=== PATIENT | female | born 1980 | race African-American/Black ===

== ENCOUNTER 2017-09-02 08:48 | Day surgery (SDC) | payer MEDICARE, MEDICAID ==
[2017-09-01 14:05] VITALS: BMI 22.6
[~2017-09-02 08:48] MED LIST: FLU VACC QS2017-18 36 mo. & older 0.5 ML SYRINGE IM ONE
--- OUTSIDE RECORDS SUMMARY | 2017-09-02 08:51 | XMS | Clinical Summary ---
:1980 Author Organization [facility] Address [address] [place] [phone] Phone Care Team Providers Name Role Phone , Primary Care Provider Unavailable Allergies No Known Allergies Current Medications Prescription Sig. Disp. Refills Start Date End Date Status ergocalciferol (VITAMIN Take 50,000 Units Active D2) 50,000 unit capsule by mouth once a week. cinacalcet (SENSIPAR) 30 Take 30 mg by Active MG tablet mouth daily. metoprolol (LOPRESSOR) 50 Take 50 mg by Active MG tablet mouth 3 (three) times daily. minoxidil (LONITEN) 10 MG Take 10 mg by Active tablet mouth daily. cloNIDine HCl (CATAPRES) Take 0.3 mg by Active 0.3 MG tablet mouth 3 (three) times daily. losartan (COZAAR) 100 MG Take 100 mg by Active tablet mouth 3 (three) times daily. hydrALAZINE (APRESOLINE) Take 100 mg by Active 100 MG tablet mouth 3 (three) times daily. sevelamer (RENVELA) 800 mg Take 800 mg by Active tablet mouth 3 (three) times daily with meals 5 tablets with meals . folic acid-multivitamins Take 1 tablet by Active (B COMPLEX-VITAMIN C-FOLIC mouth daily. ACID) 0.8 mg Tab tablet Active Problems Problem Noted Date Lupus (systemic lupus erythematosus) (HCC) 04/27/2013 HTN (hypertension) 04/27/2013 Pre-transplant evaluation for ESRD (end stage renal disease) 04/27/2013 Social History Tobacco Use Types Packs/Day Years Used Date Never Smoker Alcohol Use Drinks/Week oz/Week Comments No Sex Assigned at Date Recorded Not on file Last Filed Vital Signs Vital Sign Reading Time Taken Blood Pressure 128/75 08/29/2016 1:41 PM CDT Pulse 72 08/29/2016 1:41 PM CDT Temperature 36.6 C (97.8 F) 08/29/2016 11:51 AM CDT Respiratory Rate 18 08/29/2016 1:41 PM CDT Oxygen Saturation 96% 08/29/2016 11:51 AM CDT Inhaled Oxygen Concentration - - Weight 56.7 kg (125 lb) 08/29/2016 11:51 AM CDT Height 154.9 cm (5' 1") 08/29/2016 11:51 AM CDT Body Mass Index 23.62 08/29/2016 11:51 AM CDT Plan of Treatment Health Maintenance Due Date Last Done Comments INFLUENZA VACCINE 08/31/2017 Results Not on filefrom Last 3 Months
--- OUTSIDE RECORDS SUMMARY | 2017-09-02 08:51 | XMS | Clinical Summary ---
:1980 Author Organization [facility] Address [address] [place] [address] Phone Care Team Providers Name Role Phone , Primary Care Provider Unavailable Allergies Not on File Current Medications Not on file Active Problems Not on file Social History Tobacco Use Types Packs/Day Years Used Date Never Assessed Sex Assigned at Date Recorded Not on file Last Filed Vital Signs Not on file Plan of Treatment Not on file Results Not on filefrom Last 3 Months
[2017-09-02 08:59] LABS: #Eosinphils 0.1 thou/uL (0.0-0.7); #Lymphocytes 0.9 thou/uL (1.20-3.40); #Monocytes 0.3 thou/uL (0.11-0.59); #Neutrophils 2.6 thou/uL (1.40-6.50); %Basophils 0.5 % (0.0-1.0); %Eosinophils 2.3 % (0.0-10.0); %Lymphocytes 21.9 % (21.0-51.0); %Monocytes 8.7 % (0.0-10.0); Hematocrit 29.1 % (36.0-47.0); Mean Platelet Volume 8.1 fL (7.4-10.4); Red Blood Cell (RBC) Count 2.93 mill/uL (4.20-5.40); White Blood Cell (WBC) Count 3.9 thou/uL (4.8-10.8)
[2017-09-02 09:03] LABS: PTT 37.3 SEC (22.9-36.1); Prothrombin Time 14.4 SEC (12.0-14.7)
[2017-09-02 13:06] VITALS: BP 125/80; TEMP 97.5
--- NOTE | 2017-09-02 14:09 | ULT ---
ULTRASOUND GUIDED PARACENTESIS: Date: 09-02-17 History: Ascites, lupus, endstage renal disease. Technique: Consent was obtained. Patient was placed in the angiography table in the supine position. Limited sonographic evaluation of the abdomen was performed. The largest area of fluid is seen with in the midline lower pelvic infraumbilical location. This area was marked and then prepped and drape d in the usual sterile fashion. Skin subcutaneous tissues were infiltrated with buffered 1% Lidocain e for local anesthesia. Small skin incision was made. Utilizing concurrent real-time ultrasound guid ance, a 19 gauge Seculerteh needle with 5 Danish sheath was advanced into the abdomen. After the return of fluid, the sheath was advanced and needle was removed. Approximately 2 L of clear sally fluid was a spirated. The sheath was removed and hemostatis was achieved with direct pressure. Post paracentesi s sonographic images demonstrate decrease in free fluid with only very tiny amount of free intraperi toneal fluid remaining. Dry sterile dressing was placed at catheter entry site. Patient tolerated the procedure well without immediate complication. IMPRESSION: Technically successful ultrasound guided paracentesis with aspiration of two liters of sally colored fluid. POS: [facility]
== END 2017-09-02 10:30 | disposition home or self-care (01) ==
LOC: ULT 08:48
PROVIDERS: ATTEND Internal Medicine
DX: R18.8 Other ascites (principal); M32.9 Systemic lupus erythematosus, unspecified; I13.2 Hypertensive heart and chronic kidney disease with heart failure and with stage 5 chronic kidney disease, or end stage renal disease; N18.6 End stage renal disease; I50.9 Heart failure, unspecified; Z79.899 Other long term (current) drug therapy; Z99.2 Dependence on renal dialysis; Z98.51 Tubal ligation status
CPT/HCPCS: 36415; 49083; 85025; 85610; 85730

== ENCOUNTER 2017-09-30 08:55 | Day surgery (SDC) | payer MEDICARE, MEDICAID ==
[2017-09-29 08:55] VITALS: BMI 23.6
--- OUTSIDE RECORDS SUMMARY | 2017-09-30 09:05 | XMS | Clinical Summary ---
:1980 Author Organization [facility] Address [address] [place] [phone] Phone Care Team Providers Name Role Phone [...]
--- OUTSIDE RECORDS SUMMARY | 2017-09-30 09:05 | XMS | Clinical Summary ---
:1980 Author Organization [facility] Address [address] [place] [address] Phone Care Team Providers Name Role Phone [...]
[2017-09-30 11:16] VITALS: BP 104/58; TEMP 97.9
--- NOTE | 2017-09-30 15:35 | ULT ---
ULTRASOUND GUIDED PARACENTESIS: Date: 09-30-17 History: Recurrent ascites. Technique: After informed consent was obtained, the patient was placed on the sonography table in th e supine position. Limited sonographic evaluation of the abdomen was performed. An area in the mid a xillary line right upper quadrant was marked and meticulously prepped and draped in the usual steril e fashion. Skin and subcutaneous tissues were infiltrated with buffered 1% Lidocaine for local anesthesia. Smal l skin incision was made. Utilizing concurrent real-time ultrasound guidance a 19 gauge Nanoleafeh needle with 5 Macedonian sheath was advanced into the abdomen. After return of fluid, the sheath was advanced a nd needle was removed. Approximately 2700 ml of clear sally fluid was aspirated. After sheath was re moved hemostatis was achieved with direct pressure. Follow up imaging after paracentesis demonstrate s a small amount of intraperitoneal free fluid in the right upper quadrant adjacent to the liver. Patient tolerated the procedure well and without immediate complication. Dry sterile dressing was pl aced at the catheter entry site. IMPRESSION: Technically successful ultrasound guided paracentesis. POS: [facility]
== END 2017-09-30 10:20 | disposition home or self-care (01) ==
LOC: ULT 08:55
PROVIDERS: ATTEND Internal Medicine
PROC: 0W9G3ZX Drainage of Peritoneal Cavity, Percutaneous Approach, Diagnostic (ICD-10-PCS; principal; 2017-09-30)
DX: R18.8 Other ascites (principal); M32.9 Systemic lupus erythematosus, unspecified; I12.0 Hypertensive chronic kidney disease with stage 5 chronic kidney disease or end stage renal disease; N18.6 End stage renal disease; Z79.899 Other long term (current) drug therapy; Z99.2 Dependence on renal dialysis
CPT/HCPCS: 49083

== ENCOUNTER 2017-10-18 17:51 | Emergency (ER) | payer MEDICARE, MEDICAID ==
[2017-10-18 18:22] LABS: #Eosinphils 0.3 thou/uL (0.0-0.7); #Lymphocytes 0.9 thou/uL (1.20-3.40); #Monocytes 0.4 thou/uL (0.11-0.59); #Neutrophils 5.7 thou/uL (1.40-6.50); %Basophils 0.2 % (0.0-1.0); %Eosinophils 4.6 % (0.0-10.0); %Lymphocytes 12.7 % (21.0-51.0); %Monocytes 5.4 % (0.0-10.0); Hematocrit 34.8 % (36.0-47.0); Mean Platelet Volume 8.9 fL (7.4-10.4); Red Blood Cell (RBC) Count 3.38 mill/uL (4.20-5.40); White Blood Cell (WBC) Count 7.4 thou/uL (4.8-10.8)
--- NOTE | 2017-10-18 18:37 | RAD ---
CHEST ONE VIEW 10/18/17 HISTORY: Dyspnea. COMPARISON: Chest one view 07/25/17. FINDINGS: Heart size is enlarged. Mild pulmonary edema. Patchy air space opacity right lower lobe. No pneumothorax. IMPRESSION: Cardiomegaly with edema and patchy air space opacity right lower lobe also likely edematous. Followup after treatment recommended to exclude pneumonia. POS: [facility]
[2017-10-18 18:42] LABS: ALT (SGPT) 8 U/L (8-55); AST (SGOT) 14 U/L (5-34); Alkaline Phosphatase 73 U/L (40-150); Anion Gap 16 mmol/L (10-20); BUN (Urea Nitrogen) 19 mg/dL (7.0-18.7); Bilirubin, Total 0.8 mg/dL (0.2-1.2); Calc. Creatinine Clearance 0 mL/min (70-130); Calcium 10.3 mg/dL (7.8-10.44); Carbon Dioxide 33 mmol/L (22-29); Chloride 92 mmol/L (98-107); Estimated GFR-MDRD 7; Globulin 4.5 g/dL (2.4-3.5); Protein, Total 8.4 g/dL (6.0-8.3)
== END 2017-10-18 19:57 | disposition home or self-care (01) ==
LOC: ERS 17:51
DX: J98.01 Acute bronchospasm (principal); K42.9 Umbilical hernia without obstruction or gangrene; G43.909 Migraine, unspecified, not intractable, without status migrainosus; I10 Essential (primary) hypertension; M32.9 Systemic lupus erythematosus, unspecified; Z99.2 Dependence on renal dialysis
CPT/HCPCS: 36415; 71010; 80053; 85025; 93005; 94760

== ENCOUNTER 2017-11-10 16:16 | Emergency (ER) | payer MEDICARE, MEDICAID ==
[2017-11-10 16:57] LABS: #Eosinphils 0.2 thou/uL (0.0-0.7); #Lymphocytes 0.8 thou/uL (1.20-3.40); #Monocytes 0.4 thou/uL (0.11-0.59); #Neutrophils 4.1 thou/uL (1.40-6.50); %Basophils 0.7 % (0.0-1.0); %Eosinophils 3.1 % (0.0-10.0); %Lymphocytes 14.8 % (21.0-51.0); Mean Platelet Volume 8.7 fL (7.4-10.4); Red Blood Cell (RBC) Count 2.85 mill/uL (4.20-5.40); White Blood Cell (WBC) Count 5.4 thou/uL (4.8-10.8)
[2017-11-10 17:25] LABS: ALT (SGPT) 7 U/L (8-55); AST (SGOT) 14 U/L (5-34); Alkaline Phosphatase 63 U/L (40-150); Anion Gap 21 mmol/L (10-20); BUN (Urea Nitrogen) 35 mg/dL (7.0-18.7); Bilirubin, Total 0.7 mg/dL (0.2-1.2); Calc. Creatinine Clearance 0 mL/min (70-130); Calcium 9.6 mg/dL (7.8-10.44); Carbon Dioxide 26 mmol/L (22-29); Chloride 96 mmol/L (98-107); Estimated GFR-MDRD 4; Globulin 4.5 g/dL (2.4-3.5); Protein, Total 8.3 g/dL (6.0-8.3)
--- NOTE | 2017-11-10 18:47 | RAD ---
THREE VIEWS LEFT SHOULDER: History: Left shoulder pain for two days. FINDINGS: AP internally and externally and scapular Y views obtained. Subtle distal left clavicular erosive changes seen. These are chronic and unchanged since the previou s comparison chest radiograph from 07-25-17. Right subclavian endovascular stent in place. No evidence of acute fractures, subluxations, or bony lesions seen. IMPRESSION: No acute evidence of left shoulder pathology seen. POS: [facility]
[2017-11-10] MEDS ORDERED: HYDROcodone/Acetaminophen 10/325 mg Tablet ONE (20:15)
[2017-11-10] MEDS ORDERED: Ketorolac Tromethamine 30 MG/ML VIAL ONE (20:15)
== END 2017-11-10 20:30 | disposition home or self-care (01) ==
LOC: ERS 16:16
DX: M25.512 Pain in left shoulder (principal); G43.909 Migraine, unspecified, not intractable, without status migrainosus; I10 Essential (primary) hypertension
CPT/HCPCS: 36415; 80053; 85025; 85652; 93005; 96372; J1885

== ENCOUNTER 2017-11-25 20:32 | Observation (INO) | payer MEDICARE, MEDICAID ==
--- NOTE | 2017-11-25 21:42 | RAD ---
CHEST ONE VIEW 11/25/17 HISTORY: Shortness of breath. COMPARISON: 10/18/17 study. Heart size is markedly enlarged. Right brachiocephalic stent is in place. The lungs are clear of infi ltrates. There is no signs of failure. IMPRESSION: Marked cardiomegaly. POS: [facility]
[2017-11-25 21:56] LABS: #Eosinphils 0.1 thou/uL (0.0-0.7); #Lymphocytes 0.8 thou/uL (1.20-3.40); #Monocytes 0.4 thou/uL (0.11-0.59); %Basophils 0.3 % (0.0-1.0); %Eosinophils 1.5 % (0.0-10.0); %Lymphocytes 19.2 % (21.0-51.0); %Monocytes 10.3 % (0.0-10.0); %Neutrophils 68.7 % (42.0-75.0); Hemoglobin 8.9 g/dL (12.0-16.0); Mean Corpuscular HGB CONC 31.6 g/dL (32.0-36.0); Mean Corpuscular Hemoglobin 31.4 pg (27.0-31.0); Mean Corpuscular Volume 99.3 fl (81.0-99.0); Mean Platelet Volume 8.9 fL (7.4-10.4); Platelet Count 153 thou/uL (130-400); RBC Distribution Width 15.2 % (11.5-14.5); Red Blood Cell (RBC) Count 2.83 mill/uL (4.20-5.40); White Blood Cell (WBC) Count 4.3 thou/uL (4.8-10.8)
[2017-11-25 22:18] LABS: ALT (SGPT) Less than 7 U/L (8-55); AST (SGOT) 11 U/L (5-34); Albumin 3.7 g/dL (3.5-5.0); Alkaline Phosphatase 59 U/L (40-150); Anion Gap 23 mmol/L (10-20); BUN (Urea Nitrogen) 57 mg/dL (7.0-18.7); Bilirubin, Total 0.8 mg/dL (0.2-1.2); Calc. Creatinine Clearance 0 mL/min (70-130); Calcium 9.4 mg/dL (7.8-10.44); Carbon Dioxide 25 mmol/L (22-29); Chloride 91 mmol/L (98-107); Estimated GFR-MDRD 2; Globulin 4.1 g/dL (2.4-3.5); Glucose 93 mg/dL (70-105); Potassium 5.4 mmol/L (3.5-5.1); Protein, Total 7.8 g/dL (6.0-8.3); Sodium 134 mmol/L (136-145)
[2017-11-26] MEDS ORDERED: PROVENTIL INHALER 6.7 G (200 INHALATIONS) INH PRN (01:33)
[2017-11-26 05:15] VITALS: BMI 28.0
--- NOTE | 2017-11-26 05:31 | HP-2 ---
CODE STATUS: FULL. PRIMARY CARE PHYSICIAN: [facility]. ATTENDING PHYSICIAN: Dr. Josemanuel Lawton RESIDENT: Dr. Maria Dolores Hillman CHIEF COMPLAINT: Shortness of breath. HISTORY OF PRESENT ILLNESS: This is a 37-year-old female with past medical history of hypertension, lupus and end-stage renal disease on dialysis that presents with a 1 week history of shortness of sanju ath that has progressed over the past day. The patient normally goes to dialysis Friday, Friday, and Friday. However, she has not been since last Friday due to trouble with transportation. The patient endorses orthopnea and paroxysmal nocturnal dyspnea. She also has abdominal distention and l ack of urination secondary to end-stage renal disease. The patient generally gets a paracentesis per formed q.4-6 weeks, but the last time she had it done was 2 months ago. The patient sees Dr. Church as an outpatient. The patient has had her liver evaluated in the past. There have been no abnormal li alo findings previously. PAST MEDICAL HISTORY: 1. Hypertension. 2. Lupus. 3. End-stage renal disease, on hemodialysis Friday, Friday, and Fridays. 4. Migraine headaches. PAST SURGICAL HISTORY: 1. Kidney biopsy. 2. Bilateral tubal ligation. 3. Dialysis fistula in the right arm. ALLERGIES: No known drug allergies. MEDICATIONS: 1. Metoprolol tartrate 50 mg b.i.d. 2. Losartan 100 mg daily. 3. Hydralazine 100 mg t.i.d. 4. Clonidine 0.3 mg t.i.d. 5. Minoxidil 10 mg daily. FAMILY HISTORY: Noncontributory. SOCIAL HISTORY: The patient denies tobacco, alcohol, or drug use. REVIEW OF SYSTEMS: A 12 point review of systems was performed and all were negative except as listed in HPI. PHYSICAL EXAMINATION: VITAL SIGNS: Blood pressure 123/69, pulse 77, respiratory rate 16, T-max 97, pulse oximetry 99% on r oom air, current weight 65 kilograms. GENERAL: The patient is alert and oriented x3, no acute distress. Well-developed, well-nourished, a ppropriately interactive. EYES: Pupils equally round, reactive to light and accommodation. Extraocular muscles intact. The p atient does have significant periorbital edema. ENT: Nasal mucosa within normal limits. NECK: Supple, without lymphadenopathy. CARDIOVASCULAR: Regular rate and rhythm. There is a 3/6 systolic murmur. Radial and pedal pulses 2 +. RESPIRATORY: Normal respiratory effort, no retractions. Lungs are clear to auscultation bilaterally . SKIN: Warm and dry without cyanosis or lesions. ABDOMEN: Soft, nontender to palpation. She does have a notable fluid wave on abdominal exam. Her a bdomen does appear to be enlarged secondary to increased volume. EXTREMITIES: No clubbing or cyanosis. There is trace edema bilaterally of lower extremities. MUSCULOSKELETAL: Structure within normal limits. Tone within normal limits. NEUROLOGIC: No focal deficits. GCS 15. PSYCHIATRIC: Appropriate. LABORATORY DATA: WBC 4.3, hemoglobin 8.9, hematocrit 28.1, platelets 153. Sodium 134, potassium 5.4, chloride 91, bicarbonate 25, BUN 57, creatinine 20.4, glucose 93, calcium 9.4, total protein 7.8, albumin 3.7, total bilirubin 0.8, AST 11, ALT less than 7, alkaline phosphata se 59. BNP 3116. EKG shows left ventricular hypertrophy. No T-wave abnormalities. There is QT prolongation on EKG. ASSESSMENT AND PLAN: This is a 37-year-old female with end-stage renal disease, on hemodialysis , Friday, Friday, lupus and hypertension that presents with shortness of breath. 1. Fluid overload secondary to end-stage renal disease. The patient was admitted to telemetry for o bservation. Dr. Flores was consulted in the emergency department. He will be initiating dialysis t omorrow morning. The patient's potassium was 5.4. Patient is asymptomatic. There are no notable EK G abnormalities. Phosphorus is pending for the a.m. EKG did show some left ventricular hypertrophy without that T-wave changes. We will discuss possibly doing a paracentesis tomorrow depending on the schedule with dialysis. 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 Please see plan as above. 3. Hypertension. Continue home medications. 4. Ascites, unknown cause. The patient does undergo paracentesis pretty frequently. She normally g oes q.4-6 weeks; however, she has not been in 2 months. The patient may benefit from a paracentesis at this time for therapeutic purposes. The patient sees Dr. Varner as an outpatient; however, [facility] has been the ones to perform the paracentesis in the past. It is uncertain of wheth er or not there is a specific reason as to why [facility] is performing these taps. 5. Deep venous thrombosis prophylaxis, SCDs. DISPOSITION/LENGTH OF HOSPITAL STAY: One day. Symptomatic medication will be provided. History of physical exam as well as management discussed with Dr. Josemanuel Lawton.
[2017-11-26 06:11] LABS: Anion Gap 22 mmol/L (10-20); BUN (Urea Nitrogen) 60 mg/dL (7.0-18.7); Calc. Creatinine Clearance 4 mL/min (70-130); Calcium 9.5 mg/dL (7.8-10.44); Carbon Dioxide 25 mmol/L (22-29); Chloride 92 mmol/L (98-107); Estimated GFR-MDRD 2; Glucose 127 mg/dL (70-105); Potassium 5.4 mmol/L (3.5-5.1); Sodium 134 mmol/L (136-145)
[2017-11-26 06:14] LABS: Phosphorus 11.3 mg/dL (2.3-4.7)
[2017-11-26] MEDS: cloNIDine 0.3 MG TAB PO SCH ×3 (08:26→20:46)
[2017-11-26] MEDS: hydrALAZINE 25 MG TAB PO SCH ×3 (08:26→20:46)
[2017-11-26] MEDS: Metoprolol Tartrate 50 MG TAB PO SCH ×3 (08:26→20:49)
[2017-11-26 08:59] LABS: Hep B Surf Ag Non-Reactive S/CO (NonReactive)
[2017-11-26 09:27] LABS: INR-International Normal Ratio 1.2; PTT 39.4 SEC (22.9-36.1); Prothrombin Time 14.9 SEC (12.0-14.7)
--- NOTE | 2017-11-26 10:21 | PDOC.EVN ---
Attending Addendum - Attending Addendum I personally evaluated the patient and discussed the management with Dr. Hillman. I agree with the History, Examination, Assessment and Plan documented in her H& P with any addition or exceptions noted below. Patient with history of lupus resulting in ESRD on HD presents with shortness of breath. She reports that she has missed HD over the last week due to transportation issues. She has no evidence of acute coronary syndrome or ischemia as cause of her symptoms. She has been admitted for HD today. Will follow with Renal to ensure if she needs multiple days of HD to catch up with her degree of volume overload. Her vitals are currently stable. She also has history of ascites that is typically drained by IR monthly. She endorses worsening abdominal distention that is likely related to her noncompliance with HD and fluid accumulation. She should follow up with GI outpatient to arrange for further paracentesis as it is not currently causing any respiratory compromise.
[2017-11-26] MEDS: Acetaminophen 325 MG TAB PO PRN ×2 (13:34→20:49)
[2017-11-26] MEDS ORDERED: HYDROcodone/Acetaminophen 5/325 mg Tablet PO SCH (15:30)
[2017-11-26] MEDS ORDERED: Losartan Potassium 25 MG TAB PO SCH (21:00)
[2017-11-26] MEDS ORDERED: Minoxidil 10 MG TAB PO SCH (21:00)
--- NOTE | 2017-11-27 06:01 | PDOC.FM ---
- Subjective Subjective: Patient doing well this morning. Breathing better. Does report abdominal discomfort, but scheduled for paracentesis today. No other complaints and no overnight events. - Objective MAR Reviewed: Yes Vital Signs & Weight: Vital Signs (12 hours) Temp Pulse Resp BP Pulse Ox 11/27/17 03:35 98.6 F 87 16 131/71 95 11/26/17 22:58 98.3 F 91 16 114/59 L 98 11/26/17 20:00 97.7 F 89 18 11/26/17 19:03 97.7 F 89 18 121/69 97 Weight Weight 63.276 kg I&O: 11/25/17 11/26/17 11/27/17 06:59 06:59 06:59 Intake Total 925 Output Total 4500 Balance -3575 Result Diagrams: 11/25/17 21:30 11/27/17 06:42 Phys Exam - Physical Examination Constitutional: NAD HEENT: sclera anicteric Respiratory: no wheezing, no rales, no rhonchi Cardiovascular: RRR systolic murmur taut, distended, + fluid wave, small 1cm umbilical hernia (reducible) Musculoskeletal: no edema Neurological: moves all 4 limbs Psychiatric: normal affect, A&O x 3 Skin: cap refill <2 seconds Dx/Plan (1) Pulmonary HTN Code(s): I27.2 - OTHER SECONDARY PULMONARY HYPERTENSION * DO NOT USE * Status : Acute (2) Ascites Code(s): R18.8 - OTHER ASCITES Status: Chronic Qualifiers: (3) ESRD (end stage renal disease) on dialysis Code(s): N18.6 - END STAGE RENAL DISEASE; Z99.2 - DEPENDENCE ON RENAL DIALYSIS Status: Chronic (4) Hypertension Code(s): I10 - ESSENTIAL (PRIMARY) HYPERTENSION Status: Chronic (5) Lupus Code(s): M32.9 - SYSTEMIC LUPUS ERYTHEMATOSUS, UNSPECIFIED Status: Chronic (6) Hyperkalemia Code(s): E87.5 - HYPERKALEMIA Status: Acute (7) Hyperphosphatemia Code(s): E83.39 - OTHER DISORDERS OF PHOSPHORUS METABOLISM Status: Acute - Plan Plan: Volume Overload 2/2 ESRD on HD - patient missed HD last week - HD on 11/26, symptomatically improved, Cr at baseline - electrolytes improved - continue regular HD schedule - Dr. Flores following, appreciate recs Hyperkalemia - resolved with dialysis Hyperphosphatemia - improved with dialysis, repeat outpatient Ascites - chronic, patient gets symptomatic paracentesis q4-6weeks by IR - scheduled paracentesis today - unknown cause but is being followed by Dr. Varner outpatient, evaluation of liver done - FHx of ascites with mom, considering Lupus as potential cause. - HepB Ag negative - HepC Ag pending Lupus - symptomatic treatment - not on any home meds, not symptomatic at this time HTN - hypotensive after HD, so meds held, will monitor BP and slowly restart meds - likely DC today.
--- NOTE | 2017-11-27 06:11 | CON ---
DATE OF CONSULTATION: 11/26/2017 CONSULTING PHYSICIAN: Dr. Josemanuel Lawton REASON FOR CONSULTATION: End-stage renal disease evaluation. REASON FOR ADMISSION: Shortness of breath. HISTORY OF PRESENT ILLNESS: A 37-year-old female with history of hypertension, lupus, end-stage max l disease who came to the hospital with shortness of breath. She missed dialysis for a week. No fev er or chills. No nausea, vomiting. She complains of abdominal distention. PAST MEDICAL HISTORY: Positive for hypertension, lupus, end-stage renal disease, migraine headaches. PAST SURGICAL HISTORY: Kidney biopsy, bilateral tubal ligation, dialysis fistula placement. HOME MEDICATIONS: Metoprolol, losartan, hydralazine, clonidine, minoxidil. ALLERGIES: No known drug allergies. SOCIAL HISTORY: No smoking, alcohol, or illicit drug abuse. FAMILY HISTORY: No history of kidney disease. REVIEW OF SYSTEMS: The following complete review of systems was negative, unless otherwise mentioned in the HPI or below: Constitutional: Weight loss or gain, ability to conduct usual activities. Skin: Rash, itching. Eyes: Double vision, pain. ENT/Mouth: Nose bleeding, neck stiffness, pain, tenderness. Cardiovascular: Palpitations, dyspnea on exertion, orthopnea. Respiratory: Shortness of breath, wheezing, cough, hemoptysis, fever or night sweats. Gastrointestinal: Poor appetite, abdominal pain, heartburn, nausea, vomiting, constipation, or diarr hea. Genitourinary: Urgency, frequency, dysuria, nocturia. Musculoskeletal: Pain, swelling. Neurologic/Psychiatric: Anxiety, depression. Allergy/Immunologic: Skin rash, bleeding tendency. PHYSICAL EXAMINATION: GENERAL: This is a thin-built female in no apparent distress. VITAL SIGNS: Temperature 97.7, pulse 89, respiratory rate 18, blood pressure 121/69. HEENT: Atraumatic, normocephalic. Oral mucosa is moist. NECK: Supple. CARDIOVASCULAR: S1, S2 heard. Rate and rhythm regular. RESPIRATORY: Clear. ABDOMEN: Soft. MUSCULOSKELETAL: 1+ edema. DERMATOLOGIC: No skin rash. NEUROLOGIC: Alert, awake. PSYCHIATRIC: Normal mood and affect. LABORATORY DATA: Potassium is 5.4, BUN is 60, creatinine is 2.8. ASSESSMENT AND PLAN: 1. End-stage renal disease. Continue hemodialysis, tolerated. 2. Edema, remove fluid. 3. Fluid overload. 4. Ascites. Recommend with ascitic tap as needed. 5. Anemia 6. Noncompliance, counseled. Overall, poor prognosis. Continue on hemodialysis as tolerated.
[2017-11-27 07:10] LABS: Anion Gap 18 mmol/L (10-20); BUN (Urea Nitrogen) 27 mg/dL (7.0-18.7); Calc. Creatinine Clearance 6 mL/min (70-130); Carbon Dioxide 27 mmol/L (22-29); Chloride 97 mmol/L (98-107); Estimated GFR-MDRD 4; Glucose 108 mg/dL (70-105); Phosphorus 7.9 mg/dL (2.3-4.7); Potassium 4.3 mmol/L (3.5-5.1); Sodium 138 mmol/L (136-145)
[2017-11-27] MEDS ORDERED: Sodium Bicarbonate 2.4 MEQ/5 ML ONE (07:20)
--- NOTE | 2017-11-27 09:11 | ULT ---
PARACENTESIS WITH IMAGING: HISTORY: Ascites. COMPARISON: Paracentesis from 09/30/2017. FINDINGS: The patient was brought to the ultrasound suite. All questions were answered. The patient's right lower quadrant was prepped and draped in the normal sterile fashion. A time out was performed. Informed consent was already obtained. Buffered lidocaine, 3 mL, was instilled into the superficial and deep soft tissues for local anesthes ia. After adequate anesthesia was obtained, a small dermatotomy was made. Using a 5 [place] [employer] nee dle, the peritoneal space was accessed, and 3600 mL of straw-colored ascites was aspirated. The kimberly ent tolerated the procedure well. IMPRESSION: Technically successful ultrasound-guided paracentesis. POS: [facility]
[2017-11-27] MEDS: Metoprolol Tartrate 50 MG TAB PO SCH (10:45)
[2017-11-27] MEDS ORDERED: HYDROcodone/Acetaminophen 7.5/325 mg Tablet PO SCH (10:45)
[2017-11-27] MEDS: cloNIDine 0.3 MG TAB PO SCH (10:48)
[2017-11-27] MEDS: hydrALAZINE 25 MG TAB PO SCH (12:02)
[2017-11-27 12:03] VITALS: BP 129/76; TEMP 98.3
[2017-11-27 13:20] LABS: Hep C IgG Ab Non-Reactive (NonReactive)
--- NOTE | 2017-11-27 14:38 | ADD-PRG ---
DATE OF SERVICE: 11/27/2017 ADDENDUM This is an addendum to the note of Dr. Toshia Vasquez. Ms. Vogt is a pleasant 37-year-old black female with end-stage renal disease on hemodialysis , Friday, and Friday. She missed her last two dialysis sessions because of transportation issues . She presented fluid overloaded and short of breath and was taken to dialysis where she has not gre atly improved. She is breathing much easier and is becoming more euvolemic. She has a history of un explained ascites that has been worked up extensively by the GI Service. In the event, clinically sh e has improved and will likely be discharged later today or tomorrow. I have suggested checking for hepatitis C as the patient has tattoos and has been on dialysis in the past.
--- NOTE | 2017-11-27 23:06 | PRG ---
DATE OF SERVICE: 11/27/2017 SUBJECTIVE: The patient as seen and examined at the bedside and overnight events noted. The patient denies any shortness of breath or chest pain or palpitation. No history of nausea or vomiting or di arrhea or fever or chills or cramps. OBJECTIVE: GENERAL: This is a well-built female in no acute distress. VITAL SIGNS: Temperature 98.3, pulse 91, respiratory rate 16, blood pressure 129/76. HEENT: Atraumatic, normocephalic. Oral mucosa is moist. NECK: Supple. CARDIOVASCULAR: S1, S2 heard, rate and rhythm regular. RESPIRATORY: Clear to auscultation. GASTROINTESTINAL: Abdomen is soft. MUSCULOSKELETAL: No tenderness, No edema. DERMATOLOGIC: No skin rash. NEUROLOGIC: Alert, awake, and oriented X3, no focal neurologic deficits, moving all the extremities. PSYCHIATRIC: Mood and affect normal LABORATORY DATA: Potassium is 4.3, BUN is 27, creatinine is 7.2. ASSESSMENT AND PLAN: 1. End-stage renal disease currently on hemodialysis, ____. 2. Ascites, status post paracentesis. 3. Anemia. 4. Noncompliance. The patient was advised to have dialysis today, but the patient refused and will continue on dialysis as tolerated. Status post paracentesis, feeling better. The patient was advised to have regular se ssion of dialysis.
--- NOTE | 2017-11-30 19:44 | DIS-2 ---
DATE OF ADMISSION: 11/25/2017 DATE OF DISCHARGE: 11/27/2017 ADMITTING RESIDENT: Toshia Vasquez DO ADMITTING ATTENDING: Josemanuel Lawton MD DISCHARGE ATTENDING: Bryan Schultz MD CONSULTATION: Leila Flores MD, Nephrology. PROCEDURE/IMAGIN. Chest x-ray with marked cardiomegaly. 2. Paracentesis with 3600 mL of ascites fluid aspirated. PRIMARY DIAGNOSES: 1. Fluid overload secondary to end-stage renal disease. 2. Ascites, unknown etiology. SECONDARY DIAGNOSES: 1. Lupus nephritis. 2. Hypertension. 3. Migraine headaches. DISCHARGE MEDICATIONS: 1. Clonidine 0.3 mg p.o. t.i.d. 2. Hydralazine HCL 100 mg p.o. t.i.d. 3. Losartan 100 mg p.o. at bedtime. 4. Metoprolol tartrate 50 mg p.o. t.i.d. 5. Minoxidil 10 mg p.o. at bedtime. 6. Ventolin HFA inhaler, 2 puffs inhaled q.6 hours p.r.n. DISCONTINUED MEDICATIONS: None. HISTORY OF PRESENT ILLNESS/HOSPITAL COURSE: The patient is a 37-year-old -Thai female wit h past medical history of hypertension, lupus, and end-stage renal disease on dialysis who presented with a 1-week history of shortness of breath that progressed over the past day. The patient normally has dialysis on Friday, Friday, Friday; however, last week she did miss her Friday and Friday dialysis due to transportation issues. The patient also has chronic recurring ascites and has seen Dr. Telly Ayala, for a workup. At this time, etiology is unknown, but the patient does receive therapeut ic paracentesis once a month. Dr. Flores, Nephrology, was consulted and the patient was taken for a hemodialysis. Initial lab work had hyperkalemia and hyperphosphatemia, as well as a mild hyponatrem ia. These numbers were corrected with dialysis. The patient reports much improved shortness of matty th after dialysis. Since it had been greater than 1 month since her last paracentesis and the patien t had severely distended abdomen, the patient was taken back to IR for ultrasound-guided paracentesis during her stay, which also provided great relief for the patient. The patient's vital signs remain ed stable throughout her stay and the patient was discharged home in stable condition. DISCHARGE INSTRUCTIONS: 1. Location: Home. 2. Diet: Renal diet, heart healthy diet. ACTIVITY: As tolerated. FOLLOWUP: Continue with hemodialysis on Friday, Friday, and Friday; and follow up with Dr. Telly pereira s well as refinery operator vapor recovery unit for scheduled appointment.
== END 2017-11-27 15:21 | disposition home or self-care (01) ==
LOC: ERS 20:32 → 2SW 23:55
PROVIDERS: ADMIT Family Medicine; ATTEND Family Medicine
DX: I12.0 Hypertensive chronic kidney disease with stage 5 chronic kidney disease or end stage renal disease (principal); N18.6 End stage renal disease; E87.70 Fluid overload, unspecified; R18.8 Other ascites; M32.14 Glomerular disease in systemic lupus erythematosus; G43.909 Migraine, unspecified, not intractable, without status migrainosus; D63.1 Anemia in chronic kidney disease; Z99.2 Dependence on renal dialysis; Z79.899 Other long term (current) drug therapy; Z98.51 Tubal ligation status; Z98.890 Other specified postprocedural states
CPT/HCPCS: 49083; 71010; 80048 ×2; 80053; 83880; 84100 ×2; 85025; 85610; 85730; 86803; 87340; 93005; 99285; G0378; 36415; 90935; G0257

== ENCOUNTER 2018-01-06 08:23 | Day surgery (SDC) | payer MEDICARE, MEDICAID ==
[2018-01-06 08:43] LABS: INR-International Normal Ratio 1.1; PTT 38.8 SEC (22.9-36.1); Prothrombin Time 13.9 SEC (12.0-14.7)
[2018-01-06 09:08] LABS: #Eosinphils 0.1 thou/uL (0.0-0.7); #Lymphocytes 0.7 thou/uL (1.20-3.40); #Monocytes 0.2 thou/uL (0.11-0.59); %Basophils 0.1 % (0.0-1.0); %Eosinophils 3.9 % (0.0-10.0); %Lymphocytes 23.8 % (21.0-51.0); %Monocytes 6.2 % (0.0-10.0); Hemoglobin 8.9 g/dL (12.0-16.0); Mean Corpuscular HGB CONC 31.4 g/dL (32.0-36.0); Mean Corpuscular Hemoglobin 31.7 pg (27.0-31.0); Mean Platelet Volume 9.2 fL (7.4-10.4); PLT Morphology Comment PLT SLIGHTLY DECREASED; Platelet Count 112 thou/uL (130-400); RBC Distribution Width 14.9 % (11.5-14.5); Red Blood Cell (RBC) Count 2.81 mill/uL (4.20-5.40)
[2018-01-06 10:16] VITALS: BMI 24.5
[2018-01-06 10:17] VITALS: BP 173/97; TEMP 98
--- NOTE | 2018-01-06 12:29 | ULT ---
SONOGRAPHIC GUIDED PARACENTESIS: HISTORY: Recurrent ascites. FINDINGS: After explaining the procedure and answering all questions, a sonographic survey of the abdomen shows a large amount of free fluid. Sterile technique, buffered local anesthesia, sonographic guidance, a nd a right anterolateral approach were used to carefully advance a 19 gauge Yueh needle and catheter into the free fluid. The catheter was left to drain a total volume of 3.5 L of dark yellow liquid. The catheter was removed. Minimal fluid remains. The patient tolerated the procedure well and was d ismissed in good condition. IMPRESSION: Technically successful sonographic guided paracentesis. POS: [facility]
[2018-01-06] MEDS ORDERED: FLU VACC QS2017-18 36 mo. & older 0.5 ML SYRINGE IM ONE (21:00)
== END 2018-01-06 10:05 | disposition home or self-care (01) ==
LOC: ULT 08:23
PROVIDERS: ATTEND Internal Medicine
PROC: 0W9G3ZX Drainage of Peritoneal Cavity, Percutaneous Approach, Diagnostic (ICD-10-PCS; principal; 2018-01-06)
DX: R18.8 Other ascites (principal); I12.0 Hypertensive chronic kidney disease with stage 5 chronic kidney disease or end stage renal disease; N18.6 End stage renal disease; M32.9 Systemic lupus erythematosus, unspecified; Z99.2 Dependence on renal dialysis
CPT/HCPCS: 36415; 49083; 85025; 85610; 85730

== ENCOUNTER 2018-02-03 09:09 | Day surgery (SDC) | payer MEDICARE, MEDICAID ==
[2018-02-03 09:30] LABS: #Eosinphils 0.1 thou/uL (0.0-0.7); #Monocytes 0.3 thou/uL (0.11-0.59); %Basophils 0.4 % (0.0-1.0); %Eosinophils 2.3 % (0.0-10.0); %Lymphocytes 22.8 % (21.0-51.0); %Monocytes 5.7 % (0.0-10.0); %Neutrophils 68.8 % (42.0-75.0); Hemoglobin 8.7 g/dL (12.0-16.0); Mean Corpuscular HGB CONC 32.1 g/dL (32.0-36.0); Mean Corpuscular Hemoglobin 31.3 pg (27.0-31.0); Mean Corpuscular Volume 97.4 fl (81.0-99.0); Mean Platelet Volume 7.7 fL (7.4-10.4); Platelet Count 192 thou/uL (130-400); RBC Distribution Width 16.1 % (11.5-14.5); Red Blood Cell (RBC) Count 2.77 mill/uL (4.20-5.40); White Blood Cell (WBC) Count 4.3 thou/uL (4.8-10.8)
[2018-02-03 09:32] LABS: INR-International Normal Ratio 1.1; PTT 37.3 SEC (22.9-36.1); Prothrombin Time 14.2 SEC (12.0-14.7)
[2018-02-03 11:08] VITALS: BP 151/98; TEMP 98.7
--- NOTE | 2018-02-03 11:55 | ULT ---
ULTRASOUND GUIDED PARACENTESIS: Date: 02/03/18 COMPARISON: 11/27/17. HISTORY: Ascites. FINDINGS: Technically successful ultrasound guided paracentesis. A total of 4 liters of yellow-colored ascites was aspirated. The patient tolerated the procedure well. No immediate or postprocedure complications. TECHNIQUE: Consent obtained to perform an ultrasound guided paracentesis. Right lower quadrant was deemed approp riate. Skin was prepped and draped in the sterile fashion. 1% lidocaine, buffered with sodium bicarbo gregg, was used for local anesthesia. Under ultrasound guidance, a 5 Swazi 7.0 cm [employer] catheter was a dvanced into the peritoneal space. Via vacuum bottles, a total of 4 liters of yellow-colored ascites was aspirated. The patient tolerated the procedure well. No immediate or postprocedure complications. IMPRESSION: Technically successful ultrasound guided paracentesis. POS: [facility]
== END 2018-02-03 10:50 | disposition home or self-care (01) ==
LOC: ULT 09:09
PROVIDERS: ATTEND Internal Medicine
PROC: 0W9G3ZX Drainage of Peritoneal Cavity, Percutaneous Approach, Diagnostic (ICD-10-PCS; principal; 2018-02-03)
PROC: BW40ZZZ Ultrasonography of Abdomen (ICD-10-PCS; 2018-02-03)
DX: R18.8 Other ascites (principal); I12.0 Hypertensive chronic kidney disease with stage 5 chronic kidney disease or end stage renal disease; N18.6 End stage renal disease; M32.9 Systemic lupus erythematosus, unspecified; Z99.2 Dependence on renal dialysis
CPT/HCPCS: 36415; 49083; 85025; 85610; 85730

== ENCOUNTER 2018-02-18 10:48 | Day surgery (SDC) | payer MEDICARE, MEDICAID ==
[2018-02-17 14:22] VITALS: BMI 23.6
[~2018-02-18 10:48] MED LIST changes: +Prevnar 13-Val Conj/PF 0.5 ML SYRINGE IM ONE
[2018-02-18 11:33] VITALS: BP 112/74; TEMP 97.5
--- NOTE | 2018-02-18 15:03 | ULT ---
ULTRASOUND GUIDED PARACENTESIS: Date: 02/18/18 COMPARISON: 02/03/18. HISTORY: Ascites. FINDINGS: Technically successful ultrasound guided paracentesis. A total of 5,200 mL of yellow-colored ascites was removed. A small amount of postprocedure fluid is present in the peritoneal space. TECHNIQUE: Consent obtained to perform an ultrasound guided paracentesis. The patient's abdomen was evaluated. R ight lower quadrant was deemed appropriate. Skin was prepped and draped in the sterile fashion. 1% li docaine, buffered with sodium bicarbonate, was used for local anesthesia. Under ultrasound guidance, a 5 Lithuanian 7.0 cm catheter was advanced into the peritoneal space. Via vacuum bottles, a total of 5,2 00 mL of yellow-colored ascites was aspirated. The patient tolerated the procedure well. No immediate or postprocedure complications. IMPRESSION: Successful ultrasound guided paracentesis. POS: [facility]
== END 2018-02-18 14:30 | disposition home or self-care (01) ==
LOC: ULT 10:48
PROVIDERS: ATTEND Internal Medicine
PROC: 0W9G3ZZ Drainage of Peritoneal Cavity, Percutaneous Approach (ICD-10-PCS; principal; 2018-02-18)
DX: R18.8 Other ascites (principal); I12.0 Hypertensive chronic kidney disease with stage 5 chronic kidney disease or end stage renal disease; N18.6 End stage renal disease; M32.9 Systemic lupus erythematosus, unspecified; Z99.2 Dependence on renal dialysis; Z79.899 Other long term (current) drug therapy
CPT/HCPCS: 49083

== ENCOUNTER 2018-02-23 09:21 | Emergency (ER) | payer MEDICARE, MEDICAID ==
[2018-02-23] MEDS ORDERED: Aspirin 325 MG TAB ONE (09:37)
[2018-02-23 10:01] LABS: #Basophils 0.1 thou/uL (0.0-0.2); #Eosinphils 0.2 thou/uL (0.0-0.7); #Lymphocytes 0.3 thou/uL (1.20-3.40); #Monocytes 0.3 thou/uL (0.11-0.59); #Neutrophils 10.6 thou/uL (1.40-6.50); %Basophils 1.1 % (0.0-1.0); %Lymphocytes 2.4 % (21.0-51.0); %Monocytes 2.6 % (0.0-10.0); %Neutrophils 91.9 % (42.0-75.0); Hemoglobin 8.8 g/dL (12.0-16.0); Mean Corpuscular HGB CONC 31.2 g/dL (32.0-36.0); Mean Corpuscular Hemoglobin 30.9 pg (27.0-31.0); Mean Corpuscular Volume 99.1 fl (81.0-99.0); Mean Platelet Volume 8.5 fL (7.4-10.4); Platelet Count 226 thou/uL (130-400); RBC Distribution Width 15.4 % (11.5-14.5); Red Blood Cell (RBC) Count 2.84 mill/uL (4.20-5.40); White Blood Cell (WBC) Count 11.6 thou/uL (4.8-10.8)
[2018-02-23] MEDS ORDERED: Morphine 4 MG/ML VIAL ONE ×2 (10:14→11:47)
--- NOTE | 2018-02-23 10:15 | RAD ---
CHEST TWO VIEWS: HISTORY: Chest pain. COMPARISON: 12/06/2016 and 11/25/2017 FINDINGS: The cardiac silhouette is enlarged. The pulmonary vasculature is at the upper limits of normal. The mediastinum is midline. There is no confluent air space consolidation, pneumothorax, or pleural flu id apparent. A metallic stent is in the right brachiocephalic vessels. Metallic clips are in the ri ght axilla and right arm. IMPRESSION: Cardiomegaly. No evidence of pulmonary vascular congestion. POS: [facility]
[2018-02-23 10:19] LABS: ALT (SGPT) 10 U/L (8-55); AST (SGOT) 23 U/L (5-34); Albumin 3.8 g/dL (3.5-5.0); Alkaline Phosphatase 123 U/L (40-150); Anion Gap 21 mmol/L (10-20); BUN (Urea Nitrogen) 47 mg/dL (7.0-18.7); Bilirubin, Total 0.7 mg/dL (0.2-1.2); CK (CPK) 519 U/L (29-168); Calc. Creatinine Clearance 0 mL/min (70-130); Calcium 10.2 mg/dL (7.8-10.44); Carbon Dioxide 25 mmol/L (22-29); Chloride 90 mmol/L (98-107); Estimated GFR-MDRD 4; Glucose 73 mg/dL (70-105); Potassium 6.2 mmol/L (3.5-5.1); Protein, Total 7.8 g/dL (6.0-8.3); Sodium 130 mmol/L (136-145)
[2018-02-23 10:27] LABS: CKMB 7.4 ng/mL (0-6.6); Troponin I 2.696 ng/mL (< 0.028)
[2018-02-23] MEDS ORDERED: Metoprolol Tartrate 5 MG/5 ML VIAL ONE (12:21)
[2018-02-23] MEDS ORDERED: HYDROmorphone 0.5 MG/0.5 ML SYRINGE SLOW IVP SCH (14:00)
== END 2018-02-23 15:56 | disposition short-term general hospital (02) ==
LOC: ERS 09:21
DX: T82.847A Pain due to cardiac prosthetic devices, implants and grafts, initial encounter (principal); R07.9 Chest pain, unspecified; I25.2 Old myocardial infarction; G43.909 Migraine, unspecified, not intractable, without status migrainosus; I10 Essential (primary) hypertension; M32.9 Systemic lupus erythematosus, unspecified; Z79.899 Other long term (current) drug therapy; Z99.2 Dependence on renal dialysis
CPT/HCPCS: 71046; 80053; 82553; 83880; 84484; 85025; 93005; 96374; 96375; 96376; J1170; J2270

== ENCOUNTER 2018-03-09 02:34 | Inpatient (IN) | payer MEDICARE, MEDICAID ==
[2018-03-09 03:19] LABS: #Lymphocytes 1.8 thou/uL (1.20-3.40); #Monocytes 0.7 thou/uL (0.11-0.59); #Neutrophils 8.8 thou/uL (1.40-6.50); %Eosinophils 0.2 % (0.0-10.0); %Lymphocytes 16.1 % (21.0-51.0); %Neutrophils 77.6 % (42.0-75.0); Hemoglobin 8.9 g/dL (12.0-16.0); Mean Corpuscular HGB CONC 32.2 g/dL (32.0-36.0); Mean Corpuscular Hemoglobin 30.8 pg (27.0-31.0); Mean Corpuscular Volume 95.9 fl (81.0-99.0); Platelet Count 311 thou/uL (130-400); RBC Distribution Width 18.2 % (11.5-14.5); Red Blood Cell (RBC) Count 2.88 mill/uL (4.20-5.40); White Blood Cell (WBC) Count 11.3 thou/uL (4.8-10.8)
[2018-03-09 03:26] LABS: INR-International Normal Ratio 1.6; PTT 29.7 SEC (22.9-36.1); Prothrombin Time 19.8 SEC (12.0-14.7)
[2018-03-09] MEDS ORDERED: Ondansetron HCl/PF 4 MG/2 ML Vial ONE (03:27)
[2018-03-09] MEDS ORDERED: Metoprolol Tartrate 5 MG/5 ML VIAL ONE ×2 (03:27→16:23)
[2018-03-09 03:41] LABS: ALT (SGPT) 609 U/L (8-55); AST (SGOT) 2094 U/L (5-34); Albumin 3.5 g/dL (3.5-5.0); Alkaline Phosphatase 583 U/L (40-150); Anion Gap 32 mmol/L (10-20); BUN (Urea Nitrogen) 33 mg/dL (7.0-18.7); Bilirubin, Total 1.8 mg/dL (0.2-1.2); Calc. Creatinine Clearance 0 mL/min (70-130); Calcium 10.2 mg/dL (7.8-10.44); Carbon Dioxide 16 mmol/L (22-29); Chloride 89 mmol/L (98-107); Estimated GFR-MDRD 7; Globulin 4.7 g/dL (2.4-3.5); Lipase 41 U/L (8-78); Magnesium 2.3 mg/dL (1.6-2.6); Potassium 5.4 mmol/L (3.5-5.1); Protein, Total 8.2 g/dL (6.0-8.3); Sodium 132 mmol/L (136-145)
[2018-03-09 03:46] LABS: Critical Call Chem Troponin I RESULT DECREASING; Glucose 41 mg/dL (70-105); Troponin I 1.772 ng/mL (< 0.028)
[2018-03-09] MEDS ORDERED: Dextrose 50% Abboject 50 ML SYRINGE ONE ×2 (03:46→14:34)
[2018-03-09] MEDS ORDERED: Acetaminophen 325 MG TAB PO PRN (05:54)
[2018-03-09] MEDS ORDERED: Ondansetron ODT 4 MG TAB SL PRN (05:54)
[2018-03-09] MEDS ORDERED: Ondansetron HCl/PF 4 MG/2 ML Vial IVP PRN (05:54)
[2018-03-09 06:44] LABS: Troponin I 1.547 ng/mL (< 0.028)
--- NOTE | 2018-03-09 08:03 | RAD ---
SINGLE VIEW CHEST: Date: 03/09/18 COMPARISON: 11/25/17. HISTORY: Shortness of breath with nausea and vomiting. FINDINGS: Single view of the chest shows an enlarged cardiomediastinal silhouette. This has enlarged and is gre ater than on the prior examination. There is no evidence of consolidation, mass, or pleural effusion. A stent is seen in the right subclavian region. IMPRESSION: Cardiomegaly. POS: [facility]
--- NOTE | 2018-03-09 08:25 | CT ---
PRELIMINARY REPORT/[facility]/EMERGENTY AFTER-HOURS PROCEDURE CT Abdomen and Pelvis With Intravenous Contrast CLINICAL HISTORY: 38 years old, female; Signs and symptoms; Nausea and vomiting; Prior surgery; Surgery type: Kidney bi opsy, surgical history of tubal ligation; Patient HX: Er 12; HX of ascites; Elevated lfts; 38 yo f pr esents to ed C/O generalized weakness that started last night at 22: 00. Reports n/v since last night . Denies abdominal pain. Also reports SOB. Pt is a dialysis pt. Pt states that she is scheduled to [facility] abdominal centesis on friday TECHNIQUE: Axial computed tomography images of the abdomen and pelvis with intravenous contrast. COMPARISON: No relevant prior studies available. FINDINGS: Lung bases: Microatelectasis and air trapping in the lung bases. Heart: Massive pericardial effusion. ABDOMEN: Liver: The liver demonstrates diffuse heterogeneous enhancement without clear cirrhotic change withou t discrete mass. No narrowing of the hepatic veins or intrahepatic IVC. Portal vein is patent. There is periportal edema including pericholecystic fluid. Gallbladder and bile ducts: Gallbladder lumen is compressed with possible gallbladder wall edema. No cholelithiasis. No biliary ductal dilatation. Pancreas: Unremarkable. No mass. No ductal dilation. Spleen: Unremarkable. No splenomegaly. Adrenals: Unremarkable. No mass. Kidneys and ureters: Incidental small bilateral renal cysts. Advanced chronic medical renal disease. No hydronephrosis. Stomach and bowel: No bowel wall thickening or intestinal obstruction. Appendix: Normal appendix. PELVIS: Bladder: Unremarkable. No mass. Reproductive: Unremarkable as visualized. ABDOMEN and PELVIS: Intraperitoneal space: Massive amount of ascites. No free air. Bones/joints: No acute fracture. No dislocation. Soft tissues: Small umbilical hernia containing fat only. Vasculature: Unremarkable. No abdominal aortic aneurysm. Lymph nodes: Unremarkable. No enlarged lymph nodes. IMPRESSION: 1. Massive pericardial effusion. 2. Massive amount of ascites. 3. Nonspecific abnormal diffuse heterogeneous enhancement of the liver may signify acute hepatitis. 4. There is periportal edema, including pericholecystic fluid, and possible gallbladder wall edema, a ttributable to patient's fluid status, hepatic dysfunction, or both. Findings discussed with CECILIA CASTELAN MD at time of interpretation. Thank you for allowing us to participate in the care of your patient. Dictated and Authenticated by: Albert García MD 03/09/2018 4:53 AM Central Time ([place] & [place]) FINAL REPORT EMERGENCY AFTER HOURS CT ABDOMEN AND PELVIS WITH CONTRAST: Date: 03/09/18 FINDINGS/IMPRESSION: I agree with the findings and impression given in the preliminary report per [facility] physician. 1. There is a large amount of ascites. 2. There is a large pericardial effusion. 3. Heterogeneous enhancement of the liver, which is nonspecific. POS: [facility]
[2018-03-09] MEDS ORDERED: Prevnar 13-Val Conj/PF 0.5 ML SYRINGE IM ONE (09:00)
[2018-03-09 09:28] LABS: Troponin I 1.719 ng/mL (< 0.028)
--- NOTE | 2018-03-09 10:36 | PDOC.EVN ---
Event Note - Event Note Event Note: [id number] h&P dictated 1.ESRD 2. HTN 3. Pericardial effusion + Abnormal cardiac enzymes 4. Ascites plan: see orders
[2018-03-09] MEDS ORDERED: Ketamine 50 MG/ML VIAL ONE (12:38)
[2018-03-09] MEDS ORDERED: Midazolam HCl 2 mg/2 ml Vial ONE (12:38)
[2018-03-09] MEDS ORDERED: Fentanyl 100 MCG/2 ML VIAL ONE (12:38)
--- NOTE | 2018-03-09 12:41 | PDOC.PN ---
- Subjective Encounter Start Date: 03/09/18 Encounter Start Time: 12:30 CC: Code blue Sub: Code blue was called while pt on dialysis. Pt had CPR, epinephrine and paricardiocentesis done during code blue. Currently has pulse - Objective Vital Signs & Weight: Vital Signs (12 hours) Temp Pulse Resp BP Pulse Ox 03/09/18 08:00 96.9 F L 88 16 100 03/09/18 07:13 96.9 F L 88 16 130/100 H 100 03/09/18 05:55 97.4 F L 92 16 161/124 H 100 Weight Weight 125 lb Result Diagrams: 03/09/18 14:33 03/09/18 14:33 Dx/Plan - Plan Physical exam: General: Unresponsive HEENT: ant nares patent cvs: s1s2 tachy RS: Positive ET tube, currently being bagged IT SUPPORT SPECIALIST: unresponsive and not following commands Labs: Reviewed A/P: Ms Vogt is 38 yrs odl female 1. Cardiac arrest: S/P cardiac arrest continue vasopressors Bp stable at present 2. Acute respiratory failure: Continue respiratory support Reviewed ABG & CXR Continue sodium bicarbonate Anesthesia on board 3. Acute anemia over anemia of chronic disease: Will give two units of PRBC Monitor hgb closely 4. Pericardial effusion: S/P Pericardiocentes CT surgery on board Pericardial window now 5. ESRD: Had HD for 50 minutes per RN Nephrology on board Management per Dr Church 6. Ascites: hold paracentesis for now Monitor for now D/W Dr Irving, Code team Update pt grand mother and pt aunt at bed side in detail about pt critical condition and prognosis. Time spent 45 minutes approximately.
[2018-03-09] MEDS ORDERED: Sodium Bicarb 50 MEQ/50 ML Abboject 8.4% SYRINGE ONE ×2 (12:56→16:32)
[2018-03-09 13:14] LABS: #Lymphocytes 1.7 thou/uL (1.20-3.40); #Monocytes 0.7 thou/uL (0.11-0.59); #Neutrophils 9.2 thou/uL (1.40-6.50); %Basophils 0.1 % (0.0-1.0); %Lymphocytes 14.9 % (21.0-51.0); %Monocytes 5.9 % (0.0-10.0); Hemoglobin 6.7 g/dL (12.0-16.0); Mean Corpuscular Volume 99.9 fl (81.0-99.0); Mean Platelet Volume 9.3 fL (7.4-10.4); Platelet Count 300 thou/uL (130-400); RBC Distribution Width 18.2 % (11.5-14.5); Red Blood Cell (RBC) Count 2.22 mill/uL (4.20-5.40); White Blood Cell (WBC) Count 11.6 thou/uL (4.8-10.8)
[2018-03-09 13:35] LABS: Protein, Total 5.9 g/dL (6.0-8.3)
--- NOTE | 2018-03-09 13:49 | PDOC.EVN ---
Event Note - Event Note Event Note: Called to a code blue in dialysis for this patient, not under our care in the hospital admitted for abd pain, ESRD and pericardial effusion. [facility] team presented to code with attending Dr. Rocha. Pt was found to be pulseless and CPR started prior to our arrival. The code was started at 1155 and ended at 1236. ROSC was achieved 3x with loss of pulse twice during code. 1 mg epi given 3x and ultimately epi drip was started. Pt also administered 2 amps of bicarb and calcium chloride. Pt was intubated by ED staff with need for RSI (etomidate and daily used), NG placed. Informed during code pt had Hg of 4.8 and ordered [address] Irving performed pericardiocentesis in code after stat echo showed large pericardial effusion. After final ROSC, pt to go to OR with Dr. Ham for pericardial window procedure. Please review code record for further details about code participants, detailed time and admin of medications and staffing. <Elise Scott - Last Filed: 03/09/18 13:19> Attending Addendum - Attending Addendum Date/Time: 03/13/18 [id number] I personally evaluated the patient and participated in the Code Response with Patrick Salgado, and Rafy. I agree with the description of resuscitation as documented above. <Zhao Rocha - Last Filed: 03/13/18 14:58>
--- NOTE | 2018-03-09 14:13 | CON ---
DATE OF CONSULTATION: 03/09/2018 REASON FOR CONSULTATION: Hyperkalemia. HISTORY OF PRESENT ILLNESS: A 38-year-old female being seen for end-stage renal disease, who present ed to the hospital with sudden onset of shortness of breath, was noted to have elevated troponin, per icardial effusion, and hyperkalemia. The patient can give no further history. PAST MEDICAL HISTORY: Significant for hypertension, anemia, lupus nephritis, history of congestive h eart failure, history of anemia, history of migraine headaches, history of kidney biopsy, history of tubal ligation, history of AV fistula, history of tunneled dialysis catheter, and history of sepsis. HOME MEDICATIONS: List reviewed. HOSPITAL MEDICATIONS: Reviewed. ALLERGIES: Reviewed. REVIEW OF SYSTEMS: Unobtainable, the patient is very short of breath. PHYSICAL EXAMINATION: GENERAL: Patient is in mild to moderate distress. VITAL SIGNS: Afebrile, pulse 75, breathing 16, and blood pressure is 131/100. GENERAL APPEARANCE AND MENTAL STATUS: Fair. HEAD/NECK: Normocephalic. Atraumatic. EYES: EOMI. No deformity. EARS: Clear. No ulcers. NOSE: Intact. No lesions. MOUTH: Clear. No discharge. THROAT: Clear. No exudate. LUNGS: Clear. No crackles. CARDIAC: S1, S2. No rub. ABDOMEN: Ascites. GENITALIA/RECTUM: Sadler absent. BACK/EXTREMITIES: Edema 0+ Ulcer- NEUROLOGICAL: Alert and motor intact. SKIN: Rash- Bruise- LYMPHATICS: Edema- Ulcer- LABORATORY DATA: Hemoglobin 8.9, potassium 5.4. ASSESSMENT AND RECOMMENDATIONS: 1. Stage 6 chronic disease. We will plan dialysis. 2. Hypertension, stable. 3. Anemia, stable. 4. Pericardial effusion. I will order a stat echo and consult Cardiology. 5. Elevated troponin, per Cardiology. 6. Congestive heart failure. Plan ultrafiltration. 7. Ascites. 8. Overall, prognosis is extremely poor. I have discussed the above findings with the primary team.
--- NOTE | 2018-03-09 14:27 | RAD ---
RADIOGRAPH CHEST 1 VIEW: Date: 03-09-18 Time: 1:58 p.m. HISTORY: 38-year-old female status post acute total atelectasis of left lung. COMPARISON: 03-09-18 at 12:24 p.m. FINDINGS: The endotracheal tube has been retracted a distance of greater than 6 cm, with distal tip now at the mid thoracic trachea. There has been re-expansion of the left lung, with interval resolution of the p reviously demonstrated total opacification of the left hemithorax. There are small areas of residual airspace density, probably representing atelectasis, in the central left upper lobe and medial left l ower lobe. There is interval worsening of increasing density in the right lower lung zone. Overall mi ld right interstitial edema appears slightly improved. Again noted is the cardiomegaly, but this has apparently improved compared to 03-09-18 at 12:00 a.m. The nasogastric tube has been retracted such renetta t the side port is at the level of the distal esophagus, slightly superior to the EG junction; and wi th the distal tip in the proximal stomach. IMPRESSION: 1. Retraction of the endotracheal tube back to the appropriate position in the mid thoracic trachea. 2. Interval resolution of the previously demonstrated total atelectasis of the left lung. 3. Small areas of airspace densities bilaterally. 4. Interval improvement in the previously very severe enlargement of the cardiac shadow, presumably d ue to drainage of the pericardial effusion by pericardial window procedure. TERI POS: [facility]
--- NOTE | 2018-03-09 14:42 | RAD ---
RADIOGRAPH CHEST 1 VIEW: Date: 03/09/18. Time: 12:24 p.m. HISTORY: A 38-year-old female with pericardial effusion. Dr. Obrien notified the patient's nurse, Ryanne, of the findings at 12:42 p.m. on 03/09/18, then spoke t o OR credit coordinator, Екатерина Arriaga, at 12:45 p.m. on 03/09/18. She stated that the physicians in the OR are aware of the collapsed left lung. COMPARISON: 03/09/18, 3:12 a.m. FINDINGS: An endotracheal tube has now been placed deep into the right mainstem bronchus, and is actually at th e origin of the right lower lobe bronchus. There is a new finding of total opacification of the left hemithorax, representing total collapse of the left lung. Again noted is the severely enlarged card iac shadow, due to a combination of large pericardial effusion and true cardiomegaly. There is anoth er new finding of diffusely mild interstitial densities throughout the right lung, consistent with un ilateral right pulmonary interstitial edema. Again noted is the right subclavian and right brachioce phalic vascular stent. No pneumothorax. NG tube has been placed, with side port and inferior tip in ferior to the diaphragm, outside of the field of view. IMPRESSION: 1. Total atelectasis of the left lung, due to intubation into the right mainstem bronchus and right lower lobe bronchus. 2. Interval development of interstitial edema throughout the right lung. 3. Large pericardial effusion and cardiomegaly. 4. Nasogastric tube placement. CODE CR JN [] POS: [facility]
[2018-03-09] MEDS ORDERED: ISOVUE-370 76%-LOCM 1 ML ONE (14:44)
[2018-03-09 14:51] LABS: Actual Bicarbonate (HCO3a) 15.4 mEq/L (22-26); Base Excess (BEa) -8.7 mEq/L (0 (+/-) 2.5); CO2 Tension 25.5 mmHg (35.0-45.0); Hematocrit-ABG 21.7 % (36.0-47.0); Hemoglobin (Hb) 5.4 g/dL (12.0-16.0)
[2018-03-09 14:52] LABS: ALV-art Gradient 261.725 (0-20); Calcium, Ionized 1.1 mmol/L (1.12-1.30); Puncture Site LR
[2018-03-09] MEDS ORDERED: hydrALAZINE 25 MG TAB PO SCH (15:00)
[2018-03-09 15:03] LABS: Anion Gap 34 mmol/L (10-20); BUN (Urea Nitrogen) 32 mg/dL (7.0-18.7); Calc. Creatinine Clearance 10 mL/min (70-130); Calcium 10.5 mg/dL (7.8-10.44); Carbon Dioxide 17 mmol/L (22-29); Chloride 92 mmol/L (98-107); Estimated GFR-MDRD 8; Potassium 4.3 mmol/L (3.5-5.1); Sodium 139 mmol/L (136-145)
[2018-03-09 15:10] LABS: Glucose 9 mg/dL (70-105)
--- NOTE | 2018-03-09 15:10 | HP ---
DATE OF ADMISSION: 03/09/2018 CHIEF COMPLAINT: Dyspnea, fatigue, chest heaviness. HISTORY OF PRESENT ILLNESS: The patient is a 38-year-old female with past medical history of ESRD, hypertension, lupus, migraine, now came to the ER complaining of chest pain, dyspnea and fatigue. The patient said she started with symptoms a few days back, since then she is having fatigue, complains of dyspnea also dyspnea occurs even on resting and lying flat. The patient complains of abdominal ascites for which she was supposed to have paracentesis done tomorrow. Complains of chest pain. Chest pain is right-sided, heaviness kind of pain, mild intensity. Denies any radiation. No bruits, swelling factors, intermittent. Denies any nausea, denies any vomiting, denies any diarrhea. Complains some PND also from the diffuse ascites, denies any fever, denies any chills, denies cough, denies sputum production. PAST MEDICAL HISTORY: As per HPI. PAST SURGICAL HISTORY: Kidney biopsy, bilateral tubal ligation, AV fistula. ALLERGIES: No known drug allergies. MEDICATIONS: Reviewed. FAMILY HISTORY: Denies heart problems. REVIEW OF SYSTEMS: CONSTITUTIONAL: Denies any fever, denies any chills. EYES: Denies any vision problems. ENT: Negative. NECK: Denies neck pain. CARDIOVASCULAR: Positive for chest pain. RESPIRATORY: Positive for dyspnea. GASTROINTESTINAL: Positive for ascites. MUSCULOSKELETAL: Positive for bilateral swelling. INTEGUMENTARY: Denies any rash. CRANIAL NERVE SYSTEM: Denies syncope, dizziness. PSYCHIATRIC: No anxiety. All other review of systems are reviewed and are negative. PHYSICAL EXAMINATION: VITAL SIGNS: At admission performed temperature 96.9, heart rate 88, respiration 16, blood pressure is 130/100 to 161/124. GENERAL: The patient appears comfortable. HEENT: Pupils equal, round, and reactive. ENT patent. Nose normal. Tongue appears moist. NECK: Supple, no JVD. CARDIOVASCULAR: S1, S2 present. Regular rate and rhythm. Muffled heart sounds. No rubs, no murmurs, no rubs, no gallops. RESPIRATORY: Diminished breath sounds bilaterally, no wheezing, no rhonchi. ABDOMEN: Soft, nontender, no guarding, no organomegaly, n positive ascites, positive fluid thrill PSYCH: Mood appears calm. INTEGUMENT: Denies rash. GENITOURINARY: No suprapubic tenderness. MUSCULOSKELETAL: Positive for edema. NEUROLOGIC: Awake, follows commands. Strength intact, sensory intact. Psych: Mood calm LABORATORY DATA: At the time of H&P performed with white count of 11.3, hemoglobin 8.9, platelet count is 311. PT 19.8, INR 1.6. BMP showed sodium 132 , potassium 5.4, chloride is 89, CO2 16, BUN 33, creatinine 8.08, troponin is 1.719. Initial troponin at the time admission is 1.772., prevois troponin 2.69 on 02/23/18 ASSESSMENT AND PLAN: The patient is 38-year-old female. 1. Pericardial effusion plus abnormal cardiac enzymes. The elevated troponin might be demand ischemia, but with the patient now pericardial effusion, we will go ahead and consult Cardiology to see the patient. The patient is on minoxidil as an outpatient. We will go ahead and hold minoxidil for now due to pericardial effusion. We will keep patient n.p.o. Will wait for cardio input regarding CT surgery. 2. Ascites. Plan to consult IR for paracentesis and we will monitor the patient. 3. End-stage renal disease plus hyperkalemia plus metabolic acidosis. Plan to consult Nephrology for hemodialysis. Hold losartan at this time. 4. Pain, p.r.n. pain. 5. History of lupus. Continue home medications. The case was discussed in detail with the patient. [facility]
[2018-03-09 15:11] LABS: Glucose Accucheck Confirmation 9 mg/dl (70-105)
[2018-03-09] MEDS ORDERED: Vancomycin HCl 1 GM in Sodium Chloride 0.9% 250 ML 250 ML IVPB ONE (15:13)
[2018-03-09] MEDS ORDERED: DEXTROSE 70% IV SCH ×2 (15:15→15:45)
[2018-03-09] MEDS ORDERED: WATER IV SCH ×2 (15:15→15:45)
[2018-03-09] MEDS ORDERED: STERILE WATER IV SCH ×2 (15:15→15:45)
[2018-03-09 15:16] LABS: Anisocytosis MODERATE=16-30 cells (100X) (0-5/hpf); Band 14 % (5-11); Burr Cells SLIGHT = 2-5 cells (100X) (0-1/hpf); Elliptocytes SLIGHT = 2-5 cells (100X) (0-1/hpf); Hemoglobin 6.6 g/dL (12.0-16.0); Lymphocytes 6 % (21-51); MDiff Complete? YES; Mean Corpuscular HGB CONC 30.2 g/dL (32.0-36.0); Mean Corpuscular Hemoglobin 30.4 pg (27.0-31.0); Mean Platelet Volume 9.2 fL (7.4-10.4); Monocytes 2 % (0-10); Neutrophil 77 % (42-75); Ovalocytes SLIGHT = 2-5 cells (100X) (0-1/hpf); PLT Morphology Comment Appears Adequate; Platelet Count 243 thou/uL (130-400); Poikilocytosis SLIGHT = 6-15 cells (100X) (0-5/hpf); Polychromasia MODERATE = 3-4 cells (100X) (0-2/hpf); RBC Distribution Width 17.9 % (11.5-14.5); Reactive Lymphocytes 1 % (0-10); Red Blood Cell (RBC) Count 2.17 mill/uL (4.20-5.40); Schistocytes SLIGHT = 2-5 cells (100X) (0-1/hpf); Vacuoles SLIGHT; White Blood Cell (WBC) Count 17.4 thou/uL (4.8-10.8)
[2018-03-09] MEDS ORDERED: Cefepime 1 GM, Admixture Fee 1 EACH in Sodium Chloride 0.9% 10 ML SLOW IVP SCH (15:30)
[2018-03-09 15:39] LABS: Potassium 4.3 mmol/L (3.5-5.1)
--- NOTE | 2018-03-09 16:05 | OP ---
PREOPERATIVE DIAGNOSIS: Cardiopulmonary arrest with pericardial effusion and ascites with chronic ki dney disease. PROCEDURE: Emergency pericardial window. SURGEON: Damion Ham M.D. ANESTHESIA: General. ESTIMATED BLOOD LOSS: Minimal. FINDINGS: The patient had 150 mL of dark bloody fluid in the pericardial space with stranding presen t suggesting a subacute process. PROCEDURE IN DETAIL: After prepping and draping, incision was made at the xiphoid and carried along the left side of the xiphoid. Fascia was incised and blunt dissection was carried up to the pericard ium, which was incised and the fluid removed. A 19 drain was then placed through a separate stab inc ision, following which the fascia was closed with interrupted [id number] Vicryl sutures and the subcutaneous tissue and skin reapproximated. The patient tolerated the procedure well.
[2018-03-09] MEDS ORDERED: Propofol 1,000 MG/100 ML VIAL IV ONE (16:22)
[2018-03-09] MEDS: Vancomycin HCl 1 GM in Premix Bag 1 BAG IVPB SCH (16:28)
[2018-03-09] MEDS ORDERED: Metoprolol Tartrate 5 MG/5 ML VIAL IVP SCH ×2 (16:29→17:30)
[2018-03-09] MEDS ORDERED: niCARdipine 40MG In NaCl 40 MG/200 ML BAG IVPB SCH (16:30)
--- NOTE | 2018-03-09 16:31 | PDOC.EVN ---
Event Note - Event Note Event Note: Pt is s/p pericardial window. Currently not on vasopressors and on vent support. D/W pt brother, aunts, nieces, grand mother, daughter. Explained to all of them about pt critical condition and prognosis and answered to their satisfactory.
[2018-03-09] MEDS ORDERED: EPINEPHrine 1 MG/10 ML Abboject SYRINGE ONE (16:32)
[2018-03-09] MEDS ORDERED: EPINEPHrine 1 mg/ml MDV (1ml Charge) ONE (16:32)
[2018-03-09] MEDS ORDERED: Calcium Chloride 1 GM/10 ML Abboject SYRINGE ONE (16:32)
[2018-03-09] MEDS ORDERED: Hydrocortisone Sod Succ/PF 100 mg/2 ml Vial ONE (16:33)
[2018-03-09] MEDS ORDERED: Lorazepam 2 MG/ML VIAL SLOW IVP PRN (17:18)
[2018-03-09] MEDS ORDERED: fentaNYL Citrate/PF 2,000 MCG in Sodium Chloride 0.9% 60 ML IV SCH (17:18)
[2018-03-09] MEDS ORDERED: Morphine 2 MG/ML SYRINGE SLOW IVP PRN (17:18)
[2018-03-09] MEDS ORDERED: DISCONTINUE PREVIOUS NARCOTIC PAIN MEDICATIONS AND BENZODIAZEPINES FS SCH ×2 (17:18)
[2018-03-09] MEDS ORDERED: Fentanyl BOLUS 250 ML IVPB PRN ×2 (17:18)
--- NOTE | 2018-03-09 17:28 | PRG ---
DATE OF SERVICE: 03/09/2018 Accu-Cheks will be done every hour. Blood glucoses have been greater than 70 so far and another one is being done now, thus she became tachycardic just to make sure that this is hypoglycemia inducing o r tachycardia.
[2018-03-09 19:00] LABS: #Lymphocytes 0.9 thou/uL (1.20-3.40); #Monocytes 0.5 thou/uL (0.11-0.59); #Neutrophils 16.2 thou/uL (1.40-6.50); %Basophils 0.1 % (0.0-1.0); %Eosinophils 0.1 % (0.0-10.0); %Lymphocytes 5.2 % (21.0-51.0); %Monocytes 3.1 % (0.0-10.0); %Neutrophils 91.5 % (42.0-75.0); Hemoglobin 8.9 g/dL (12.0-16.0); Mean Corpuscular HGB CONC 33.2 g/dL (32.0-36.0); Mean Corpuscular Volume 90.4 fl (81.0-99.0); Mean Platelet Volume 8.8 fL (7.4-10.4); Platelet Count 176 thou/uL (130-400); RBC Distribution Width 15.7 % (11.5-14.5); Red Blood Cell (RBC) Count 2.98 mill/uL (4.20-5.40); White Blood Cell (WBC) Count 17.7 thou/uL (4.8-10.8)
[2018-03-09 19:07] LABS: INR-International Normal Ratio 2.2; PTT 43.3 SEC (22.9-36.1); Prothrombin Time 24.8 SEC (12.0-14.7)
--- NOTE | 2018-03-09 19:22 | PRG ---
DATE OF SERVICE: 03/09/2018 SUBJECTIVE: Ms. Vogt is noted become hypertensive and tachycardic. The heart rate was 148. I co uld not tell if this was atrial flutter or not. Her diastolics over 140, so we gave 5 of Lopressor, which showed that this was sinus tachycardia is down to a heart rate of 120 now. Blood pressure is 1 90/143. Dialysis is starting now. Plan to start her on a Cardene drip until she gets dialyzed for a while. She remains critically ill. The hospitalist and the automotive customer experience advisor met with family, multiple family me mbers are here.
[2018-03-09] MEDS ORDERED: Cefepime 0.5 GM, Admixture Fee 1 EACH in Sterile Water 5 ML SLOW IVP SCH (21:00)
[2018-03-09] MEDS ORDERED: Losartan 25 MG TAB PO SCH ×2 (21:00)
[2018-03-09] MEDS ORDERED: Metoprolol Tartrate 50 MG TAB PO SCH (21:00)
--- NOTE | 2018-03-09 21:22 | CON ---
DATE OF CONSULTATION: 03/09/2018 REASON FOR CONSULTATION: Nausea and vomiting. HISTORY OF PRESENT ILLNESS: Ms. Madison Vogt is a very unfortunate 38-year- old woman with end-stage renal disease on hemodialysis with history of poor compliance with dialysis over the past year. One of the manifestations of her fluid overload has been chronic ascites and for the past several months, she has been having monthly therapeutic paracentesis through Interventional Radiology. We performed some hepatic workup on her, which was fairly extensive last year and really found no evidence of significant primary liver disease. Her renal failure secondary to untreated lupus nephritis. The patient is not compliant with fluid or sodium restriction and frequently has missed dialysis. She presented to the emergency room today with progressive shortness of breath. She was evidently hospitalized at the [facility] recently and was found to have a small pericardial effusion. Now on presentation, her pericardial effusion was much bigger. She was admitted and over the lunch hour at dialysis, she went into asystole. She was coded for over 30 minutes. She had to have rapid emergent pericardiocentesis and then was taken by Dr. Ham for pericardial window. She is now in the Intensive Care Unit. She is receiving ventilatory support, though no vasopressors at this time. Labs are notable for significantly elevated troponins as well as LFTs. Part of her admission complaint was nausea and vomiting. Consultation was placed prior to her code. I am unable to obtain any history from the patient as she is intubated and sedated. She currently has a nasogastric tube in place on low intermittent suction, suctioning out some brownish fluid. REVIEW OF SYSTEMS: Unobtainable due to the patient's mental status. PAST MEDICAL HISTORY: 1. End-stage renal disease secondary to lupus nephritis, on hemodialysis. 2. Hypertension. 3. Migraine headaches. 4. Chronic ascites. 5. AV fistula placement. 6. Bilateral tubal ligation. ALLERGIES: No known drug allergies. OUTPATIENT MEDICATIONS: Clonidine, minoxidil, metoprolol, losartan, and hydralazine. INPATIENT MEDICATIONS: Cefepime, IV fentanyl, propofol, nicardipine, vancomycin. SOCIAL HISTORY: Nonsmoker. FAMILY HISTORY: Unable to obtain from the patient. PHYSICAL EXAMINATION: VITAL SIGNS: Temperature is 93.2, blood pressure 128/96, pulse 107, and 71% oxygen saturation on ventilator. GENERAL: Critically ill 38-year-old -[place] woman lying in bed, sedated and intubated. MENTAL: Sedated and intubated. SKIN: No jaundice, no rash is visible or palpable. EYES: No scleral icterus. ENT: She is endotracheally intubated. Nasogastric tube in place with brownish gastric contents being suctioned. LYMPH: No submandibular, supraclavicular lymphadenopathy. HEART: Regular tachycardia. LUNGS: Bibasilar crackles. She is on the ventilator, bilateral vent sounds. ABDOMEN: Distended with ascites. Bowel sounds present. EXTREMITIES: Bilateral lower extremity edema. VESSELS: Radial pulses 2+ bilaterally. NEUROLOGICAL: She is sedated, does not follow commands. LABORATORY STUDIES: WBC 17.4, hemoglobin 6.6, platelets 243. INR 1.6, glucose 105, potassium 4.3, sodium 139, BUN 32, creatinine 7.10, calcium 10.5. Lactate dehydrogenase 3801. Lipase 39. Troponin 1.71. BNP is 1737. LFTs elevated with total bilirubin 1.8, alkaline phosphatase 583, AST 2094, ALT 609, lipase normal at 41. IMAGING STUDIES: Chest x-ray showed total atelectasis of the left lung due to intubation of the right main stem bronchus and her to full development of interstitial edema of the right lung, large pericardial effusion and cardiomegaly. This was upon initial intubation earlier today. CT of the abdomen and pelvis from early this morning demonstrated no clear cirrhotic change of the liver, no discrete mass of the liver, patent portal vein, possible gallbladder wall edema with massive ascites and a massive pericardial effusion. ASSESSMENT AND PLAN: 1. Chronic ascites. This is more secondary to anuric renal failure, noncompliance with sodium and fluid restriction, and inability to remove fluid with dialysis. Liver workup performed last year really showed no significant evidence of severe liver disease. At some point, consider therapeutic paracentesis later this admission. This would be best performed by Interventional Radiology under ultrasound guidance. 2. Pericardial effusion. It appears this may have been causing tamponade physiology. She is now status post emergency pericardial window earlier today. 3. End-stage renal failure. Dr. Church is following. She is currently on continuous dialysis. 4. Elevated liver function tests. This is new this admission. It likely represents shock liver. Trend LFTs daily. The patient's prognosis is poor. Nothing further to be done from a GI perspective other than full supportive measures as you are already doing. Please call back anytime with questions or concerns. GARFIELD
[2018-03-09] MEDS: Propofol 1,000 MG/100 ML VIAL IV PRN (23:21)
[2018-03-10 04:36] LABS: Anion Gap 18 mmol/L (10-20); BUN (Urea Nitrogen) 27 mg/dL (7.0-18.7); Calc. Creatinine Clearance 12 mL/min (70-130); Calcium 10.4 mg/dL (7.8-10.44); Carbon Dioxide 27 mmol/L (22-29); Chloride 94 mmol/L (98-107); Estimated GFR-MDRD 10; Glucose 139 mg/dL (70-105); Sodium 135 mmol/L (136-145)
[2018-03-10 05:11] LABS: Band 4 % (5-11); Hemoglobin 7.6 g/dL (12.0-16.0); Lymphocytes 12 % (21-51); MDiff Complete? YES; Mean Corpuscular HGB CONC 30.9 g/dL (32.0-36.0); Mean Corpuscular Hemoglobin 27.8 pg (27.0-31.0); Mean Platelet Volume 9.2 fL (7.4-10.4); Monocytes 2 % (0-10); Neutrophil 82 % (42-75); PLT Morphology Comment Appears Adequate; Platelet Count 211 thou/uL (130-400); RBC Distribution Width 15.6 % (11.5-14.5); Red Blood Cell (RBC) Count 2.72 mill/uL (4.20-5.40); White Blood Cell (WBC) Count 17.4 thou/uL (4.8-10.8)
[2018-03-10] MEDS: Propofol 1,000 MG/100 ML VIAL IV PRN ×2 (06:26→14:49)
[2018-03-10 07:42] LABS: Actual Bicarbonate (HCO3a) 28.1 mEq/L (22-26); CO2 Tension 27.4 mmHg (35.0-45.0); Hematocrit-ABG 31.6 % (36.0-47.0); Hemoglobin (Hb) 9.2 g/dL (12.0-16.0); O2 Tension (PaO2) 57.1 mmHg (80.0-100.0); pH, Arterial 7.63 (7.35-7.45)
--- NOTE | 2018-03-10 07:42 | PRG ---
DATE OF SERVICE: 03/09/2018 I noticed an order was placed for a paracentesis. I have contacted Radiology. I do not think a larg e volume paracentesis should be done at this time. At the most, a diagnostic paracentesis with cultu res and cell count would be appropriate. Her empiric antimicrobial therapy should cover for pathogen s associated with spontaneous peritonitis.
[2018-03-10 07:43] LABS: Calcium, Ionized 1.2 mmol/L (1.12-1.30); Puncture Site LR
--- NOTE | 2018-03-10 08:18 | RAD ---
SINGLE VIEW OF THE CHEST: COMPARISON: 03/09/18. HISTORY: Ventilated patient with weakness and respiratory failure. FINDINGS: A single view of the chest shows an enlarged cardiomediastinal silhouette. The lines and tubes are u nchanged in position. Diffuse hazy opacities are seen in the lungs, unchanged. There is a stent in the right subclavian region. IMPRESSION: Stable exam. POS: SHAYY
--- NOTE | 2018-03-10 08:32 | CON ---
DATE OF CONSULTATION: 03/09/2018 The patient is a 38-year-old female. She was seen in the emergency room early this morning. Abdomen and pelvis CT was done showing cirrho sis findings of the liver. Massive ascites was seen. She subsequently was admitted according to the notes. She is on dialysis today, had about 600 mL of fluid removed when she fully arrested. She was resuscitated. An echocardiogram-guided emergency pericardiocentesis was done and she was breezy en to the OR for a window. She subsequently was transferred to the Critical Care Unit. PAST MEDICAL HISTORY: 1. Hypertension. 2. History of lupus. 3. History of cardiomyopathy. I found old echo showing an ejection fraction of 75% with some eviden ce of an outflow obstruction. 4. History of vascular headaches. 5. History of renal biopsy in the past. 6. History of tubal ligation. 7. History of vascular access procedures. 8. History of multiple paracentesis procedures done in the past as an outpatient. SOCIAL HISTORY: She is reportedly nonsmoker and nondrinker, does not use drugs. ALLERGIES: She has no drug allergies. FAMILY HISTORY: Negative for lung disease in early age. SOCIAL HISTORY: Not obtainable. REVIEW OF SYSTEMS: Not obtainable. She is intubated. Actually, her blood glucose was extremely low when she arrived in the ICU. She magallanes s been given D50. PHYSICAL EXAMINATION: VITAL SIGNS: She is afebrile. Her temperature is actually low. She has a warmer on. Heart rates i n the 90s, blood pressure 114/68. HEENT: Sclerae are anicteric. NECK: Supple. LUNGS: Clear anteriorly. HEART: Regular rhythm. S1 and S2 are normal. She has a pericardial drain in place with Magdaleno-Pra tt. ABDOMEN: Protuberant and distended. EXTREMITIES: Without asymmetry. LABORATORY DATA: White count was 11.6, hemoglobin 6.7, platelets 300,000. Blood gas 7.4, CO2 of 25, pO2 of 202. Hemoglobin on blood gas is 5.4. Transfusion has been ordered. Protime was slightly prolonged, INR 1.6. Plasma has been ordered. Sodium 139, potassium 4.3, chloride 92, bicarbonate 17, BUN 32, creatinine is 7.1. Chest radiograph of 11/15 shows a right mainstem intubation. Repeat chest radiograph shows the tube in proper position, gastric tube appears to be in the stomach, mild pulmonary edema. IMPRESSION: Status post arrest during dialysis of unclear reason. She was extremely hypertensive this morning with a diastolic of 124 at 05:55 this morning. I would not think she would be tamponading with this degree of hypertension. I do not think she woul d typically tamponade with only 600 mL volume removal as reported. She is significantly anemic. She is not externally bleeding anywhere so far. She will be transfused 3 units of packed cells and 2 units of plasma. She will continue to be mechanically ventilated. She will have D20 hung and her blood glucoses will be monitored every hour. Critical care time, 45 minutes. DATE OF CONSULTATION: 03/09/2018 ADDENDUM: Her blood will be cultured. Empiric antibiotics will be started given her hypoglycemia. We have to assume that she may be septic and that could have been the triggering factor for the arrest today. ADDENDUM: Lab was again reviewed. It appears that Ms. Vogt's blood glucose was 41 at 0308 this m orning. It was 9 on the Chem-7 that came back drawn at 1432. I would wonder if this was not the cau se of her arrest.
--- NOTE | 2018-03-10 08:36 | CON ---
DATE OF CONSULTATION: 03/09/2018 HISTORY OF PRESENT ILLNESS: Madison Vogt is a 38-year-old black female with end-stage renal disea se who presented to the emergency room complaining of sudden onset of shortness of breath and underwe nt emergent dialysis. She apparently developed ventricular fibrillation and was cardioverted from th is and had progressive hypotensive episodes. She would have a pulse and then become more hypotensive , requiring epinephrine drip to sustain her blood pressure. In the emergency room, she underwe nt abdominopelvic CT, which revealed a large amount of ascites, large pericardial effusion. She was to have undergone echocardiography; however, had the defibrillator arrest. PAST MEDICAL HISTORY: Remarkable for, she apparently has coronary artery disease with stent placemen t at [facility] in January. Hypertension, end-stage renal disease, lupus. OPERATIONS: Tubal ligation; dialysis fistula, right arm; and kidney biopsy. MEDICATIONS: Metoprolol 50 b.i.d., losartan 100 mg daily, clonidine patch 0.3 mcg every 24 hours, hy dralazine 100 mg t.i.d. I do not see aspirin or Plavix amongst her medications with questionable elysia nt placement 1 month ago. SOCIAL HISTORY: She does not smoke or drink. FAMILY HISTORY: Negative for coronary artery disease. REVIEW OF SYSTEMS: Unobtainable due to patient being intubated on the ventilator. PHYSICAL EXAMINATION: VITAL SIGNS: 114/68, pulse of 100, sinus rhythm on the monitor. HEENT: PERRL. NECK: Supple. CHEST: Reveals faint rhonchi. CARDIAC EXAMINATION: S1 and S2 normal, without any S3 or S4. There is 1/6 holosystolic murmur at th e apex. ABDOMEN: Normal bowel sounds, without any tenderness. There is ascites present. EXTREMITIES: Reveal 1+ pretibial edema. NEUROLOGIC EXAM: Unable to be obtained due to the patient's sedation. LABORATORY DATA: EKG revealed sinus tachycardia. Hemoglobin 8.9, falling to 6.7; hematocrit 27.7; w delilah count 11,300; platelets 311,000. INR 1.6. Blood gas postop revealed a pH 7.399, pCO2 of 25.5, pO2 of 202. Glucose was approximately 10 when she was checked postoperatively. Troponin I 2.696. B TAX STAFF ACCOUNTANT 1737.4. IMPRESSION: 1. Cardiac arrest with ventricular fibrillation. 2. Large pericardial effusion with a pericardial window placement with removal of 800 mL of bloody f luid. 3. End-stage renal disease. 4. Anemia. 5. History of stent placement at [facility] 1 month ago. PLAN: The patient will be monitored and be weaned from the ventilator and epinephrine as tolerated. Records will be obtained from [facility] regarding her previous catheterization and stent placement.
[2018-03-10] MEDS ORDERED: cloNIDine 0.3 MG TAB PO SCH ×2 (09:00)
[2018-03-10] MEDS: DEXTROSE IV SCH ×4 (09:00)
[2018-03-10] MEDS: WATER IV SCH ×4 (09:00)
[2018-03-10] MEDS: ADMIXTURE FEE IV SCH ×4 (09:00)
[2018-03-10] MEDS: [UNRECOGNIZED DRUG - OTHER] IV SCH ×4 (09:00)
--- NOTE | 2018-03-10 09:48 | PRG ---
DATE OF SERVICE: 03/10/2018 SUBJECTIVE: A 38-year-old female being seen for end-stage renal disease. The patient remains intubated, tolerated second round of dialysis without any issue. PHYSICAL EXAMINATION: VITAL SIGNS: Afebrile, pulse 92, breathing 16, blood pressure 133/100. GENERAL APPEARANCE: The patient is resting. HEAD/NECK: Normocephalic. Atraumatic. EYES: EOMI. No deformity. EARS: Clear. No ulcers. NOSE: Intact. No lesions. MOUTH: Clear. No discharge. THROAT: Clear. No exudate. LUNGS: Clear. No crackles. CARDIAC: S1, S2. No rub. ABDOMEN: Benign. BS+. GENITALIA/RECTUM: Sadler absent. BACK/EXTREMITIES: Edema 0+ Ulcer- SKIN: Rash- Bruise- LYMPHATICS: Edema- Ulcer- LABORATORY DATA: Show potassium is 4.0. ASSESSMENT AND RECOMMENDATIONS: 1. Stage 6 chronic kidney disease, plan dialysis tomorrow. 2. Hypertension, stable. 3. Anemia, status post transfusion, stable. 4. Medications based on glomerular filtration rate are appropriate. MTDD
[2018-03-10] MEDS: Morphine 4 MG/ML VIAL SLOW IVP PRN (14:24)
--- NOTE | 2018-03-10 14:41 | PQF ---
DATE: 03-10-18 ATTN: DR. BOGDAN EPPS Please exercise your independent, professional judgment in responding to the clarification form. Clinical indicators are provided on the bottom of this form for your review Please check appropriate box(es): [ ] Sepsis [ ] Severe sepsis with acute organ dysfunction of: (Examples: respiratory failure, acute kidney failure, other) [ ] Other diagnosis [ x] Unable to determine In addition, please specify: Present on Admission (POA): [ ] Yes [ ] No [ ] Unable to determine For continuity of documentation, please document condition throughout progress notes and discharge summary. Thank You. CLINICAL INDICATORS - SIGNS / SYMPTOMS / LABS TEMP: 03-09-18: 96.9, 92.6, 62.6, 92.7, 93.2 HR: 03-09-18: 100, 102, 102, 95, 99 RR: 03-09-18: 26, 27, 25, 40, 21, 29 SBP: (ER) 179/133, 183/128, 155/104, 147/106 WBC: 03-09-18: 11.3, 11.6, 17.4, 17.7 03-10-17: 17.4 BANDS: 03-09-18: [address] MAURER 03-09-18: EMPIRIC ANTIBIOTICS WILL BE STARTED GIVEN HER HYPOGLYCEMIA. WE HAVE TO ASSUME THAT SHE MAY BE SEPTIC AND THAT COULD HAVE BEEN THE TRIGGERING FACTOR FOR THE ARREST TODAY. RISK FACTORS: CONSULT NOTE DR. PHELPS 03-09-18: HX OF SEPSIS ER: HX OF WI, STENT PLACEMENT, HTN, LUPUS, RENAL DISEASE, DIALYSIS FISTULA R ARM, HEART CATH TREATMENTS: (MAR) VANCOMYCIN, MAXIPIME DAILY LABS (This form is maintained as a part of the permanent medical record) 2014 [employer]. All Rights Reserved [email or web address] Office: [phone] GARFIELD
[2018-03-10] MEDS: Vancomycin HCl 1 GM in Premix Bag 1 BAG IVPB SCH (14:51)
--- NOTE | 2018-03-10 15:00 | PQF ---
DATE: 03-10-18 ATTN: DR. BOGDAN EPPS Please exercise your independent, professional judgment in responding to the clarification form. Clinical indicators are provided on the bottom of this form for your review Please check appropriate box(s): [ x ] Demand Ischemia [ ] NSTEMI [ ] AMI Type II [ ] Other diagnosis [ ] Unable to determine In addition, please specify: Present on Admission (POA): [ ] Yes [ ] No [ ] Unable to determine CLINICAL INDICATORS - SIGNS / SYMPTOMS / LABS ER DOCUMENTATION: PATIENT WAS ADMITTED TO THE [facility] MID JANUARY AND TOLD SHE HAD A HEART ATTACK AND HAD A STENT PLACED THEN. SHE WAS D/C AND A FEW DAYS LATER PRESENTED HERE ON 02-23, HAD CONTINUED ELEVATED TROPONIN LEVELS AND ADMITTED BACK TO THE [facility]. HX OF [place], STENT PLACEMENT, HTN, LUPUS, RENAL DISEASE, INSUFF, DIALYSIS FISTULA R ARM, HEART CATH CONSULT NOTE DR. LEVI 03-09-18: SHE APPARENTLY HAS CAD WITH STENT PLACEMENT AT THE [facility], HTN, ESRD, LUPUS TROPONIN: 03-09-18: 1.772 1.547 1.719 ER: NAUSEA AND VOMITING, WEAKNESS, SOB RISKS: ER DOCUMENTATION: PATIENT WAS ADMITTED TO THE [facility] MID JANUARY AND TOLD SHE HAD A HEART ATTACK AND HAD A STENT PLACED THEN. SHE WAS D/C AND A FEW DAYS LATER PRESENTED HERE ON 02-23, HAD CONTINUED ELEVATED TROPONIN LEVELS AND ADMITTED BACK TO THE [facility]. HX OF [place], STENT PLACEMENT, HTN, LUPUS, RENAL DISEASE, INSUFF, DIALYSIS FISTULA R ARM, HEART CATH TREATMENTS: CARDIO CONSULT CONTINUOUS MONITORING VENTILATOR/INTUBATED (This form is maintained as a part of the permanent medical record) 2014 [employer]. All Rights Reserved [email or web address] Office: [phone] [email or web address]
[2018-03-10] MEDS ORDERED: Cefepime 0.5 GM, Admixture Fee 1 EACH in Sodium Chloride 0.9% 100 ML IVPB SCH (16:00)
--- NOTE | 2018-03-10 16:26 | PRG ---
DATE OF SERVICE: 03/10/2018 SUBJECTIVE: Madison Vogt was sedated this morning. Her sedation was held this afternoon. She st arted waking up and intermittently following commands. She became agitated, so we have reintroduced propofol. OBJECTIVE: VITAL SIGNS: Blood pressure is 132/97, heart rate is 90, and respiratory rate is in the teens. LUNGS: Remarkable for coarse equal breath sounds. HEART: Regular rhythm. S1 and S2 are normal. ABDOMEN: Soft. EXTREMITIES: Without asymmetry. LABORATORY DATA: White count 17.4, hemoglobin 7.6, platelets 211. Blood sugars have been in the 140 to 150 range, she is still on D20. Sodium 135, potassium 4, chloride 94, bicarbonate 27, BUN 27, creatinine 5.6. IMAGING: Chest radiograph shows subclavian stent, lung crane are mildly hazy bilaterally, probably secondary to pulmonary edema. Echocardiogram report from today was yesterday's echo showing a large pericardial effusion. IMPRESSION AND PLAN: Status post cardiorespiratory arrest. I suspect this is a combination of massi ve pericardial effusion and hypoglycemia, although the etiology is not entirely clear. I am happy th at she is awakening. I have met with family and answered all their questions. They very quickly inf ormed me that she is noncompliant with dialysis. As I have explained to them, it is imperative that she does her part if she wants to get down the road. I have explained to her that the complication r ight for dialysis patients is extremely high when they are noncompliant and their lifespan is extreme ly limited when they are noncompliant. They appear to have an understanding of this. Critical care time 35 minutes.
--- NOTE | 2018-03-10 17:03 | PDOC.PN ---
- Subjective Encounter Start Date: 03/10/18 Encounter Start Time: 12:15 Subjective: pt intubated, opens eyes on command but sluggish - Objective Vital Signs & Weight: Vital Signs (12 hours) Temp Pulse Resp BP Pulse Ox 03/10/18 16:00 98.0 F 30 H 03/10/18 15:16 90 132/97 H 03/10/18 13:54 28 H 03/10/18 11:55 98.3 F 30 H 03/10/18 11:06 93 138/102 H 03/10/18 11:00 98.3 F 03/10/18 10:00 23 H 03/10/18 09:02 92 133/100 H 03/10/18 08:00 29 H 03/10/18 07:37 98.1 F 90 25 H 98 03/10/18 07:30 88 121/94 H 03/10/18 07:00 98.1 F 03/10/18 06:00 27 H Weight Admit Weight 125 lb Weight 125 lb Most Recent Monitor Data Heart Rate from ECG 94 NIBP 129/96 NIBP BP-Mean 112 Respiration from ECG 31 SpO2 100 I&O: 03/09/18 03/10/18 03/11/18 06:59 06:59 06:59 Intake Total 2200 Output Total 575 285 Balance 1625 -285 Result Diagrams: 03/10/18 04:04 03/10/18 04:04 Additional Labs: Accuchecks 03/10/18 03/10/18 03/10/18 15:02 12:03 11:04 POC Glucose 146 H 131 H 142 H 03/10/18 03/10/18 03/10/18 09:58 09:03 08:09 POC Glucose 142 H 147 H 143 H 03/10/18 03/10/18 03/10/18 07:23 06:10 05:14 POC Glucose 146 H 154 H 144 H 03/10/18 03/10/18 03/10/18 04:06 03:17 02:01 POC Glucose 149 H 163 H 159 H 03/10/18 03/10/18 03/09/18 01:05 00:27 23:21 POC Glucose 167 H 155 H 161 H 03/09/18 03/09/18 03/09/18 21:11 20:05 19:00 POC Glucose 133 H 126 H 125 H 03/09/18 03/09/18 18:00 17:01 POC Glucose 116 H 105 Phys Exam - Physical Examination HEENT: PERRLA Neck: no nodes mild rhonchi Cardiovascular: RRR, no significant murmur mild distention able to move right upper and lower ext, pt is still sluggish Dx/Plan - Plan * . A/P: Ms Vogt is 38 yrs odl female who presented with sob and arrested yesterday 1. Cardiac arrest: S/P cardiac arrest 03/09 pt is intubated, monitor electrolytes Bp stable at present 2. Acute respiratory failure: Continue respiratory support per pulmonary 3. Acute anemia over anemia of chronic disease: s/p two units of PRBC Monitor hgb closely 4. Pericardial effusion: S/P Pericardiocentes 03/[address] surgery on board s/p Pericardial window culture indicated gram positive cocci in pericardial fluid. she is on vanco, 5. ESRD: on dialysis, nephrology on board 6. Ascites: hold paracentesis for now Monitor for now Review of Systems - Review of Systems Other: unable to preform - Medications/Allergies Allergies/Adverse Reactions: Allergies Allergy/AdvReac Type Severity Reaction Status Date / Time No Known Drug Allergies Allergy Verified 02/17/18 12:13 Medications: Current Medications Cefepime HCl 0.5 gm/Miscellaneous Medication 1 each/ Sterile Water 5 mls @ 60 mls/hr SLOW IVP 1600 MITCHELL Vancomycin HCl 1 gm/ Device 200 mls @ 200 mls/hr IVPB NOW MITCHELL Stop: 03/10/18 17:30 Last Admin: 03/10/18 14:51 Dose: 200 mls Fentanyl Citrate 2,000 mcg/ (Sodium Chloride) 100 mls @ 0 mls/hr IV INF MITCHELL; Per Protocol PRN Reason: Protocol Stop: 04/08/18 17:18 Fentanyl Citrate (Fentanyl Bolus) 250 mls @ 0 mls/hr IVPB PRN PRN; As Directed PRN Reason: Breakthrough pain Stop: 04/08/18 17:18 Miscellaneous Medication 1 each/ Dextrose/Water/ Sterile Water 1,000 mls @ 50 mls/hr IV .Q20H MITCHELL Last Admin: 03/10/18 09:00 Dose: 1,000 mls Nicardipine HCl 50 mg/ Sodium (Chloride) 250 mls @ 0 mls/hr IVPB INF MITCHELL; Titrate PRN Reason: Protocol Lorazepam (Ativan) 2 mg SLOW IVP Q2H PRN PRN Reason: Anxiety to achieve Ramos 2-3 Stop: 04/08/18 17:18 Morphine Sulfate (Morphine) 2 mg SLOW IVP Q2H PRN PRN Reason: BREAKTHRU PAIN Stop: 04/08/18 17:21 Last Admin: 03/10/18 14:24 Dose: 2 mg Propofol (Diprivan) 1,000 mg IV INF PRN; Protocol PRN Reason: TO ACHIEVE RAMOS SCORE 2-3 Stop: 04/08/18 17:18 Last Admin: 03/10/18 14:49 Dose: 1,000 mg
[2018-03-10] MEDS: Cefepime 0.5 GM, Admixture Fee 1 EACH in Sterile Water 5 ML SLOW IVP SCH (17:04)
--- NOTE | 2018-03-10 17:49 | PRG ---
DATE OF SERVICE: 03/10/2018 GI INPATIENT DAILY PROGRESS NOTE SUBJECTIVE: I saw and examined Ms. Vogt early this morning. She remains intubated and sedated, hemodynamically stable. No evidence of overt bleeding. Blood cultures are growing out gram positive cocci. She remains on broad spectrum antibiotics. OBJECTIVE: VITAL SIGNS: Blood pressure 132/97, pulse 90, 100% oxygen saturation on ventilator, respirations 28 per minute, and temperature 98.3. GENERAL: Critically ill, sedated and intubated. HEART: Regular rate and rhythm. LUNGS: Bibasilar crackles with bilateral vent sounds. ABDOMEN: Mild to moderate distention with ascites. This is not tense. EXTREMITIES: 1+ bilateral lower extremity edema. LABORATORY DATA: Sodium was 135, potassium 4.0, BUN 27, creatinine 5.68, calcium 10.4 and ammonia 62. INR 2.2. WBC 17.4, hemoglobin 7.6, and platelets 211. Pericardial fluid one out of two cultures growing gram positive cocci. Blood cultures show no growth to date. IMAGING STUDIES: Chest x-ray shows persistent cardiomegaly and bilateral hazy opacities which are diffuse in the lungs. Echocardiogram demonstrated ejection fraction 55%-60%, severe concentric left ventricular hypertrophy and small pericardial effusion. ASSESSMENT AND PLAN: 1. Chronic ascites secondary to her anuric renal failure. Agree with Dr. Nazario that therapeutic paracentesis is not really needed at this time. Empiric antibiotics should be covering for SBP. 2. Cardiopulmonary arrest yesterday, unclear etiology. 3. Large pericardial effusion status post pericardial window performed yesterday. 4. Elevated liver function tests, likely secondary to shock liver. Continue with supportive measures and empiric antibiotics. We will order LFTs to be repeated tomorrow as well as INR. Expect we will see these trend down rapidly as LFT elevation is likely secondary to shock liver. Overall, prognosis remains very poor. Please call back anytime with questions or concerns. GARFIELD
--- NOTE | 2018-03-11 00:03 | OP ---
PROCEDURE: Pericardiocentesis. INDICATION: Cardiac arrest with large pericardial effusion on emergent echo. The patient had coded and CPR was intermittently being performed with boluses of epinephrine. Echo s ubcostal revealed a 3-4 cm pericardial effusion. Pericardiocentesis needle was then inserted initial ly with withdrawal of yellow serosanguineous fluid. This seemed to stop draining and the needle was advanced somewhat further with return of very bloody fluid. 10 mL of this was removed and is not vianney ar if this was truly pericardial although with such a large effusion, I doubt that any cardiac struc tures were hit. At that time, Dr. Ham then presented and was felt that her best long-term option w ould be a pericardial window and she was taken for that.
[2018-03-11] MEDS: Propofol 1,000 MG/100 ML VIAL IV PRN (01:56)
[2018-03-11] MEDS: hydrALAZINE 20 MG/ML VIAL SLOW IVP PRN ×3 (03:37→18:43)
[2018-03-11] MEDS: WATER IV SCH ×4 (04:48)
[2018-03-11] MEDS: ADMIXTURE FEE IV SCH ×4 (04:48)
[2018-03-11] MEDS: [UNRECOGNIZED DRUG - OTHER] IV SCH ×4 (04:48)
[2018-03-11] MEDS: DEXTROSE IV SCH ×4 (04:48)
[2018-03-11 06:27] LABS: ALT (SGPT) 885 U/L (8-55); AST (SGOT) 1689 U/L (5-34); Albumin 2.4 g/dL (3.5-5.0); Alkaline Phosphatase 386 U/L (40-150); Bilirubin, Direct 1.4 mg/dL (0.1-0.3); Bilirubin, Total 2.8 mg/dL (0.2-1.2); Protein, Total 6.3 g/dL (6.0-8.3)
[2018-03-11 06:31] LABS: Band 4 % (5-11); Hemoglobin 10.3 g/dL (12.0-16.0); Lymphocytes 9 % (21-51); MDiff Complete? YES; Mean Corpuscular HGB CONC 32.6 g/dL (32.0-36.0); Mean Corpuscular Hemoglobin 30.2 pg (27.0-31.0); Mean Corpuscular Volume 92.6 fl (81.0-99.0); Mean Platelet Volume 9.3 fL (7.4-10.4); Monocytes 1 % (0-10); Neutrophil 86 % (42-75); Nucleated RBC 4 % (0); PLT Morphology Comment Appears Adequate; Platelet Count 173 thou/uL (130-400); RBC Distribution Width 16.3 % (11.5-14.5); Red Blood Cell (RBC) Count 3.41 mill/uL (4.20-5.40); White Blood Cell (WBC) Count 14.9 thou/uL (4.8-10.8)
[2018-03-11 07:39] LABS: Actual Bicarbonate (HCO3a) 31.6 mEq/L (22-26); Base Excess (BEa) 8.4 mEq/L (0 (+/-) 2.5); Hematocrit-ABG 27.7 % (36.0-47.0); O2 Tension (PaO2) 89.9 mmHg (80.0-100.0); Puncture Site LRA; pH, Arterial 7.53 (7.35-7.45)
--- NOTE | 2018-03-11 07:44 | RAD ---
SINGLE VIEW CHEST: Date: 03/11/18 COMPARISON: 03/10/18. HISTORY: Ventilated patient with respiratory failure. FINDINGS: Single view of the chest shows an enlarged but stable cardiomediastinal silhouette. Lines and tubes a re unchanged in position. Opacities are seen in both lung bases, which may represent atelectasis or i nfiltrates. IMPRESSION: 1. Bibasilar atelectasis versus infiltrates. 2. Cardiomegaly. POS: ROGELIO
[2018-03-11] MEDS: cloNIDine 0.2mg/24 Hour PATCH TD SCH ×2 (09:47)
--- NOTE | 2018-03-11 12:27 | PRG ---
DATE OF SERVICE: 03/11/2018 SUBJECTIVE: This is a 38-year-old female being seen for end-stage renal disease. PHYSICAL EXAMINATION: GENERAL: Patient is resting. VITAL SIGNS: Afebrile, pulse 105, breathing 16, blood pressure 130/94. OBJECTIVE: See above. Awake, alert, in no acute distress. GENERAL APPEARANCE AND MENTAL STATUS: Fair. HEAD/NECK: Normocephalic. Atraumatic. EYES: EOMI. No deformity. EARS: Clear. No ulcers. NOSE: Intact. No lesions. MOUTH: Clear. No discharge. THROAT: Clear. No exudate. LUNGS: Clear. No crackles. CARDIAC: S1, S2. No rub. ABDOMEN: Benign. BS+. GENITALIA/RECTUM: Sadler absent. BACK/EXTREMITIES: Edema 0+ Ulcer- NEUROLOGICAL: The patient is resting. SKIN: Rash- Bruise- LYMPHATICS: Edema- Ulcer- LABORATORY: Hemoglobin 10.3, potassium is 4.5. ASSESSMENT AND RECOMMENDATIONS: 1. Stage 6 chronic kidney disease, plan dialysis today. 2. Volume overload, plan dialysis. 3. Anemia, stable. 4. Medications based on glomerular filtration rate are appropriate.
[2018-03-11] MEDS ORDERED: Vancomycin HCl 1 GM in Premix Bag 1 BAG IVPB SCH ×2 (13:00→16:45)
[2018-03-11 16:09] LABS: Vancomycin, Random 14.3 ug/mL (See Comment)
[2018-03-11] MEDS ORDERED: HOLD VANCOMYCIN FOR LEVEL >20 FS SCH (16:45)
[2018-03-11] MEDS ORDERED: Vancomycin HCl 750 MG in Sodium Chloride 0.9% 250 ML 250 ML IVPB SCH (16:45)
[2018-03-11] MEDS ORDERED: Vancomycin HCl 500 MG in Sodium Chloride 0.9% 100 ML IVPB SCH ×4 (16:45→17:00)
[2018-03-11] MEDS ORDERED: Vancomycin HCl 250 MG in Sodium Chloride 0.9% 100 ML IVPB SCH (16:45)
--- NOTE | 2018-03-11 18:10 | PRG ---
DATE OF SERVICE: 03/11/2018 SUBJECTIVE: Ms. Vogt actually followed commands quickly today. She still has mild resting tachyc ardia. She is currently being dialyzed. OBJECTIVE: VTAL SIGNS: Her blood pressure is 130/98 and oximetry is 98. LUNGS: Clear anteriorly. HEART: Regular rhythm. Abdomen: Soft. LABORATORY DATA: White count 14.9, hemoglobin 10.3, and platelets 173. There are no electrolytes do ne today. She is still on glucose infusion with glucose of 130-140s, probably need to change the glu cose infusion. PH today 7.53, CO2 of 39, pO2 of 89. IMPRESSION AND PLAN: I suspect we can wean from mechanical ventilation. She will be kept on Precede x overnight and hopefully extubate early in the morning. Critical care time was 30 minutes.
[2018-03-11] MEDS: Cefepime 0.5 GM, Admixture Fee 1 EACH in Sterile Water 5 ML SLOW IVP SCH (18:42)
[2018-03-11] MEDS: Pantoprazole 40 MG VIAL IVP SCH ×2 (21:37)
--- NOTE | 2018-03-11 22:04 | PDOC.PN ---
- Subjective Encounter Start Date: 03/11/18 Encounter Start Time: 10:30 Subjective: pt intubated minimal response on stimulation - Objective Vital Signs & Weight: Vital Signs (12 hours) Temp Pulse Resp BP Pulse Ox 03/11/18 20:00 100.0 F H 121 H 26 H 96 03/11/18 18:31 125 H 143/109 H 03/11/18 18:00 25 H 03/11/18 16:00 98.3 F 23 H 03/11/18 14:53 122 H 154/111 H 03/11/18 14:00 21 H 03/11/18 12:00 98.4 F 25 H 03/11/18 10:11 92 150/107 H Weight Admit Weight 125 lb Weight 125 lb Most Recent Monitor Data Heart Rate from ECG 115 NIBP 120/86 NIBP BP-Mean 97 Respiration from ECG 33 SpO2 93 I&O: 03/10/18 03/11/18 03/12/18 06:59 06:59 06:59 Intake Total 2200 1675 644.5 Output Total 575 915 200 Balance 1625 760 444.5 Result Diagrams: 03/11/18 05:10 03/10/18 04:04 Additional Labs: Accuchecks 03/11/18 03/11/18 03/11/18 18:48 15:25 12:27 POC Glucose 87 99 101 03/11/18 03/11/18 03/11/18 09:08 05:41 03:06 POC Glucose 95 125 H 127 H 03/11/18 03/10/18 03/10/18 00:43 14:03 12:57 POC Glucose 121 H 135 H 135 H Phys Exam - Physical Examination Respiratory: no wheezing, no rales Cardiovascular: RRR, no significant murmur soft, mild obse, bsx2, no grimace on palpaiton Musculoskeletal: pulses present, edema present Dx/Plan - Plan * . A/P: Ms Vogt is 38 yrs odl female who presented with sob and arrested yesterday 1. Cardiac arrest: S/P cardiac arrest 03/09 pt is intubated, monitor electrolytes Bp stable at present 2. Acute respiratory failure: Continue respiratory support per pulmonary 3. Acute anemia over anemia of chronic disease: s/p two units of PRBC Monitor hgb closely 4. Pericardial effusion: S/P Pericardiocentes 03/[address] surgery on board s/p Pericardial window culture indicated gram positive cocci in pericardial fluid. staph epidermis, most likely a contaminant. will stop vanco and put pt on ceftriaxone and flagyl since there were concerns for possible peritonitis? 5. ESRD: on dialysis, nephrology on board 6. Ascites: hold paracentesis for now Monitor for now Review of Systems - Review of Systems Other: unable to preform - Medications/Allergies Allergies/Adverse Reactions: Allergies Allergy/AdvReac Type Severity Reaction Status Date / Time No Known Drug Allergies Allergy Verified 02/17/18 12:13 Medications: Current Medications Clonidine (Yduyucsn-Dmw-1) 0.2 mg TD Q7DAYS [facility] Last Admin: 03/11/18 09:47 Dose: 0.2 mg Hydralazine HCl (Apresoline) 10 mg SLOW IVP Q6H PRN PRN Reason: SBP GREATER THAN 150 Last Admin: 03/11/18 18:43 Dose: 10 mg Cefepime HCl 0.5 gm/Miscellaneous Medication 1 each/ Sterile Water 5 mls @ 60 mls/hr SLOW IVP 1600 [facility] Last Admin: 03/11/18 18:42 Dose: 5 mls Miscellaneous Medication 1 each/ Dextrose/Water/ Sterile Water 1,000 mls @ 50 mls/hr IV .Q20H [facility] Last Admin: 03/12/18 01:30 Dose: 1,000 mls Nicardipine HCl 50 mg/ Sodium (Chloride) 250 mls @ 0 mls/hr IVPB INF [facility]; Titrate PRN Reason: Protocol Dexmedetomidine HCl 200 mcg/ (Sodium Chloride) 50 mls @ 0 mls/hr IVPB INF [facility]; Per Protocol PRN Reason: Protocol Last Admin: 03/11/18 21:45 Dose: 50 mls Vancomycin HCl 1 gm/ Device 200 mls @ 200 mls/hr IVPB WILLCALL [facility] Vancomycin HCl 750 mg/ Sodium (Chloride) 250 mls @ 250 mls/hr IVPB WILLCALL [facility] Vancomycin HCl 500 mg/ Sodium (Chloride) 100 mls @ 100 mls/hr IVPB WILLCALL [facility] Vancomycin HCl 250 mg/ Sodium (Chloride) 100 mls @ 100 mls/hr IVPB WILLCALL [facility] Lorazepam (Ativan) 2 mg SLOW IVP Q2H PRN PRN Reason: Anxiety to achieve Marin 2-3 Stop: 04/08/18 17:18 Last Admin: 03/11/18 08:10 Dose: 2 mg Miscellaneous Medication (Pharmacy To Dose) 0 each IVPB PRN PRN PRN Reason: VANC Morphine Sulfate (Morphine) 2 mg SLOW IVP Q2H PRN PRN Reason: BREAKTHRU PAIN Stop: 04/08/18 17:21 Last Admin: 03/10/18 14:24 Dose: 2 mg Hold Vancomycin For (Level >20) 0 each FS .AT DIALYSIS [facility] Pantoprazole Sodium (Protonix) 40 mg IVP 2100 [facility] Last Admin: 03/11/18 21:37 Dose: 40 mg Sodium Chloride (Flush - Normal Saline) 10 ml IV 2100 [facility] Last Admin: 03/11/18 21:37 Dose: 10 ml
[2018-03-12] MEDS: WATER IV SCH ×8 (01:30→21:50)
[2018-03-12] MEDS: [UNRECOGNIZED DRUG - OTHER] IV SCH ×8 (01:30→21:50)
[2018-03-12] MEDS: ADMIXTURE FEE IV SCH ×8 (01:30→21:50)
[2018-03-12] MEDS: DEXTROSE IV SCH ×8 (01:30→21:50)
[2018-03-12] MEDS ORDERED: cefTRIAXone Sodium 1 MG in Syringe 0 ML IVPB SCH ×3 (05:30)
[2018-03-12 07:10] LABS: Actual Bicarbonate (HCO3a) 31.5 mEq/L (22-26); CO2 Tension 39.4 mmHg (35.0-45.0); Hematocrit-ABG 34.4 % (36.0-47.0); Hemoglobin (Hb) 9.8 g/dL (12.0-16.0); O2 Tension (PaO2) 102.7 mmHg (80.0-100.0); pH, Arterial 7.52 (7.35-7.45)
[2018-03-12 07:11] LABS: Calcium, Ionized 1.2 mmol/L (1.12-1.30); Puncture Site RRA
--- NOTE | 2018-03-12 07:43 | RAD ---
AP VIEW CHEST: HISTORY: Ventilator-dependent patient. FINDINGS: AP view chest is obtained on 03/12/18. Comparison is made to previous exam from 03/11/18. AP view chest demonstrates nasogastric and endotracheal tubes again to be in place. Multiple right s ubclavian endovascular catheter is seen. Surgical clips seen in the right upper extremity compatible with right upper extremity dialysis fistula. Cardiomegaly is seen. Pulmonary vascular congestion is seen. There are areas of patchy airspace opacity seen in the left mid lung compatible with areas of pneumon ia not present on the previous comparison exam from 1 day earlier. IMPRESSION: 1. Cardiomegaly. 2. Interval development of areas of airspace opacity in the left mid lung possibly representing area s of pneumonia. POS: SHAYY
[2018-03-12 07:53] LABS: Anion Gap 14 mmol/L (10-20); BUN (Urea Nitrogen) 28 mg/dL (7.0-18.7); Calc. Creatinine Clearance 12 mL/min (70-130); Calcium 9.3 mg/dL (7.8-10.44); Carbon Dioxide 28 mmol/L (22-29); Chloride 94 mmol/L (98-107); Estimated GFR-MDRD 10; Glucose 106 mg/dL (70-105); Potassium 4.1 mmol/L (3.5-5.1); Sodium 132 mmol/L (136-145)
[2018-03-12 07:56] LABS: Hemoglobin 10.7 g/dL (12.0-16.0); Mean Corpuscular HGB CONC 32.5 g/dL (32.0-36.0); Mean Corpuscular Hemoglobin 30.4 pg (27.0-31.0); Mean Corpuscular Volume 93.4 fl (81.0-99.0); Platelet Count 158 thou/uL (130-400); RBC Distribution Width 16.3 % (11.5-14.5); Red Blood Cell (RBC) Count 3.51 mill/uL (4.20-5.40); White Blood Cell (WBC) Count 13.5 thou/uL (4.8-10.8)
[2018-03-12 08:09] LABS: Band 1 % (5-11); Eosinophils 1 % (0-10); Lymphocytes 10 % (21-51); MDiff Complete? YES; Monocytes 3 % (0-10); Neutrophil 85 % (42-75)
[2018-03-12] MEDS: metroNIDAZOLE 500 MG in Premix Bag 1 BAG IVPB SCH ×2 (08:28→16:19)
--- NOTE | 2018-03-12 11:23 | PRG ---
DATE OF SERVICE: 03/12/2018. SUBJECTIVE: This is a 38-year-old female being seen for end-stage renal disease. The patient denies any nausea, vomiting or chest pain. The patient is intubated and can respond to simple questions. PHYSICAL EXAMINATION: GENERAL: Patient is awake, alert. VITAL SIGNS: Afebrile, pulse 75, breathing 16, blood pressure 116/65. OBJECTIVE: See above. Awake, alert, in no acute distress. GENERAL APPEARANCE AND MENTAL STATUS: Fair. HEAD/NECK: Normocephalic. Atraumatic. EYES: EOMI. No deformity. EARS: Clear. No ulcers. NOSE: Intact. No lesions. MOUTH: Clear. No discharge. THROAT: Clear. No exudate. LUNGS: Clear. No crackles. CARDIAC: S1, S2. No rub. ABDOMEN: Benign. BS+. GENITALIA/RECTUM: Sadler absent. BACK/EXTREMITIES: Edema 0+ Ulcer- NEUROLOGICAL: Alert and motor intact. SKIN: Rash- Bruise- LYMPHATICS: Edema- Ulcer- LABORATORY: Hemoglobin 10.7, potassium 4.1. ASSESSMENT AND RECOMMENDATIONS: 1. Stage 6 chronic kidney disease, on hemodialysis Friday, Friday, Friday 2. Hypertension, stable. 3. Anemia, stable. 4. Medication based on glomerular filtration rate are appropriate.
--- NOTE | 2018-03-12 12:54 | PRG ---
DATE OF SERVICE: 03/12/2018 SUBJECTIVE: Ms. Madison Vogt awakens quickly. Her Precedex was held this morning. We attempted a leak test done on her this morning. She had no air leak, so she has been started on IV steroids because of her code and the emergent need for a pericardiocentesis. I suspect her intubation was a little difficult. OBJECTIVE: LUNGS: Clear. HEART: Regular rhythm. ABDOMEN: Soft. There is hazy anterior and left mid lung field. I suspect this is an area of round atelectasis. LABORATORY DATA: White count 13.5, hemoglobin 10.7, platelets 158. Sodium 132 , creatinine 4.1, chloride 94, bicarbonate 20, BUN 20, and creatinine 5.86. IMPRESSION: 1. End-stage renal disease. 2. Lupus by history. 3. History of medical noncompliance. 4. Pericardial effusion status post emergent pericardial window. Cultures grew out Staphylococcus epidermidis. Since there is an emergent pericardiocentesis, it is unclear whether or not this is a skin contaminant or actually a pathogen. She is being treated. Blood cultures are negative. 5. History of hypertrophic cardiomyopathy on echocardiograms in the past. She has severe left ventricular hypertrophy on her echocardiogram this admission. 6. Status post cardiac arrest? hypoglycemia related versus tamponade, the argument against tamponade is she had an extremely high blood pressure that morning. 7. Underlying cirrhosis with requirement for frequent abdominal paracentesis, diagnostic paracentesis this admission with cultures are negative. PLAN: Continue critical care. We will do another leak test in the morning to see if it is safe to extubate her. We will give her hip her leak test that shows no leak tomorrow, we will go another 24 hours of steroids and then if she still does not have a leak, we will probably extubate her over bronchoscope. Critical care time 35 minutes. GARFIELD
--- NOTE | 2018-03-12 15:07 | PDOC.PN ---
- Subjective Encounter Start Date: 03/12/18 Encounter Start Time: 09:30 Subjective: pt intubated - Objective Vital Signs & Weight: Vital Signs (12 hours) Temp Pulse Resp BP Pulse Ox 03/12/18 14:22 110 H 117/95 H 03/12/18 14:00 36 H 03/12/18 12:00 100.0 F H 38 H 03/12/18 10:22 114 H 119/88 03/12/18 10:00 37 H 03/12/18 08:00 100.8 F H 40 H 03/12/18 07:46 100.8 F H 98 23 H 100 03/12/18 06:17 99 108/79 03/12/18 06:00 26 H 03/12/18 04:00 99.4 F 25 H Weight Admit Weight 125 lb Weight 125 lb Most Recent Monitor Data Heart Rate from ECG 110 NIBP 117/95 NIBP BP-Mean 102 Respiration from ECG 36 SpO2 99 I&O: 03/11/18 03/12/18 03/13/18 06:59 06:59 06:59 Intake Total 1675 1399.5 Output Total 915 490 0 Balance 760 909.5 0 Result Diagrams: 03/15/18 03:49 03/15/18 03:49 Additional Labs: Accuchecks 03/12/18 03/12/18 03/12/18 12:17 09:22 06:24 POC Glucose 108 100 109 03/12/18 03/12/18 03/11/18 04:56 00:17 21:37 POC Glucose 113 H 107 98 03/11/18 03/11/18 18:48 15:25 POC Glucose 87 99 Phys Exam - Physical Examination Neck: no nodes, no JVD, supple, full ROM Respiratory: no wheezing, no rales, no rhonchi, wheezing present, clear to auscultation bilateral Cardiovascular: RRR, no significant murmur, no rub, gallop, irregular Gastrointestinal: soft, non-tender, no distention, positive bowel sounds Dx/Plan - Plan * . A/P: Ms Vogt is 38 yrs odl female who presented with sob and arrested yesterday 1. Cardiac arrest: S/P cardiac arrest 03/09 pt is intubated, monitor electrolytes Bp stable at present 2. Acute respiratory failure: Continue respiratory support per pulmonary 3. Acute anemia over anemia of chronic disease: s/p two units of PRBC Monitor hgb closely 4. Pericardial effusion: S/P Pericardiocentes 03/[address] surgery on board s/p Pericardial window culture indicated gram positive cocci in pericardial fluid. staph epidermis, most likely a contaminant. will stop vanco and put pt on ceftriaxone and flagyl since there were concerns for possible peritonitis? 5. ESRD: on dialysis, nephrology on board 6. Ascites: hold paracentesis for now Monitor for now Review of Systems - Review of Systems Other: unable to participate - Medications/Allergies Allergies/Adverse Reactions: Allergies Allergy/AdvReac Type Severity Reaction Status Date / Time No Known Drug Allergies Allergy Verified 02/17/18 12:13 Medications: Current Medications Clonidine ([id number]-Zdy-6) 0.2 mg TD Q7DAYS [facility] Last Admin: 03/11/18 09:47 Dose: 0.2 mg Hydralazine HCl (Apresoline) 10 mg SLOW IVP Q6H PRN PRN Reason: SBP GREATER THAN 150 Last Admin: 03/15/18 03:29 Dose: 10 mg Hydralazine HCl (Apresoline) 50 mg PO TID [facility] Cefepime HCl 0.5 gm/Miscellaneous Medication 1 each/ Sterile Water 5 mls @ 60 mls/hr SLOW IVP 1600 [facility] Last Admin: 03/14/18 15:47 Dose: 5 mls Dextrose/Water (Dextrose 10% In Water) 1,000 mls @ 50 mls/hr IV .Q20H [facility] Last Admin: 03/15/18 09:02 Dose: 1,000 mls Ceftriaxone Sodium 2 gm/ (Sodium Chloride) 100 mls @ 200 mls/hr IVPB 1100 [facility] Last Admin: 03/15/18 11:12 Dose: 100 mls Vancomycin HCl 1 gm/ Device 200 mls @ 200 mls/hr IVPB WILLCALL [facility] Vancomycin HCl 750 mg/ Sodium (Chloride) 250 mls @ 250 mls/hr IVPB WILLCALL [facility] Vancomycin HCl 500 mg/ Sodium (Chloride) 100 mls @ 100 mls/hr IVPB WILLCALL [facility] Vancomycin HCl 250 mg/ Sodium (Chloride) 100 mls @ 100 mls/hr IVPB WILLCALL [facility] Nicardipine HCl 50 mg/ Sodium (Chloride) 250 mls @ 0 mls/hr IVPB INF [facility]; Titrate PRN Reason: Protocol Lorazepam (Ativan) 2 mg SLOW IVP Q2H PRN PRN Reason: Anxiety to achieve Marin 2-3 Stop: 04/08/18 17:18 Last Admin: 03/11/18 08:10 Dose: 2 mg Losartan Potassium (Cozaar) 50 mg PO DAILY [facility] Metoprolol Tartrate (Lopressor) 50 mg PO BID [facility] Miscellaneous Medication (Pharmacy To Dose) 1 each IVPB PRN PRN PRN Reason: Pharmacy to dose Hold Vancomycin For (Level >20) 0 each FS .AT DIALYSIS [facility] Ondansetron HCl (Zofran Odt) 4 mg PO Q4H PRN PRN Reason: Nausea/Vomiting Last Admin: 03/15/18 10:19 Dose: 4 mg Pantoprazole Sodium (Protonix) 40 mg IVP 2100 [facility] Last Admin: 03/14/18 20:53 Dose: 40 mg Sodium Chloride (Flush - Normal Saline) 10 ml IV 2100 [facility] Last Admin: 03/14/18 20:53 Dose: 10 ml
[2018-03-12] MEDS: Cefepime 0.5 GM, Admixture Fee 1 EACH in Sterile Water 5 ML SLOW IVP SCH (16:14)
[2018-03-12] MEDS: Pantoprazole 40 MG VIAL IVP SCH ×2 (22:31)
[2018-03-13] MEDS: metroNIDAZOLE 500 MG in Premix Bag 1 BAG IVPB SCH ×3 (00:08→15:44)
[2018-03-13 05:50] LABS: Anion Gap 18 mmol/L (10-20); BUN (Urea Nitrogen) 42 mg/dL (7.0-18.7); Calc. Creatinine Clearance 10 mL/min (70-130); Calcium 9.4 mg/dL (7.8-10.44); Carbon Dioxide 25 mmol/L (22-29); Chloride 90 mmol/L (98-107); Estimated GFR-MDRD 8; Glucose 252 mg/dL (70-105); Potassium 4.7 mmol/L (3.5-5.1); Sodium 128 mmol/L (136-145)
--- NOTE | 2018-03-13 08:46 | RAD ---
1 VIEW CHEST: Date: 03/13/18 COMPARISON: 03/12/18. HISTORY: Ventilated patient. Respiratory distress. FINDINGS: Redemonstration of an endotracheal tube, which appears with distal tip at level of donald. Nasogastri c tube extends beyond the diaphragm. Distal tip is not seen. There is cardiomegaly. There is persiste nt opacification in the left lung base. Stable opacification of left perihilar region. Increased opac ification right hemithorax when compared to the prior examination. Stable stent projecting over the r ight clavicle. IMPRESSION: Endotracheal tube with distal tip at level of donald. Repositioning is recommended. Results of study discussed with Caridad, the patient's nurse, on 03/13/18 at 0749 hours. CODE CR. POS: OFF
[2018-03-13] MEDS: hydrALAZINE 20 MG/ML VIAL SLOW IVP PRN (10:22)
--- NOTE | 2018-03-13 11:22 | PRG ---
DATE OF SERVICE: 03/13/2018 SUBJECTIVE: The patient is a 38-year-old female being seen for end-stage renal disease. Patient ope ns her eyes and obeys simple commands appropriately. PHYSICAL EXAMINATION: GENERAL: Patient is resting. VITAL SIGNS: Afebrile, pulse 70, breathing 16, blood pressure 174/113. OBJECTIVE: See above. Awake, alert, in no acute distress. GENERAL APPEARANCE AND MENTAL STATUS: Fair. HEAD/NECK: Normocephalic. Atraumatic. EYES: EOMI. No deformity. EARS: Clear. No ulcers. NOSE: Intact. No lesions. MOUTH: Clear. No discharge. THROAT: Clear. No exudate. LUNGS: Clear. No crackles. CARDIAC: S1, S2. No rub. ABDOMEN: Benign. BS+. GENITALIA/RECTUM: Sadler absent. BACK/EXTREMITIES: Edema 0+ Ulcer- NEUROLOGICAL: Alert and motor intact. SKIN: Rash- Bruise- LYMPHATICS: Edema- Ulcer- LABORATORY: Hemoglobin 10.7. ASSESSMENT AND RECOMMENDATIONS: 1. Stage 6 chronic kidney disease. We will plan hemodialysis. 2. Hypertension, stable. 3. Anemia, stable. 4. Medication based on glomerular filtration rate are appropriate.
[2018-03-13] MEDS: Morphine 4 MG/ML VIAL SLOW IVP PRN ×2 (12:00→22:22)
--- NOTE | 2018-03-13 13:42 | PDOC.PN ---
- Subjective Encounter Start Date: 03/13/18 Encounter Start Time: 10:30 Subjective: pt intubated, awake - Objective Vital Signs & Weight: Vital Signs (12 hours) Temp Pulse Resp BP Pulse Ox 03/13/18 12:00 98.1 F 18 03/13/18 10:22 91 174/113 H 03/13/18 10:00 24 H 03/13/18 09:51 91 109/77 03/13/18 08:00 97.8 F 93 21 H 100 03/13/18 07:00 97.8 F 03/13/18 05:54 22 H 03/13/18 04:51 97.8 F 03/13/18 04:00 27 H 03/13/18 02:53 100 03/13/18 02:00 27 H Weight Admit Weight 125 lb Weight 125 lb 10.616 oz Most Recent Monitor Data Heart Rate from ECG 97 NIBP 103/73 NIBP BP-Mean 92 Respiration from ECG 16 SpO2 97 I&O: 03/12/18 03/13/18 03/14/18 06:59 06:59 06:59 Intake Total 1399.5 1720 100 Output Total 490 200 0 Balance 909.5 1520 100 Result Diagrams: 03/12/18 03:30 03/13/18 05:10 Additional Labs: Accuchecks 03/13/18 03/13/18 03/13/18 12:36 08:40 06:00 POC Glucose 127 H 141 H 119 H 03/13/18 03/13/18 03/12/18 03:26 00:04 22:31 POC Glucose 146 H 150 H 132 H 03/12/18 17:57 POC Glucose 125 H Phys Exam - Physical Examination Neck: no nodes, no JVD, supple, full ROM Respiratory: wheezing present sinus tachy soft, mild obse, bsx2 Musculoskeletal: edema present Dx/Plan - Plan A/P: Ms Vogt is 38 yrs odl female who presented with sob and arrested yesterday 1. Cardiac arrest: S/P cardiac arrest 03/09 pt is intubated, monitor electrolytes Bp stable at present 2. Acute respiratory failure: Continue respiratory support per pulmonary. pt not ready for extubation. pt on steroids 3. Acute anemia over anemia of chronic disease: s/p two units of PRBC Monitor hgb closely 4. Pericardial effusion: S/P Pericardiocentes 03/[address] surgery on board s/p Pericardial window culture indicated gram positive cocci in pericardial fluid. staph epidermis, most likely a contaminant. will stop vanco and put pt on ceftriaxone and flagyl since there were concerns for possible peritonitis? 5. ESRD: on dialysis, nephrology on board 6. Ascites: hold paracentesis for now Monitor for now * . 7) hyponatremia: possible due to volume overload, will continue to monitor Review of Systems - Review of Systems Other: unable to participate - Medications/Allergies Allergies/Adverse Reactions: Allergies Allergy/AdvReac Type Severity Reaction Status Date / Time No Known Drug Allergies Allergy Verified 02/17/18 12:13 Medications: Current Medications Clonidine (Lmnfvplc-Tbb-3) 0.2 mg TD Q7DAYS [facility] Last Admin: 03/11/18 09:47 Dose: 0.2 mg Hydralazine HCl (Apresoline) 10 mg SLOW IVP Q6H PRN PRN Reason: SBP GREATER THAN 150 Last Admin: 03/13/18 10:22 Dose: 10 mg Cefepime HCl 0.5 gm/Miscellaneous Medication 1 each/ Sterile Water 5 mls @ 60 mls/hr SLOW IVP 1600 [facility] Last Admin: 03/12/18 16:14 Dose: 5 mls Miscellaneous Medication 1 each/ Dextrose/Water/ Sterile Water 1,000 mls @ 50 mls/hr IV .Q20H [facility] Last Admin: 03/12/18 21:50 Dose: 1,000 mls Nicardipine HCl 50 mg/ Sodium (Chloride) 250 mls @ 0 mls/hr IVPB INF [facility]; Titrate PRN Reason: Protocol Dexmedetomidine HCl 200 mcg/ (Sodium Chloride) 50 mls @ 0 mls/hr IVPB INF [facility]; Per Protocol PRN Reason: Protocol Last Admin: 03/13/18 08:27 Dose: 50 mls Metronidazole 500 mg/ Device 100 mls @ 100 mls/hr IVPB 0800,1600,2359 [facility] Last Admin: 03/13/18 08:25 Dose: 100 mls Lorazepam (Ativan) 2 mg SLOW IVP Q2H PRN PRN Reason: Anxiety to achieve Marin 2-3 Stop: 04/08/18 17:18 Last Admin: 03/11/18 08:10 Dose: 2 mg Methylprednisolone Sodium Succinate (Solu-Medrol) 40 mg IVP Q6HR [facility] Last Admin: 03/13/18 12:02 Dose: 40 mg Morphine Sulfate (Morphine) 2 mg SLOW IVP Q2H PRN PRN Reason: BREAKTHRU PAIN Stop: 04/08/18 17:21 Last Admin: 03/13/18 12:00 Dose: 2 mg Pantoprazole Sodium (Protonix) 40 mg IVP 2100 [facility] Last Admin: 03/12/18 22:31 Dose: 40 mg Sodium Chloride (Flush - Normal Saline) 10 ml IV 2100 [facility] Last Admin: 03/12/18 22:31 Dose: 10 ml
[2018-03-13 13:53] LABS: CO2 Tension 45.2 mmHg (35.0-45.0); O2 Tension (PaO2) 82.2 mmHg (80.0-100.0); pH, Arterial 7.44 (7.35-7.45)
[2018-03-13 13:54] LABS: Base Excess (BEa) 5.2 mEq/L (0 (+/-) 2.5); Hematocrit-ABG 37.1 % (36.0-47.0); Hemoglobin (Hb) 10.3 g/dL (12.0-16.0)
[2018-03-13 13:55] LABS: Calcium, Ionized 1.2 mmol/L (1.12-1.30); Puncture Site LBA
[2018-03-13 14:13] LABS: Anisocytosis SLIGHT = 6-15 cells (100X) (0-5/hpf); Band 4 % (5-11); Hemoglobin 9.7 g/dL (12.0-16.0); Lymphocytes 1 % (21-51); MDiff Complete? YES; Mean Corpuscular HGB CONC 32.2 g/dL (32.0-36.0); Mean Corpuscular Volume 93.3 fl (81.0-99.0); Mean Platelet Volume 8.5 fL (7.4-10.4); Monocytes 3 % (0-10); Neutrophil 92 % (42-75); Ovalocytes SLIGHT = 2-5 cells (100X) (0-1/hpf); PLT Morphology Comment Appears Adequate; Platelet Count 192 thou/uL (130-400); Polychromasia SLIGHT = 2-3 cells (100X) (0-2/hpf); RBC Distribution Width 16.5 % (11.5-14.5); Red Blood Cell (RBC) Count 3.24 mill/uL (4.20-5.40); White Blood Cell (WBC) Count 15.3 thou/uL (4.8-10.8)
[2018-03-13] MEDS: Cefepime 0.5 GM, Admixture Fee 1 EACH in Sterile Water 5 ML SLOW IVP SCH (15:44)
[2018-03-13] MEDS: WATER IV SCH ×4 (16:48)
[2018-03-13] MEDS: [UNRECOGNIZED DRUG - OTHER] IV SCH ×4 (16:48)
[2018-03-13] MEDS: ADMIXTURE FEE IV SCH ×4 (16:48)
[2018-03-13] MEDS: DEXTROSE IV SCH ×4 (16:48)
--- NOTE | 2018-03-13 21:59 | PRG ---
DATE OF SERVICE: 03/13/2018 Ms. Vogt's heart rate is in the 90s, blood pressure is 99/104 systolic this afternoon, respiratory rate is in the 20. She awakens quickly. Her lungs are clear. Heart, regular rhythm. Abdomen is s oft. Extremities, without asymmetry. Chest radiograph was reviewed. Endotracheal tube is still in the trachea, but it is getting close to the donald. She still does not leak when the leak test was done. Her minute volume is less than 10 liters a khoi te. White count was is 15.3, hemoglobin 9.7, platelets 192. Electrolytes were unremarkable for sodi um 128, potassium 4.7, chloride 90, bicarbonate 25, BUN 42, creatinine 7.04. IMPRESSION: 1. End-stage renal disease with history of noncompliance with dialysis. 2. Cirrhosis. 3. Hypoglycemia that became worse on admission. 4. Massive pericardial effusion with Staph isolated in her pericardial fluid, being managed by Nephr ology with vancomycin. Blood cultures are negative in the night. The 2 fluid specimens from the 9th labeled as pericardial fluid. One has Staph epi, one is not. I am not sure what to do with this. She was supposed to have a diagnostic paracentesis done the day after her pericardial window. I disc ussed this with the radiologist, but I do not find peritoneal fluid. PLAN: We will continue antimicrobial therapy. We will assess her again in the morning. If she stil l does not have a leak, we will extubate her over a bronchoscope. Critical care time, 30 minutes.
[2018-03-13] MEDS: Pantoprazole 40 MG VIAL IVP SCH ×2 (22:21)
[2018-03-14] MEDS: metroNIDAZOLE 500 MG in Premix Bag 1 BAG IVPB SCH ×3 (00:12→15:47)
--- NOTE | 2018-03-14 09:51 | PRG ---
DATE OF SERVICE: 03/14/2018 SUBJECTIVE: This is a 38-year-old female being seen for end-stage renal disease. The patient is sujatha ke, alert, and intubated. PHYSICAL EXAMINATION: GENERAL: Patient is resting. VITAL SIGNS: Afebrile, pulse 76, breathing at 16, blood pressure 143/101. GENERAL APPEARANCE AND MENTAL STATUS: Fair. HEAD/NECK: Normocephalic, atraumatic. EYES: EOMI. No deformity. EARS: Clear. No ulcers. NOSE: Intact. No lesions. MOUTH: Clear. No discharge. THROAT: Clear. No exudate. LUNGS: Clear. No crackles. CARDIAC: S1, S2. No rub. ABDOMEN: Benign. BS+. GENITALIA/RECTUM: Sadler absent. BACK/EXTREMITIES: Edema 0+ Ulcer-. NEUROLOGICAL: Alert and motor intact. SKIN: Rash- Bruise- LYMPHATICS: Edema- Ulcer-. LABORATORY DATA: Show hemoglobin of 9.7 yesterday. ASSESSMENT AND RECOMMENDATIONS: 1. Stage 6 chronic kidney disease. Continue hemodialysis Friday, Friday, Friday. 2. Hypertension, stable. 3. Anemia, stable. 4. Medications based on glomerular filtration rate are appropriate.
--- NOTE | 2018-03-14 10:05 | RAD ---
AP VIEW CHEST: HISTORY: Ventilator-dependent patient. FINDINGS: AP view chest is obtained on 03/14/18. Comparison is made to previous exam from 03/13/18. AP view chest demonstrates a nasogastric tube in place. Endotracheal tube is in place. The distal a spect is difficult to visualize due to patient position. However, after speaking with a nurse, it wa s noted that the endotracheal tube has been pulled back since the previous exam where it was found to be in the right main stem bronchus. Multiple right subclavian endovascular stents again seen. Cardiomegaly is seen. Areas of patchy airspace opacity are seen in both lung bases. Pulmonary vascular congestion is seen. IMPRESSION: Endotracheal tube has been pulled back. The exact position is difficult to determine due to patient' s neck position. Otherwise, chest radiograph is unchanged. POS: [facility]
--- NOTE | 2018-03-14 11:24 | PDOC.CTH ---
Cardiology Progress Note - Subjective She remains intubated but follow commands. - Objective Vital Signs Temp Pulse Resp BP Pulse Ox 03/14/18 10:35 99 03/14/18 06:55 104 H 178/112 H 03/14/18 06:00 19 03/14/18 03:48 21 H 03/14/18 03:45 97.8 F 03/14/18 02:11 92 03/14/18 02:00 20 03/14/18 00:00 98 F 20 03/13/18 23:36 92 Admit Weight 125 lb Weight 125 lb 10.616 oz 03/13/18 03/14/18 03/15/18 06:59 06:59 06:59 Intake Total 1720 969 Output Total 200 400 Balance 1520 569 - Physical Examination General/Neuro: other: (Intubated, following commands. ) Neck: no JVD present Lungs: unlabored respirations Heart: RRR Abdomen: NT/ND Extremities: + edema B (1+) - Telemetry Telemetry Rhythm: NSR - Labs Result Diagrams: 03/13/18 13:00 03/13/18 05:10 Troponin/CKMB CK-MB (CK-2) 6.0 ng/mL (0-6.6) 03/09/18 03:08 Troponin I 1.719 ng/mL (< 0.028) H* 03/09/18 08:57 - Assessment/Plan 1. S/P VFib arrest 2. Large pericardial effusion s/p pericardial window 3. ESRD 4. Anemia 5. CAD. 6. Staph isolated in her pericardial fluid. 7. Cirrhosis PLAN: - Continue supportive care. - Consider ID consult for staph in his fluid.
--- NOTE | 2018-03-14 11:50 | RAD ---
AP VIEW CHEST: HISTORY: Central line placement. FINDINGS: AP view chest was obtained on 03/14/18. Comparison is made to previous exam from earlier in the day o n 03/14/18. AP view chest demonstrates nasogastric and endotracheal tubes to be in place. Again, right subclavia n endovascular stent is seen. There has been placement of a left jugular central line, distal tip ov erlying the right atrium. Cardiomegaly is seen. Pulmonary vascular congestion is noted. Areas of patchy airspace opacity are seen in both lungs. IMPRESSION: Placement of a left-sided central endovascular line with no evidence of post procedure pneumothorax. No other significant interval change is seen. POS: [facility]
[2018-03-14] MEDS: cefTRIAXone\\ROCEPHIN 2 GM in Sodium Chloride 0.9% 100 ML IVPB SCH (12:23)
[2018-03-14] MEDS: Dextrose 10% in Water 1,000 ML IV SCH (12:24)
[2018-03-14] MEDS ORDERED: HOLD VANCOMYCIN FOR LEVEL >20 FS SCH (15:45)
[2018-03-14] MEDS ORDERED: Vancomycin HCl 500 MG in Sodium Chloride 0.9% 100 ML IVPB SCH ×3 (15:45)
[2018-03-14] MEDS ORDERED: Vancomycin HCl 250 MG in Sodium Chloride 0.9% 100 ML IVPB SCH (15:45)
[2018-03-14] MEDS ORDERED: Vancomycin HCl 1 GM in Premix Bag 1 BAG IVPB SCH ×2 (15:45→16:00)
[2018-03-14] MEDS ORDERED: Vancomycin HCl 750 MG in Sodium Chloride 0.9% 250 ML 250 ML IVPB SCH (15:45)
[2018-03-14] MEDS: Cefepime 0.5 GM, Admixture Fee 1 EACH in Sterile Water 5 ML SLOW IVP SCH (15:47)
[2018-03-14] MEDS: hydrALAZINE 20 MG/ML VIAL SLOW IVP PRN (19:12)
[2018-03-14] MEDS: Morphine 4 MG/ML VIAL SLOW IVP PRN (19:53)
[2018-03-14] MEDS: Pantoprazole 40 MG VIAL IVP SCH ×2 (20:53)
[2018-03-14] MEDS: Ondansetron ODT 4 MG TAB PO PRN (21:07)
--- NOTE | 2018-03-14 22:36 | PRG ---
DATE OF SERVICE: 03/14/2018 SUBJECTIVE: Ms. Vogt was evaluated. She quickly awaken today. OBJECTIVE: VITAL SIGNS: Heart rate is 115, blood pressure was elevated from diastolic standpoint. LUNGS: Tila r. HEART: Regular rhythm. ABDOMEN: Soft and nontender. EXTREMITIES: Without clubbing, cyanosis, or edema. LABORATORY DATA: Blood gas today was not done. There are no CBC or electrolytes today. IMPRESSION: 1. End-stage renal disease. 2. Status post arrest? secondary to hypoglycemia. 3. Cirrhosis now on D10, suspect she has no glycogen reserves. 4. Ascites secondary to cirrhosis. 5. Anemia of chronic disease. 6. Staphylococcus methicillin-sensitive isolated from pericardial fluid appears that her antibiotics for some reason had been discontinued, so I restarted Rocephin for this. She did not have a leak, but I recommended extubation over the bronchoscope today. There has been do ne successfully. Critical care time independent of procedures 30 minutes.
--- NOTE | 2018-03-14 22:38 | PDOC.PN ---
- Subjective Encounter Start Date: 03/14/18 Encounter Start Time: 09:55 Subjective: pt intubated but follows command - Objective Vital Signs & Weight: Vital Signs (12 hours) Temp Pulse BP Pulse Ox 03/14/18 20:00 98.2 F 03/14/18 19:12 115 H 160/116 H 03/14/18 17:00 98.5 F 03/14/18 13:00 98.4 F 03/14/18 12:00 100 Weight Admit Weight 125 lb Weight 131 lb 2.801 oz Most Recent Monitor Data Heart Rate from ECG 139 NIBP 122/84 NIBP BP-Mean 97 Respiration from ECG 30 SpO2 100 I&O: 03/13/18 03/14/18 03/15/18 06:59 06:59 06:59 Intake Total 3202 529 9001 Output Total 200 400 0 Balance 2681 924 1194 Result Diagrams: 03/15/18 03:49 03/15/18 03:49 Additional Labs: Accuchecks 03/14/18 03/14/18 03/14/18 19:13 15:57 13:06 POC Glucose 114 H 82 81 03/14/18 03/14/18 03/14/18 08:56 06:27 03:36 POC Glucose 91 104 145 H 03/14/18 03/13/18 00:01 22:40 POC Glucose 119 H 135 H Phys Exam - Physical Examination HEENT: PERRLA, moist MMs, sclera anicteric, TM's clear, oral pharynx no lesions , 2+ tonsils Neck: no nodes, no JVD, supple, full ROM Cardiovascular: RRR, no significant murmur, no rub, gallop, irregular Gastrointestinal: soft (mild distention) Musculoskeletal: no edema, pulses present, edema present Neurological: non-focal, normal sensation, moves all 4 limbs Dx/Plan - Plan A/P: Ms Vogt is 38 yrs odl female who presented with sob and arrested yesterday 1. Cardiac arrest: S/P cardiac arrest 03/09 pt is intubated, monitor electrolytes Bp stable at present 2. Acute respiratory failure: Continue respiratory support per pulmonary. pt not ready for extubation. pt on steroids 3. Acute anemia over anemia of chronic disease: s/p two units of PRBC Monitor hgb closely 4. Pericardial effusion: S/P Pericardiocentes 03/[address] surgery on board s/p Pericardial window culture indicated gram positive cocci in pericardial fluid. staph epidermis, most likely a contaminant. pt has been put back on vanco/cefepime. will get ID for some help. will discontinue flagyl for now. 5. ESRD: on dialysis, nephrology on board 6. Ascites: hold paracentesis for now Monitor for now * . 7) hyponatremia: possible due to volume overload, will continue to monitor * . Review of Systems - Review of Systems Other: pt is intubated - Medications/Allergies Allergies/Adverse Reactions: Allergies Allergy/AdvReac Type Severity Reaction Status Date / Time No Known Drug Allergies Allergy Verified 02/17/18 12:13 Medications: Current Medications Clonidine (Dzquewni-Pmp-6) 0.2 mg TD Q7DAYS [facility] Last Admin: 03/11/18 09:47 Dose: 0.2 mg Hydralazine HCl (Apresoline) 10 mg SLOW IVP Q6H PRN PRN Reason: SBP GREATER THAN 150 Last Admin: 03/15/18 03:29 Dose: 10 mg Cefepime HCl 0.5 gm/Miscellaneous Medication 1 each/ Sterile Water 5 mls @ 60 mls/hr SLOW IVP 1600 [facility] Last Admin: 03/14/18 15:47 Dose: 5 mls Nicardipine HCl 50 mg/ Sodium (Chloride) 250 mls @ 0 mls/hr IVPB INF [facility]; Titrate PRN Reason: Protocol Dextrose/Water (Dextrose 10% In Water) 1,000 mls @ 50 mls/hr IV .Q20H [facility] Last Admin: 03/15/18 09:02 Dose: 1,000 mls Ceftriaxone Sodium 2 gm/ (Sodium Chloride) 100 mls @ 200 mls/hr IVPB 1100 [facility] Last Admin: 03/14/18 12:23 Dose: 100 mls Vancomycin HCl 1 gm/ Device 200 mls @ 200 mls/hr IVPB [facility] Vancomycin HCl 750 mg/ Sodium (Chloride) 250 mls @ 250 mls/hr IVPB [facility] Vancomycin HCl 500 mg/ Sodium (Chloride) 100 mls @ 100 mls/hr IVPB [facility] Vancomycin HCl 250 mg/ Sodium (Chloride) 100 mls @ 100 mls/hr IVPB [facility] Lorazepam (Ativan) 2 mg SLOW IVP Q2H PRN PRN Reason: Anxiety to achieve Marin 2-3 Stop: 04/08/18 17:18 Last Admin: 03/11/18 08:10 Dose: 2 mg Metoprolol Tartrate (Lopressor) 50 mg PO BID [facility] Miscellaneous Medication (Pharmacy To Dose) 1 each IVPB PRN PRN PRN Reason: Pharmacy to dose Hold Vancomycin For (Level >20) 0 each FS .AT DIALYSIS [facility] Ondansetron HCl (Zofran Odt) 4 mg PO Q4H PRN PRN Reason: Nausea/Vomiting Last Admin: 03/14/18 21:07 Dose: 4 mg Pantoprazole Sodium (Protonix) 40 mg IVP 2100 [facility] Last Admin: 03/14/18 20:53 Dose: 40 mg Sodium Chloride (Flush - Normal Saline) 10 ml IV 2100 [facility] Last Admin: 03/14/18 20:53 Dose: 10 ml
--- NOTE | 2018-03-15 01:02 | OP ---
03/14/2018 PROCEDURE: Fiberoptic bronchoscopy with extubation over bronchoscope. Scope was introduced while she was awake. The scope was only pushed out through the end of the endotracheal tube. Maybe 1 cm, so I did not trigger a tremendous amount of coughing. Visualized tracheobronchial tree is free of foreign bodies or mucus plugs. Scope was gradually withdrawn with the endotracheal tube. When I was in the proximal trachea, the scope was advanced through the endotracheal tube. The endotracheal tube was withdrawn followed by the scope. Vocal cords were visualized and they were not edematous. The entire scope and endotracheal tube was then withdrawn from tracheobronchial tree. I asked her to say hello. She very quickly said hello without stridor or hoarseness. [facility]
[2018-03-15] MEDS: hydrALAZINE 20 MG/ML VIAL SLOW IVP PRN (03:29)
[2018-03-15 05:09] LABS: Hemoglobin 12.4 g/dL (12.0-16.0); Lymphocytes 5 % (21-51); MDiff Complete? YES; Mean Corpuscular Volume 93.7 fl (81.0-99.0); Mean Platelet Volume 8.6 fL (7.4-10.4); Monocytes 5 % (0-10); Neutrophil 90 % (42-75); Platelet Count 230 thou/uL (130-400); RBC Distribution Width 17.8 % (11.5-14.5); Red Blood Cell (RBC) Count 4.15 mill/uL (4.20-5.40); White Blood Cell (WBC) Count 18.8 thou/uL (4.8-10.8)
[2018-03-15 05:19] LABS: Anion Gap 16 mmol/L (10-20); BUN (Urea Nitrogen) 47 mg/dL (7.0-18.7); Calc. Creatinine Clearance 10 mL/min (70-130); Calcium 9.9 mg/dL (7.8-10.44); Carbon Dioxide 27 mmol/L (22-29); Chloride 92 mmol/L (98-107); Estimated GFR-MDRD 8; Glucose 86 mg/dL (70-105); Magnesium 1.9 mg/dL (1.6-2.6); Sodium 131 mmol/L (136-145)
[2018-03-15] MEDS ORDERED: cloNIDine 0.1 MG TAB PO SCH (05:45)
[2018-03-15] MEDS: metroNIDAZOLE 500 MG in Premix Bag 1 BAG IVPB SCH ×3 (08:05)
--- NOTE | 2018-03-15 08:13 | RAD ---
AP VIEW CHEST: HISTORY: Ventilator-dependent patient. FINDINGS: AP view chest is obtained on 03/15/18. Comparison is made to previous exam from 03/14/18. AP view chest demonstrates removal of the nasogastric and endotracheal tubes. Again, left jugular ce ntral line is seen. Right subclavian endovascular stent is in place. Cardiomegaly noted. Pulmonary vascular congestion is seen. There are some areas of patchy airspace opacity seen in both hilar regions. There is no evidence of blunting of the costophrenic angles. IMPRESSION: Interval extubation of the patient and removal of the nasogastric tube. POS: [facility]
[2018-03-15] MEDS ORDERED: niCARdipine 40MG In NaCl 40 MG/200 ML BAG IVPB SCH ×2 (08:45→10:00)
[2018-03-15] MEDS ORDERED: Metoprolol Tartrate 50 MG TAB PO SCH ×2 (09:00→21:00)
[2018-03-15] MEDS: Dextrose 10% in Water 1,000 ML IV SCH (09:02)
[2018-03-15] MEDS: niCARdipine HCl 50 MG in Sodium Chloride 0.9% 250 ML 230 ML IVPB SCH ×2 (09:09→10:14)
[2018-03-15] MEDS ORDERED: Diltiazem 125 MG in Sodium Chloride 0.9% 100 ML IVPB SCH (09:45)
--- NOTE | 2018-03-15 09:48 | PDOC.CTH ---
Cardiology Progress Note - Subjective She had an episode of chest pain yesterday none since receiving a dose of morphine last night. - Objective Vital Signs Temp Pulse Resp BP 03/15/18 08:00 98.3 F 143 H 19 03/15/18 05:42 170/110 H 03/15/18 04:00 97.6 F 03/15/18 03:29 118 H 161/112 H 03/15/18 00:00 98.0 F Admit Weight 125 lb Weight 129 lb 6.581 oz 03/14/18 03/15/18 03/16/18 06:59 06:59 06:59 Intake Total 969 2365 0 Output Total 400 0 Balance 569 2365 0 - Physical Examination General/Neuro: alert & oriented x3, NAD Neck: no JVD present Lungs: unlabored respirations, other: (coarse breath sounds. ) Heart: other: (Tachyc) Abdomen: NT/ND Extremities: + edema B (1+) - Telemetry Telemetry Rhythm: S Tach - Labs Result Diagrams: 03/15/18 03:49 03/15/18 03:49 Troponin/CKMB CK-MB (CK-2) 6.0 ng/mL (0-6.6) 03/09/18 03:08 Troponin I 1.719 ng/mL (< 0.028) H* 03/09/18 08:57 - Assessment/Plan 1. S/P VFib arrest 2. Large pericardial effusion s/p pericardial window 3. ESRD 4. Anemia 5. CAD. 6. Staph isolated in her pericardial fluid. 7. Cirrhosis 8. Tachycardia. ECG yesterday seems to be possibly 2-1 aflutter so a repeat ECG done this morning is clearly sinus tachycardia. 9. HTN PLAN: - Continue Nicardipine drip for HTN - Restart some of her home meds and will titrate down the nicardipine as we add PO meds.
[2018-03-15] MEDS ORDERED: Metoprolol Tartrate 5 MG/5 ML VIAL IVP SCH (10:00)
[2018-03-15] MEDS: Ondansetron ODT 4 MG TAB PO PRN (10:19)
[2018-03-15] MEDS ORDERED: niCARdipine HCl 50 MG in Sodium Chloride 0.9% 250 ML 230 ML IVPB SCH (10:30)
[2018-03-15] MEDS: cefTRIAXone\\ROCEPHIN 2 GM in Sodium Chloride 0.9% 100 ML IVPB SCH (11:12)
--- NOTE | 2018-03-15 11:33 | PRG ---
DATE OF SERVICE: 03/15/2018 SUBJECTIVE: This is a 38-year-old female being seen for end-stage renal disease. Patient denies any nausea, vomiting, or chest pain. PHYSICAL EXAMINATION: GENERAL: Patient is awake, alert. VITAL SIGNS: Afebrile, pulse 75, breathing at 16, blood pressure is 105/68. GENERAL APPEARANCE AND MENTAL STATUS: Fair. HEAD/NECK: Normocephalic, atraumatic. EYES: EOMI. No deformity. EARS: Clear. No ulcers. NOSE: Intact. No lesions. MOUTH: Clear. No discharge. THROAT: Clear. No exudate. LUNGS: Clear. No crackles. CARDIAC: S1, S2. No rub. ABDOMEN: Benign. BS+. GENITALIA/RECTUM: Sadler absent. BACK/EXTREMITIES: Edema 0+ Ulcer-. NEUROLOGICAL: Alert and motor intact. SKIN: Rash- Bruise- LYMPHATICS: Edema- Ulcer-. LABORATORY DATA: Show hemoglobin of 12.4. ASSESSMENT AND RECOMMENDATIONS: 1. Stage 6 chronic kidney disease. Continue hemodialysis Friday, Friday, Friday. 2. Hypertension, stable. 3. Anemia, stable. 4. Medication based on glomerular filtration rate are appropriate.
--- NOTE | 2018-03-15 13:09 | PDOC.PN ---
- Subjective Encounter Start Date: 03/15/18 Encounter Start Time: 11:30 Subjective: pt up in bed extubated, feels well - Objective Vital Signs & Weight: Vital Signs (12 hours) Temp Pulse Resp BP Pulse Ox 03/15/18 08:11 93 L 03/15/18 08:00 98.3 F 143 H 19 03/15/18 05:42 170/110 H 03/15/18 04:00 97.6 F 03/15/18 03:29 118 H 161/112 H Weight Admit Weight 125 lb Weight 129 lb 6.581 oz Most Recent Monitor Data Heart Rate from ECG 116 NIBP 105/68 NIBP BP-Mean 82 Respiration from ECG 19 SpO2 93 I&O: 03/14/18 03/15/18 03/16/18 06:59 06:59 06:59 Intake Total 969 2365 180 Output Total 400 0 0 Balance 569 2365 180 Result Diagrams: 03/15/18 03:49 03/15/18 03:49 Additional Labs: Accuchecks 03/15/18 03/15/18 03/15/18 12:01 08:41 05:52 POC Glucose 87 71 63 L 03/15/18 03/15/18 03/14/18 04:19 02:59 23:34 POC Glucose 98 78 96 03/14/18 03/14/18 03/14/18 21:24 19:13 15:57 POC Glucose 103 114 H 82 03/14/18 13:06 POC Glucose 81 Phys Exam - Physical Examination HEENT: PERRLA, moist MMs, sclera anicteric, TM's clear, oral pharynx no lesions , 2+ tonsils Neck: no nodes, no JVD, supple, full ROM Respiratory: no wheezing, no rales, no rhonchi, wheezing present, clear to auscultation bilateral Cardiovascular: RRR, no significant murmur, no rub, gallop, irregular mild distention, bsx2 Musculoskeletal: no edema Dx/Plan - Plan A/P: Ms Vogt is 38 yrs odl female who presented with sob and arrested yesterday 1. Cardiac arrest: S/P cardiac arrest 03/09 pt is intubated, monitor electrolytes Bp stable at present 2. Acute respiratory failure: Continue respiratory support per pulmonary. pt not ready for extubation. pt on steroids 3. Acute anemia over anemia of chronic disease: s/p two units of PRBC Monitor hgb closely 4. Pericardial effusion: S/P Pericardiocentes 03/[address] surgery on board s/p Pericardial window culture indicated gram positive cocci in pericardial fluid. staph epidermis, most likely a contaminant. pt has been put back on vanco/cefepime. will get ID for some help. will discontinue flagyl for now. 5. ESRD: on dialysis, nephrology on board 6. Ascites: pt will need paracentesis * . 7) hyponatremia: possible due to volume overload, will continue to monitor 8) HTN: pt on nicadipine drip * . Review of Systems - Review of Systems Eyes: negative: Pain, Vision Change, Conjunctivae Inflammation, Eyelid Inflammation, Redness, Other ENT: negative: Ear Pain, Ear Discharge, Nose Pain, Nose Discharge, Nose Congestion, Mouth Pain, Mouth Swelling, Throat Pain, Throat Swelling, Other Respiratory: negative: Cough, Dry, Shortness of Breath, Hemoptysis, SOB with Excertion, Pleuritic Pain, Sputum, Wheezing Gastrointestinal: Abdominal Pain Genitourinary: negative: Dysuria, Frequency, Incontinence, Hematuria, Retention , Other Musculoskeletal: negative: Neck Pain, Shoulder Pain, Arm Pain, Back Pain, Hand Pain, Leg Pain, Foot Pain, Other - Medications/Allergies Allergies/Adverse Reactions: Allergies Allergy/AdvReac Type Severity Reaction Status Date / Time No Known Drug Allergies Allergy Verified 02/17/18 12:13 Medications: Current Medications Clonidine ([id number]-Tjd-0) 0.2 mg TD Q7DAYS [facility] Last Admin: 03/11/18 09:47 Dose: 0.2 mg Hydralazine HCl (Apresoline) 10 mg SLOW IVP Q6H PRN PRN Reason: SBP GREATER THAN 150 Last Admin: 03/15/18 03:29 Dose: 10 mg Hydralazine HCl (Apresoline) 50 mg PO TID [facility] Cefepime HCl 0.5 gm/Miscellaneous Medication 1 each/ Sterile Water 5 mls @ 60 mls/hr SLOW IVP 1600 [facility] Last Admin: 03/14/18 15:47 Dose: 5 mls Dextrose/Water (Dextrose 10% In Water) 1,000 mls @ 50 mls/hr IV .Q20H [facility] Last Admin: 03/15/18 09:02 Dose: 1,000 mls Ceftriaxone Sodium 2 gm/ (Sodium Chloride) 100 mls @ 200 mls/hr IVPB 1100 [facility] Last Admin: 03/15/18 11:12 Dose: 100 mls Vancomycin HCl 1 gm/ Device 200 mls @ 200 mls/hr IVPB [facility] Vancomycin HCl 750 mg/ Sodium (Chloride) 250 mls @ 250 mls/hr IVPB [facility] Vancomycin HCl 500 mg/ Sodium (Chloride) 100 mls @ 100 mls/hr IVPB [facility] Vancomycin HCl 250 mg/ Sodium (Chloride) 100 mls @ 100 mls/hr IVPB [facility] Nicardipine HCl 50 mg/ Sodium (Chloride) 250 mls @ 0 mls/hr IVPB INF [facility]; Titrate PRN Reason: Protocol Lorazepam (Ativan) 2 mg SLOW IVP Q2H PRN PRN Reason: Anxiety to achieve Marin 2-3 Stop: 04/08/18 17:18 Last Admin: 03/11/18 08:10 Dose: 2 mg Losartan Potassium (Cozaar) 50 mg PO DAILY [facility] Metoprolol Tartrate (Lopressor) 50 mg PO BID [facility] Miscellaneous Medication (Pharmacy To Dose) 1 each IVPB PRN PRN PRN Reason: Pharmacy to dose Hold Vancomycin For (Level >20) 0 each FS .AT DIALYSIS [facility] Ondansetron HCl (Zofran Odt) 4 mg PO Q4H PRN PRN Reason: Nausea/Vomiting Last Admin: 03/15/18 10:19 Dose: 4 mg Pantoprazole Sodium (Protonix) 40 mg IVP 2100 [facility] Last Admin: 03/14/18 20:53 Dose: 40 mg Sodium Chloride (Flush - Normal Saline) 10 ml IV 2100 [facility] Last Admin: 03/14/18 20:53 Dose: 10 ml
[2018-03-15] MEDS: hydrALAZINE 25 MG TAB PO SCH ×2 (15:36→20:32)
[2018-03-15] MEDS: Cefepime 0.5 GM, Admixture Fee 1 EACH in Sterile Water 5 ML SLOW IVP SCH (15:37)
--- NOTE | 2018-03-15 16:04 | CON ---
DATE OF CONSULTATION: 03/15/2018 REASON FOR CONSULTATION: Positive cultures from pericardial fluid sample. HISTORY OF PRESENT ILLNESS: A 38-year-old has a history of systemic lupus erythematosus with end-stage renal disease on hemodialysis for an AV fistula who has developed worsening dyspnea and chest heaviness. She also has refractory ascites managed with mostly therapeutic paracentesis with a negative hepatic workup with no evidence of primary liver disease. At this time after developing worsening dyspnea, she presented with a much bigger pericardial effusion. Developed asystole, which required CPR and ACLS with emergent pericardiocentesis and pericardial window. The patient was admitted to the ICU and recently extubated. Now we have a positive pericardial fluid culture. Currently, she is sitting up at the bedside talking to the relatives through her cell phone. She denies any headaches, no visual symptoms. No sore throat, odynophagia, or dysphagia. Mild chest pain, no dyspnea, little bit of cough, no sputum production, no abdominal pain, no diarrhea. She does not have any urinary output. The chest tubes have been removed. PAST MEDICAL HISTORY: Systemic lupus erythematosus, end-stage renal disease, chronic ascites managed with therapeutic paracentesis, AV fistula placement, tubal ligation. ALLERGIES: None. MEDICINES: Minoxidil, clonidine, metoprolol, losartan, and hydralazine. CURRENT MEDICATIONS: Cefepime, ceftriaxone, clonidine, dextrose, hydralazine, lorazepam, losartan, metoprolol, nicardipine, vancomycin sliding scale. PHYSICAL EXAMINATION: VITAL SIGNS: T-max 101.9 on 03/12/2018. She is currently afebrile. BP 105/68 , pulse 98-143, respiratory rate 19. SKIN: There is a round shallow ulceration in the right gluteal region close to the presacral area. The patient has dilated veins from the AV fistula right upper extremity and does not have Sadler catheter. NG tube has been removed. HEENT: Ocular movements are conjugate. Periorbital edema noted. Pale conjunctivae. Oral cavity with still quite a few teeth remaining in place with some degree of gum disease. NECK: Supple. No jugular vein distention. LUNGS: With bibasilar inspiratory crackles. Symmetric air entry. HEART: S1 and S2 with soft aortic murmur and S4, regular rate. ABDOMEN: Distended with ascites, quite tense, but not tender. No bladder distention. EXTREMITIES: She is able to move extremities. No edema. Pulses 1+ in dorsalis pedis. Strength in upper and lower extremities is 5/5. NEUROLOGIC: She is awake, oriented, follows commands, good recollection. LABORATORY DATA AND IMAGING DATA: White cell count is 17, it is up to 18,000, hemoglobin 12, platelets 230 with 90% neutrophils. INR 2.2. Sodium 131, creatinine 6.83, AST 1689, ALT 885, alkaline phosphatase 386 and bilirubin 2.8. Hepatitis C was nonreactive in 2017. Cultures, we have Staph epidermides retrieved from one sample of pericardial fluid drainage. This was retrieved only from the bottle where the sample was inoculated. The plate did not retrieve Staph epidermides. The other sample was culture negative. Both samples had rare WBCs. The first one with many RBCs present. The acid-fast was negative. Two sets of venous blood cultures negative. Latest chest x-ray from today with cardiomegaly, pulmonary vascular congestion, areas of patchy airspace opacity and hilar regions. ASSESSMENT: 1. Systemic lupus erythematosus. 2. End-stage renal disease on hemodialysis with AV fistula. 3. Pericarditis likely from persistent lupus activity. 4. Positive cultures from one of the samples of pericardial fluid, most likely due to contamination of the sample rather than true infective pericarditis. 5. Refractory ascites. 6. Abnormal liver function tests. DISCUSSION: Patients with systemic lupus erythematosus who progress to end- stage renal disease, usually will frequently continue to have active autoimmune inflammatory process with persistence, sometimes exacerbation of extrarenal inflammatory activity. For example, with serositis including pericarditis and other manifestations. Since she is not receiving any immunosuppressive medication, it is conceivable that her pericarditis is related to the persistent lupus activity. The organism isolated from pericardial fluid is retrieved from only blood culture bottle inoculation sample and not from the plate inoculation from the same sample. The second sample did not retrieve the organism and also there is no evidence of neutrophils in either the first or second samples. So I believe that this organism is more likely to represent contamination of the sample rather than true pathogenic role and I would not recommend treating this finding. Check autoimmune panel in C3-C4 to gauge the activity of lupus. She may need immunosuppressive treatment for management of the SLE. [facility]
--- NOTE | 2018-03-15 17:24 | PRG ---
DATE OF SERVICE: 03/15/2018 SUBJECTIVE: Ms. Vogt has no complaints. She is not eating much. I have explained to her that she has to eat or she will be having more hyperglycemic issues. I do no t believe she has any glycogen stores. OBJECTIVE: VITAL SIGNS: Heart rates is 116, blood pressure 105/68. She was in the 140s earlier, but we restart ed her beta blockers and this has helped. LUNGS: Clear. HEART: Regular rhythm. ABDOMEN: Soft. EXTREMITIES: Without edema. NEUROLOGIC: Nonfocal. LABORATORY DATA: White count 18.5, hemoglobin 12.4, platelets 230. Sodium 131, potassium 4, chloride 92, bicarbonate 27, BUN 47, creatinine 6.83. IMPRESSION: 1. Status post cardiorespiratory arrest during dialysis. 2. Pericardial effusion, it is unclear whether or not she was tamponading and she was emergently tap ped during the code and then went for a window. 3. Severe hypoglycemia postoperatively with glucose of 9. There is no neurological sequela. 4. Underlying cirrhosis. 5. History of lupus. Her doctor that follows her cirrhosis should be consulted tomorrow in my opinion. She is medically stable. She is still on D10 requiring frequent blood glucose checks with glucoses i n the 60s-90s. In the morning, we should probably try switching her to D5W, continue to watch her in the Critical Care Unit.
[2018-03-15] MEDS: Pantoprazole 40 MG VIAL IVP SCH ×2 (20:32)
[2018-03-16 04:46] LABS: Anion Gap 15 mmol/L (10-20); BUN (Urea Nitrogen) 55 mg/dL (7.0-18.7); Calc. Creatinine Clearance 9 mL/min (70-130); Calcium 9.7 mg/dL (7.8-10.44); Carbon Dioxide 26 mmol/L (22-29); Chloride 91 mmol/L (98-107); Estimated GFR-MDRD 7; Glucose 91 mg/dL (70-105); Potassium 4.1 mmol/L (3.5-5.1); Sodium 128 mmol/L (136-145)
[2018-03-16 05:06] LABS: Band 6 % (5-11); Lymphocytes 6 % (21-51); MDiff Complete? YES; Mean Corpuscular HGB CONC 32.8 g/dL (32.0-36.0); Mean Corpuscular Hemoglobin 30.5 pg (27.0-31.0); Mean Corpuscular Volume 93.1 fl (81.0-99.0); Mean Platelet Volume 8.8 fL (7.4-10.4); Monocytes 7 % (0-10); Neutrophil 81 % (42-75); Platelet Count 177 thou/uL (130-400); RBC Distribution Width 17.5 % (11.5-14.5); Red Blood Cell (RBC) Count 3.29 mill/uL (4.20-5.40); White Blood Cell (WBC) Count 13.4 thou/uL (4.8-10.8)
[2018-03-16] MEDS: Dextrose 5% in Water 1,000 ML IV SCH (08:00)
--- NOTE | 2018-03-16 08:30 | RAD ---
PORTABLE CHEST: Date: 03/16/18 COMPARISON: Prior day's exam. HISTORY: Respiratory distress. FINDINGS: Heart size is enlarged. Pulmonary vessels are engorged. Increased parahilar lung markings are seen, a s well as right lower lobe lung markings. IMPRESSION: Cardiomegaly with changes that would suggest some element of edema, possibly with coexistent infiltra te as the changes asymmetrically involve the right base. Follow-up chest film suggested. POS: [facility]
[2018-03-16] MEDS: Metoprolol Tartrate 50 MG TAB PO SCH ×2 (08:53→20:30)
[2018-03-16] MEDS: hydrALAZINE 25 MG TAB PO SCH ×3 (09:00→22:02)
[2018-03-16] MEDS: Aspirin 81 mg Enteric Coated Tablet PO SCH (09:00)
[2018-03-16] MEDS: Losartan 25 MG TAB PO SCH ×2 (09:00)
--- NOTE | 2018-03-16 12:05 | PRG ---
DATE OF SERVICE: 03/16/2018 SUBJECTIVE: Patient was seen and examined at bedside and overnight events noted. Patient denies any shortness of breath or chest pain or palpitation. No history of nausea or vomitin g or diarrhea or fever or chills or cramps. OBJECTIVE: GENERAL: This is a well-built female, in no apparent distress, seen during dialysis. VITAL SIGNS: Temperature 97.8, pulse 99, respiratory rate 22, blood pressure 126/90. HEENT: Atraumatic, normocephalic. Oral mucosa is moist NECK: Supple. CARDIOVASCULAR: S1 and S2 heard. Rate and rhythm regular. RESPIRATORY: Clear to auscultation. GASTROINTESTINAL: Abdomen is soft. Ascites. MUSCULOSKELETAL: No tenderness. No edema. DERMATOLOGIC: No skin rash. NEUROLOGIC: Alert and awake and oriented x3. No focal neurologic deficits. Moving all the extremit ies. PSYCHIATRIC: Mood and affect normal. LABORATORY DATA: Potassium is 4.1, BUN 55, creatinine 7.6, hemoglobin 10.7. ASSESSMENT AND PLAN: 1. End-stage renal disease. Plan is to continue dialysis. Patient was seen during dialysis, tolera ting well. 2. Hypertension, stable. 3. Anemia. We will monitor and IDSA as tolerated. 4. Edema with anasarca. 5. Pericardial effusion. 6. Hyponatremia advised to limit fluid intake. 7. Long-term prognosis is guarded. Follow with all the consultants and will have dialysis as tolera lee. Consider paracentesis. We will follow.
--- NOTE | 2018-03-16 12:48 | PRG ---
DATE OF SERVICE: 03/16/2018 SUBJECTIVE: Ms. Vogt is sitting on the side of the bed, in no distress. She was smiling. She is oriented x3. OBJECTIVE: VITAL SIGNS: She is on 2-liter cannula, oximetry is 97%; blood pressure 126/90; heart rate 110. LUNGS: Remarkable for decreased breath sounds at her bases with fine crackles. HEART: Regular rhythm. ABDOMEN: Remarkable for an exam consistent with ascites. EXTREMITIES: Without asymmetry. NEUROLOGIC: Nonfocal. LABORATORY DATA: White count 13.4, hemoglobin 10, platelets 177. Sodium 128, potassium 4.1, chloride 91, bicarbonate 26, BUN 55, creatinine 7.63. Reviewed antibiotics today. It turns out she is on 3 antibiotics. So, I have simplified her antibio tics to 1. She had methicillin-sensitive Staph in her pericardial fluid, so will continue just with the Rocephin. IMPRESSION: 1. ?bacterial pericarditis versus a contaminant. We will have to treat her as though this is a path ogen. 2. Status post pericardial window. 3. Status post cardiorespiratory arrest, in my opinion more likely secondary to hypoglycemia than ta mponade given that she had a diastolic blood pressure of 120 the morning of her arrest. 4. Hypertension that is better controlled. 5. Tachycardia yesterday, felt to be secondary to beta riley withdrawal. 6. End-stage renal disease, on dialysis. 7. Residual mild pulmonary edema. 8. Cirrhosis of unclear etiology. She tells me that she did know she had liver disease, although tameka whitman has been seeing Dr. Varner. Gastroenterology has been consulted. 9. History of lupus. 10. Deconditioning. 11. History of medical noncompliance. PLAN: Continue current care. She probably is close to a point where she can move out of the ICU, but I would prefer her to have 24 -48 hours of documented reasonable glucoses. We have cut her from D10 to D5 today, and we will paulo nue to watch her closely. Blood glucoses have been in the 50-60 range, which may be fine. She may h ave a regulated insulin release with the sugar infusions. We have gone from D20 to D10 with more or less the same serum glucoses, so will go from D10 to D5 today. Critical care time was 30 minutes.
[2018-03-16] MEDS: cefTRIAXone\\ROCEPHIN 2 GM in Sodium Chloride 0.9% 100 ML IVPB SCH (14:03)
--- NOTE | 2018-03-16 14:57 | PRG ---
DATE OF SERVICE: 03/16/2018 GI INPATIENT DAILY PROGRESS NOTE SUBJECTIVE: I called back to see Ms. Vogt regarding her refractory ascites. She has done well ov er the past several days. She had improvement from respiratory standpoint, was able to be extubated. She is not currently having any dyspnea or significant cough. No chest pain. She continues on ant imicrobial therapy, though note from Dr. Goodson' opinion, the staff from the pericardial fluid was lik alina a contaminant. She has been hemodynamically stable and getting dialysis. She complains of persi stent abdominal distention. Appetite is not great, but she has been tolerating p.o. intake. PHYSICAL EXAMINATION: VITAL SIGNS: Pulse 113, blood pressure 143/93, 98% oxygen saturation on 2 liters nasal cannula and t emperature is 97.6. GENERAL: No acute distress, lying in bed comfortably. HEART: Regular tachycardia. LUNGS: Bibasilar crackles, no wheezing, no respiratory distress. ABDOMEN: Distended with ascites, nontender to palpation. EXTREMITIES: No peripheral edema. LABORATORY STUDIES: WBC 13.4, hemoglobin 10.0, platelets 177. Last INR check was a week ago, it was 2.2. Sodium 128, potassium 4.1, BUN 55, creatinine 7.63, glucose 57. C3 level 69 and C4 is 21.4. ASSESSMENT AND PLAN: 1. Refractory ascites, secondary to end-stage renal disease. 2. Pericardial effusion, now status post pericardial window. 3. End-stage renal failure with history of nonadherence to dialysis. 4. Elevated liver function tests on presentation. Clinically, Mrs. Vogt has significantly improv ed over the past few days. I reviewed with her again that from fairly extensive liver workup last ye venessa, there is actually no clear evidence of significant intrinsic liver disease. Her refractory ascit es rather seems to be secondary to her anuric renal failure and nonadherence to fluid restriction and frequent missed dialysis. I suppose it is also possible that the lupus may be playing a role. On a n outpatient basis, she has been having therapeutic paracentesis every 3 weeks, but we will likely ne ed to shorten that interval to every 2 weeks. I can continue to order this through our colleagues at [facility], but again there is really no other manifestation of chronic liver disease, and I am obviously unable to use diuretics secondary to her anuric renal failure. LFTs and INR were elevated on admission, but this is in the context of cardiorespiratory arrest and I feel likely represented shock liver. We will recheck LFTs and INR with tomorrow morning's labs. At this point, I think therapeutic paracentesis would be warranted, so I will order this as well.
--- NOTE | 2018-03-16 15:16 | PDOC.PN ---
- Subjective Encounter Start Date: 03/16/18 Encounter Start Time: 12:15 Subjective: pt up in chair feels she cannot take a deep breath - Objective Vital Signs & Weight: Vital Signs (12 hours) Temp Pulse Resp BP Pulse Ox 03/16/18 14:12 113 H 143/93 H 03/16/18 12:00 97.6 F 03/16/18 09:00 113 H 03/16/18 08:00 97.8 F 113 H 23 H 93 L 03/16/18 04:00 94 L Weight Admit Weight 125 lb Weight 129 lb 13.636 oz Most Recent Monitor Data Heart Rate from ECG 112 NIBP 143/93 NIBP BP-Mean 106 Respiration from ECG 28 SpO2 98 I&O: 03/15/18 03/16/18 03/17/18 06:59 06:59 06:59 Intake Total 2365 2116 232 Output Total 0 0 Balance 2365 2116 232 Result Diagrams: 03/16/18 04:18 03/16/18 04:18 Additional Labs: Accuchecks 03/16/18 03/16/18 03/16/18 12:59 08:17 05:38 POC Glucose 57 L* 71 62 L 03/16/18 03/16/18 03/15/18 03:11 00:00 22:03 POC Glucose 69 L 86 99 03/15/18 03/15/18 03/15/18 21:29 20:06 19:40 POC Glucose 56 L* 87 48 L* 03/15/18 03/15/18 18:55 15:17 POC Glucose 43 L* 83 Phys Exam - Physical Examination HEENT: PERRLA, moist MMs, sclera anicteric, TM's clear, oral pharynx no lesions , 2+ tonsils Neck: no nodes, no JVD, supple, full ROM decreased breath sound all over lungs Cardiovascular: RRR, no significant murmur, no rub, gallop, irregular mild abd distention Dx/Plan - Plan A/P: Ms Vogt is 38 yrs odl female who presented with sob and arrested yesterday 1. Cardiac arrest: S/P cardiac arrest 03/09 pt is intubated, monitor electrolytes Bp stable at present 2. Acute respiratory failure: extubated 03/14 3. Acute anemia over anemia of chronic disease: s/p two units of PRBC Monitor hgb closely 4. Pericardial effusion: S/P Pericardiocentes 03/[address] surgery on board s/p Pericardial window culture indicated gram positive cocci in pericardial fluid. staph epidermis, most likely a contaminant. Appreciate ID's input. 5. ESRD: on dialysis, nephrology on board 6. Ascites: pt to get paracentesis today * . 7) hyponatremia: possible due to volume overload, will continue to monitor 8) HTN: pt on nicadipine drip * . Review of Systems - Review of Systems Eyes: negative: Pain, Vision Change, Conjunctivae Inflammation, Eyelid Inflammation, Redness, Other ENT: negative: Ear Pain, Ear Discharge, Nose Pain, Nose Discharge, Nose Congestion, Mouth Pain, Mouth Swelling, Throat Pain, Throat Swelling, Other Respiratory: Shortness of Breath Cardiovascular: negative: chest pain, palpitations, orthopnea, paroxysmal nocturnal dyspnea, edema, light headedness, other Gastrointestinal: Abdominal Pain Musculoskeletal: negative: Neck Pain, Shoulder Pain, Arm Pain, Back Pain, Hand Pain, Leg Pain, Foot Pain, Other - Medications/Allergies Allergies/Adverse Reactions: Allergies Allergy/AdvReac Type Severity Reaction Status Date / Time No Known Drug Allergies Allergy Verified 02/17/18 12:13 Medications: Current Medications Aspirin (Ecotrin) 81 mg PO DAILY [facility] Last Admin: 03/16/18 09:00 Dose: 81 mg Clonidine (Oznkzdzd-Iax-8) 0.2 mg TD Q7DAYS [facility] Last Admin: 03/11/18 09:47 Dose: 0.2 mg Hydralazine HCl (Apresoline) 10 mg SLOW IVP Q6H PRN PRN Reason: SBP GREATER THAN 150 Last Admin: 03/15/18 03:29 Dose: 10 mg Hydralazine HCl (Apresoline) 50 mg PO TID [facility] Last Admin: 03/16/18 14:12 Dose: 50 mg Ceftriaxone Sodium 2 gm/ (Sodium Chloride) 100 mls @ 200 mls/hr IVPB 1100 [facility] Last Admin: 03/16/18 14:03 Dose: 100 mls Nicardipine HCl 50 mg/ Sodium (Chloride) 250 mls @ 0 mls/hr IVPB INF [facility]; Titrate PRN Reason: Protocol Last Admin: 03/15/18 21:23 Dose: 250 mls Dextrose/Water (D5w) 1,000 mls @ 50 mls/hr IV .Q20H [facility] Last Admin: 03/16/18 08:00 Dose: 1,000 mls Lorazepam (Ativan) 2 mg SLOW IVP Q2H PRN PRN Reason: Anxiety to achieve [place] 2-3 Stop: 04/08/18 17:18 Last Admin: 03/11/18 08:10 Dose: 2 mg Losartan Potassium (Cozaar) 50 mg PO DAILY [facility] Last Admin: 03/16/18 09:00 Dose: Not Given Metoprolol Tartrate (Lopressor) 100 mg PO BID [facility] Last Admin: 03/16/18 08:53 Dose: 100 mg Nifedipine (Procardia Xl) 60 mg PO 2100 [facility] Ondansetron HCl (Zofran Odt) 4 mg PO Q4H PRN PRN Reason: Nausea/Vomiting Last Admin: 03/15/18 10:19 Dose: 4 mg Pantoprazole Sodium (Protonix) 40 mg PO 2100 [facility]
--- NOTE | 2018-03-16 18:16 | PRG ---
DATE OF SERVICE: 03/16/2018 SUBJECTIVE: The patient denies any headaches. No respiratory symptoms, no abdominal pain, no diarrh ea, no dyspnea. OBJECTIVE: VITAL SIGNS: T-max 99.5, blood pressure 130/90 and pulse 113. HEENT: Periorbital edema. LUNGS: Bilateral inspiratory crackles at the lung bases. CARDIOVASCULAR: S1 and S2, without murmurs, regular rate. ABDOMEN: Soft, nondistended or tender. EXTREMITIES: Moves extremities equally. LABORATORY DATA: White cell count 13.4, hemoglobin 10 and platelets 177. Creatinine is 7.76, C3-69 and C4-21. ASSESSMENT AND DISCUSSION: Systemic lupus erythematosus, pericarditis, end-stage renal disease, michelle cardial fluid culture positivity likely contaminant of the sample. 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 In view of hypocomplementemia, the auto antibody titer should be high, waiting on the results. Probably, she will need immunosuppressive therapy to preven t recurrence and exacerbation of serositis.
--- NOTE | 2018-03-16 19:13 | EKG ---
Test Reason : Blood Pressure : / mmHG Vent. Rate : 131 BPM Atrial Rate : 131 BPM P-R Int : 132 ms QRS Dur : 082 ms QT Int : 310 ms P-R-T Axes : 019 113 -10 degrees QTc Int : 457 ms Sinus tachycardia Right axis deviation Nonspecific T wave abnormality Abnormal ECG When compared with ECG of 14-MAR-2018 19:56, (Unconfirmed) No significant change was found Confirmed by MATHEUS RIDDLE ([id number]) on 03/16/2018 7:12:50 PM Referred By: Confirmed By:MATHEUS RIDDLE
--- NOTE | 2018-03-16 19:16 | EKG ---
Test Reason : STAT CP Blood Pressure : / mmHG Vent. Rate : 137 BPM Atrial Rate : 137 BPM P-R Int : 126 ms QRS Dur : 078 ms QT Int : 300 ms P-R-T Axes : 055 105 027 degrees QTc Int : 453 ms Sinus tachycardia Rightward axis Nonspecific ST abnormality Abnormal ECG When compared with ECG of 09-MAR-2018 02:51, (Unconfirmed) No significant change was found Confirmed by MATHEUS RIDDLE ([id number]) on 03/16/2018 7:16:19 PM Referred By: Sunny CAMPO Confirmed By:MATHEUS RIDDLE
[2018-03-16] MEDS: ALPRAZolam 0.25 MG TAB PO PRN (20:30)
[2018-03-16] MEDS: Dextrose 10% in Water 1,000 ML IV SCH (20:35)
[2018-03-16] MEDS: NIFEdipine XL 60 MG TAB PO SCH (22:02)
[2018-03-17] MEDS: Dextrose 5% in Water 1,000 ML IV SCH (02:10)
[2018-03-17 06:01] LABS: INR-International Normal Ratio 1.4; Prothrombin Time 17.5 SEC (12.0-14.7)
[2018-03-17 06:08] LABS: Anion Gap 16 mmol/L (10-20); BUN (Urea Nitrogen) 32 mg/dL (7.0-18.7); Calc. Creatinine Clearance 12 mL/min (70-130); Calcium 10.1 mg/dL (7.8-10.44); Carbon Dioxide 27 mmol/L (22-29); Chloride 92 mmol/L (98-107); Estimated GFR-MDRD 10; Glucose 113 mg/dL (70-105); Potassium 3.9 mmol/L (3.5-5.1); Sodium 131 mmol/L (136-145)
[2018-03-17 06:10] LABS: ALT (SGPT) 196 U/L (8-55); AST (SGOT) 113 U/L (5-34); Albumin 2.8 g/dL (3.5-5.0); Alkaline Phosphatase 317 U/L (40-150); Bilirubin, Direct 0.9 mg/dL (0.1-0.3); Bilirubin, Total 1.1 mg/dL (0.2-1.2); Protein, Total 6.8 g/dL (6.0-8.3)
[2018-03-17 06:33] LABS: Band 3 % (5-11); Hemoglobin 8.9 g/dL (12.0-16.0); Lymphocytes 13 % (21-51); MDiff Complete? YES; Mean Corpuscular HGB CONC 30.6 g/dL (32.0-36.0); Mean Corpuscular Hemoglobin 28.5 pg (27.0-31.0); Mean Corpuscular Volume 93.2 fl (81.0-99.0); Mean Platelet Volume 9.3 fL (7.4-10.4); Monocytes 10 % (0-10); Neutrophil 74 % (42-75); Platelet Count 148 thou/uL (130-400); RBC Distribution Width 17.7 % (11.5-14.5); Red Blood Cell (RBC) Count 3.14 mill/uL (4.20-5.40); White Blood Cell (WBC) Count 9.4 thou/uL (4.8-10.8)
[2018-03-17] MEDS: Metoprolol Tartrate 50 MG TAB PO SCH ×3 (08:50→23:05)
[2018-03-17] MEDS: Losartan 25 MG TAB PO SCH ×2 (08:54)
[2018-03-17] MEDS ORDERED: Lidocaine 1% w/Epinephrine 1:200K 30 ML VIAL ONE (09:18)
[2018-03-17] MEDS ORDERED: Lidocaine 1% (PF) 30 ML VIAL ONE (09:19)
--- NOTE | 2018-03-17 11:08 | ULT ---
ULTRASOUND GUIDED PARACENTESIS: History: Recurrent ascites. FINDINGS: Real-time imaging of the abdomen shows a large amount of fluid, the largest pocket in the right lower quadrant. After informed consent was obtained, the patient was prepped and draped in a normal steril e fashion. Local anesthesia was obtained with 1% Xylocaine mixed with sodium bicarb. Small skin incis ion was made with a #11 scalpel blade and a 6 [place] Yueh catheter was introduced under ultrasound gu idance without difficulty. A total of 5.4 L of dark straw colored fluid was obtained. Patient tolerat ed the procedure. There were no immediate complications. IMPRESSION: Ultrasound directed paracentesis with 5.4 L of fluid. POS: [facility]
[2018-03-17] MEDS: cefTRIAXone\\ROCEPHIN 2 GM in Sodium Chloride 0.9% 100 ML IVPB SCH (11:47)
[2018-03-17] MEDS: Aspirin 81 mg Enteric Coated Tablet PO SCH (11:47)
--- NOTE | 2018-03-17 15:19 | PRG ---
DATE OF SERVICE: 03/17/2018 SUBJECTIVE: Ms. Vogt is doing okay. She continues to have a cough. No respiratory distress. Sh j carlos had paracentesis of 5.7 liters earlier today and is feeling less distended. OBJECTIVE: VITAL SIGNS: Blood pressure 111/78, heart rate 89, 94% oxygen saturation on 2 liters nasal cannula, temperature is 98.0. GENERAL: No acute distress. HEART: Regular rate and rhythm. LUNGS: Bibasilar crackles, no respiratory distress. ABDOMEN: Distended with ascites, soft, nontender. EXTREMITIES: No peripheral edema. LABORATORY STUDIES: WBC down to 9.4, hemoglobin 8.9, platelets 148. INR came down to 1.4. Sodium 1 31, potassium 3.9, BUN 32, creatinine 5.59. LFTs all declined as well. Total bilirubin now normaliz ed at 1.1, alkaline phosphatase down to 317, AST 113, ALT 196. ASSESSMENT AND PLAN: 1. Refractory ascites this is secondary primarily to her end-stage renal disease, nonadherence to fl uid restriction and dialysis. We will arrange for her to have outpatient therapeutic paracentesis [facility] at an every 2-week interval going forward. 2. Pericardial effusion, status post pericardial window. 3. End-stage renal failure. 4. Shock liver, resolving. LFTs have declined precipitously since admission, consistent with my imp ression of shock liver which is now resolving. Please feel free to call back anytime with questions or concerns.
--- NOTE | 2018-03-17 16:12 | PDOC.PN ---
- Subjective Encounter Start Date: 03/17/18 Encounter Start Time: 15:30 Patient is seen today, alert and oriented. Has paracentesis today of 5.4 liters , with No h/.o Liver cirrohiss, - Objective MAR Reviewed: Yes Vital Signs & Weight: Vital Signs (12 hours) Temp Pulse Resp Pulse Ox 03/17/18 16:00 97.9 F 03/17/18 12:00 98.0 F 03/17/18 08:00 98.3 F 102 H 20 93 L Weight Admit Weight 125 lb Weight 128 lb 8.472 oz Most Recent Monitor Data Heart Rate from ECG 97 NIBP 116/77 NIBP BP-Mean 87 Respiration from ECG 19 SpO2 93 I&O: 03/16/18 03/17/18 03/18/18 06:59 06:59 06:59 Intake Total 2115 1948 771 Output Total 0 Balance 2115 1948 771 Result Diagrams: 03/17/18 05:23 03/17/18 05:23 Additional Labs: Accuchecks 03/17/18 03/17/18 03/17/18 15:56 12:20 10:17 POC Glucose 80 96 67 L 03/17/18 03/17/18 03/16/18 03:11 00:04 21:25 POC Glucose 83 77 70 03/16/18 03/16/18 18:42 15:58 POC Glucose 92 92 Radiology Reviewed by me: Yes EKG Reviewed by me: Yes Phys Exam - Physical Examination HEENT: PERRLA, moist MMs Neck: no nodes, no JVD Respiratory: no wheezing, no rales Cardiovascular: RRR, no significant murmur Gastrointestinal: soft, non-tender Musculoskeletal: no edema, pulses present Neurological: non-focal, normal sensation Dx/Plan (1) Pericardial effusion Code(s): I31.3 - PERICARDIAL EFFUSION (NONINFLAMMATORY) Status: Acute Comment: Patient hads pericardial window, Will clsoley monitor. Follow cardiology recommedations, BP are stable now. (2) Hypoglycemia Code(s): E16.2 - HYPOGLYCEMIA, UNSPECIFIED Status: Acute Comment: Pt on d5 since yesterday, is stopped Now, no known reason for DM type2, Will check Cpeptide levls , and Insulin levels for endogenous hyperinsulinemia. (3) Abdominal pain Code(s): R10.9 - UNSPECIFIED ABDOMINAL PAIN Status: Acute Comment: resolved with partacentesis, Will send Ascitis fluid for culture. (4) Acute respiratory distress Code(s): R06.00 - DYSPNEA, UNSPECIFIED Status: Acute (5) Ascites Code(s): R18.8 - OTHER ASCITES Status: Chronic Qualifiers: Ascites type: other type Comment: Refractory Asceties, unknown reason. (6) ESRD (end stage renal disease) on dialysis Code(s): N18.6 - END STAGE RENAL DISEASE; Z99.2 - DEPENDENCE ON RENAL DIALYSIS Status: Chronic Comment: on HD with nephrology on board (7) Hypertension Code(s): I10 - ESSENTIAL (PRIMARY) HYPERTENSION Status: Chronic (8) Lupus Code(s): M32.9 - SYSTEMIC LUPUS ERYTHEMATOSUS, UNSPECIFIED Status: Chronic Comment: Patient Follows with a rhematology outpaitent. No exacerbation noted. - Plan cont current plan of care, plan discussed w/ family, PT/OT, health and social care teacher, respiratory therapy, incentive spirometry, DVT proph w/SCDs * . - Discharge Day Encounter end time: 16:00 Review of Systems - Review of Systems Constitutional: negative: fever, chills, sweats, weakness, malaise, other Eyes: negative: Pain, Vision Change, Conjunctivae Inflammation, Eyelid Inflammation, Redness, Other ENT: negative: Ear Pain, Ear Discharge, Nose Pain, Nose Discharge, Nose Congestion, Mouth Pain, Mouth Swelling, Throat Pain, Throat Swelling, Other Respiratory: negative: Cough, Dry, Shortness of Breath, Hemoptysis, SOB with Excertion, Pleuritic Pain, Sputum, Wheezing Cardiovascular: negative: chest pain, palpitations, orthopnea, paroxysmal nocturnal dyspnea, edema, light headedness, other Gastrointestinal: negative: Nausea, Vomiting, Abdominal Pain, Diarrhea, Constipation, Melena, Hematochezia, Other Musculoskeletal: negative: Neck Pain, Shoulder Pain, Arm Pain, Back Pain, Hand Pain, Leg Pain, Foot Pain, Other - Medications/Allergies Allergies/Adverse Reactions: Allergies Allergy/AdvReac Type Severity Reaction Status Date / Time No Known Drug Allergies Allergy Verified 02/17/18 12:13 Medications: Current Medications Alprazolam (Xanax) 0.25 mg PO BIDPRN PRN PRN Reason: Anxiety Last Admin: 03/16/18 20:30 Dose: 0.25 mg Aspirin (Ecotrin) 81 mg PO DAILY [facility] Last Admin: 03/17/18 11:47 Dose: 81 mg Clonidine (Lxosggga-Clq-9) 0.2 mg TD Q7DAYS [facility] Last Admin: 03/11/18 09:47 Dose: 0.2 mg Hydralazine HCl (Apresoline) 10 mg SLOW IVP Q6H PRN PRN Reason: SBP GREATER THAN 150 Last Admin: 03/15/18 03:29 Dose: 10 mg Ceftriaxone Sodium 2 gm/ (Sodium Chloride) 100 mls @ 200 mls/hr IVPB 1100 [facility] Last Admin: 03/17/18 11:47 Dose: 100 mls Nicardipine HCl 50 mg/ Sodium (Chloride) 250 mls @ 0 mls/hr IVPB INF [facility]; Titrate PRN Reason: Protocol Last Admin: 03/15/18 21:23 Dose: 250 mls Dextrose/Water (D5w) 1,000 mls @ 50 mls/hr IV .Q20H [facility] Last Admin: 03/17/18 02:10 Dose: 1,000 mls Lorazepam (Ativan) 2 mg SLOW IVP Q2H PRN PRN Reason: Anxiety to achieve [place] 2-3 Stop: 04/08/18 17:18 Last Admin: 03/11/18 08:10 Dose: 2 mg Losartan Potassium (Cozaar) 50 mg PO DAILY [facility] Last Admin: 03/17/18 08:54 Dose: Not Given Metoprolol Tartrate (Lopressor) 100 mg PO BID [facility] Last Admin: 03/17/18 08:50 Dose: 100 mg Nifedipine (Procardia Xl) 60 mg PO 2100 [facility] Last Admin: 03/16/18 22:02 Dose: 60 mg Ondansetron HCl (Zofran Odt) 4 mg PO Q4H PRN PRN Reason: Nausea/Vomiting Last Admin: 03/15/18 10:19 Dose: 4 mg Pantoprazole Sodium (Protonix) 40 mg PO 2100 [facility] Last Admin: 03/16/18 20:30 Dose: 40 mg
--- NOTE | 2018-03-17 18:34 | PRG ---
DATE OF SERVICE: 03/17/2018 SUBJECTIVE: Ms. Vogt did well overnight. She is sitting on the side of the bed. She said she wa nted to go for a walk. We had family take her to sit outside for about an hour today. She felt like new when she got back from sitting outside. OBJECTIVE: VITAL SIGNS: She is afebrile, heart rate is 97, respiratory rate is 18, blood pressure 116/77. LUNGS: She still has crackles at lung bases. HEART: Regular rhythm. ABDOMEN: Soft. LABORATORY DATA: White count 9.4, hemoglobin 8.9, platelets 148,000. Sodium 131, potassium 3.9, chl oride 92, bicarbonate 27, BUN 32, creatinine 5.59. IMPRESSION: 1. Status post pericardial window with Staph aureus isolated and pericardial fluid. 2. Status post hypoglycemia, ?secondary to sepsis. 3. ?liver dysfunction with ascites. I really cannot explain ascites based on renal failure alone in my opinion. I will repeat an echocar diogram to make sure she does not have pulmonary hypertension. I supposed with lupus she could have a collagen vascular-induced pulmonary hypertension, which would lead to hepatic congestion and perhap s ascites, but her synthetic function, looking back through coagulation reports, has been intact. I feel like we are missing something here, although it may simply be related to her end-stage renal dis ease. I would think adequate dialysis would eliminate ascites. She will remain in the ICU probably another day.
[2018-03-17] MEDS: ALPRAZolam 0.25 MG TAB PO PRN (22:32)
[2018-03-18] MEDS: NIFEdipine XL 60 MG TAB PO SCH (00:07)
[2018-03-18] MEDS: Dextrose 5% in Water 1,000 ML IV SCH (00:25)
[2018-03-18 06:38] LABS: Anion Gap 13 mmol/L (10-20); BUN (Urea Nitrogen) 44 mg/dL (7.0-18.7); Calc. Creatinine Clearance 9 mL/min (70-130); Calcium 9.8 mg/dL (7.8-10.44); Carbon Dioxide 28 mmol/L (22-29); Chloride 94 mmol/L (98-107); Estimated GFR-MDRD 8; Glucose 83 mg/dL (70-105); Potassium 3.9 mmol/L (3.5-5.1); Sodium 131 mmol/L (136-145)
[2018-03-18 06:55] LABS: Band 9 % (5-11); Eosinophils 1 % (0-10); Hemoglobin 9.1 g/dL (12.0-16.0); Lymphocytes 16 % (21-51); MDiff Complete? YES; Mean Corpuscular HGB CONC 31.7 g/dL (32.0-36.0); Mean Corpuscular Hemoglobin 29.6 pg (27.0-31.0); Mean Corpuscular Volume 93.4 fl (81.0-99.0); Mean Platelet Volume 9.4 fL (7.4-10.4); Monocytes 4 % (0-10); Neutrophil 70 % (42-75); Platelet Count 171 thou/uL (130-400); RBC Distribution Width 17.7 % (11.5-14.5); Red Blood Cell (RBC) Count 3.05 mill/uL (4.20-5.40); White Blood Cell (WBC) Count 11.7 thou/uL (4.8-10.8)
[2018-03-18] MEDS: Losartan 25 MG TAB PO SCH ×2 (08:31)
[2018-03-18] MEDS: Aspirin 81 mg Enteric Coated Tablet PO SCH (08:31)
[2018-03-18] MEDS: cloNIDine 0.2mg/24 Hour PATCH TD SCH ×2 (08:31)
[2018-03-18] MEDS: Metoprolol Tartrate 50 MG TAB PO SCH ×2 (08:33→20:39)
[2018-03-18 10:49] LABS: ANA Symphony (Qualitative) POSITIVE (Negative)
[2018-03-18 10:50] LABS: CENP IgG Antibody 0.6 EliAU/mL (<7 Negative); Jo-1 IgG Antibody 0.4 EliAU/mL (<7 Negative); RNP70 IgG Antibody 0.4 EliAU/mL (<7 Negative); SSA/Ro IgG Antibody Greater than 240.0 EliAU/mL (<7 Negative); SSB/La IgG Antibody 0.6 EliAU/mL (<7 Negative); Scleroderma-70 IgG Antibody 1.5 EliAU/mL (<7 Negative); Smith D IgG Antibody 2.2 EliAU/mL (<7 Negative); U1RNP IgG Antibody 1.7 EliAU/mL (<5 Negative)
[2018-03-18] MEDS: cefTRIAXone\\ROCEPHIN 2 GM in Sodium Chloride 0.9% 100 ML IVPB SCH (12:21)
[2018-03-18 13:26] VITALS: BMI 23.3
--- NOTE | 2018-03-18 15:41 | PDOC.PN ---
- Subjective Encounter Start Date: 03/18/18 Encounter Start Time: 12:00 patient is seen today, alert and oriented. No other concern noted. She is Talking on phone continuously, No SOB noted. - Objective MAR Reviewed: Yes Vital Signs & Weight: Vital Signs (12 hours) Temp Pulse Pulse Pulse Pulse Resp BP 03/18/18 15:33 03/18/18 12:00 98.3 F 03/18/18 09:29 94 96 93 104/68 03/18/18 08:00 97.9 F 92 14 BP BP BP Pulse Ox Pulse Ox Pulse Ox Pulse Ox 03/18/18 15:33 99 03/18/18 12:00 03/18/18 09:29 95/68 101/70 92/65 100 100 100 03/18/18 08:00 100 Weight Admit Weight 125 lb Weight 123 lb 7.342 oz Most Recent Monitor Data Heart Rate from ECG 90 NIBP 110/77 NIBP BP-Mean 88 Respiration from ECG 24 SpO2 100 I&O: 03/17/18 03/18/18 03/19/18 06:59 06:59 06:59 Intake Total 1949 1096 745 Output Total 0 Balance 1949 1096 745 Result Diagrams: 03/18/18 06:16 03/18/18 06:16 Additional Labs: Accuchecks 03/18/18 03/18/18 03/18/18 12:57 09:37 06:04 POC Glucose 91 118 H 85 03/18/18 03/17/18 03/17/18 02:53 23:34 21:09 POC Glucose 105 136 H 129 H 03/17/18 03/17/18 18:14 15:56 POC Glucose 73 80 Radiology Reviewed by me: Yes Phys Exam - Physical Examination HEENT: PERRLA, moist MMs Neck: no nodes, no JVD Respiratory: no wheezing, no rales Cardiovascular: RRR, no significant murmur Gastrointestinal: soft, non-tender Musculoskeletal: pulses present, edema present Neurological: non-focal, normal sensation Lymphatic: no nodes Psychiatric: normal affect, A&O x 3 Dx/Plan (1) Pericardial effusion Code(s): I31.3 - PERICARDIAL EFFUSION (NONINFLAMMATORY) Status: Acute Comment: Patient hads pericardial window, Will clsoley monitor. Follow cardiology recommedations, BP are stable now. (2) Hypoglycemia Code(s): E16.2 - HYPOGLYCEMIA, UNSPECIFIED Status: Acute Comment: Pt on d5 since yesterday, is stopped Now, no known reason for DM type2, elevated C peptide levsl, Normal or low Insulin, pt denies taking any oral hypoglycemics, [place] to order proInslin to r/o evidence of insulinoma? if repeat hypoglycemic episodes will need thorough Evalautions for insulinomas. (3) Abdominal pain Code(s): R10.9 - UNSPECIFIED ABDOMINAL PAIN Status: Acute Comment: resolved with partacentesis, Will send Ascitis fluid for culture. (4) Acute respiratory distress Code(s): R06.00 - DYSPNEA, UNSPECIFIED Status: Resolved (5) Ascites Code(s): R18.8 - OTHER ASCITES Status: Chronic Qualifiers: Ascites type: other type Comment: Refractory Asceties, unknown reason. (6) ESRD (end stage renal disease) on dialysis Code(s): N18.6 - END STAGE RENAL DISEASE; Z99.2 - DEPENDENCE ON RENAL DIALYSIS Status: Chronic Comment: on HD with nephrology on board (7) Hypertension Code(s): I10 - ESSENTIAL (PRIMARY) HYPERTENSION Status: Chronic Comment: well controlled, will continue to Monitor. (8) Lupus Code(s): M32.9 - SYSTEMIC LUPUS ERYTHEMATOSUS, UNSPECIFIED Status: Chronic Comment: Patient Follows with a rhematology outpaitent. No exacerbation noted. - Plan cont current plan of care, mattson catheter, continue antibiotics, speech therapy , respiratory therapy, incentive spirometry, DVT proph w/lovenox * . - Discharge Day Encounter end time: 12:35 Review of Systems - Review of Systems Eyes: negative: Pain, Vision Change, Conjunctivae Inflammation, Eyelid Inflammation, Redness, Other Respiratory: Shortness of Breath. negative: Cough, Dry, Hemoptysis, SOB with Excertion, Pleuritic Pain, Sputum, Wheezing Cardiovascular: negative: chest pain, palpitations, orthopnea, paroxysmal nocturnal dyspnea, edema, light headedness, other Gastrointestinal: negative: Nausea, Vomiting, Abdominal Pain, Diarrhea, Constipation, Melena, Hematochezia, Other Genitourinary: negative: Dysuria, Frequency, Incontinence, Hematuria, Retention , Other Musculoskeletal: negative: Neck Pain, Shoulder Pain, Arm Pain, Back Pain, Hand Pain, Leg Pain, Foot Pain, Other - Medications/Allergies Allergies/Adverse Reactions: Allergies Allergy/AdvReac Type Severity Reaction Status Date / Time No Known Drug Allergies Allergy Verified 02/17/18 12:13 Medications: Current Medications Alprazolam (Xanax) 0.25 mg PO BIDPRN PRN PRN Reason: Anxiety Last Admin: 03/17/18 22:32 Dose: 0.25 mg Aspirin (Ecotrin) 81 mg PO DAILY [facility] Last Admin: 03/18/18 08:31 Dose: 81 mg Hydralazine HCl (Apresoline) 10 mg SLOW IVP Q6H PRN PRN Reason: SBP GREATER THAN 150 Last Admin: 03/15/18 03:29 Dose: 10 mg Ceftriaxone Sodium 2 gm/ (Sodium Chloride) 100 mls @ 200 mls/hr IVPB 1100 [facility] Last Admin: 03/18/18 12:21 Dose: 100 mls Nicardipine HCl 50 mg/ Sodium (Chloride) 250 mls @ 0 mls/hr IVPB INF [facility]; Titrate PRN Reason: Protocol Last Admin: 03/15/18 21:23 Dose: 250 mls Dextrose/Water (D5w) 1,000 mls @ 50 mls/hr IV .Q20H [facility] Last Admin: 03/18/18 00:25 Dose: Not Given Lorazepam (Ativan) 2 mg SLOW IVP Q2H PRN PRN Reason: Anxiety to achieve [place] 2-3 Stop: 04/08/18 17:18 Last Admin: 03/11/18 08:10 Dose: 2 mg Metoprolol Tartrate (Lopressor) 100 mg PO BID [facility] Last Admin: 03/18/18 08:33 Dose: Not Given Nifedipine (Procardia Xl) 30 mg PO 2100 [facility] Ondansetron HCl (Zofran Odt) 4 mg PO Q4H PRN PRN Reason: Nausea/Vomiting Last Admin: 03/15/18 10:19 Dose: 4 mg Pantoprazole Sodium (Protonix) 40 mg PO 2100 [facility] Last Admin: 03/17/18 19:57 Dose: 40 mg
--- NOTE | 2018-03-18 16:56 | PRG ---
DATE OF SERVICE: 03/17/2018 SUBJECTIVE: Patient was seen and examined at bedside and overnight events noted. Patient denies any shortness of breath or chest pain or palpitation. No history of nausea or vomiting or diarrhea or f ever or chills or cramps. OBJECTIVE: GENERAL: This is a well-built female, in mild distress. VITAL SIGNS: Temperature 97.7, pulse 99, respiratory rate 20, blood pressure 118/75. HEENT: Atraumatic, normocephalic, oral mucosa is moist. NECK: Supple. CARDIOVASCULAR: S1, S2 heard, rate and rhythm regular. RESPIRATORY: Crackles present. GASTROINTESTINAL: Abdomen is soft. MUSCULOSKELETAL: 1+ edema. DERMATOLOGIC: No skin rash. NEUROLOGIC: Alert and awake and oriented x3. No focal neurologic deficits. Moving all the extremit ies. PSYCHIATRIC: Mood and affect normal. LABORATORY DATA: Potassium 3.9, BUN is 32, creatinine is 5.5. ASSESSMENT AND PLAN: 1. End-stage renal disease. The patient refused to have dialysis today. The patient is having para centesis. 2. Hypertension. 3. Anemia. 4. Edema with anasarca. 5. Pericardial effusion. 6. Ascites. We will evaluate. The patient was also seen after paracentesis and was feeling better. Plan is to h ave dialysis. Continue dialysis Friday, Friday, and Friday. The patient does not want to have di alysis with paracentesis. We will follow.
--- NOTE | 2018-03-18 17:32 | PRG ---
DATE OF SERVICE: 03/18/2018 SUBJECTIVE: Madison Vogt is doing well. She is tolerating, being switched off D5W. Presumably, she was hypoglycemic. She was septic. OBJECTIVE: VITAL SIGNS: Her hemodynamics have been stable. Oximetry is 99 on 2 liters, blood pressure 110/77, heart rate is 90. LUNGS: Clear. HEART: Regular rhythm. ABDOMEN: Soft. LABORATORY DATA: White count 11.7, hemoglobin 9.1, platelets 171. Electrolytes were unremarkable. IMPRESSION: 1. Status post pericardial window: 2. Status post hypoglycemia. 3. End-stage renal disease. 4. Lupus. 5. Ascites of unclear etiology. PLAN: Continue supportive care. She is stable to transfer out of the Critical Care Unit after dialy sis.
--- NOTE | 2018-03-18 18:59 | PRG ---
DATE OF SERVICE: 03/18/2018 SUBJECTIVE: Patient was seen and examined at bedside and overnight events noted. Patient denies any shortness of breath or chest pain or palpitation. No history of nausea or vomiting or diarrhea or f ever or chills or cramps. OBJECTIVE: GENERAL: This is a well-built female in no apparent distress. VITAL SIGNS: Temperature 98.3, pulse 99, respiratory rate 24, blood pressure 110/77. HEENT: Atraumatic, normocephalic. Oral mucosa is moist. NECK: Supple. CARDIOVASCULAR: S1, S2 heard. Rate and rhythm regular. RESPIRATORY: Clear to auscultation. GASTROINTESTINAL: Abdomen is soft. MUSCULOSKELETAL: No tenderness. No edema. DERMATOLOGIC: No skin rash. NEUROLOGIC: Alert and awake and oriented x3. No focal neurologic deficits. Moving all the extremiti es. PSYCHIATRIC: Mood and affect normal. LABORATORY DATA: Potassium is 3.9, BUN 44, creatinine 7.0. ASSESSMENT AND PLAN: 1. End-stage renal disease. Plan is to continue on dialysis Friday, Friday, and Friday. The pat ient will have dialysis today. 2. Hypertension. 3. Anemia. 4. Lupus. 5. Ascites status post paracentesis. 6. Limit fluid intake. Continue on dialysis as tolerated.
[2018-03-18] MEDS ORDERED: Atorvastatin Calcium 40 MG TAB PO SCH (21:00)
[2018-03-18] MEDS: ALPRAZolam 0.25 MG TAB PO PRN (22:40)
[2018-03-19] MEDS: NIFEdipine XL 30 MG TAB PO SCH ×2 (00:04→20:59)
[2018-03-19 05:17] LABS: Anion Gap 15 mmol/L (10-20); BUN (Urea Nitrogen) 19 mg/dL (7.0-18.7); Calc. Creatinine Clearance 15 mL/min (70-130); Calcium 8.9 mg/dL (7.8-10.44); Carbon Dioxide 25 mmol/L (22-29); Chloride 99 mmol/L (98-107); Estimated GFR-MDRD 14; Glucose 78 mg/dL (70-105); Potassium 3.6 mmol/L (3.5-5.1); Sodium 135 mmol/L (136-145)
[2018-03-19 05:25] LABS: Anisocytosis SLIGHT = 6-15 cells (100X) (0-5/hpf); Band 5 % (5-11); Bite Cells SLIGHT = 2-5 cells (100X) (0-1/hpf); Hemoglobin 9.1 g/dL (12.0-16.0); Lymphocytes 8 % (21-51); MDiff Complete? YES; Mean Corpuscular HGB CONC 32.2 g/dL (32.0-36.0); Mean Corpuscular Hemoglobin 30.5 pg (27.0-31.0); Mean Platelet Volume 9.3 fL (7.4-10.4); Monocytes 6 % (0-10); Neutrophil 77 % (42-75); PLT Morphology Comment Appears Adequate; Platelet Count 163 thou/uL (130-400); RBC Distribution Width 17.6 % (11.5-14.5); Reactive Lymphocytes 4 % (0-10); Red Blood Cell (RBC) Count 2.97 mill/uL (4.20-5.40); Schistocytes SLIGHT = 2-5 cells (100X) (0-1/hpf); White Blood Cell (WBC) Count 8.9 thou/uL (4.8-10.8)
[2018-03-19] MEDS: Dextrose 5% in Water 1,000 ML IV SCH ×2 (05:43)
[2018-03-19] MEDS: Metoprolol Tartrate 50 MG TAB PO SCH ×2 (09:18→20:59)
[2018-03-19] MEDS: Aspirin 81 mg Enteric Coated Tablet PO SCH (09:18)
[2018-03-19 09:31] LABS: ALT (SGPT) 124 U/L (8-55); AST (SGOT) 67 U/L (5-34)
[2018-03-19] MEDS: cefTRIAXone\\ROCEPHIN 2 GM in Sodium Chloride 0.9% 100 ML IVPB SCH (10:37)
--- NOTE | 2018-03-19 16:30 | PRG ---
DATE OF SERVICE: 03/19/2018 SUBJECTIVE: Madison Vogt is doing well. She wants to go to . OBJECTIVE: VITAL SIGNS: She is afebrile, heart rate is 100, respiratory rate is 16, oximetry is 92 on room air, blood pressure 131/82. LUNGS: Clear. HEART: Regular rhythm. S1 and S2 are unremarkable. ABDOMEN: Soft. EXTREMITIES: Without asymmetry. IMAGING: Echocardiogram shows a normal ejection fraction and severe LVH, biventricular systolic pres sure of 96. IMPRESSION: 1. Severe left ventricular hypertrophy/hypertrophic cardiomyopathy. 2. End-stage renal disease. 3. Status post pericardial window. 4. Status post hypoglycemic event of unclear etiology. 5. Staph aureus isolated from her pericardial fluid. 6. Ascites, likely secondary to pulmonary hypertension. 7. Pulmonary hypertension, likely secondary to uncontrolled systolic hypertension and severe left ve ntricular hypertrophy. PLAN: Thromboembolic disease needs to be ruled out with ventilation perfusion study. This would explain why she has ascites. I have explained to her that if she fluid restricts, keeps her blood pressure controlled and goes to dialysis, her life span may be much longer than it will be if she continues to live without a fluid r estriction, missing dialysis and not controlling her blood pressure. Her left ventricular hypertroph y is unlikely to be reversible. I will be happy to following the other physicians who caring for her .
--- NOTE | 2018-03-19 16:44 | NM ---
VENTILATION PERFUSION LUNG SCAN 03/19/18 HISTORY: 38-year-old female with history of pulmonary hypertension. COMPARISON: 12/06/16. VENTILATION STUDY: Patient inhaled 10.7 millicuries Xenon 133 gas. There is symmetric ventilation bilaterally. No evidence for significant trapping. PERFUSION LUNG SCAN: Patient was injected with 6.6 millicuries of technetium 99m MAA intravenously. No evidence of segment al or large areas of absolute perfusion defect. There is evidence for cardiomegaly. IMPRESSION: Findings consistent with a very low probability of acute PE. Evidence for cardiomegaly. Stable from [facility] nuclear medicine study, 12/06/16. POS: [facility]
--- NOTE | 2018-03-19 19:47 | PRG ---
DATE OF SERVICE: 03/19/2018 NEPHROLOGY PROGRESS NOTE SUBJECTIVE: Patient was seen and examined at bedside and overnight events noted. Patient denies any shortness of breath or chest pain or palpitation. No history of nausea or vomiting or diarrhea or f ever or chills or cramps. OBJECTIVE: GENERAL: This is a well-built female in no apparent distress. VITAL SIGNS: Temperature 98.2, pulse 90, respiratory rate 18, blood pressure 119/85. HEENT: Atraumatic, normocephalic. Oral mucosa is moist. NECK: Supple. CARDIOVASCULAR: S1, S2 heard. Rate and rhythm regular. RESPIRATORY: Clear to auscultation. GASTROINTESTINAL: Abdomen is soft. MUSCULOSKELETAL: No tenderness. No edema. DERMATOLOGIC: No skin rash. NEUROLOGIC: Alert and awake and oriented x3. No focal neurologic deficits. Moving all the extremiti es. PSYCHIATRIC: Mood and affect normal. LABORATORY DATA: Potassium is 3.6, BUN is 19, creatinine is 4.3. ASSESSMENT AND PLAN: 1. End-stage renal disease on hemodialysis. We will continue dialysis on Friday, Friday, and Fri day. Limit fluid intake. 2. Hypertension. 3. Anemia. 4. History of lupus. 5. Ascites. 6. Pericardial effusion. Plan is to continue on dialysis as tolerated Friday, Friday, and Friday as tolerated. Limit fluid intake.
--- NOTE | 2018-03-19 21:17 | ULT ---
DOPPLER VENOUS ULTRASOUND 03/19/18 INDICATION: Bilateral lower extremity pain and edema with history of CHF and lupus. TECHNIQUE: Bautista scale, color doppler and vascular duplex with spectral analysis was performed of the deep venous structures of both lower extremity. Common femoral vein, superficial femoral vein, popliteal vein, p osterior tibial vein, proximal greater saphenous and profunda veins were assessed. FINDINGS: Normal compression, flow, and augmentation seen within the deep venous structures of both lower extre mity. IMPRESSION: No evidence of DVT in both lower extremity. POS: [facility]
[2018-03-20] MEDS: ALPRAZolam 0.25 MG TAB PO PRN ×2 (00:47→22:55)
[2018-03-20 05:10] LABS: Anion Gap 15 mmol/L (10-20); BUN (Urea Nitrogen) 25 mg/dL (7.0-18.7); Calc. Creatinine Clearance 10 mL/min (70-130); Calcium 9.9 mg/dL (7.8-10.44); Carbon Dioxide 23 mmol/L (22-29); Chloride 98 mmol/L (98-107); Estimated GFR-MDRD 9; Glucose 84 mg/dL (70-105); Potassium 3.8 mmol/L (3.5-5.1); Sodium 132 mmol/L (136-145)
[2018-03-20 05:17] LABS: Hemoglobin 9.7 g/dL (12.0-16.0); Lymphocytes 10 % (21-51); MDiff Complete? YES; Mean Corpuscular HGB CONC 32.6 g/dL (32.0-36.0); Mean Corpuscular Hemoglobin 31.2 pg (27.0-31.0); Mean Corpuscular Volume 95.6 fl (81.0-99.0); Mean Platelet Volume 9.2 fL (7.4-10.4); Monocytes 5 % (0-10); Neutrophil 85 % (42-75); PLT Morphology Comment Appears Adequate; Platelet Count 200 thou/uL (130-400); RBC Distribution Width 17.7 % (11.5-14.5); Red Blood Cell (RBC) Count 3.12 mill/uL (4.20-5.40)
--- NOTE | 2018-03-20 07:52 | PDOC.OP ---
Operative Note - Operative Note Operative Note: PROCEDURE: Placement of leftt internal jugular central venous catheter with ultrasoundguidance. SURGEON: Pricilla Coello M.D. DATE OF PROCEDURE: PREOPERATIVE DIAGNOSIS: Need for IV access POSTOPERATIVE DIAGNOSIS: Need for IV access HISTORY: Patient with multiple failed attempts at IV access. She has a right AV fistula and multiple IV medications ordered. PROCEDURE: After informed consent was obtained the patient was placed in the supine position and the neck and chest were prepped and draped in a standard sterile fashion. The patient was placed in Trendelenburg position. A sterile ultrasound probe was used to identify the patent compressible left IJ vein which was accessed under direct ultrasound guidance. A wire was threaded through the needle and confirmed by ultrasound to be within the patent compressible vessel. The skin was incised and the left IJ was dilated over the wire following which a central venous catheter was placed over the wire and secured to the skin at 4 locations. Ports easily aspirated dark venous nonpulsatile blood and easily flushed without resistance. Biopatch and Tegaderm dressing was placed at the exit site. Estimated blood loss was minimal. There were no complications. There were no specimens.
[2018-03-20] MEDS ORDERED: predniSONE 20 MG TAB PO SCH (08:00)
--- NOTE | 2018-03-20 10:32 | PDOC.PN ---
- Subjective Encounter Start Date: 03/19/18 Encounter Start Time: 13:00 Patient is seen today, alert and oriented. She denies any chest pain or SOB, she is oon IV Dextrose. - Objective MAR Reviewed: Yes Vital Signs & Weight: Vital Signs (12 hours) Temp Pulse Resp BP BP Pulse Ox 03/20/18 08:00 99.4 F 108 H 16 145/96 H 94 L 03/20/18 04:50 98.3 F 102 H 20 154/96 H 99 Weight Admit Weight 125 lb Weight 122 lb Most Recent Monitor Data Heart Rate from ECG 101 NIBP 131/87 NIBP BP-Mean 117 Respiration from ECG 14 SpO2 100 I&O: 03/19/18 03/20/18 03/21/18 06:59 06:59 06:59 Intake Total 1850 240 Output Total 0 0 Balance 1850 240 Result Diagrams: 03/20/18 04:23 03/20/18 04:23 Additional Labs: Accuchecks 03/20/18 03/20/18 03/20/18 09:08 06:15 04:25 POC Glucose 66 L 69 L 87 03/20/18 03/19/18 03/19/18 00:56 21:30 18:40 POC Glucose 78 94 92 03/19/18 03/19/18 03/19/18 16:30 12:56 11:05 POC Glucose 82 92 89 Radiology Reviewed by me: Yes Phys Exam - Physical Examination HEENT: PERRLA, moist MMs Neck: no nodes, no JVD Respiratory: no wheezing, no rales Cardiovascular: RRR, no significant murmur Gastrointestinal: soft, non-tender Musculoskeletal: no edema, pulses present Neurological: non-focal, normal sensation Psychiatric: normal affect, A&O x 3 Skin: no rash, normal turgor Dx/Plan (1) Pericardial effusion Code(s): I31.3 - PERICARDIAL EFFUSION (NONINFLAMMATORY) Status: Acute Comment: Patient hads pericardial window, Will clsoley monitor. Follow cardiology recommedations, BP are stable now. (2) Hypoglycemia Code(s): E16.2 - HYPOGLYCEMIA, UNSPECIFIED Status: Acute Comment: Pt on d5 again, elevated C peptide levsl, Normal or low Insulin, [place] to r/o evidence of insulinoma? if repeat hypoglycemic episodes will need thorough Evalautions for insulinomas. Will d/c IV dextrose now. (3) Abdominal pain Code(s): R10.9 - UNSPECIFIED ABDOMINAL PAIN Status: Acute Comment: resolved with paracentesis, Will send Ascitis fluid for culture. (4) Acute respiratory distress Code(s): R06.00 - DYSPNEA, UNSPECIFIED Status: Resolved (5) Ascites Code(s): R18.8 - OTHER ASCITES Status: Chronic Qualifiers: Ascites type: other type Comment: Refractory Asceties, likely from Lupus causing serositis, will start patient on low dose oral prednisone 20mg PO daily (6) ESRD (end stage renal disease) on dialysis Code(s): N18.6 - END STAGE RENAL DISEASE; Z99.2 - DEPENDENCE ON RENAL DIALYSIS Status: Chronic Comment: on HD with nephrology on board (7) Hypertension Code(s): I10 - ESSENTIAL (PRIMARY) HYPERTENSION Status: Chronic Comment: well controlled, will continue to Monitor. (8) Lupus Code(s): M32.9 - SYSTEMIC LUPUS ERYTHEMATOSUS, UNSPECIFIED Status: Chronic Comment: Patient Follows with a rhematology outpaitent. No exacerbation noted. - Plan cont current plan of care, mattson catheter, respiratory therapy, incentive spirometry * . - Discharge Day Encounter end time: 13:35 Review of Systems - Review of Systems Constitutional: negative: fever, chills, sweats, weakness, malaise, other Eyes: negative: Pain, Vision Change, Conjunctivae Inflammation, Eyelid Inflammation, Redness, Other ENT: negative: Ear Pain, Ear Discharge, Nose Pain, Nose Discharge, Nose Congestion, Mouth Pain, Mouth Swelling, Throat Pain, Throat Swelling, Other Respiratory: negative: Cough, Dry, Shortness of Breath, Hemoptysis, SOB with Excertion, Pleuritic Pain, Sputum, Wheezing Cardiovascular: negative: chest pain, palpitations, orthopnea, paroxysmal nocturnal dyspnea, edema, light headedness, other Gastrointestinal: negative: Nausea, Vomiting, Abdominal Pain, Diarrhea, Constipation, Melena, Hematochezia, Other Musculoskeletal: negative: Neck Pain, Shoulder Pain, Arm Pain, Back Pain, Hand Pain, Leg Pain, Foot Pain, Other Skin: negative: Rash, Lesions, Sd, Bruising, Other - Medications/Allergies Allergies/Adverse Reactions: Allergies Allergy/AdvReac Type Severity Reaction Status Date / Time No Known Drug Allergies Allergy Verified 02/17/18 12:13 Medications: Current Medications Alprazolam (Xanax) 0.25 mg PO BIDPRN PRN PRN Reason: Anxiety Last Admin: 03/20/18 00:47 Dose: 0.25 mg Aspirin (Ecotrin) 81 mg PO DAILY [facility] Last Admin: 03/19/18 09:18 Dose: 81 mg Atorvastatin Calcium (Lipitor) 10 mg PO HS [facility] Clonidine (Catapres) 0.1 mg PO BID [facility] Clonidine (Catapres) 0.1 mg PO 1000 [facility] Stop: 03/20/18 12:00 Hydralazine HCl (Apresoline) 10 mg SLOW IVP Q6H PRN PRN Reason: SBP GREATER THAN 150 Last Admin: 03/15/18 03:29 Dose: 10 mg Ceftriaxone Sodium 2 gm/ (Sodium Chloride) 100 mls @ 200 mls/hr IVPB 1100 [facility] Last Admin: 03/19/18 10:37 Dose: 100 mls Nicardipine HCl 50 mg/ Sodium (Chloride) 250 mls @ 0 mls/hr IVPB INF [facility]; Titrate PRN Reason: Protocol Last Admin: 03/15/18 21:23 Dose: 250 mls Dextrose/Water (D5w) 1,000 mls @ 50 mls/hr IV .Q20H [facility] Last Admin: 03/19/18 05:43 Dose: 1,000 mls Metoprolol Tartrate (Lopressor) 100 mg PO BID [facility] Last Admin: 03/19/18 20:59 Dose: 100 mg Nifedipine (Procardia Xl) 30 mg PO 2100 [facility] Last Admin: 03/19/18 20:59 Dose: 30 mg Ondansetron HCl (Zofran Odt) 4 mg PO Q4H PRN PRN Reason: Nausea/Vomiting Last Admin: 03/15/18 10:19 Dose: 4 mg Pantoprazole Sodium (Protonix) 40 mg PO 2100 [facility] Last Admin: 03/19/18 20:59 Dose: 40 mg
[2018-03-20] MEDS: Aspirin 81 mg Enteric Coated Tablet PO SCH ×2 (13:02→14:23)
[2018-03-20] MEDS: Metoprolol Tartrate 50 MG TAB PO SCH ×2 (13:02→20:47)
[2018-03-20] MEDS: cefTRIAXone\\ROCEPHIN 2 GM in Sodium Chloride 0.9% 100 ML IVPB SCH ×2 (13:03→14:24)
[2018-03-20] MEDS: cloNIDine 0.1 MG TAB PO SCH ×3 (13:03→20:45)
[2018-03-20] MEDS: Dextrose 5% in Water 1,000 ML IV SCH ×2 (13:03→22:53)
[2018-03-20] MEDS: predniSONE 20 MG TAB PO SCH ×2 (13:04→14:21)
--- NOTE | 2018-03-20 13:53 | PRG ---
DATE OF SERVICE: 03/20/2018 NEPHROLOGY PROGRESS NOTE SUBJECTIVE: Patient was seen and examined at bedside and overnight events noted. Patient denies any shortness of breath or chest pain or palpitation. No history of nausea or vomiting or diarrhea or f ever or chills or cramps. OBJECTIVE: GENERAL: This is a well-built female in no apparent distress. VITAL SIGNS: Temperature 99.4, pulse 108, respirations 16, blood pressure 145/96. HEENT: Atraumatic, normocephalic. Oral mucosa is moist. NECK: Supple. CARDIOVASCULAR: S1, S2 heard. Rate and rhythm regular. RESPIRATORY: Clear to auscultation. GASTROINTESTINAL: Abdomen is soft. MUSCULOSKELETAL: No tenderness. No edema. DERMATOLOGIC: No skin rash. NEUROLOGIC: Alert and awake and oriented x3. No focal neurologic deficits. Moving all the extremiti es. PSYCHIATRIC: Mood and affect normal. LABORATORY DATA: Potassium 3.8, BUN 25, creatinine 6.09. ASSESSMENT AND PLAN: 1. End-stage renal disease. Continue on hemodialysis Friday, Friday, and Friday. 2. Hypertension, remove fluid. 3. Anemia. 4. Ascites. The patient was seemed to be dialysis and is tolerating well. Continue dialysis. Advised to limit f luid intake.
--- NOTE | 2018-03-20 14:14 | PRG ---
DATE OF SERVICE: 03/20/2018 OBJECTIVE: Vital signs remained stable. She is afebrile, heart rate is , respiration is 16, ox imetry is 94, blood pressure 145/96. Nuclear perfusion study showed no evidence of thromboembolic disease. In 12/17/2017, she had a similar study. We will continue with supportive care. PROBLEM LISTS: 1. Status post arrest with no neurological sequela. 2. Pulmonary hypertension? related to severe left ventricular hypertrophy. 3. Severe left ventricular hypertrophy/hypertrophic cardiomyopathy. 4. End-stage renal disease. 5. Lupus. 6. Pericardial window, this admission. 7. Hypoglycemia, this admission of unclear etiology. 8. Staph aureus isolated from pericardial effusion. ? contaminant. 9. Ascites secondary to pulmonary hypertension. 10. History of medical noncompliance with dialysis, hypertension medications and physician followups . Thromboembolic disease has been ruled out. Compliance with dialysis, blood pressure control may make a difference. At some point in time, she m ay benefit from a right heart catheterization.
[2018-03-20] MEDS: NIFEdipine XL 30 MG TAB PO SCH (20:46)
[2018-03-20] MEDS ORDERED: Atorvastatin Calcium 10 MG TAB PO SCH (21:00)
[2018-03-20] MEDS ORDERED: Acetaminophen 325 MG TAB PO SCH (22:00)
[2018-03-21 05:03] LABS: Anion Gap 14 mmol/L (10-20); BUN (Urea Nitrogen) 16 mg/dL (7.0-18.7); Calc. Creatinine Clearance 15 mL/min (70-130); Calcium 9.4 mg/dL (7.8-10.44); Carbon Dioxide 26 mmol/L (22-29); Chloride 96 mmol/L (98-107); Estimated GFR-MDRD 13; Glucose 108 mg/dL (70-105); Potassium 4.1 mmol/L (3.5-5.1); Sodium 132 mmol/L (136-145)
[2018-03-21 05:07] LABS: Band 8 % (5-11); Hypochromia SLIGHT = 6-15 cells (100X) (0-5/hpf); Lymphocytes 5 % (21-51); MDiff Complete? YES; Mean Corpuscular HGB CONC 31.5 g/dL (32.0-36.0); Mean Corpuscular Hemoglobin 29.9 pg (27.0-31.0); Mean Corpuscular Volume 94.8 fl (81.0-99.0); Mean Platelet Volume 8.8 fL (7.4-10.4); Metamyelocyte 2 % (0-0); Monocytes 4 % (0-10); Neutrophil 81 % (42-75); PLT Morphology Comment Appears Adequate; Platelet Count 211 thou/uL (130-400); RBC Distribution Width 17.7 % (11.5-14.5); Red Blood Cell (RBC) Count 3.34 mill/uL (4.20-5.40)
[2018-03-21] MEDS ORDERED: predniSONE 20 MG TAB PO SCH (08:00)
[2018-03-21] MEDS: cloNIDine 0.1 MG TAB PO SCH (08:04)
[2018-03-21] MEDS: Aspirin 81 mg Enteric Coated Tablet PO SCH (08:04)
[2018-03-21] MEDS: Metoprolol Tartrate 50 MG TAB PO SCH (08:05)
[2018-03-21] MEDS: cefTRIAXone\\ROCEPHIN 2 GM in Sodium Chloride 0.9% 100 ML IVPB SCH (11:30)
[2018-03-21] MEDS ORDERED: Nystatin 500,000 UNITS/5 ML UDCUP SSP PRN (13:23)
--- NOTE | 2018-03-21 15:10 | PRG ---
DATE OF SERVICE: 03/21/2018 SUBJECTIVE: The patient seems to be doing well. She is in good spirits. No complaints. OBJECTIVE: VITAL SIGNS: Temperature 98.1, pulse 92, respirations 14, O2 sat 97% on room air, blood pressure 137 /96. HEENT: Unremarkable. NECK: No JVD. CHEST: Clear without wheezing or rhonchi. CARDIAC: S1 and S2 regular. ABDOMEN: Soft. EXTREMITIES: No edema. LABORATORY DATA: White blood cell count 15, hematocrit 31.7, platelet count 211. Sodium 132, potass ium 4.1, chloride 96, CO2 26, BUN 16, creatinine 4.4, glucose 108. ASSESSMENT: 1. Status post evacuation of pericardial effusion. 2. Lupus. 3. Chronic renal failure. 4. Pulmonary hypertension. 5. Recurrent ascites. RECOMMENATIONS: She is scheduled to go over to rehabilitation. Her pulmonary hypertension will like ly need further workup in the future with a right-sided heart catheterization and perhaps even a pulm onary hypertension referral down to [place] and in the meantime, she is ready to go to rehabilitation , have no further recommendations.
--- NOTE | 2018-03-21 15:43 | PDOC.CTH ---
<Hanny Castañeda - Last Filed: 03/21/18 15:41> Cardiology Progress Note - Subjective Awake, sitting on side of bed, eating. Denies shortness of breath, chest pain. No acute complaints. No overnight events. Hoping to go to Rehab tomorrow. - Objective Vital Signs Temp Pulse Resp BP BP Pulse Ox 03/21/18 12:00 98.1 F 94 16 116/77 92 L 03/21/18 08:04 121/82 03/21/18 08:00 98.1 F 94 16 121/82 94 L Admit Weight 125 lb Weight 117 lb 11.2 oz 03/20/18 03/21/18 03/22/18 06:59 06:59 06:59 Intake Total 240 Output Total 0 Balance 240 - Physical Examination General/Neuro: alert & oriented x3, NAD Neck: no JVD present Lungs: CTA, unlabored respirations Heart: RRR Abdomen: NT/ND, soft - Telemetry Telemetry Rhythm: SR-ST 80s-100s - Labs Result Diagrams: 03/21/18 04:21 03/21/18 04:21 Troponin/CKMB CK-MB (CK-2) 6.0 ng/mL (0-6.6) 03/09/18 03:08 Troponin I 1.719 ng/mL (< 0.028) H* 03/09/18 08:57 - Assessment/Plan 1. S/P VFib arrest 2. Large pericardial effusion s/p pericardial window, BPs stable 3. ESRD-on hemodialysis, followed by 4. Anemia-stable 5. Pulmonary HTN 6. Cirrhosis Stable for transfer to rehab facility. <Mauro Watson - Last Filed: 03/21/18 16:26> Cardiology Progress Note - Objective Vital Signs Temp Pulse Resp BP BP Pulse Ox 03/21/18 12:00 98.1 F 94 16 116/77 92 L 03/21/18 08:04 121/82 03/21/18 08:00 98.1 F 94 16 121/82 94 L Admit Weight 125 lb Weight 117 lb 11.2 oz 03/20/18 03/21/18 03/22/18 06:59 06:59 06:59 Intake Total 240 Output Total 0 Balance 240 - Labs Result Diagrams: 03/21/18 04:21 03/21/18 04:21 Troponin/CKMB CK-MB (CK-2) 6.0 ng/mL (0-6.6) 03/09/18 03:08 Troponin I 1.719 ng/mL (< 0.028) H* 03/09/18 08:57 Attending Addendum - Attending Addendum Date/Time: 03/21/18 [id number] I personally evaluated the patient and discussed the management with Hanny Castañeda NP. I agree with the History, Examination, Assessment and Plan documented above with any addition or exceptions noted below.
--- NOTE | 2018-03-21 17:05 | DIS ---
DATE OF ADMISSION: 03/09/2018 DATE OF DISCHARGE: 03/21/2018 ADMITTING DIAGNOSIS: Acute chest pain. DISCHARGE DIAGNOSES: Acute chest pain secondary to pericardial effusion. SECONDARY DIAGNOSES: 1. Massive ascites. 2. End-stage renal disease. 3. Hyperkalemia. 4. Metabolic acidosis. 5. Acute cardiac arrest with ventricular fibrillation. 6. Acute hypoxic respiratory failure. 7. Infected body fluid culture growing coagulase-negative Staph aureus. 8. Elevated liver enzymes, likely from shock liver. 9. Unexplained hypoglycemia. 10. History of lupus. HISTORY OF PRESENT ILLNESS AND HOSPITAL COURSE: In brief, this is a 38-year-old fem te with a known history of systemic lupus erythematosus; end-stage renal disease, on hemodialysis fo r an AV fistula; has developed worsening dyspnea and chest heaviness. She also developed refractory ascites. She was found to have a severe pericardial effusion and she went into a cardiac arrest with a developing asystole, which was requiring CPR and ACLS with emergent with emergent pericardiocentes is and pericardial window. Since then, the patient has been admitted to the ICU and was closely daisy tored. The patient got 800 mL of pericardial fluid, which was sent for culture and which was growing coagulase-negative Staph aureus. The patient was started on Rocephin and vancomycin and Infectious Disease was consulted. The patient also had massive ascites, which was followed by paracentesis. The patient was closely monitored in the ICU and also multiple consultants were involved in the care starting with, 1. Cardiology for pericardiocentesis. 2. Infectious Disease, Dr. Goodson. 3. Dr. Church and Dr. Flores for end-stage renal disease. 4. Dr. Aravind Escobar for a critical care. 5. Dr. Keith Varner from Gastroenterology for elevated liver enzymes. The patient had a prolonged stay during this hospitalization for the following above reasons. The pa luca also having history of ascites could be contributing to serositis and causing severe ascitic fl uid, which the patient has been tapped with Interventional Radiology. During this hospitalization, t he patient also developed a complication for hypoglycemia, which she persistently dropped her blood s ugars, so she was constantly on D10 and sometimes with D5. C peptide levels were checked which were markedly elevated to 6 nanograms per deciliter, normal being less than 0.5. Insulin levels were also checked, which were low, so this was more of unexplained hypoglycemia and the patient denied taking any antidiabetic medications. So the patient was started on prednisolone 20 mg daily, which did help with her hypoglycemia and the patient's blood sugars were more stable. She has been getting constan t hemodialysis while she was in the hospital and with PT and OT suggesting inpatient rehabilitation. The patient was discharged to inpatient rehab on oral prednisolone. The patient was stable on the d ay of discharge. PHYSICAL EXAMINATION: On day of discharge, VITAL SIGNS: Blood pressures 116/77, heart rate is 94, respiratory rate 16, saturation 92%. GENERAL: The patient is moderately built and moderately nourished, does not appears to be in acute d istress. CARDIOVASCULAR: S1, S2 normal. No murmurs, rubs or gallops. LUNGS: Bilateral air entry was equal. No wheezing, no crackles. ABDOMEN: Soft, nontender, no guarding, no rebound tenderness. Bowel sounds normal. MUSCULOSKELETAL: No calf tenderness. No pedal edema. No joint tenderness. No joint swelling. DISCHARGE MEDICATIONS: Minoxidil 10 mg p.o. daily at bedtime, clonidine 0.3 mg daily, hydralazine 10 0 mg p.o. t.i.d., losartan 100 mg p.o. daily, metoprolol 50 mg p.o. b.i.d. New medication is prednisolone 20 mg p.o. daily. DISCHARGE INSTRUCTIONS: Continue activity as tolerated. Advised to follow up with the primary care physician in 1-2 weeks and advised to follow up with Rheumatology for her lupus in 1 week, also advis ed to follow up with Endocrinology for an unexplained hypoglycemia that the patient has been experien cing. The patient will also follow up with hemodialysis as per the schedule. Follow up with Cardiology in 2-3 weeks for pericardial effusion. Advised to continue on the renal diet and continue with PT and OT at the inpatient rehab. I spent 35 minutes of this patient on the day of discharge.
[2018-03-21 17:34] VITALS: BP 122/81; TEMP 97.5
--- NOTE | 2018-03-21 18:28 | PRG ---
DATE OF SERVICE: 03/21/2018 SUBJECTIVE: Patient was seen and examined at bedside and overnight events noted. Patient denies any shortness of breath or chest pain or palpitation. No history of nausea or vomiting or diarrhea or fever or chills or cramps. OBJECTIVE: GENERAL: This is well-built female in no apparent distress. VITAL SIGNS: Temperature 98.1, pulse 90, respiratory rate 18, blood pressure 131/82. HEENT: Atraumatic, normocephalic, Oral mucosa is moist Neck: Supple Cardiovascular: S1S2 heard, Rate and rhythm regular Respiratory: Clear to auscultation Gastrointestinal: Abdomen is soft Musculoskeletal : No tenderness, No edema Dermatologic : No skin rash Neurologic: Alert and awake and oriented X3, No focal neurologic deficits. Moving all the extremities . Psychiatric: Mood and affect normal LABORATORY DATA: Potassium is 4.1, BUN is 16, creatinine is 4.4. ASSESSMENT AND PLAN: 1. End-stage renal disease on hemodialysis. We will continue on dialysis as tolerated. 2. Edema, chronic hypertension. 3. Hyponatremia, limit fluid intake. 4. Anemia. 5. History of lupus. 6. Pericardial effusion with ascites. Advised to limit fluid intake. We will follow.
== END 2018-03-21 20:05 | disposition home or self-care (01) | DRG 270 ==
LOC: ERS 02:34 → IMCU/EMU 05:45 → CCU 12:59 → 2NO 03-18 19:51
PROVIDERS: ADMIT Internal Medicine; ATTEND Internal Medicine
PROC: 0W9D00Z Drainage of Pericardial Cavity with Drainage Device, Open Approach (ICD-10-PCS; principal; 2018-03-09)
PROC: 0W9D3ZZ Drainage of Pericardial Cavity, Percutaneous Approach (ICD-10-PCS; 2018-03-09)
PROC: 5A1955Z Respiratory Ventilation, Greater than 96 Consecutive Hours (ICD-10-PCS; 2018-03-09)
PROC: 5A12012 Performance of Cardiac Output, Single, Manual (ICD-10-PCS; 2018-03-09)
PROC: 30233N1 Transfusion of Nonautologous Red Blood Cells into Peripheral Vein, Percutaneous Approach (ICD-10-PCS; 2018-03-09)
PROC: 30233K1 Transfusion of Nonautologous Frozen Plasma into Peripheral Vein, Percutaneous Approach (ICD-10-PCS; 2018-03-09)
PROC: 0BH17EZ Insertion of Endotracheal Airway into Trachea, Via Natural or Artificial Opening (ICD-10-PCS; 2018-03-09)
PROC: 5A1D70Z Performance of Urinary Filtration, Intermittent, Less than 6 Hours Per Day (ICD-10-PCS; 2018-03-09)
PROC: 5A1D70Z Performance of Urinary Filtration, Intermittent, Less than 6 Hours Per Day (ICD-10-PCS; 2018-03-11)
PROC: 02H633Z Insertion of Infusion Device into Right Atrium, Percutaneous Approach (ICD-10-PCS; 2018-03-14)
PROC: 0W9G3ZZ Drainage of Peritoneal Cavity, Percutaneous Approach (ICD-10-PCS; 2018-03-17)
DX: I31.3 Pericardial effusion (noninflammatory) (principal); J96.01 Acute respiratory failure with hypoxia; K72.00 Acute and subacute hepatic failure without coma; I46.8 Cardiac arrest due to other underlying condition; N18.6 End stage renal disease; I49.01 Ventricular fibrillation; E87.2 Acidosis; I12.0 Hypertensive chronic kidney disease with stage 5 chronic kidney disease or end stage renal disease; E87.1 Hypo-osmolality and hyponatremia; I24.8 Other forms of acute ischemic heart disease; R18.8 Other ascites; I42.2 Other hypertrophic cardiomyopathy; M32.14 Glomerular disease in systemic lupus erythematosus; E87.5 Hyperkalemia; D64.9 Anemia, unspecified; Z99.2 Dependence on renal dialysis; E16.2 Hypoglycemia, unspecified; K74.60 Unspecified cirrhosis of liver; I51.7 Cardiomegaly; B95.61 Methicillin susceptible Staphylococcus aureus infection as the cause of diseases classified elsewhere; Z91.15 Patient's noncompliance with renal dialysis; Z91.14 Patient's other noncompliance with medication regimen; Z91.19 Patient's noncompliance with other medical treatment and regimen; Z79.899 Other long term (current) drug therapy
CPT/HCPCS: 32554; 36415; 36416; 36430; 49083; 71045; 74177; 78582; 80048; 80053; 80076; 80202; 82140; 82553; 82805; 83525; 83615; 83690; 83735; 83880; 84155; 84450; 84460; 84484; 84681; 85007; 85025; 85027; 85610; 85730; 86038; 86160; 86225; 86235; 86850; 86900; 86901; 87040; 87070; 87077; 87102; 87103; 87116; 87186; 87205; 87206; 87324; 87449; 90935; 93005; 93010; 93306; 93970; 94002; 94003; 94760; 96374; 96375; A4216; A4217; A9540; A9558; C9113; G0257; G8978-GP-CM; G8979-GP-CJ; G8987-GO-CK; G8988-GO-CI; J0171; J0360; J0692; J0696; J1720; J2001; J2060; J2250; J2270; J2405; J2704; J2920; J3010; J3370; J7050; J7506; P9016; P9059; Q0162

== ENCOUNTER 2018-03-31 09:10 | Day surgery (SDC) | payer MEDICARE, MEDICAID ==
--- NOTE | 2018-03-31 13:01 | ULT ---
ULTRASOUND GUIDED PARACENTESIS: Date: 03-31-18 History: Recurrent ascites. Technique: After informed consent was obtained, the patient was placed on the sonography table in sup ine position. Limited sonographic evaluation of the abdomen was performed. An area at the midaxillary line right upper quadrant was marked and then meticulously prepped and draped in usual sterile fashi on. Skin and subcutaneous tissues were infiltrated with buffered 1% Lidocaine for local anesthesia. S mall skin incision was made. Utilizing concurrent real-time ultrasound guidance, a 19 gauge [employer] need le with 5 Mohawk sheath was advanced into the abdomen. After return of fluid, the sheath was advanced and the needle was removed. Approximately 4 L of clear orange colored fluid was aspirated. Introduce r sheath was removed, and hemostasis was achieved with direct pressure. Dry sterile dressing was plac ed at puncture site. Patient was transported to the Radiology Nursing Holding area for further monito ring prior to discharge. Prior to the examination, the patient's heart rate and blood pressure were elevated. However, the pat ient did not take morning blood pressure medications. Patient was allowed to take usual morning blood pressure medications and heart rate as well as blood pressure diminished, but the blood pressure did remain elevated. Findings were discussed with patient's physician prior to the procedure, and it was decided that paracentesis would be performed. IMPRESSION: Technically successful ultrasound guided paracentesis. POS: [facility]
[2018-03-31 15:33] VITALS: BP 181/115; TEMP 97.7
== END 2018-03-31 11:45 | disposition home or self-care (01) ==
LOC: ULT 09:10
PROVIDERS: ATTEND Internal Medicine
PROC: 0W9G3ZZ Drainage of Peritoneal Cavity, Percutaneous Approach (ICD-10-PCS; principal; 2018-03-31)
DX: R18.8 Other ascites (principal); I12.0 Hypertensive chronic kidney disease with stage 5 chronic kidney disease or end stage renal disease; N18.6 End stage renal disease; M32.9 Systemic lupus erythematosus, unspecified; G43.909 Migraine, unspecified, not intractable, without status migrainosus; Z79.82 Long term (current) use of aspirin; Z79.52 Long term (current) use of systemic steroids; Z79.899 Other long term (current) drug therapy
CPT/HCPCS: 49083

== ENCOUNTER 2018-04-16 07:11 | Day surgery (SDC) | payer MEDICARE, MEDICAID ==
[2018-04-15 09:25] VITALS: BMI 22.6
[2018-04-16] MEDS ORDERED: Lidocaine 1% PF 5 ML VIAL ONE (07:46)
[2018-04-16] MEDS ORDERED: Sodium Bicarbonate 2.5 MEQ/5 ML VIAL ONE (07:46)
[2018-04-16 08:23] VITALS: BP 168/108; TEMP 97.5
--- NOTE | 2018-04-16 10:26 | ULT ---
ULTRASOUND GUIDED PARACENTESIS: HISTORY: Ascites. COMPARISON: 03/31/18. FINDINGS: Successful ultrasound-guided paracentesis. A total of 3700 mL of sally-colored fluid was removed. T here are no immediate or post procedure complications. TECHNIQUE: Consent was obtained for ultrasound-guided paracentesis. The patient's abdomen was evaluated. The r ight lower quadrant was deemed appropriate. The skin as prepped and draped in sterile fashion. 1% L idocaine, buffered with sodium bicarbonate, was used for local anesthesia. Under ultrasound guidance , a 5 Maori 7 cm [employer] catheter was advanced to the peritoneal space. Via vacuum bottles, a total of 3700 mL of sally-colored ascites was aspirated. The patient tolerated the procedure well. No immed iate or postprocedural complications. IMPRESSION: Successful ultrasound-guided paracentesis. POS: [facility]
== END 2018-04-16 08:35 | disposition home or self-care (01) ==
LOC: ULT 07:11
PROVIDERS: ATTEND Internal Medicine
PROC: 0W9G3ZZ Drainage of Peritoneal Cavity, Percutaneous Approach (ICD-10-PCS; principal; 2018-04-16)
DX: R18.8 Other ascites (principal); I31.3 Pericardial effusion (noninflammatory); I12.0 Hypertensive chronic kidney disease with stage 5 chronic kidney disease or end stage renal disease; N18.6 End stage renal disease; G43.909 Migraine, unspecified, not intractable, without status migrainosus
CPT/HCPCS: 49083; J2001

== ENCOUNTER 2018-04-30 08:26 | Day surgery (SDC) | payer MEDICARE, MEDICAID ==
[2018-04-30 09:17] LABS: #Eosinphils 0.2 thou/uL (0.0-0.7); #Lymphocytes 1.8 thou/uL (1.20-3.40); #Monocytes 0.5 thou/uL (0.11-0.59); #Neutrophils 2.9 thou/uL (1.40-6.50); %Basophils 0.4 % (0.0-1.0); %Lymphocytes 33.6 % (21.0-51.0); %Monocytes 8.6 % (0.0-10.0); %Neutrophils 53.4 % (42.0-75.0); Mean Corpuscular HGB CONC 31.3 g/dL (32.0-36.0); Mean Corpuscular Hemoglobin 31.1 pg (27.0-31.0); Mean Corpuscular Volume 99.6 fl (81.0-99.0); Mean Platelet Volume 8.5 fL (7.4-10.4); Platelet Count 207 thou/uL (130-400); RBC Distribution Width 16.4 % (11.5-14.5); Red Blood Cell (RBC) Count 2.88 mill/uL (4.20-5.40); White Blood Cell (WBC) Count 5.4 thou/uL (4.8-10.8)
[2018-04-30 09:22] LABS: INR-International Normal Ratio 1.2; Prothrombin Time 14.9 SEC (12.0-14.7)
[2018-04-30 09:23] LABS: PTT 38.2 SEC (22.9-36.1)
[2018-04-30] MEDS ORDERED: Lidocaine 1% PF 5 ML VIAL ONE (09:44)
[2018-04-30] MEDS ORDERED: Sodium Bicarbonate 2.5 MEQ/5 ML VIAL ONE (09:45)
[2018-04-30 11:31] VITALS: BP 162/110; TEMP 96.9
--- NOTE | 2018-04-30 14:09 | ULT ---
ULTRASOUND GUIDED PARACENTESIS: INDICATION: Ascites. COMPARISON: Prior exam dated 04/16/18. TECHNIQUE: Informed consent was obtained. The patient's abdomen was evaluated. The right lower quadrant was ma rked. The site was prepped and draped in the usual sterile fashion. Buffered 1% Lidocaine was admin istered into the overlying subcutaneous tissues. Under ultrasound guidance, a 5 Italian 7 cm Yueh cat heter was guided down into the peritoneal space. There was removal of a total of 3700 cc's of perito jacob fluid. The patient tolerated the procedure without difficulty. IMPRESSION: Successful ultrasound-guided paracentesis. POS: [facility]
== END 2018-04-30 10:45 | disposition home or self-care (01) ==
LOC: ULT 08:26
PROVIDERS: ATTEND Internal Medicine
PROC: 0W9G3ZZ Drainage of Peritoneal Cavity, Percutaneous Approach (ICD-10-PCS; principal; 2018-04-30)
DX: R18.8 Other ascites (principal); I12.0 Hypertensive chronic kidney disease with stage 5 chronic kidney disease or end stage renal disease; N18.6 End stage renal disease; Z99.2 Dependence on renal dialysis; Z79.899 Other long term (current) drug therapy
CPT/HCPCS: 36415; 49083; 85025; 85610; 85730; J2001

== ENCOUNTER → 2018-05-14 | Day surgery (SDC) | payer MEDICARE, MEDICAID ==
[2018-05-13 10:26] VITALS: BMI 22.6
[~2018-05-14] MED LIST changes: -FLU VACC QS2017-18 36 mo. & older 0.5 ML SYRINGE IM ONE; -Prevnar 13-Val Conj/PF 0.5 ML SYRINGE IM ONE; +Sodium Bicarbonate 2.5 MEQ/5 ML VIAL ONE
--- NOTE | 2018-05-14 09:38 | ULT ---
ULTRASOUND GUIDED PARACENTESIS: DATE: 05/14/18. HISTORY: End stage renal disease with refractory ascites. FINDINGS: Informed consent for ultrasound-guided paracentesis obtained prior to the procedure. Preprocedural imaging demonstrates free fluid throughout the abdomen/pelvis. Right lower quadrant/mid right abdomen was prepped and draped in normal sterile fashion and anestheti zed with 1% buffered Lidocaine. With direct sonographic guidance, a 5 [place] Citizen Yueh catheter is advanc ed into the ascites and removal of the stylette yields yellow fluid. Three liters were removed. The patient tolerated the procedure well. IMPRESSION: Successful ultrasound-guided paracentesis yielding 3 liters of yellow fluid. POS: [facility]
[2018-05-14 11:55] VITALS: TEMP 97.5
== END ==
LOC: ULT 08:10
PROVIDERS: ATTEND Internal Medicine
PROC: 0W9G3ZZ Drainage of Peritoneal Cavity, Percutaneous Approach (ICD-10-PCS; principal; 2018-05-14)
DX: R18.8 Other ascites (principal); I13.2 Hypertensive heart and chronic kidney disease with heart failure and with stage 5 chronic kidney disease, or end stage renal disease; I50.9 Heart failure, unspecified; N18.6 End stage renal disease; E78.5 Hyperlipidemia, unspecified; D64.9 Anemia, unspecified; Z79.899 Other long term (current) drug therapy
CPT/HCPCS: 49083

== ENCOUNTER 2018-05-28 08:08 | Day surgery (SDC) | payer MEDICARE, MEDICAID ==
[2018-05-27 13:15] VITALS: BMI 22.6
[2018-05-28] MEDS ORDERED: Sodium Bicarbonate 2.5 MEQ/5 ML VIAL ONE (08:15)
[2018-05-28] MEDS ORDERED: Lidocaine 1% PF 5 ML VIAL ONE (08:15)
[2018-05-28 09:18] VITALS: BP 205/119; TEMP 98.6
--- NOTE | 2018-05-28 10:52 | ULT ---
ULTRASOUND GUIDED PARACENTESIS: COMPARISON: 05/14/2018 HISTORY: Ascites. FINDINGS: The patient is sent for ultrasound guided paracentesis. A total of 2750 mL of yellow-colored ascites was aspirated. There were no immediate or post procedure complications. TECHNIQUE: Consent obtained for ultrasound guided paracentesis. The right lower quadrant was deemed appropriate. The skin was prepped and draped in a sterile fashio n. Lidocaine 1% buffered with sodium bicarbonate was used for local anesthesia. Under ultrasound gu idance, a 5 Hong Konger, 7 cm catheter was advanced into the peritoneal space. Via vacuum bottles, a tota l of 2750 mL of yellow-colored ascites as aspirated. The patient tolerated the procedure well. No i mmediate or post procedure complications. IMPRESSION: Successful ultrasound guided paracentesis. POS: [facility]
== END 2018-05-28 09:15 | disposition home or self-care (01) ==
LOC: ULT 08:08
PROVIDERS: ATTEND Internal Medicine
PROC: 0W9G3ZZ Drainage of Peritoneal Cavity, Percutaneous Approach (ICD-10-PCS; principal; 2018-05-28)
DX: R18.8 Other ascites (principal); D64.9 Anemia, unspecified; I11.0 Hypertensive heart disease with heart failure; I50.9 Heart failure, unspecified; G43.909 Migraine, unspecified, not intractable, without status migrainosus; E78.5 Hyperlipidemia, unspecified; Z79.899 Other long term (current) drug therapy
CPT/HCPCS: 49083; J2001

== ENCOUNTER 2018-06-11 08:24 | Day surgery (SDC) | payer MEDICARE ==
[2018-06-11 08:51] LABS: #Eosinphils 0.2 thou/uL (0.0-0.7); #Lymphocytes 1.6 thou/uL (1.20-3.40); #Monocytes 0.2 thou/uL (0.11-0.59); #Neutrophils 3.3 thou/uL (1.40-6.50); %Basophils 0.4 % (0.0-1.0); %Eosinophils 3.5 % (0.0-10.0); %Lymphocytes 30.4 % (21.0-51.0); %Monocytes 3.7 % (0.0-10.0); Hemoglobin 9.6 g/dL (12.0-16.0); Mean Corpuscular HGB CONC 32.3 g/dL (32.0-36.0); Mean Corpuscular Volume 95.9 fL (78.0-98.0); Mean Platelet Volume 7.6 fL (7.4-10.4); Platelet Count 194 thou/uL (130-400); RBC Distribution Width 15.3 % (11.5-14.5); White Blood Cell (WBC) Count 5.2 thou/uL (4.8-10.8)
[2018-06-11 09:05] LABS: INR-International Normal Ratio 1.1; PTT 33.9 SEC (22.9-36.1)
[2018-06-11 10:28] VITALS: BMI 22.6
[2018-06-11 10:30] VITALS: BP 183/124; TEMP 97
--- NOTE | 2018-06-11 13:56 | ULT ---
ULTRASOUND GUIDED PARACENTESIS: INDICATIONS: Ascites. TECHNIQUE: Informed consent was obtained. Pre-procedural ultrasound images were performed for guidance purposes . The site overlying the right lower quadrant was marked. The site was prepped and draped in the us ua sterile fashion. Buffered 1% Lidocaine was administered to the overlying subcutaneous tissues. Under ultrasound guidance, a 5 English Yueh catheter was guided down into the largest collection, in t he right lower quadrant, and 2900 mL of normal appearing peritoneal fluid was removed. The patient t olerated the procedure without difficulty. IMPRESSION: Successful ultrasound guided paracentesis. POS: [facility]
== END 2018-06-11 10:10 | disposition home or self-care (01) ==
LOC: ULT 08:24
PROVIDERS: ATTEND Internal Medicine
PROC: 0W9G3ZZ Drainage of Peritoneal Cavity, Percutaneous Approach (ICD-10-PCS; principal; 2018-06-11)
DX: R18.8 Other ascites (principal); E78.5 Hyperlipidemia, unspecified; D64.9 Anemia, unspecified; G43.909 Migraine, unspecified, not intractable, without status migrainosus; I13.2 Hypertensive heart and chronic kidney disease with heart failure and with stage 5 chronic kidney disease, or end stage renal disease; I50.9 Heart failure, unspecified; N18.6 End stage renal disease
CPT/HCPCS: 36415; 49083; 85025; 85610; 85730

== ENCOUNTER 2018-06-17 10:33 | Emergency (ER) | payer MEDICARE, MEDICAID ==
--- NOTE | 2018-06-17 11:47 | CT ---
CT OF THE BRAIN WITHOUT CONTRAST: Date: 06/17/18 COMPARISON: 06/04/16. HISTORY: Left arm pain. Fall with head injury. Patient sustained the injury last night. TECHNIQUE: Multiple contiguous axial images were obtained in a CT of the brain without contrast. FINDINGS: The brain is normal in morphology and attenuation without focal lesions or confluent areas of infarct ion. There is no evidence of hydrocephalus, intracranial hemorrhage, or extra-axial fluid collection. The calvarium and overlying soft tissues are unremarkable. The visualized paranasal sinuses and masto id air cells are well aerated. IMPRESSION: No evidence of acute intracranial abnormality. POS: [facility]
--- NOTE | 2018-06-17 11:51 | RAD ---
TWO VIEWS LEFT FOREARM: History: Fall, left forearm tenderness. FINDINGS: AP and lateral views obtained. Vascular calcifications seen. No evidence of acute fractures, subluxat ions, or bony lesions seen. IMPRESSION: Normal two views left forearm. POS: [facility]
[2018-06-17] MEDS ORDERED: Acetaminophen 325 MG TAB ONE (11:55)
--- NOTE | 2018-06-17 12:15 | RAD ---
2 VIEWS LEFT HUMERUS: Date: 06/17/18 COMPARISON: None. HISTORY: Left arm pain after fall last night. FINDINGS: Two views of the left humerus show no evidence of acute fracture or dislocation. No degenerative witt ges are seen. No soft tissue swelling is present. IMPRESSION: Unremarkable exam. POS: [facility]
--- NOTE | 2018-06-17 12:16 | RAD ---
3 VIEW LEFT WRIST: Date: 06/17/18 COMPARISON: None. HISTORY: Fall last night with left wrist pain. FINDINGS: Three views of the left wrist show no evidence of acute fracture or dislocation. No degenerative witt ges are seen. Vascular calcifications are present. IMPRESSION: No evidence of acute osseous abnormality. POS: [facility]
--- NOTE | 2018-06-17 12:17 | RAD ---
3 VIEWS LEFT HAND: Date: 06/17/18 COMPARISON: None. HISTORY: Fall last night with left hand pain. FINDINGS: Three views of the left hand show no evidence of acute fracture or dislocation. No degenerative rangel es are seen. No soft tissue swelling is present. Diabetic vascular calcifications are seen. IMPRESSION: No evidence of acute osseous abnormality. POS: [facility]
== END 2018-06-17 13:09 | disposition home or self-care (01) ==
LOC: ERS 10:33
DX: M79.602 Pain in left arm (principal); I25.2 Old myocardial infarction; G43.909 Migraine, unspecified, not intractable, without status migrainosus; Z99.2 Dependence on renal dialysis; I10 Essential (primary) hypertension; Z79.899 Other long term (current) drug therapy
CPT/HCPCS: 70450

== ENCOUNTER 2018-06-25 08:53 | Day surgery (SDC) | payer MEDICARE ==
[~2018-06-25 08:53] MED LIST changes: +Lidocaine 1% PF 5 ML VIAL ONE
[2018-06-25 10:17] VITALS: TEMP 97.4
[2018-06-25 10:18] VITALS: BMI 22.6
[2018-06-25 10:20] VITALS: BP 152/105
--- NOTE | 2018-06-25 15:48 | ULT ---
ULTRASOUND-GUIDED PARACENTESIS: CLINICAL INDICATION: Ascites. PROCEDURE: After informed consent had been obtained, the patient was escorted to the ultrasound suite and placed in a supine position. The abdomen was imaged which revealed adequate ascites for the procedure. Th e skin of the abdomen was then prepped and draped in the standard sterile fashion and the skin surfac e, subcutaneous tissues, and peritoneal lining of the abdomen were anesthetized with 1% Lidocaine buf fered with sodium bicarbonate. A right lower quadrant approach was selected. A small skin incision was made at the site of topical anesthesia. Subsequently, under real-time ultrasound guidance a [employer] catheter was advanced through the incision site into the peritoneal cavity. Ascites was present at the catheter hub. The catheter was then secured to vacuum sealed sterile containers, via sterile tub ing and subsequently 1.75 L of clear yellow ascites was drained from the patient. The patient was th en removed from the patient. The patient tolerated the procedure well without evidence of complicati on. Post procedure imaging revealed no complication and interval reduction in volume of ascites. Th e patient was monitored by a radiology nurse and was stable in condition. IMPRESSION: Technically successful ultrasound-guided paracentesis, as above. POS: [facility]
== END 2018-06-25 09:50 | disposition home or self-care (01) ==
LOC: ULT 08:53
PROVIDERS: ATTEND Internal Medicine
PROC: 0W9G3ZZ Drainage of Peritoneal Cavity, Percutaneous Approach (ICD-10-PCS; principal; 2018-06-25)
DX: R18.8 Other ascites (principal); I11.0 Hypertensive heart disease with heart failure; I50.9 Heart failure, unspecified; D64.9 Anemia, unspecified; E78.5 Hyperlipidemia, unspecified; Z79.899 Other long term (current) drug therapy
CPT/HCPCS: 49083; J2001

== ENCOUNTER → 2018-07-09 | Day surgery (SDC) | payer MEDICARE ==
[2018-07-08 13:49] VITALS: BMI 22.6
[~2018-07-09] MED LIST changes: +Prevnar 13-Val Conj/PF 0.5 ML SYRINGE IM ONE
[2018-07-09 09:33] VITALS: TEMP 97.9
--- NOTE | 2018-07-09 10:56 | ULT ---
SONOGRAPHIC GUIDED PARACENTESIS: HISTORY: Recurrent ascites. FINDINGS: After explaining the procedure and answering all questions, sonographic survey shows a moderate amoun t of free fluid. Sterile technique, buffered local anesthesia, sonographic guidance, and a right lat eral approach were used to carefully advance a 19 gauge Yueh needle and catheter into the free fluid. The catheter was left to drainage of a volume of 3 L of cloudy yellow liquid. The catheter was rem [place] with minimal fluid remaining. The patient tolerated the procedure well and was dismissed in goo d condition. IMPRESSION: Technically successful sonographic guided paracentesis. POS: [facility]
== END ==
LOC: ULT 08:36
PROVIDERS: ATTEND Radiology Diagnostic Radiology
PROC: 0W9G3ZZ Drainage of Peritoneal Cavity, Percutaneous Approach (ICD-10-PCS; principal; 2018-07-09)
DX: R18.8 Other ascites (principal)
CPT/HCPCS: 49083; J2001

== ENCOUNTER 2018-07-23 08:22 | Day surgery (SDC) | payer MEDICARE ==
[2018-07-22 12:29] VITALS: BMI 25.4
[~2018-07-23 08:22] MED LIST changes: -Lidocaine 1% PF 5 ML VIAL ONE; -Sodium Bicarbonate 2.5 MEQ/5 ML VIAL ONE
[2018-07-23 09:00] LABS: #Eosinphils 0.2 thou/uL (0.0-0.7); #Lymphocytes 1.1 thou/uL (1.20-3.40); #Monocytes 0.3 thou/uL (0.11-0.59); #Neutrophils 3.9 thou/uL (1.40-6.50); %Basophils 0.3 % (0.0-1.0); %Lymphocytes 19.4 % (21.0-51.0); %Monocytes 4.6 % (0.0-10.0); %Neutrophils 71.7 % (42.0-75.0); Hemoglobin 8.5 g/dL (12.0-16.0); Mean Corpuscular HGB CONC 32.1 g/dL (32.0-36.0); Mean Corpuscular Hemoglobin 31.4 pg (27.0-31.0); Mean Platelet Volume 8.6 fL (7.4-10.4); Platelet Count 132 thou/uL (130-400); RBC Distribution Width 16.8 % (11.5-14.5); Red Blood Cell (RBC) Count 2.71 mill/uL (4.20-5.40); White Blood Cell (WBC) Count 5.5 thou/uL (4.8-10.8)
[2018-07-23] MEDS ORDERED: Lidocaine 1% PF 5 ML VIAL ONE (09:04)
[2018-07-23 09:06] LABS: INR-International Normal Ratio 1.1; PTT 34.8 SEC (22.9-36.1); Prothrombin Time 14.3 SEC (12.0-14.7)
[2018-07-23 10:09] VITALS: BP 146/97; TEMP 97.6
--- NOTE | 2018-07-23 10:51 | ULT ---
ULTRASOUND GUIDED PARACENTESIS: Date: 07/23/18 HISTORY: Ascites. COMPARISON: 07/09/18. FINDINGS: Technically successful ultrasound guided paracentesis. A total of 3,400 mL of sally-colored ascites r emoved. The patient tolerated the procedure well. No immediate or postprocedure complications. TECHNIQUE: Consent obtained to perform an ultrasound guided paracentesis. Patient's abdomen was evaluated. Right upper quadrant was deemed appropriate. Skin prepped and draped in the sterile fashion. 1% lidocaine, buffered with sodium bicarbonate, was used for local anesthesia. Under ultrasound guidance, a 5 Fren ch 7.0 cm Yueh catheter was advanced into the right upper quadrant. Via vacuum bottle, a total of 3,4 00 mL of sally-colored ascites was aspirated. The patient tolerated the procedure well. No immediate or postprocedure complication. IMPRESSION: Successful ultrasound guided paracentesis. POS: [facility]
== END 2018-07-23 10:05 | disposition home or self-care (01) ==
LOC: ULT 08:22
PROVIDERS: ATTEND Internal Medicine
PROC: 0W9G3ZZ Drainage of Peritoneal Cavity, Percutaneous Approach (ICD-10-PCS; principal; 2018-07-23)
DX: R18.8 Other ascites (principal); I12.0 Hypertensive chronic kidney disease with stage 5 chronic kidney disease or end stage renal disease; N18.6 End stage renal disease; M32.9 Systemic lupus erythematosus, unspecified; Z79.899 Other long term (current) drug therapy; Z99.2 Dependence on renal dialysis
CPT/HCPCS: 36415; 49083; 85025; 85610; 85730; J2001

== ENCOUNTER → 2018-08-06 | Day surgery (SDC) | payer MEDICARE ==
[2018-08-05 13:00] VITALS: BMI 22.6
[~2018-08-06] MED LIST changes: +Lidocaine 1% PF 5 ML VIAL ONE; -Prevnar 13-Val Conj/PF 0.5 ML SYRINGE IM ONE; +Sodium Bicarbonate 2.5 MEQ/5 ML VIAL ONE
--- NOTE | 2018-08-06 13:13 | ULT ---
ULTRASOUND GUIDED PARACENTESIS: HISTORY: Ascites. COMPARISON: 07/23/2018 FINDINGS: Technically successful ultrasound guided paracentesis. A total of 1650 mL of sally colored fluid was aspirated. There were no immediate or post procedural complications. TECHNIQUE: Consent obtained to perform an ultrasound guided paracentesis. The patient's abdomen was evaluated. The right lower quadrant was deemed appropriate. The skin was prepped and draped in a sterile fashi on, and 1% Lidocaine buffered with sodium bicarbonate was used for local anesthesia. Under ultrasoun d guidance, a 5 Iranian, 7 cm Caternaeh catheter was advanced into the peritoneal space. Via vacuum bottle s, a total of 1650 mL of sally colored ascites was aspirated. The patient tolerated the procedure we ll. No immediate or post procedure complications. IMPRESSION: Successful ultrasound guided paracentesis. POS: [facility]
== END ==
LOC: ULT 09:04
PROVIDERS: ATTEND Internal Medicine
PROC: 0W9G3ZZ Drainage of Peritoneal Cavity, Percutaneous Approach (ICD-10-PCS; principal; 2018-08-06)
DX: R18.8 Other ascites (principal)
CPT/HCPCS: 49083; J2001

== ENCOUNTER 2018-08-20 14:14 | Day surgery (SDC) | payer MEDICARE ==
--- NOTE | 2018-08-20 16:06 | ULT ---
ULTRASOUND GUIDED PARACENTESIS: 08/20/18 HISTORY: Recurrent ascites. COMPARISON: 08/06/18. FINDINGS: Technically successful ultrasound guided paracentesis. A total of 2 liters of ascites was removed. Th ere was no immediate postprocedure complications. TECHNIQUE: Consent was obtained to perform an ultrasound guided paracentesis. Right lower quadrant was deemed ap propriate. Skin was prepped and draped in the sterile fashion. 1% lidocaine, buffered with sodium bic arbonate was used for local anesthesia. Under ultrasound guidance, a 5 Tajik 7 cm Sneaky Gameseh catheter was advanced in the peritoneal space. Via vacuum bottles, a total of 2 liters of yellow colored ascites w as aspirated. There were no immediate postprocedure complications. Patient tolerated the procedure we ll. IMPRESSION: Successful ultrasound guided paracentesis. POS: [facility]
[2018-08-20 16:08] VITALS: BMI 22.6
[2018-08-20 16:18] VITALS: BP 147/100; TEMP 97.7
== END 2018-08-20 15:25 | disposition home or self-care (01) ==
LOC: ULT 14:14
PROVIDERS: ATTEND Internal Medicine
PROC: 0W9G3ZZ Drainage of Peritoneal Cavity, Percutaneous Approach (ICD-10-PCS; principal; 2018-08-20)
DX: R18.8 Other ascites (principal)
CPT/HCPCS: 49083

== ENCOUNTER 2018-09-03 08:28 | Day surgery (SDC) | payer MEDICARE ==
[2018-09-03 08:40] LABS: #Eosinphils 0.1 thou/uL (0.0-0.7); #Lymphocytes 1.1 thou/uL (1.20-3.40); #Monocytes 0.3 thou/uL (0.11-0.59); #Neutrophils 3.9 thou/uL (1.40-6.50); %Basophils 0.1 % (0.0-1.0); %Eosinophils 2.2 % (0.0-10.0); %Lymphocytes 20.5 % (21.0-51.0); %Monocytes 4.5 % (0.0-10.0); %Neutrophils 72.7 % (42.0-75.0); Hemoglobin 8.6 g/dL (12.0-16.0); Mean Corpuscular HGB CONC 30.6 g/dL (32.0-36.0); Mean Corpuscular Hemoglobin 30.2 pg (27.0-31.0); Mean Corpuscular Volume 98.7 fL (78.0-98.0); Mean Platelet Volume 8.8 fL (7.4-10.4); Platelet Count 171 thou/uL (130-400); RBC Distribution Width 15.8 % (11.5-14.5); Red Blood Cell (RBC) Count 2.83 mill/uL (4.20-5.40); White Blood Cell (WBC) Count 5.4 thou/uL (4.8-10.8)
[2018-09-03] MEDS ORDERED: Lidocaine 1% PF 5 ML VIAL ONE (08:49)
[2018-09-03 08:51] LABS: INR-International Normal Ratio 1.1
--- NOTE | 2018-09-03 13:05 | ULT ---
ULTRASOUND GUIDED PARACENTESIS: Date: 09-03-18 History: Ascites. Technique: After informed consent was obtained, the patient was placed on the sonography table in supine positio n. Limited sonographic evaluation of the abdomen was performed. An area in the right upper quadrant m idaxillary line was marked and then meticulously prepped and draped in the usual sterile fashion. Ski n and subcutaneous tissues were infiltrated with buffered 1% Lidocaine for local anesthesia. Small sk in incision as made. Utilizing concurrent real-time ultrasound guidance, a 19 gauge Yueh needle with 5 Yakut sheath was a dvanced into the abdomen. After the return of fluid the catheter was advanced and needle was removed. Approximately 2 L of dark clear straw-colored fluid was aspirated. The catheter was removed and hemo statis was achieved with direct pressure. Dry sterile dressing was placed. Follow up imaging demonstr ates resolution of the intraperitoneal free fluid in the right aspect of the abdomen. IMPRESSION: Successful ultrasound guided paracentesis. POS: [facility]
[2018-09-03 13:54] VITALS: BP 165/102; TEMP 97.6
== END 2018-09-03 10:00 | disposition home or self-care (01) ==
LOC: ULT 08:28
PROVIDERS: ATTEND Internal Medicine
PROC: 0W9G3ZZ Drainage of Peritoneal Cavity, Percutaneous Approach (ICD-10-PCS; principal; 2018-09-03)
DX: R18.8 Other ascites (principal)
CPT/HCPCS: 36415; 49083; 85025; 85610; 85730; J2001

== ENCOUNTER 2018-09-17 08:30 | Day surgery (SDC) | payer MEDICARE ==
[2018-09-17] MEDS ORDERED: Sodium Bicarbonate 2.5 MEQ/5 ML VIAL ONE (08:43)
[2018-09-17] MEDS ORDERED: Lidocaine 1% PF 5 ML VIAL ONE (08:43)
[2018-09-17 09:56] VITALS: BP 154/98; TEMP 97.6
--- NOTE | 2018-09-17 11:04 | ULT ---
ULTRASOUND GUIDED PARACENTESIS: HISTORY: Ascites. COMPARISON: 09/03/2018 FINDINGS: Successful ultrasound-guided paracentesis. A total of 1550 mL of yellow-colored ascites was removed. TECHNIQUE: Consent obtained to perform ultrasound-guided paracentesis. The right lower quadrant was deemed appr opriate. The skin was prepped and draped in a sterile fashion. Lidocaine 1%, buffered with sodium b icarbonate, was used for local anesthesia. Under sonographic guidance, a 5 Rwandan, 7 cm [employer]eh cathete r was advanced into the peritoneal space. A total of 1550 mL of yellow-colored ascites was aspirated . The patient tolerated the procedure well. No immediate or post procedure complications. IMPRESSION: Successful ultrasound-guided paracentesis. POS: [facility]
== END 2018-09-17 09:40 | disposition home or self-care (01) ==
LOC: ULT 08:30
PROVIDERS: ATTEND Internal Medicine
PROC: 0W9G3ZZ Drainage of Peritoneal Cavity, Percutaneous Approach (ICD-10-PCS; principal; 2018-09-17)
DX: R18.8 Other ascites (principal)
CPT/HCPCS: 49083; J2001

== ENCOUNTER 2018-10-01 08:35 | Day surgery (SDC) | payer MEDICARE ==
[2018-10-01] MEDS ORDERED: Sodium Bicarbonate 2.5 MEQ/5 ML VIAL ONE (08:42)
[2018-10-01] MEDS ORDERED: Lidocaine 1% PF 5 ML VIAL ONE (08:42)
[2018-10-01 11:53] VITALS: BP 159/87; TEMP 97.7
--- NOTE | 2018-10-01 12:42 | ULT ---
ULTRASOUND GUIDED PARACENTESIS: INDICATION: Ascites. TECHNIQUE: Informed consent was obtained. A site overlying the right lower quadrant of the abdomen as prepped a nd draped in the usual sterile fashion. Buffered 1% Lidocaine was administered to the overlying subc utaneous tissues. Under ultrasound guidance, a 5 Pashto Yueh catheter was guided down into the large collection in the right lower quadrant of the abdomen. There was removal of 1650 cc of normal-appea ring peritoneal fluid. The patient tolerated the procedure without difficulty. IMPRESSION: Successful ultrasound-guided paracentesis removal of 1650 cc of normal-appearing peritoneal fluid. POS: [facility]
== END 2018-10-01 09:40 | disposition home or self-care (01) ==
LOC: ULT 08:35
PROVIDERS: ATTEND Internal Medicine
PROC: 0W9G3ZZ Drainage of Peritoneal Cavity, Percutaneous Approach (ICD-10-PCS; principal; 2018-10-01)
DX: R18.8 Other ascites (principal)
CPT/HCPCS: 49083; J2001

== ENCOUNTER 2018-10-15 08:44 | Day surgery (SDC) | payer MEDICARE, MEDICAID ==
[2018-10-15 09:18] LABS: #Eosinphils 0.1 thou/uL (0.0-0.7); #Lymphocytes 0.7 thou/uL (1.20-3.40); #Monocytes 0.2 thou/uL (0.11-0.59); #Neutrophils 2.8 thou/uL (1.40-6.50); %Basophils 0.5 % (0.0-1.0); %Eosinophils 2.4 % (0.0-10.0); %Lymphocytes 19.3 % (21.0-51.0); %Monocytes 5.1 % (0.0-10.0); %Neutrophils 72.8 % (42.0-75.0); Hemoglobin 7.9 g/dL (12.0-16.0); Mean Corpuscular HGB CONC 30.3 g/dL (32.0-36.0); Mean Corpuscular Hemoglobin 30.2 pg (27.0-31.0); Mean Corpuscular Volume 99.7 fL (78.0-98.0); Mean Platelet Volume 8.7 fL (7.4-10.4); Platelet Count 135 thou/uL (130-400); RBC Distribution Width 15.8 % (11.5-14.5); White Blood Cell (WBC) Count 3.8 thou/uL (4.8-10.8)
[2018-10-15 09:25] LABS: INR-International Normal Ratio 1.1; PTT 37.2 SEC (22.9-36.1); Prothrombin Time 14.7 SEC (12.0-14.7)
[2018-10-15] MEDS ORDERED: Sodium Bicarbonate 2.5 MEQ/5 ML VIAL ONE (09:32)
[2018-10-15 13:07] VITALS: BMI 22.6
[2018-10-15 13:08] VITALS: TEMP 97.6
[2018-10-15] MEDS ORDERED: Prevnar 13-Val Conj/PF 0.5 ML SYRINGE IM ONE (14:00)
--- NOTE | 2018-10-15 14:07 | ULT ---
ULTRASOUND GUIDED PARACENTESIS THERAPEUTIC: DATE: 10/15/2018. HISTORY: A 38-year-old female with abdominal distention due to ascites secondary to chronic renal failure. TECHNIQUE: Signed informed consent obtained. A pocket of free fluid in the right lower quadrant identified. Ov erlying skin was prepared and draped in the usual sterile fashion. A 25-gauge needle was used to eryn ly buffered Lidocaine superficially and deeply. A 5 Green[place]ic Yueh catheter with stylette was advanced under ultrasound guidance into the pocket of fluid in the right side of the abdomen, being careful to avoid the adjacent liver and bowel loops. Stylette was removed. Yueh catheter was connected to parvez cuated bottles via plastic tubing. After drainage, the Yueh catheter was removed. The patient luana ated the procedure well. No complications. FINDINGS: Prior to the procedure, images of the 4 quadrants demonstrate a small amount of free intraperitoneal fluid. The next series of images demonstrate the paracentesis Yueh catheter with stylette in the poc ket of free fluid with tip adjacent to the anterior surface of the right lobe of the liver. Postproc edure images demonstrate interval decrease in the volume of the free fluid. A small amount of free f luid remains. A total of 2,200 mL of nonhemorrhagic yellow-brown fluid was drained. IMPRESSION: Successful therapeutic paracentesis with drainage of 2.2 liters of ascites fluid. POS: [facility]
== END 2018-10-15 10:26 | disposition home or self-care (01) ==
LOC: ULT 08:44
PROVIDERS: ATTEND Internal Medicine
PROC: 0W9G3ZZ Drainage of Peritoneal Cavity, Percutaneous Approach (ICD-10-PCS; principal; 2018-10-15)
DX: R18.8 Other ascites (principal)
CPT/HCPCS: 36415; 49083; 85025; 85610; 85730

== ENCOUNTER 2018-10-24 14:57 | Inpatient (IN) | payer MEDICARE, MEDICAID ==
[~2018-10-24 14:57] MED LIST changes: +ISOVUE-370 76%-LOCM 1 ML ONE; -Lidocaine 1% PF 5 ML VIAL ONE; -Sodium Bicarbonate 2.5 MEQ/5 ML VIAL ONE
[2018-10-24 15:41] LABS: #Basophils 0.1 thou/uL (0.0-0.2); #Lymphocytes 1.3 thou/uL (1.20-3.40); #Monocytes 0.4 thou/uL (0.11-0.59); #Neutrophils 5.4 thou/uL (1.40-6.50); %Basophils 1.1 % (0.0-1.0); %Eosinophils 0.3 % (0.0-10.0); %Lymphocytes 18.4 % (21.0-51.0); %Monocytes 5.5 % (0.0-10.0); %Neutrophils 74.7 % (42.0-75.0); Hemoglobin 8.5 g/dL (12.0-16.0); Mean Corpuscular HGB CONC 32.1 g/dL (32.0-36.0); Mean Corpuscular Hemoglobin 31.7 pg (27.0-31.0); Mean Corpuscular Volume 98.8 fL (78.0-98.0); Mean Platelet Volume 8.6 fL (7.4-10.4); Platelet Count 247 thou/uL (130-400); RBC Distribution Width 16.3 % (11.5-14.5); Red Blood Cell (RBC) Count 2.67 mill/uL (4.20-5.40); White Blood Cell (WBC) Count 7.3 thou/uL (4.8-10.8)
[2018-10-24] MEDS ORDERED: Ondansetron ODT 4 MG TAB ONE (15:57)
[2018-10-24 16:03] LABS: ALT (SGPT) 10 U/L (8-55); AST (SGOT) 30 U/L (5-34); Albumin 3.8 g/dL (3.5-5.0); Alkaline Phosphatase 107 U/L (40-150); Anion Gap 22 mmol/L (10-20); BUN (Urea Nitrogen) 21 mg/dL (7.0-18.7); Bilirubin, Total 2.3 mg/dL (0.2-1.2); CK (CPK) 144 U/L (29-168); Calc. Creatinine Clearance 0 mL/min (70-130); Calcium 10.4 mg/dL (7.8-10.44); Carbon Dioxide 26 mmol/L (22-29); Chloride 96 mmol/L (98-107); Estimated GFR-MDRD 9; Globulin 5.3 g/dL (2.4-3.5); Glucose 71 mg/dL (70-105); Potassium 5.5 mmol/L (3.5-5.1); Protein, Total 9.1 g/dL (6.0-8.3); Sodium 138 mmol/L (136-145)
[2018-10-24 16:07] LABS: CKMB 1.7 ng/mL (0-6.6); Troponin I 0.084 ng/mL (< 0.028)
[2018-10-24] MEDS ORDERED: Metoclopramide HCl 10 MG/2 ML VIAL ONE (16:10)
[2018-10-24] MEDS ORDERED: Metoprolol Tartrate 5 MG/5 ML VIAL ONE (16:25)
--- NOTE | 2018-10-24 17:43 | RAD ---
CHEST ONE VIEW: 10/24/18 COMPARISON: 03/25/18. HISTORY: Dyspnea. FINDINGS: There is cardiomegaly. There is atherosclerosis of the aorta. Stable stent projecting over the right lung apex. Pulmonary vessels are within normal limits. Costophrenic angles are clear. Possible early infiltrate in the right lower lobe. Lungs are hyperinflated. No pneumothorax or osseous abnormalitie s. IMPRESSION: 1. Cardiomegaly. 2. Possible early developing infiltrate in the right lower lobe. Continued surveillance to ensur e resolution is recommended. POS: [facility]
[2018-10-24] MEDS ORDERED: Acetaminophen 325 MG TAB PO PRN (19:52)
[2018-10-24] MEDS ORDERED: Ondansetron PF 4 MG/2 ML Vial IVP PRN (19:52)
[2018-10-24] MEDS ORDERED: hydrALAZINE 20 MG/ML VIAL SLOW IVP PRN (19:55)
[2018-10-24] MEDS ORDERED: Nitroglycerin 2% Ointment 1 INCH/1 GM Packet ONE ×2 (20:13→20:14)
[2018-10-24] MEDS ORDERED: Metoprolol Tartrate 50 MG TAB ONE (20:21)
[2018-10-24] MEDS ORDERED: Heparin 5,000 UNITS/ML VIAL SC SCH (21:00)
--- NOTE | 2018-10-24 22:13 | CT ---
CT ANGIOGRAM OF THE CHEST: 10/24/18 HISTORY: Dyspnea. Lupus. Hypertension. COMPARISON: 05/23/14. TECHNIQUE: CT angiogram of the chest is performed in the axial plane. Three dimensional reformatted images are s ubmitted for interpretation. FINDINGS: There is a stent in the right subclavian, brachiocephalic vein and the superior vena cava. Evaluation of the stent is limited on this exam. There is atherosclerosis of a nonaneurysmal thoracic and upper abdominal aorta. There are coronary calcifications. Heart is enlarged and there is evidence of peric ardial fluid. There is a posterior mediastinal peripherally calcified centrally hypodense lesion with an attenuation coefficient of 56 Hounsfield units. This lesion measures 5.7 x 4.8 cm. The lesion is no definitively appreciated on the CT abdomen and pelvis from 03/09/18. Significance of this lesion is uncertain. There is evidence of ascites. Reflux of contrast into the inferior vena cava compatible wi th right heart failure. There are enlarged mediastinal lymph nodes. There are diffuse ground glass opacities in the lung parenchyma suggesting edema. No consolidation or mass. No pleural effusion or pneumothorax. Adequate contrast opacification in the pulmonary arterial system to the level of the segmental arteri es. No filling defect to suggest thromboembolism. No lytic or blastic lesions in the osseous structures. IMPRESSION: 1. No evidence of pulmonary artery embolism to the level of the segmental arteries. 2. Diffuse ground glass opacities compatible with volume overload/edema. 3. Right heart failure. 4. Ascites. 5. Hypodense lesion with peripheral calcification which is pericardial in location. This lesion is not appreciated on the CT performed earlier this year. The possibility of a calcified aneurysm alo james hematoma vs calcified complex pericardial cyst is raised. Further evaluation with cardiac echo is recommended. 6. Ground glass opacities of the lung parenchyma suggesting edema. POS: [facility]
[2018-10-24] MEDS: hydrALAZINE 25 MG TAB PO SCH (23:38)
[2018-10-24] MEDS: cloNIDine 0.3 MG TAB PO SCH (23:38)
[2018-10-24] MEDS: Metoprolol Tartrate 50 MG TAB PO SCH (23:39)
[2018-10-24 23:44] LABS: HBSAg Index 0.21 S/CO (0-0.99); Hep B Surf Ag Non-Reactive S/CO (NonReactive)
[2018-10-25 00:14] VITALS: BMI 19.0
--- NOTE | 2018-10-25 00:49 | CON ---
DATE OF CONSULTATION: 10/24/2018 NEPHROLOGY CONSULTATION REASON FOR CONSULTATION: Hyperkalemia, end-stage renal disease. HISTORY OF PRESENT ILLNESS: This is a very pleasant 38-year-old female who dialysis treatment short and presented to the hospital with a 1-2 day history of dyspnea. The patient denies ches t pain, but has dyspnea on minimal exertion. The patient has had ascites. The patient has not taken her blood pressure medication for 2 weeks and the refills had been called. The patient had been com plaining of some pneumonia-like symptoms and was prescribed Augmentin and did not get the refills. PAST MEDICAL HISTORY: Significant for end-stage renal disease, hypertension, lupus, history of ascit es, history of liver failure, history of cardiac arrest, history of CPR, AV fistula, tunneled dialysi s catheter, tubal ligation. ALLERGIES: Reviewed. HOME MEDICATIONS: List reviewed. Noncompliance is also a part of the medical history. This include s time on dialysis as well as medication compliance and treatment compliance. REVIEW OF SYSTEMS: A 15-point review of systems was performed and was negative except for positives noted above. GENERAL: Weakness- HEAD: Headache- NECK: No swelling or lumps. NOSE: No epistaxis or discharge. EYES: No diplopia or pain. 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 NEUROPSYCHIATIC SYSTEMS: No suicidal ideation. No ideation. SKIN: Denies any rash or ulcer. CONSTITUTIONAL: No fever or chills. PHYSICAL EXAMINATION: GENERAL: Patient is awake, alert. VITAL SIGNS: Afebrile, pulse 75, breathing 16, blood pressure was 187/112, pulse was 101. HEAD/NECK: Normocephalic. Atraumatic. EYES: EOMI. No deformity. EARS: Clear. No ulcers. NOSE: Intact. No lesions. MOUTH: Clear. No discharge. THROAT: Clear. No exudate. LUNGS: Clear. No crackles. CARDIAC: S1, S2. No rub. ABDOMEN: Benign. BS+. Show ascites. GENITALIA/RECTUM: Sadler absent. BACK/EXTREMITIES: Lower extremity has edema. NEUROLOGICAL: Alert and motor intact. SKIN: Rash- Bruise- LYMPHATICS: Edema- Ulcer- LABORATORY DATA: Show potassium 5.5. ASSESSMENT AND RECOMMENDATIONS: 1. Stage 6 chronic kidney disease. Plan urgent hemodialysis with ascites. 2. Tachycardia because of noncompliance with beta riley. We will give a low dose of beta riley and restart home medication gradually. 3. Ascites. 4. Liver failure. 5. Hypertension. 6. Plan ultrafiltration. Overall, prognosis is poor. Again, compliance was discussed with the kimberly ent.
[2018-10-25 01:36] LABS: Hep B Surf AB Reactive (NonReactive)
[2018-10-25 01:37] LABS: HBSAB Concentration 236.34 mIU/mL
[2018-10-25 04:49] LABS: Troponin I 0.061 ng/mL (< 0.028)
[2018-10-25 07:32] LABS: #Eosinphils 0.2 thou/uL (0.0-0.7); #Lymphocytes 1.2 thou/uL (1.20-3.40); #Monocytes 0.5 thou/uL (0.11-0.59); %Basophils 0.8 % (0.0-1.0); %Eosinophils 2.8 % (0.0-10.0); %Lymphocytes 20.5 % (21.0-51.0); %Monocytes 8.3 % (0.0-10.0); %Neutrophils 67.7 % (42.0-75.0); Hemoglobin 8.1 g/dL (12.0-16.0); Mean Corpuscular HGB CONC 31.1 g/dL (32.0-36.0); Mean Corpuscular Volume 99.8 fL (78.0-98.0); Mean Platelet Volume 8.5 fL (7.4-10.4); Platelet Count 210 thou/uL (130-400); RBC Distribution Width 16.1 % (11.5-14.5)
--- NOTE | 2018-10-25 07:51 | HP ---
PRIMARY CARE PHYSICIAN: Jean Church MD. The patient does not follow with any specific PCP. CODE STATUS: FULL CODE. TIME OF EVALUATION: 9:00 p.m. CHIEF COMPLAINT: Shortness of breath. HISTORY OF PRESENT ILLNESS: This is a 38-year-old male patient with past medical history of serious comorbidities including lupus, myocardial infarction with stent placement, migraine, end-stage renal disease on hemodialysis, hypertension, came to the hospital after having shortness of breath, which has been present for the past few days, has been gradually getting worse. Symptoms are reported as severe, with no clear triggers, no alleviating factors. The patient has a strong history of noncompliance, has been evaluated by Dr. Church. The patient will receive hemodialysis overnight. REVIEW OF SYSTEMS: Constitutional: No fever or chills or generalized weakness. Respiratory: The patient reported shortness of breath and cough. No sputum production. Cardiovascular: No chest pain or palpitations. Gastrointestinal: No nausea, no vomiting, diarrhea, or abdominal pain. Central nervous systems: No dizziness, headache, or feeling lightheaded. Genitourinary: No burning with urination. Extremities: No leg swelling. Right upper arm AV fistula. All other systems were reviewed and negative except for the findings mentioned above. PAST MEDICAL HISTORY: As mentioned in the HPI. FAMILY HISTORY: Father with cardiac problems. Mother had lupus and from an acute MO. PAST SURGICAL HISTORY: Kidney biopsy, tubal ligation, AV fistula on the right arm, and heart catheterization. PSYCHIATRIC HISTORY: No previous psychiatric history. SOCIAL HISTORY: No alcohol, no drugs, and no smoking history. ALLERGIES: No known drug allergies. REPORTED MEDICATIONS: Metoprolol, clonidine, hydralazine, but the patient is noncompliant. PHYSICAL EXAMINATION: VITAL SIGNS: On presentation, heart rate was 117, saturation 98%, blood pressure 189/125 with respiratory rate 24, temperature 98. GENERAL APPEARANCE: The patient is alert and oriented, not in any distress. HEENT: Eyes, normal conjunctivae. Moist oral mucosa. Anicteric. NECK: No JVD. RESPIRATORY: Bilateral air entry. No rales, no wheezing. Symmetric expansion. CARDIOVASCULAR: Normal rate, regular rhythm. No murmurs or gallop. No edema. ABDOMEN: Soft, distended, normal bowel sounds. No tenderness. MUSCULOSKELETAL: Baseline range of motion and strength. No tenderness. Right upper arm AV fistula. SKIN: Warm and intact. No pallor, no rash, and no redness. Peripheral pulses are present. Capillary refill seems to be intact. NEUROLOGIC: No evidence of any new focal weakness. Baseline speech. Cranial nerves seem to be intact. PSYCHIATRIC: The patient is in good mood. Alert and oriented, optimal judgment. DIAGNOSTIC STUDIES: EKG was discussed with the performing physician from here and shows sinus tachycardia at the rate of 115, possible right ventricular conduction delay. Radiology, CT chest was reviewed and discussed with the performing physician from the ER. She has no evidence of pulmonary artery embolism to the level of the segmental arteries. Diffuse ground glass opacity compatible with volume overload or edema, right heart failure, ascites, hypodense lesion on the peripheral calcification, which is pericardial in location. This lesion is not appreciated on the CT performed earlier this year. The possibility of a calcified aneurysm versus hematoma is raised. Further evaluation with the cardiac echo is recommended. Ground glass opacity of the lung parenchyma suggesting edema. LABORATORY DATA: Labs were reviewed. The patient had a white count of 7.3, hemoglobin 9.5, which is baseline for her, MCV 98, platelet count 247. D-dimer 3.59. Chemistry: Sodium 138, potassium 5.5, chloride 96, anion gap 22, BUN 21 , creatinine 6.41. Troponin 0.084. Beta natriuretic peptide 10,716. Serum total protein 9.1. ASSESSMENT AND PLAN: The patient has been placed in the hospital with the following medical problems. 1. Pulmonary edema with fluid overload secondary to end-stage renal disease on hemodialysis. Dr. Church has been consulted. The plan is to get hemodialysis overnight. No further recommendations. 2. Hyperkalemia with potassium 5.5, the patient is going for hemodialysis, we will follow recommendation from the group. 3. Chronic macrocytic anemia, likely secondary to underlying chronic kidney disease. Hemoglobin is at baseline, will defer to Nephrology for recommendations for treatment of anemia. 4. Elevated D-dimer, likely secondary to chronic kidney disease. 5. Mildly elevated troponin in the range of 0.084. We will trend, cardiac treatment as needed. The patient has a history of coronary artery disease. We will reconcile home medications. 6. Hypertensive urgency. The patient is noncompliant, has not been taking medications at home. We will reconcile medications taking into consideration of blood pressure levels and also because the patient will be going for dialysis , so he will need to be reassessed and readjust in the morning. 7. Possible calcified hematoma versus calcified aneurysm in the pericardial area. There is no extravasation of contrast, seems to be chronic, we have consulted Cardiovascular Surgery and ordered an echo for any further management or recommendations. Of note, the patient has received cardiac resuscitation in the previous admissions for about 30 minutes, unclear if this is related to that event. 8. Sinus tachycardia, likely due to noncompliance, medications have been restarted. We will monitor daily. MTDD
[2018-10-25 08:06] LABS: Anion Gap 13 mmol/L (10-20); BUN (Urea Nitrogen) 14 mg/dL (7.0-18.7); Calc. Creatinine Clearance 12 mL/min (70-130); Calcium 9.7 mg/dL (7.8-10.44); Carbon Dioxide 31 mmol/L (22-29); Chloride 97 mmol/L (98-107); Estimated GFR-MDRD 12; Glucose 87 mg/dL (70-105); Potassium 4.4 mmol/L (3.5-5.1); Sodium 137 mmol/L (136-145)
[2018-10-25] MEDS: cloNIDine 0.3 MG TAB PO SCH ×3 (08:49→21:16)
[2018-10-25] MEDS: Metoprolol Tartrate 50 MG TAB PO SCH ×2 (08:50→21:16)
[2018-10-25] MEDS: hydrALAZINE 25 MG TAB PO SCH ×3 (08:50→21:16)
--- NOTE | 2018-10-25 13:36 | PRG ---
DATE OF SERVICE: 10/25/2018 SUBJECTIVE: A 38-year-old female being seen for end-stage renal disease. The patient denies any nausea, vomiting or chest pain. PHYSICAL EXAMINATION: GENERAL: Patient is awake, alert. VITAL SIGNS: Afebrile, pulse 90, breathing 16, blood pressure 154/96. HEAD/NECK: Normocephalic. Atraumatic. EYES: EOMI. No deformity. EARS: Clear. No ulcers. NOSE: Intact. No lesions. MOUTH: Clear. No discharge. THROAT: Clear. No exudate. LUNGS: Clear. No crackles. CARDIAC: S1, S2. No rub. ABDOMEN: Benign. BS+. GENITALIA/RECTUM: Sadler absent. BACK/EXTREMITIES: Edema 0+ Ulcer- Lower extremities have no edema. NEUROLOGICAL: Alert and motor intact. SKIN: Rash- Bruise- LYMPHATICS: Edema- Ulcer- LABORATORY DATA: Hemoglobin is 8.1, potassium is 4.4, creatinine 4.71. ASSESSMENT AND RECOMMENDATIONS: 1. Stage _6_ chronic kidney disease, offered dialysis today, patient declines. 2. Hypertension, stable. 3. Anemia. Continue Epogen. 4. Mediastinal mass. We will consult Pulmonary Medicine. 5. Congestive heart failure. Prognosis is poor. 6. Noncompliance with medication and dialysis is a serious issue after the medications have been called. The patient does not pick them up. [facility]
--- NOTE | 2018-10-25 13:59 | PDOC.PN ---
- Subjective Encounter Start Date: 10/25/18 (f/u SOB) Encounter Start Time: 13:57 Subjective: Pt reports her breathing is improved. continues to feel weak. -: denies any n/v/abd pain/constipation - Objective Resuscitation Status: Resuscitation Status FULL:Full Resuscitation Vital Signs & Weight: Vital Signs (12 hours) Temp Pulse Resp BP BP BP Pulse Ox 10/25/18 12:00 98.2 F 90 18 154/96 H 95 10/25/18 08:50 100 10/25/18 08:49 184/117 H 10/25/18 08:00 98.4 F 100 16 184/117 H 10/25/18 03:44 98.2 F 95 14 145/79 H 100 Weight Weight 100 lb 11.2 oz Result Diagrams: 10/25/18 07:15 10/25/18 07:15 EKG Reviewed by me: Yes (sinus 70-100's) Phys Exam - Physical Examination Constitutional: NAD Respiratory: no wheezing, no rales, no rhonchi Cardiovascular: RRR, no significant murmur Gastrointestinal: soft, non-tender, no distention, positive bowel sounds Musculoskeletal: no edema Neurological: non-focal, moves all 4 limbs Psychiatric: normal affect Skin: no rash Dx/Plan (1) Shortness of breath Code(s): R06.02 - SHORTNESS OF BREATH Status: Resolved (2) Pulmonary HTN Code(s): I27.2 - OTHER SECONDARY PULMONARY HYPERTENSION * DO NOT USE * Status : Chronic (3) Anemia of renal disease Code(s): D63.1 - ANEMIA IN CHRONIC KIDNEY DISEASE Status: Chronic (4) ESRD (end stage renal disease) on dialysis Code(s): N18.6 - END STAGE RENAL DISEASE; Z99.2 - DEPENDENCE ON RENAL DIALYSIS Status: Chronic (5) Hypertension Code(s): I10 - ESSENTIAL (PRIMARY) HYPERTENSION Status: Chronic - Plan * Shortness of breath secondary to ESRD and volume overload - pt reports resolved * hyperkalemia - resolved with dialysis since admission * HTN - not optimally controlled, back on home meds * pericardial lesion - seen by CV surgery with recommendation for Cardiology evalutaion. 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 Sandoval) * Weakness - PT/OT * Anemia - do not see iron/vitamin b12/folate ordered - placed for tomorrow * * dvt prophy - scd's * gi prophy - not indicated * code status full * * reviewed plan of care iwht patient, no quesitons or further needs at end of eval\ * pt remains at high risk in current condition * anticipate d/c tomorrow.
--- NOTE | 2018-10-25 19:25 | CON ---
DATE OF CONSULTATION: 10/25/2018 REQUESTING PHYSICIAN: Noelle Oneil M.D. CHIEF COMPLAINT: Shortness of breath. HISTORY OF PRESENT ILLNESS: The patient is a 38-year-old black woman diagnosed with lupus about 15 y ears ago. By report, she is poorly compliant with her hemodialysis schedule and for quite some time now, she has been regularly undergoing paracentesis to control ascites that results in a compromise o f her ability to breathe. She told me that she is currently on a schedule of every other pa racentesis and in reviewing her records last one that I find here in our system was on 10/15. She currently presents with shortness of breath over the last day or two with minimal exertio n, although she occasionally has chest pain. She has not had any in the last few days. She apparent ly ran out of her blood pressure medications and has not gotten refills on them for about the last 2 weeks. PAST MEDICAL HISTORY: Significant for hypertension, renal failure, lupus, recurrent ascites, candi mccartney has a history of coronary artery disease and she has by echocardiography documented pulmonary hyp ertension. HOME MEDICATIONS: With which she is noncompliant are listed as hydralazine 100 mg t.i.d., clonidine 0.3 mg t.i.d. and Lopressor 100 mg b.i.d. ALLERGIES: She denies any medical allergies. SOCIAL HISTORY: She denies smoking, alcohol consumption or illicit drug use. FAMILY HISTORY: Negative for autoimmune disorders. REVIEW OF SYSTEMS: Positive for shortness of breath or occasional chest pain, recurrent ascites requ iring frequent paracentesis. PHYSICAL EXAMINATION: GENERAL: She is a chronically ill-appearing, lethargic woman who all but falls asleep during the int erview. VITAL SIGNS: Her heart rate is in the 90-100 range. Blood pressure 184/117, temperature 98.2. In [facility] emergency room, her heart rate was 114 and blood pressure 189/125. NECK: She has no carotid bruits. No JVD. CHEST: Clear to auscultation. CARDIOVASCULAR: She has a regular rate and rhythm with a 2/6 systolic murmur heard at the apex. I h ear no gallop. She has markedly dilated right upper arm AV fistula. ABDOMEN: Her abdomen has a modest fluid wave but is soft and nontender. She has nonpalpable radial pulses. I was able to palpate a right dorsalis pedis pulse, but not a left one. EXTREMITIES: She has no clubbing, cyanosis, or edema. IMAGING: Her chest x-ray shows what appears to represent venous stenting in the right subclavian or innominate system and on CT scanning, this is confirmed with it appearing to go just to the confluenc e of the innominate vein with the vena cava. On her CT scan, she has extensive calcification in her arch and descending aorta. She has a large heart with calcified rim of an oval mass or area at the p osterior inferior aspect of what appears to represent the left ventricle measuring about 5-6 cm in si ze. Her vena cava is around 3.5 cm in diameter. This calcified area could be seen on this morning's previous echocardiograms that I reviewed over the last year, give a few areas that seemed hint at it , but do not clearly show it. She does clearly have severe tricuspid regurgitation consistent with a nalysis of pulmonary hypertension. LABORATORY AND X-RAY FINDINGS: Her labs show white count of 6, hemoglobin of 8.1, hematocrit 26.0, p latelets of 210,000. Her MCV is 99.8, this anemia is a little bit more marked than it was 6 months a go, her potassium was 4.4, bilirubin 2.3, AST 30, ALT 10, alkaline phosphatase 107, albumin was 3.8. BNP was 10,716.5. IMPRESSION AND RECOMMENDATIONS: My first impression was that this was going to represent calcified r im of intramural thrombus within a ventricular aneurysm. These are much more typically seen in the a nterior wall and apex. The mass with the calcified wall is in close proximity to the coronary system I think the PDA. I do not see any contrast enhancement within this calcified area to suggest a bob nt aneurysm or pseudoaneurysm. At this juncture, I think that it is unlikely that whatever this is c ausing her recurrent ascites or has anything to do with her current presentation with shortness of br eath given her comorbidities. This may prove to simply be of academic interest in trying to sort out what this is even if it is of potential significance, she may not really be in shape to tolerate any procedures to address it. For the time being, I am going to defer to Cardiology. She apparently magallanes s been seen by Dr. Sandoval in the past, although she is rather vague as to why she no longer sees h im.
[2018-10-26 06:26] LABS: Anion Gap 16 mmol/L (10-20); BUN (Urea Nitrogen) 21 mg/dL (7.0-18.7); Calc. Creatinine Clearance 8 mL/min (70-130); Calcium 10.1 mg/dL (7.8-10.44); Carbon Dioxide 26 mmol/L (22-29); Chloride 95 mmol/L (98-107); Estimated GFR-MDRD 8; Glucose 93 mg/dL (70-105); Iron 58 ug/dL (50-170); Potassium 4.2 mmol/L (3.5-5.1); Sodium 133 mmol/L (136-145)
[2018-10-26 06:49] LABS: Folate (Folic Acid) 4.6 ng/mL (7.0-31.4)
--- NOTE | 2018-10-26 10:29 | PRG ---
Patient Name: PRIETO JAIMES Date of service: 10/26/2018 Subjective: Patient was seen and examined at bedside and overnight events noted. Patient denies any shortness of breath or chest pain or palpitation. No history of nausea or vomiting or diarrhea or fever or chills or cramps. Objective: General: This is a well-built female in no apparent distress. Vital signs: Temperature 98.4, pulse 89, respiratory rate 18, blood pressure 137/88. HEENT: Atraumatic, normocephalic. Oral mucosa is moist. Neck: Supple. Cardiovascular: S1 S2 heard. Rate and rhythm regular. Respiratory: Clear to auscultation. Gastrointestinal: Abdomen is soft. Musculoskeletal: No tenderness. No edema. Dermatologic: No skin rash. Neurologic: Alert and awake and oriented X3. No focal neurologic deficits. Moving all the extremit ies. Psychiatric: Mood and affect normal. LABORATORY DATA: Potassium is 4.2, BUN 21, creatinine 6.7. ASSESSMENT AND PLAN: 1. End-stage renal disease on hemodialysis. Continue dialysis. 2. Hypertension, stable. 3. Anemia. 4. Cardiorenal syndrome. Plan is to remove fluid with dialysis as tolerated.
[2018-10-26] MEDS: Metoprolol Tartrate 50 MG TAB PO SCH ×2 (10:50→22:12)
[2018-10-26] MEDS: cloNIDine 0.3 MG TAB PO SCH ×3 (10:50→22:11)
[2018-10-26] MEDS: hydrALAZINE 25 MG TAB PO SCH ×3 (10:50→22:11)
--- NOTE | 2018-10-26 15:59 | CON ---
DATE OF CONSULTATION: 10/26/2018 REASON FOR CONSULTATION: Abnormal CT scan with a pericardial mass. HISTORY OF PRESENT ILLNESS: Ms. Vogt is a 38-year-old woman who was seen and evaluated in the [facility]. She has a history of lupus in addition to end-stage renal disease. There has been a history of n oncompliance. She states over the last several days to weeks, she has an increase in shortness of br eath. No chest pain or pressure noted. She did undergo coronary angiography in 2012 with no signifi cant coronary artery disease. This was performed by Dr. Donal Crawford. She was supposed to have a s tress study performed in 2016, but was claustrophobic and could not proceed. She recently presented with shortness of breath. CT scan was performed to assess for DVT/PE. This w as negative. There was a pericardial cyst present measuring 5.9 cm in diameter. When compared to pr evious CT scan in March of 2018, this appeared to have enlarged. On her recent echo, this was noted and appeared cystic. From a shortness of breath standpoint, she has improved. PAST MEDICAL HISTORY: As described above. PAST SURGICAL HISTORY: Renal biopsy, BTL, right fistula. SOCIAL HISTORY: No tobacco or alcohol use. ALLERGIES: None. HOME MEDICATIONS: Include metoprolol, clonidine and hydralazine. REVIEW OF SYSTEMS: Ten-point system is reviewed and as above, otherwise negative. PHYSICAL EXAMINATION: GENERAL: Patient is a pleasant female who is in no acute distress. She does appear older than stated age. VITAL SIGNS: Blood pressure 159/95, pulse 95, temperature 98.5. NEUROLOGIC: The patient is alert and oriented times 3 with no focal neurologic deficits. HEENT: Sclerae without icterus. Mouth has moist mucous membranes with normal pallor. NECK: No JVD. Carotid upstroke brisk. No bruits bilaterally. LUNGS: Clear to auscultation with unlabored respirations. BACK: No scoliosis or kyphosis. CARDIAC: Regular rate and rhythm with normal S1 and S2. No S3 or S4 noted. No significant rubs, murmurs, thrills, or gallops noted throughout the precordium. PMI is not displa ta. There is no parasternal heave. ABDOMEN: Soft, nontender, nondistended. No peritoneal signs present. No hepatosplenomegaly. No abnormal striae. EXTREMITIES: 2+ femoral and 2+ dorsalis pedis pulses. No cyanosis, clubbing, or edema. SKIN: No gross abnormalities. PERTINENT LABORATORY DATA: Hemoglobin 8.1. Creatinine 6.7. Ferritin . Troponin 0.06. Total protein 9.1, albumin 3.8. IMAGING: CT scan reviewed with Dr. Morley and also discussed with Dr. Buddy Diaz, cystic mass pre sent inferior to the mitral valve. After reviewing the echo, this does appear noted, but appears vianney ar. IMPRESSION AND PLAN: Pericardial mass -- this likely is consistent with a cyst. We will discuss [facility] on how to proceed. Her symptoms are unlikely related to the above, but there is co ncern for the area of enlarging. Patient is concerned and would like to proceed with intervention to assess the area, although I did state this would not come without risk for an area that unlikely is felt to be malignant.
--- NOTE | 2018-10-26 17:43 | PDOC.PN ---
- Subjective Encounter Start Date: 10/26/18 Encounter Start Time: 12:00 Patient seen and examined for Volume overload. SOB improving. No new complaints. No overnight events - Objective Resuscitation Status: Resuscitation Status FULL:Full Resuscitation MAR Reviewed: Yes Vital Signs & Weight: Vital Signs (12 hours) Temp Pulse Pulse Resp BP BP BP 10/26/18 14:54 85 171/105 H 10/26/18 10:48 98.5 F 95 16 159/95 H 10/26/18 08:00 97.9 F 85 18 160/94 H Pulse Ox Pulse Ox 10/26/18 14:54 100 10/26/18 10:48 93 L 10/26/18 08:00 93 L Weight Admit Weight 100 lb 11.2 oz Weight 100 lb 11.2 oz I&O: 10/25/18 10/26/18 10/27/18 06:59 06:59 06:59 Intake Total 1150 Output Total 0 Balance 1150 Result Diagrams: 10/25/18 07:15 10/26/18 05:45 EKG Reviewed by me: Yes (Tele SR) Phys Exam - Physical Examination Constitutional: NAD Respiratory: no wheezing, no rhonchi Cardiovascular: RRR, no rub Gastrointestinal: soft, non-tender, positive bowel sounds Musculoskeletal: no edema Neurological: moves all 4 limbs Dx/Plan - Plan DVT proph w/SCDs 1. Pulm edema/Volume overload/Acute on chronic diastolic heart failure - improving 2. Hyperkalemia - improved 3. Pericadial lesion/cyst 4. HTN with HTN urgency 5. ESRD on dialysis PLAN: Dialysis per Nephro Cardio/CT input appreciated AM labs Cont Clonidine/Hydralaxine/Metoprolol Cont current meds as below Review of Systems - Review of Systems Cardiovascular: negative: chest pain, palpitations, orthopnea, paroxysmal nocturnal dyspnea, edema, light headedness, other Gastrointestinal: negative: Nausea, Vomiting, Abdominal Pain, Diarrhea, Constipation, Melena, Hematochezia, Other - Medications/Allergies Allergies/Adverse Reactions: Allergies Allergy/AdvReac Type Severity Reaction Status Date / Time No Known Drug Allergies Allergy Verified 10/24/18 21:12 Medications: Current Medications Acetaminophen (Tylenol) 650 mg PO Q4H PRN PRN Reason: Headache/Fever/Mild Pain (1-3) Clonidine (Catapres) 0.3 mg PO TID [facility] Last Admin: 10/26/18 15:30 Dose: Not Given Folic Acid (Folvite) 1 mg PO DAILY [facility] Hydralazine HCl (Apresoline) 50 mg PO TID [facility] Last Admin: 10/26/18 15:30 Dose: Not Given Hydralazine HCl (Apresoline) 10 mg SLOW IVP Q4H PRN PRN Reason: BP>180/100 Metoprolol Tartrate (Lopressor) 50 mg PO BID [facility] Last Admin: 10/26/18 10:50 Dose: 50 mg Ondansetron HCl (Zofran) 4 mg IVP Q6H PRN PRN Reason: Nausea/Vomiting Last Admin: 10/26/18 15:34 Dose: 4 mg
--- NOTE | 2018-10-27 07:22 | PDOC.CTH ---
Cardiology Progress Note - Subjective Feels better. No complaints. - Objective Vital Signs Temp Pulse Resp BP BP Pulse Ox 10/27/18 04:00 98.4 F 95 18 156/98 H 98 10/26/18 23:44 98.9 F 105 H 18 162/95 H 96 10/26/18 22:11 89 198/89 H 10/26/18 20:00 98 F 89 18 198/89 H 97 Admit Weight 100 lb 11.2 oz Weight 102 lb 10/26/18 10/27/18 10/28/18 06:59 06:59 06:59 Intake Total 1150 480 Output Total 0 Balance 1150 480 - Physical Examination General/Neuro: alert & oriented x3, NAD Neck: carotid US brisk, no JVD present Lungs: CTA, unlabored respirations Heart: PMI normal, RRR Abdomen: NT/ND, soft Extremities: + femoral B - Telemetry Telemetry Rhythm: SR - Labs Result Diagrams: 10/25/18 07:15 10/26/18 05:45 Troponin/CKMB CK-MB (CK-2) 1.7 ng/mL (0-6.6) 10/24/18 15:34 Troponin I 0.061 ng/mL (< 0.028) H 10/25/18 04:15 - Assessment/Plan Pericardial cyst SOB ESRD Non-complinace SOB likely more related to non compliance vs recent diagnosis of pericardial cyst Discussed case with Dr. Ham and Dr. Hatch. All agree pericardial cyst is likely incidental finding. May be best to repeat CT scan in 3 months to assess size and progression. Can also consider cardiac MRI but will need to be done in [place]. Otherwise, no further recommendations. Pt with normal EF on echo and cath in 2012 without significant stenosis and would unlikely represent pseudoaneurysm (no contrast on CT). Ok to transfer from [facility] in 1-2 weeks in office
[2018-10-27] MEDS: cloNIDine 0.3 MG TAB PO SCH ×2 (08:34→14:20)
[2018-10-27] MEDS: Metoprolol Tartrate 50 MG TAB PO SCH (08:35)
[2018-10-27] MEDS: hydrALAZINE 25 MG TAB PO SCH ×2 (08:35→14:20)
[2018-10-27] MEDS ORDERED: Folic Acid 1 MG TAB PO SCH (09:00)
--- NOTE | 2018-10-27 09:53 | PRG ---
DATE OF SERVICE: 10/27/2018 SUBJECTIVE: Patient was seen and examined at bedside and overnight events noted. Patient denies any shortness of breath or chest pain or palpitation. No history of nausea or vomitin g or diarrhea or fever or chills or cramps. OBJECTIVE: GENERAL: This is a well-built female, in no apparent distress. VITAL SIGNS: Temperature 98.6, pulse 92, respiratory rate 16, blood pressure 163/91. HEENT: Atraumatic, normocephalic. Oral mucosa is moist. NECK: Supple. CARDIOVASCULAR: S1 and S2 heard. Rate and rhythm regular. RESPIRATORY: Clear to auscultation. GASTROINTESTINAL: Abdomen is soft. MUSCULOSKELETAL: No tenderness. No edema. DERMATOLOGIC: No skin rash. NEUROLOGIC: Alert and awake and oriented x3. No focal neurologic deficits. Moving all the extremit ies. PSYCHIATRIC: Mood and affect normal. LABORATORY DATA: No labs done today. ASSESSMENT AND PLAN: 1. End-stage renal disease. Continue dialysis Friday, Friday, and Friday. 2. Hypertension, stable. 3. Anemia. 4. Cardiorenal syndrome. 5. Continue dialysis Friday, Friday, and Friday as tolerated.
[2018-10-27 11:25] VITALS: BP 143/87; TEMP 98.3
--- NOTE | 2018-10-28 10:30 | DIS ---
DATE OF ADMISSION: 10/24/2018 DATE OF DISCHARGE: 10/27/2018 DISCHARGE DISPOSITION: Home. FOLLOWUP: 1. Follow up with family care physician at [facility] in 1 week. 2. Follow up with Dr. Sandoval next week. 3. Follow up with Nephrology, Dr. Church for maintenance dialysis. 4. Outpatient cardiac rehab has been arranged. ALLERGIES: NO KNOW DRUG ALLERGIES. THE PATIENT WAS SEEN AND EXAMINED ON THE DAY OF DISCHARGE. DENIES ANY NEW COMPLAINTS. NO CHEST PAIN, SHORTNESS OF BREATH, OR PALPITATION. INPATIENT COMMUNICATIONS MANAGER: 1. Nephrology, Dr. Jean Church. 2. Cardiovascular, Dr. Em. 3. Cardiology, Dr. Sandoval. DIAGNOSTIC TEST: 1. CT angiogram of the chest in the emergency room showed hypodense lesion with peripheral calcification in the pericardium. It also showed findings compatible with volume overload. 2. Echocardiogram showed left ventricular ejection fraction 50% to 55% with diastolic dysfunction and left ventricular hypertrophy. There was [id number] pulmonary regurgitation, [id number] tricuspid regurgitation. It also showed pericardial cyst without any tamponade. BRIEF HOSPITAL COURSE: The patient is a 38-year-old female with end-stage renal disease, on hemodialysis; coronary artery disease; and hypertension, presented to the emergency room on 10/24/2018 with shortness of breath. A workup was consistent with pulmonary edema/diastolic heart failure exacerbation. She showed good improvement with dialysis. CT angiogram of the chest done in the emergency room was consistent with pericardial lesion. She was evaluated by Cardiovascular as well as Cardiology. She will follow up with Dr. Sandoval as an outpatient. The lesion probably appears to be a cyst. She would need a repeat CT scan of the chest in 3 months versus a cardiac MRI. She will follow up with Dr. Sandoval next week as an outpatient. She has been cleared by consultants for discharge. FINAL DIAGNOSES: 1. Pulmonary edema/volume overload/acute on chronic diastolic heart failure exacerbation. 2. Pericardial lesion, suspected to be a cyst. 3. Hyperkalemia. Her potassium on admission was 5.5, at discharge is 4.2. 4. Folic acid deficiency. The patient has been started on folic acid supplementation. A folic acid level was 4.6. 5. Elevated troponin secondary to demand ischemia. 6. Abnormal LFTs, probably secondary to passive hepatic congestion. 7. Mild hyponatremia. 8. Hypertensive urgency. Plan of care was discussed with the patient and the family in detail, they stated understanding. Job ID: [id number]
== END 2018-10-27 16:09 | disposition home or self-care (01) | DRG 291 ==
LOC: ERS 14:57 → 2NO 19:27 → CCU 10-27 09:07 → 2NO 10-27 09:10
PROVIDERS: ADMIT Hospitalist; ATTEND Hospitalist
DX: I13.2 Hypertensive heart and chronic kidney disease with heart failure and with stage 5 chronic kidney disease, or end stage renal disease (principal); N18.6 End stage renal disease; I50.33 Acute on chronic diastolic (congestive) heart failure; I31.8 Other specified diseases of pericardium; E87.1 Hypo-osmolality and hyponatremia; Z99.2 Dependence on renal dialysis; E87.5 Hyperkalemia; D63.1 Anemia in chronic kidney disease; I16.0 Hypertensive urgency; I27.20 Pulmonary hypertension, unspecified; I25.10 Atherosclerotic heart disease of native coronary artery without angina pectoris; M32.9 Systemic lupus erythematosus, unspecified; E53.8 Deficiency of other specified B group vitamins
CPT/HCPCS: 36415; 71045; 71275; 80048; 80053; 82553; 82607; 82728; 82746; 83540; 83880; 84484; 85025; 85379; 86706; 87340; 90935; 93005; 93306; 96365; 96375; G0257; G8978-GP-CJ; G8979-GP-CI; G8987-GO-CI; G8988-GO-CI; G8989-GO-CI; J0360; J1644; J2405; J2765; Q0162

== ENCOUNTER 2018-11-12 09:28 | Day surgery (SDC) | payer MEDICARE, MEDICAID ==
[2018-11-11 14:28] VITALS: BMI 22.6
[~2018-11-12 09:28] MED LIST changes: -ISOVUE-370 76%-LOCM 1 ML ONE; +Prevnar 13-Val Conj/PF 0.5 ML SYRINGE IM ONE
[2018-11-12] MEDS ORDERED: Sodium Bicarbonate 2.5 MEQ/5 ML VIAL ONE (09:56)
[2018-11-12 11:44] VITALS: BP 188/109; TEMP 97.6
--- NOTE | 2018-11-12 11:46 | ULT ---
SONOGRAPHIC GUIDED PARACENTESIS: HISTORY: Recurrent ascites. FINDINGS: After explaining the procedure and answering all questions, sonographic survey shows a moderate amoun t of free fluid throughout the abdomen. Sterile technique, buffered local anesthesia, sonographic gu idance, and a right lateral approach were used to carefully advance a 19-gauge Yueh needle and cathet er into the free fluid. The catheter was left to drain a total volume of 2.1 liter dark sally liquid . The catheter was removed with minimal fluid remaining. The patient tolerated the procedure well a nd was dismissed in good condition. IMPRESSION: Technically successful sonographic-guided paracentesis. POS: [facility]
== END 2018-11-12 10:40 | disposition home or self-care (01) ==
LOC: ULT 09:28
PROVIDERS: ATTEND Internal Medicine
PROC: 0W9G3ZZ Drainage of Peritoneal Cavity, Percutaneous Approach (ICD-10-PCS; principal; 2018-11-12)
DX: R18.8 Other ascites (principal); Z79.899 Other long term (current) drug therapy
CPT/HCPCS: 49083

== ENCOUNTER 2018-12-03 09:06 | Day surgery (SDC) | payer MEDICARE, MEDICAID ==
--- NOTE | 2018-12-03 14:24 | ULT ---
ULTRASOUND GUIDED PARACENTESIS: Date: 12-03-18 History: Endstage renal disease, ascites. Technique: After informed consent was obtained, the patient was placed on the sonography table in the supine pos ition. Limited sonographic evaluation of the abdomen was performed. An area in the mid axillary line right upper quadrant was marked and meticulously prepped and draped in the usual sterile fashion. Skin and subcutaneous tissues were infiltrated with buffered 1% Lidocaine for local anesthesia at the intended puncture site. Small skin incision was made. Utilizing concurrent real-time ultrasound guid ance, a 19 gauge Yueh needle with 5 Ghanaian sheath was advanced into the abdomen. After return of flui d, the needle was removed. Approximately 1900 ml of slightly serosanguineous fluid was aspirated. Nee dle was removed and hemostatis was achieved with direct pressure. A tiny amount of residual free flui d is seen within the right upper quadrant post paracentesis. The patient remained stable throughout t he procedure, as well as post procedure. IMPRESSION: Technically successful ultrasound guided paracentesis. POS: [facility]
[2018-12-03 15:10] VITALS: BP 170/113; TEMP 97.5; BMI 22.6
[2018-12-03] MEDS ORDERED: Prevnar 13-Val Conj/PF 0.5 ML SYRINGE IM ONE (15:15)
== END 2018-12-03 11:15 | disposition home or self-care (01) ==
LOC: ULT 09:06
PROVIDERS: ATTEND Internal Medicine
PROC: 0W9G3ZZ Drainage of Peritoneal Cavity, Percutaneous Approach (ICD-10-PCS; principal; 2018-12-03)
DX: R18.8 Other ascites (principal)
CPT/HCPCS: 49083

== ENCOUNTER 2018-12-05 01:17 | Inpatient (IN) | payer MEDICARE, MEDICAID ==
[2018-12-05] MEDS ORDERED: Sodium Bicarb 50 MEQ/50 ML Abboject 8.4% SYRINGE ONE (01:48)
[2018-12-05] MEDS ORDERED: Calcium Chloride 1 GM/10 ML Abboject SYRINGE ONE (01:48)
[2018-12-05] MEDS ORDERED: Ondansetron ODT 4 MG TAB ONE (01:50)
[2018-12-05] MEDS ORDERED: Sodium Bicarb 50 MEQ/50 ML VIAL ONE (02:22)
[2018-12-05] MEDS ORDERED: Lidocaine 1% (PF) 30 ML VIAL ONE (02:58)
[2018-12-05 03:00] LABS: Hemoglobin 5.5 g/dL (12.0-16.0)
[2018-12-05 03:13] LABS: ALT (SGPT) 9 U/L (8-55); AST (SGOT) 24 U/L (5-34); Albumin 3.3 g/dL (3.5-5.0); Alkaline Phosphatase 103 U/L (40-150); Anion Gap 33 mmol/L (10-20); BUN (Urea Nitrogen) 78 mg/dL (7.0-18.7); Bilirubin, Total 0.8 mg/dL (0.2-1.2); Calc. Creatinine Clearance 0 mL/min (70-130); Calcium 8.1 mg/dL (7.8-10.44); Carbon Dioxide 17 mmol/L (22-29); Chloride 92 mmol/L (98-107); Estimated GFR-MDRD 4; Globulin 4.6 g/dL (2.4-3.5); Glucose 87 mg/dL (70-105); Potassium 8.8 mmol/L (3.5-5.1); Protein, Total 7.9 g/dL (6.0-8.3); Sodium 133 mmol/L (136-145)
[2018-12-05 03:20] LABS: #Lymphocytes 1.1 thou/uL (1.20-3.40); #Monocytes 0.5 thou/uL (0.11-0.59); #Neutrophils 7.3 thou/uL (1.40-6.50); %Basophils 0.4 % (0.0-1.0); %Eosinophils 0.2 % (0.0-10.0); %Lymphocytes 12.4 % (21.0-51.0); %Monocytes 5.8 % (0.0-10.0); %Neutrophils 81.2 % (42.0-75.0); Anisocytosis MODERATE=16-30 cells (100X) (0-5/hpf); MDiff Complete? YES; Mean Corpuscular HGB CONC 33.6 g/dL (32.0-36.0); Mean Corpuscular Hemoglobin 32.3 pg (27.0-31.0); Mean Corpuscular Volume 96.3 fL (78.0-98.0); Mean Platelet Volume 8.9 fL (7.4-10.4); Platelet Count 222 thou/uL (130-400); RBC Distribution Width 16.9 % (11.5-14.5); Red Blood Cell (RBC) Count 1.69 mill/uL (4.20-5.40)
[2018-12-05] MEDS ORDERED: Insulin Regular 300 UNITS/3 ML VIAL ONE (03:31)
[2018-12-05 03:32] LABS: Base Excess-Venous -2.2 mmol/L (0 (+/- 2.5)); Bicarbonate (HCO3v) 22.3 mmol/L (22.0-29.0); CO2 Tension (PvCO2) 35.3 mmHg (41.0-51.0); Calcium, Ionized 1.02 mmol/L (1.12-1.32); Hemoglobin - Calc 4.9 g/dL (12.0-18.0); Lactate 5.53 mmol/L (0.50-2.20); O2 Tension (PvO2) 37.5 mmHg (35.0-45.0); Potassium 6.5 mmol/L (3.4-4.7); T. Carbon Dioxide 23.4 mmol/L (1.0-85.0); vO2 Saturation-calc 72.5 % (94-98)
[2018-12-05] MEDS ORDERED: Dextrose 50% Abboject 50 ML SYRINGE ONE (03:32)
[2018-12-05] MEDS ORDERED: Albuterol Sulfate 2.5 mg/3 ml Neb ONE (03:36)
[2018-12-05] MEDS ORDERED: HYDROcodone/Acetaminophen 5/325 mg Tablet ONE (03:54)
[2018-12-05] MEDS ORDERED: Tranexamic Acid 1,000 MG/10 ML VIAL ONE (04:24)
[2018-12-05 04:29] LABS: BF Color Red; Clarity Cloudy/Turbid (Clear)
[2018-12-05 04:30] LABS: RBC Background Count 0.002; Tube # SYRINGE; WBC/NonHematic-Auto 1220 /cumm
[2018-12-05 04:31] LABS: RBC Count-Automated 847000 /cumm
[2018-12-05 04:33] LABS: Fluid, Protein 5.2 g/dL (Not Available)
[2018-12-05 04:40] LABS: INR-International Normal Ratio 1.5; PTT 39.9 SEC (22.9-36.1); Prothrombin Time 18.5 SEC (12.0-14.7)
[2018-12-05] MEDS ORDERED: MEROPENEM 1 GM/50 ML 1 GM in Premix Bag 1 BAG IVPB SCH ×2 (04:45→14:00)
[2018-12-05] MEDS ORDERED: Acetaminophen 325 MG TAB PO PRN (05:18)
[2018-12-05] MEDS ORDERED: Senokot S 8.6-50 MG TAB PO PRN (05:18)
[2018-12-05 05:34] LABS: BF Segmented Neutrophils 62 %; Cell Count Non Hematic 6 %; Lymphocytes 32 %
[2018-12-05 05:37] LABS: Body Fluid Source PERITONEAL FLUID
--- NOTE | 2018-12-05 06:01 | HP ---
PRIMARY CARE PROVIDER: None. CHIEF COMPLAINT: Generalized weakness. HISTORY OF PRESENT ILLNESS: Ms. Vogt is a pleasant 38-year-old lady who was seen at [facility] on December 05, 2018. She has a history of ascites, for which she undergoes frequent paracentesis. Her last paracentesis was on December 03, 2018. She reports generalized weakness following the paracentesis. At this time, she is lethargic, not answering all questions. Collateral history was obtained from review of medical records and discussion with emergency room physician. As mentioned earlier, she started having generalized weakness after paracentesis. She missed dialysis yesterday. She presented to the emergency room because of generalized weakness. REVIEW OF SYSTEMS: Could not be completed secondary to the patient's noncooperation. PAST MEDICAL HISTORY: Lupus, myocardial infarction with stent placement, migraine; end-stage renal disease, on hemodialysis; hypertension, ascites. SURGICAL HISTORY: Renal biopsy, tubal ligation, AV fistula in the right arm, cardiac catheterization. FAMILY HISTORY: Father with cardiac problems. Mother had lupus and from myocardial infarction. SOCIAL HISTORY: The patient denies tobacco use, alcohol use or recreational drug use. ALLERGIES: NO KNOWN DRUG ALLERGIES. CURRENT MEDICATIONS: 1. Metoprolol tartrate 50 mg 2 times a day. 2. Clonidine 0.3 mg 3 times a day. 3. Hydralazine 100 mg 3 times a day. PHYSICAL EXAMINATION: GENERAL: On examination, Ms. Vogt is sleepy, but arousable, not in acute distress. VITAL SIGNS: Blood pressure is 127/89, pulse 92, respiratory rate 16, and oxygen saturation 95% on 2 L of oxygen. She is afebrile. EYES: No scleral icterus. She has conjunctival pallor. ENT: Moist mucosal membranes. No oropharyngeal erythema. NECK: Supple, nontender, trachea is midline. RESPIRATORY: Accessory muscles of breathing are not active. Chest wall movements are symmetric bilaterally. Lungs are clear to auscultation without wheeze, rhonchi or crepitations. CARDIOVASCULAR: S1 and S2 are heard, regular. Peripheral pulses palpable. NEUROLOGIC: Full neurologic examination was not possible secondary to the patient's noncooperation. There is no facial droop. Deep tendon reflexes are 2+, plantar reflexes downgoing bilaterally. ABDOMEN: Distended, nontender, bowel sounds heard, no hepatomegaly, no splenomegaly. SKIN: No rashes or subcutaneous nodules. MUSCULOSKELETAL: The patient is moving all 4 extremities. She has right upper extremity dialysis access. LYMPHATIC: No cervical lymphadenopathy. SKIN: No rashes or subcutaneous nodules. PSYCHIATRIC: Normal mood. The patient is oriented to person and place, not to time. DIAGNOSTIC STUDIES: Ms. Vogt's labs and investigations were reviewed. She had a CT scan of the abdomen and pelvis. Emergency room physician reports that she has intraperitoneal blood. She also had a chest x-ray, which did not show any pulmonary infiltrates by my review. I also reviewed her electrocardiogram, which shows tenting of T-waves, but the T-waves are not recall. She has normal white count, normocytic anemia with hemoglobin 5.5, normal platelet count, INR elevated at 1.5, sodium of 133, potassium 8.8, carbon dioxide 17, blood urea nitrogen 78, creatinine 13.67, decreased albumin of 3.3, otherwise unremarkable liver profile and normal lipase of 23. Ascitic fluid showed 1220 wbc's. ASSESSMENT AND PLAN: Ms. Vogt is a pleasant 38-year-old lady who was seen at [facility] on December 05, 2018. Her problem list includes: 1. Intraabdominal bleeding: Ms. Vogt is presenting with intraabdominal bleeding following paracentesis. Her case has been discussed with the trauma surgeon by emergency room physician. Trauma Surgery recommended serial H and H and reversal of coagulopathy. She will be admitted to the critical care unit for further management. She is also going to get desmopressin and TXA. 2. Hyperkalemia: The patient has received treatments for hyperkalemia. We will follow up on repeat potassium level. Arrangements are also being made for urgent hemodialysis. 3. End-stage renal disease, on dialysis: Nephrology Service has been consulted to arrange for hemodialysis. 4. Coronary artery disease: We will check the patient's troponins to rule out acute coronary syndrome. 5. Hypertension: We will monitor vital signs and titrate antihypertensives as needed. Many thanks for allowing me to participate in your patient's care. Please feel free to contact me with any questions or concerns. LEVEL OF RISK: High. LEVEL OF COMPLEXITY: High. Job ID: [id number]
[2018-12-05 06:24] LABS: Troponin I 0.069 ng/mL (< 0.028)
[2018-12-05 06:38] VITALS: BMI 21.2
[2018-12-05 07:21] LABS: Lactic Acid 1.4 mmol/L (0.5-2.2)
--- NOTE | 2018-12-05 07:54 | RAD ---
CHEST 1 VIEW: Date: 12/05/18 HISTORY: Shortness of breath. COMPARISON: Radiograph dated 10/24/18. FINDINGS: Heart size is enlarged. Right subclavian stent is in place. Small effusions and mild edema. IMPRESSION: Cardiomegaly and mild edema. POS: [facility]
--- NOTE | 2018-12-05 08:37 | CT ---
PRELIMINARY REPORT/[facility]/EMERGENTY AFTER-HOURS PROCEDURE CT Abdomen and Pelvis With Contrast EXAM DATE/TIME: 12/05/2018 3:46 AM CLINICAL HISTORY: 38 years old, female; Pain; Abdominal pain; Generalized; Patient HX: Patient presents to ed with lowe r extremity weaknes and pain starting today after missing dialysis appointment. Patient gets dialysis m/w/f. Patient states that i am just not feeling well. Denies any other symptoms. ; Additional info: Past medical history includes cardiac history, myocardial infarction, treated with stent placem ent, past medical history includes neurological disease, migraine headaches. Dialysis m, w, f past me dical history includes history of hypertension, which has been treated, past medical history includes renal disease, insufficiency, lupus. TECHNIQUE: Axial computed tomography images of the abdomen and pelvis with intravenous contrast. Coronal reforma tted images were created and reviewed. COMPARISON: No relevant prior studies available. FINDINGS: Lower thorax: Substantial cardiomegaly. Mosaic attenuation pattern the lung bases likely represents e xpiratory phase imaging with air trapping. Indeterminate 3 mm pulmonary nodule in the right upper lob e. 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 ABDOMEN: Liver: Normal. No mass. Gallbladder and bile ducts: Contracted gallbladder. No biliary ductal dilatation. Pancreas: Normal. No ductal dilation. Spleen: Large acute or subacute posterior splenic infarction. Adrenals: Normal. No mass. Kidneys and ureters: End-stage renal disease. Stomach and bowel: No bowel wall thickening or intestinal obstruction. Appendix: Normal appendix. PELVIS: Bladder: Unremarkable as visualized. Reproductive: Unremarkable as visualized. ABDOMEN and PELVIS: Intraperitoneal space: There is a large amount of hemoperitoneum throughout the abdomen and pelvis. T here is an approximately 20 cm hematoma extending from right upper quadrant anterolateral to the live r along the lateral right mid abdomen and into the pelvis. There is active extravasation of contrast in the midst of the hematoma. No pneumoperitoneum or abscess. Bones/joints: No acute fracture. No dislocation. Soft tissues: Small umbilical hernia containing fat only. Vasculature: Normal. No abdominal aortic aneurysm. Lymph nodes: Normal. No enlarged lymph nodes. IMPRESSION: 1. Active intraperitoneal hemorrhage with large amount hemoperitoneum/intraperitoneal hematoma and ac tive extravasation of contrast as above. 2. Large acute or subacute posterior splenic infarction. 3. 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 Recommend comparison with prior studies and further evaluation if necessary with cardiac protocol CT or echocardiography. Findings discussed with TIMA GARCIA MD at time of interpretation. Thank you for allowing us to participate in the care of your patient. Dictated and Authenticated by: Albert García MD 12/05/2018 6:06 AM Central Time ([place] & [place]) FINAL REPORT CT ABDOMEN AND PELVIS WITH CONTRAST: Date: 12/05/18 HISTORY: Abdominal pain. FINDINGS/IMPRESSION: Findings and impression are concordant with the preliminary report by Irene. The ovoid mass, which is peripheral calcification at the cardiac base, now has contrast within it and may reflect a coronary a rtery aneurysm. Conventional cardiac angiogram is recommended. There is also a splenic infarction. Th is involves approximately 50% of the splenic volume. POS: [facility]
[2018-12-05] MEDS ORDERED: Acetaminophen 650 MG Suppository PR PRN (08:58)
[2018-12-05] MEDS ORDERED: Famotidine 20 MG TAB PO SCH (09:00)
--- NOTE | 2018-12-05 09:48 | CON ---
DATE OF CONSULTATION: 12/05/2018 TIME SPENT: This consultation encompassed 35 minutes of critical care time. HISTORY OF PRESENT ILLNESS: This is a 38-year-old female, who was admitted to the hospital last night with weakness. She was found to be severely anemic. The source was thought to be intraabdominal bleeding after recent paracentesis on . She says she feels better this morning. At the time I was seeing her, she was having dialysis performed and was receiving transfusions. PAST MEDICAL HISTORY: 1. Systemic lupus erythematosus. 2. Myocardial infarction, requiring coronary stent placement. 3. Migraine headaches. 4. End-stage renal disease, requiring hemodialysis for the last 7 years. 5. Hypertension. 6. Ascites, requiring serial paracentesis every 3 weeks. PAST SURGICAL HISTORY: 1. Renal biopsy. 2. Tubal ligation. 3. AV fistula placement in the right forearm. 4. Cardiac catheterization. 5. She has a stent in her right subclavian vein. 6. She has had some type of biopsy in her right axilla area. She has evgeny there. FAMILY MEDICAL HISTORY: Remarkable for heart disease in her father. Lupus in mother and heart disease in her mother. SOCIAL HISTORY: Nonsmoker. Does not consume alcohol. Does not use illicit drugs. ALLERGIES: NONE. MEDICATIONS: Prior to admission, 1. Metoprolol 50 mg twice daily. 2. Clonidine 0.3 mg 3 times daily. 3. Hydralazine 100 mg 3 times daily. REVIEW OF SYSTEMS: Twelve-point review of systems is otherwise negative. PHYSICAL EXAMINATION: VITAL SIGNS: Temperature 98.3, pulse 87, blood pressure 133/69, and O2 sat 100%. GENERAL: She is awake and alert, currently in no distress. HEENT: Pupils are reactive. Sclerae are icteric. Oropharynx clear. NECK: No adenopathy, JVD, or bruits. LUNGS: Clear without wheezing or rhonchi. CARDIAC: S1 and S2, regular without audible murmur. ABDOMEN: Somewhat protuberant, nontender to palpation. EXTREMITIES: No clubbing, cyanosis, or edema. LABORATORY DATA: Sodium 130, potassium 6.5, chloride 101, CO2 of 17, BUN 78, and creatinine 13. LDH 406. Troponin 0.069. PH of 7.41, pCO2 of 35, pO2 of 37 at venous blood gas. INR 1.5. White blood cell count 9, hemoglobin 5.5, hematocrit 16.3, and platelet count 222. Peritoneal tap demonstrated copious red blood cells. IMAGING DATA: Chest x-ray shows no mass, effusion, or infiltrate. She had the right subclavian stent present. She has cardiomegaly. Report from the CT abdomen is not finalized. It apparently showed intraperitoneal blood. ASSESSMENT: 1. Intraabdominal bleeding. 2. Chronic renal failure with grossly elevated BUN and creatinine for missing her last dialysis session. 3. Anemia due to blood loss. RECOMMENDATIONS: 1. Transfuse. 2. Monitor H and H. 3. Emergent dialysis. 4. Follow electrolytes closely. 5. Nothing to add to the orders as written in the chart. Job ID: [id number]
[2018-12-05] MEDS: Famotidine 20 MG TAB PO SCH (09:52)
[2018-12-05] MEDS: Famotidine/PF 20 mg/2ml Vial SLOW IVP SCH (10:00)
[2018-12-05] MEDS: Ondansetron PF 4 MG/2 ML Vial IVP PRN (10:58)
[2018-12-05] MEDS: Fentanyl 100 MCG/2 ML VIAL SLOW IVP PRN ×2 (11:20→23:41)
[2018-12-05 11:24] LABS: #Lymphocytes 0.6 thou/uL (1.20-3.40); #Monocytes 0.6 thou/uL (0.11-0.59); #Neutrophils 6.5 thou/uL (1.40-6.50); %Basophils 0.5 % (0.0-1.0); %Eosinophils 0.4 % (0.0-10.0); %Lymphocytes 7.7 % (21.0-51.0); %Monocytes 8.3 % (0.0-10.0); %Neutrophils 83.1 % (42.0-75.0); Hemoglobin 9.8 g/dL (12.0-16.0); Mean Corpuscular HGB CONC 34.1 g/dL (32.0-36.0); Mean Corpuscular Hemoglobin 31.4 pg (27.0-31.0); Mean Corpuscular Volume 92.2 fL (78.0-98.0); Mean Platelet Volume 8.6 fL (7.4-10.4); Platelet Count 143 thou/uL (130-400); RBC Distribution Width 14.3 % (11.5-14.5); Red Blood Cell (RBC) Count 3.11 mill/uL (4.20-5.40); White Blood Cell (WBC) Count 7.8 thou/uL (4.8-10.8)
[2018-12-05 11:28] LABS: INR-International Normal Ratio 1.4; PTT 32.9 SEC (22.9-36.1)
[2018-12-05 11:48] LABS: Anion Gap 20 mmol/L (10-20); BUN (Urea Nitrogen) 17 mg/dL (7.0-18.7); Calc. Creatinine Clearance 14 mL/min (70-130); Calcium 9.6 mg/dL (7.8-10.44); Carbon Dioxide 25 mmol/L (22-29); Chloride 97 mmol/L (98-107); Estimated GFR-MDRD 14; Glucose 65 mg/dL (70-105); Potassium 3.4 mmol/L (3.5-5.1); Sodium 139 mmol/L (136-145)
[2018-12-05 11:49] LABS: Troponin I 0.145 ng/mL (< 0.028)
--- NOTE | 2018-12-05 13:17 | PRG ---
DATE OF SERVICE: 12/05/2018 SUBJECTIVE: I have seen Ms. Amaro in the company of Ms. Portia Swann, trauma nurse practitioner. Ms. Vogt is a 38-year-old woman with history of SLE, who is status post abdominal paracenteses a few days ago. She has developed intraabdominal hemorrhage since the procedure. Hemoglobin this morning was noted at 5.5. Her baseline is usually about 8 g/ dL. At the time of my evaluation this morning, the patient was reporting no significant abdominal pain. She has tolerated almost 4 hours of hemodialysis with stable vital signs. Abdominal examination; abdomen is soft, nontender, nondistended. Her blood pressure was noted at 125/99, pulse is 96, respiratory rate 18 to 21 breaths per minute, and oxygen saturation 100%. She had received 3 units of packed red blood cells during dialysis. Posttransfusion, hemoglobin is now 9.8. Platelet count is 143. Her coagulation studies revealed a PTT of 39.9 seconds, INR which is noted at 1.5. She is given 2 units of fresh frozen plasma at dialysis as well. I have reviewed the consult note per Ms. Swann and I agree with the recommendations as we established this morning. There is clearly no surgical indication for this patient at this time. We will continue to trend hemoglobin, using this as a marker for hemostasis in this patient with Acute Blood loss Anemia We will continue with serial physical examinations and make further recommendations as necessary. Job ID: [id number] MTDD
[2018-12-05] MEDS ORDERED: Meropenem 1 GM in Sodium Chloride 0.9% 100 ML IVPB SCH (14:00)
[2018-12-05] MEDS: cloNIDine 0.3 MG TAB PO SCH ×2 (14:11→21:45)
[2018-12-05] MEDS: hydrALAZINE 25 MG TAB PO SCH ×2 (14:11→21:24)
--- NOTE | 2018-12-05 14:42 | CON ---
DATE OF CONSULTATION: REQUESTING PHYSICIAN: Dr. Mcdonald. ATTENDING GENERAL SURGEON: Dr. Thompson. HISTORY OF PRESENT ILLNESS: This is a 38-year-old female who presented to the emergency room for abdominal pain and generalized weakness. She frequently undergoes paracentesis which her last was on 12/03. She has been getting paracentesis for a year now every 3 weeks. The patient reports that her abdomen felt hard, which also brought her into the emergency room. The patient with generalized weakness, but denies any syncope. General Surgery consult was requested for possible intraabdominal bleeding following paracentesis. REVIEW OF SYSTEMS: GENERAL: The patient is awake, alert, receiving dialysis at this time. HEENT: The patient reports nonproductive cough and a clear runny nose. Denies head pain or dizziness or syncope. CARDIOVASCULAR: The patient reports history of a murmur, dyspnea on exertion. States she can walk the hallway only before getting short of breath. Reports palpitations occasionally. Denies pedal edema. RESPIRATORY: Nonproductive cough. Denies shortness of breath while resting. Denies orthopnea. GI: Reports abdominal pain and hard abdomen, which has resolved. Reports nausea. Denies vomiting. Denies diarrhea. Denies constipation. URINARY: Denies frequency, hesitancy, urgency or hematuria. MUSCULOSKELETAL: Reports generalized weakness. Able to move all extremities. Reports occasional throbbing in legs, which is not new for the patient. Occasional numbness and tingling to hands, which is not new. NEUROLOGIC: Tingling to hands. Denies tremors, seizures, or syncopal event. PHYSICAL EXAMINATION: VITAL SIGNS: Blood pressure 126/86, respirations 16, heart rate 86, temp 97.8, 100% SpO2 on room air. GENERAL: The patient is awake and alert, receiving dialysis. HEENT: No scleral icterus, conjunctivae pink, moist mucous membranes. Pupils equal and reactive at 3 mm bilateral. NECK: Nontender. Trachea midline. RESPIRATORY: With equal chest movements and symmetrical. LUNGS: Clear bilateral without wheeze or rhonchi. CARDIOVASCULAR: S1, S2 heard. Regular rate. No murmur appreciated. Peripheral pulses palpable, but slightly weak. No pedal edema. NEUROLOGIC: No neuro deficits. ABDOMEN: Soft, mild tenderness. Positive bowel sounds. MUSCULOSKELETAL: The patient moves all extremities. The patient has right upper extremity dialysis access. LABORATORY DATA: WBC 9.0, RBC 1.69, hemoglobin 5.5, hematocrit 16.3, platelets 222. PT 18.5, INR 1.5, APTT 39.9. Blood gas, bicarb 22.3, pH 7.41, pCO2 35.3, pO2 23.4, base excess -2.2. Sodium 133, potassium 8.8, chloride 92, CO2 17, anion gap 33, BUN 78, creatinine , lactate 5.5, calcium 8.1, AST 24, ALT 9, alkaline phos 103, lactate dehydrogenase 406. Troponin 0.069. Serum total protein 7.9, albumin 3.3, globulin 4.6. Peritoneal fluid, cloudy, turbulent, high, fluid color red. DIAGNOSTIC DATA: 1. Abdomen pelvis CT; active intraperitoneal hemorrhage with a large hemoperitoneum, intraperitoneal hematoma. Large acute or subacute posterior splenic infarction. 2. Chest x-ray, cardiomegaly and mild edema. ASSESSMENT: 1. Coagulopathy. 2. No acute surgical indication. PLAN: 1. We will correct coagulopathy with FFP. 2. Agree with the 3 units of packed red blood cells. 3. We will trend the patient's H and H as a marker for hemo stabilization. 4. No acute surgical indication. 5. This patient was examined with Dr. Thompson. Job ID: [id number]
--- NOTE | 2018-12-05 14:46 | HP ---
ADDENDUM: Ms. Vogt also has a diagnosis of symptomatic anemia secondary to acute blood loss. She will receive packed RBC transfusions. She has also been started on meropenem by the emergency room physician, which I will continue. Job ID: [id number]
[2018-12-05] MEDS ORDERED: Non-Formulary Item 1 EACH (Hydralazine Hcl [Hydralazine Hcl] 100 MG) PO SCH (15:00)
[2018-12-05] MEDS ORDERED: ISOVUE-370 76%-LOCM 1 ML ONE (17:07)
[2018-12-05 17:27] LABS: #Lymphocytes 0.6 thou/uL (1.20-3.40); #Monocytes 0.8 thou/uL (0.11-0.59); %Basophils 0.1 % (0.0-1.0); %Eosinophils 0.3 % (0.0-10.0); %Neutrophils 83.7 % (42.0-75.0); Hemoglobin 9.2 g/dL (12.0-16.0); Mean Corpuscular HGB CONC 34.4 g/dL (32.0-36.0); Mean Corpuscular Hemoglobin 31.2 pg (27.0-31.0); Mean Corpuscular Volume 90.7 fL (78.0-98.0); Mean Platelet Volume 8.3 fL (7.4-10.4); Platelet Count 136 thou/uL (130-400); RBC Distribution Width 14.3 % (11.5-14.5); Red Blood Cell (RBC) Count 2.95 mill/uL (4.20-5.40); White Blood Cell (WBC) Count 8.4 thou/uL (4.8-10.8)
--- NOTE | 2018-12-05 17:43 | CON ---
DATE OF CONSULTATION: TYPE OF CONSULTATION: Nephrology. REASON FOR CONSULTATION: Hyperkalemia. HISTORY OF PRESENT ILLNESS: This is a 38-year-old noncompliant patient, who missed dialysis and presented to the hospital with weakness. The patient was noted to have a potassium 8.8. The patient is noncompliant with fluids. Dialysis was initiated. PAST MEDICAL HISTORY: She has lupus, myocardial infarction, history of ascites, history of congestive heart failure, history of kidney biopsies, cardiac catheterization, AV fistula tunneled dialysis catheter, history of noncompliance, history of cardiac arrest and CPR. FAMILY HISTORY: Positive for ESRD. ALLERGIES: REVIEWED. HOME MEDICATIONS: Reviewed. REVIEW OF SYSTEMS: A 15-point review of system was performed and was negative except for positives noted above. GENERAL: HEAD: NECK: No swelling or lumps. NOSE: No epistaxis or discharge. EYES: No diplopia or pain. RESPIRATORY: CARDIOVASCULAR: GASTROINTESTINAL: /VOCATIONAL DIRECTOR: MUSCULOSKELETAL: No joint pain. NEUROPSYCHIATIC SYSTEMS: No suicidal ideation. No ideation. SKIN: Denies any rash or ulcer. CONSTITUTIONAL: No fever or chills. PHYSICAL EXAMINATION: CONSTITUTIONAL: The patient is awake and alert. VITAL SIGNS: Afebrile, pulse 75, breathing 16, and blood pressure 134/96. GENERAL APPEARANCE AND MENTAL STATUS: Fair. HEAD/NECK: Normocephalic. Atraumatic. EYES: EOMI. No deformity. EARS: Clear. No ulcers. NOSE: Intact. No lesions. MOUTH: Clear. No discharge. THROAT: Clear. No exudate. LUNGS: Clear. No crackles. CARDIAC: S1, S2. No rub. ABDOMEN: Benign. Bowel sounds positive. GENITALIA/RECTUM: Sadler absent. BACK/EXTREMITIES: Edema 0+. NEUROLOGICAL: Alert and motor intact. SKIN: LYMPHATICS: LABORATORY DATA: Labs showed hemoglobin 9.8. Potassium 3.4. ASSESSMENT AND PLAN: 1. Stage 6 chronic kidney disease, stable. 2. Hypertension, stable. 3. Anemia, stable. 4. Hyperkalemia, improved. No indication for dialysis again today. Job ID: [id number]
[2018-12-05] MEDS: MEROPENEM 1 GM/50 ML 1 GM in Premix Bag 1 BAG IVPB SCH (21:25)
[2018-12-05] MEDS: Metoprolol Tartrate 100 MG TAB PO SCH (21:25)
[2018-12-05 22:57] LABS: #Eosinphils 0.1 thou/uL (0.0-0.7); #Lymphocytes 0.7 thou/uL (1.20-3.40); #Monocytes 0.8 thou/uL (0.11-0.59); #Neutrophils 7.5 thou/uL (1.40-6.50); %Basophils 0.1 % (0.0-1.0); %Eosinophils 0.8 % (0.0-10.0); %Lymphocytes 7.3 % (21.0-51.0); %Monocytes 9.1 % (0.0-10.0); %Neutrophils 82.8 % (42.0-75.0); Hemoglobin 9.7 g/dL (12.0-16.0); Mean Corpuscular HGB CONC 34.7 g/dL (32.0-36.0); Mean Corpuscular Hemoglobin 31.8 pg (27.0-31.0); Mean Corpuscular Volume 91.7 fL (78.0-98.0); Mean Platelet Volume 8.4 fL (7.4-10.4); Platelet Count 156 thou/uL (130-400); RBC Distribution Width 14.6 % (11.5-14.5); Red Blood Cell (RBC) Count 3.05 mill/uL (4.20-5.40); White Blood Cell (WBC) Count 9.1 thou/uL (4.8-10.8)
[2018-12-06] MEDS ORDERED: diphenhydrAMINE 25 MG CAP PO PRN (00:10)
[2018-12-06 05:32] LABS: #Eosinphils 0.1 thou/uL (0.0-0.7); #Lymphocytes 0.7 thou/uL (1.20-3.40); #Monocytes 0.8 thou/uL (0.11-0.59); #Neutrophils 7.6 thou/uL (1.40-6.50); %Basophils 0.4 % (0.0-1.0); %Eosinophils 0.9 % (0.0-10.0); %Lymphocytes 7.7 % (21.0-51.0); %Monocytes 8.9 % (0.0-10.0); %Neutrophils 82.1 % (42.0-75.0); Hemoglobin 9.6 g/dL (12.0-16.0); Mean Corpuscular Hemoglobin 31.5 pg (27.0-31.0); Mean Corpuscular Volume 92.7 fL (78.0-98.0); Mean Platelet Volume 8.6 fL (7.4-10.4); Platelet Count 174 thou/uL (130-400); Red Blood Cell (RBC) Count 3.06 mill/uL (4.20-5.40); White Blood Cell (WBC) Count 9.3 thou/uL (4.8-10.8)
[2018-12-06 05:58] LABS: Anion Gap 18 mmol/L (10-20); BUN (Urea Nitrogen) 27 mg/dL (7.0-18.7); Calc. Creatinine Clearance 9 mL/min (70-130); Calcium 7.9 mg/dL (7.8-10.44); Carbon Dioxide 26 mmol/L (22-29); Chloride 93 mmol/L (98-107); Estimated GFR-MDRD 8; Glucose 91 mg/dL (70-105); Potassium 4.5 mmol/L (3.5-5.1); Sodium 132 mmol/L (136-145)
--- NOTE | 2018-12-06 08:26 | PRG ---
DATE OF SERVICE: 12/06/2018 SUBJECTIVE: The patient is awake, alert. She says she feels okay. OBJECTIVE: VITAL SIGNS: On exam, temperature is 99.3 with no fever overnight, pulse 96, blood pressure 143/83, and O2 sat 98%. Total intake for 24 hours by dialysis. HEENT: Unremarkable. NECK: No adenopathy, JVD, or bruits. LUNGS: Clear. CARDIAC: S1 and S2. Regular. ABDOMEN: Protuberant, but nontender. EXTREMITIES: No edema. LABORATORY DATA: Sodium , potassium 4.5, chloride 93, CO2 of 26, BUN 27, creatinine 6.8, and glucose 91. White blood cell count 9.3, hemoglobin 9.6, hematocrit 28.3, and platelet count 174. ASSESSMENT: 1. Intraabdominal bleed after paracentesis. 2. Chronic renal failure, requiring hemodialysis. 3. Anemia due to blood loss - hematocrit now stable. PLAN: The patient can be transferred out to the floor. Her H and H will continue to be monitored. She will likely need dialysis either today or tomorrow. Job ID: [id number]
[2018-12-06] MEDS: Ondansetron PF 4 MG/2 ML Vial IVP PRN ×2 (08:47→16:29)
[2018-12-06] MEDS: MEROPENEM 1 GM/50 ML 1 GM in Premix Bag 1 BAG IVPB SCH ×2 (08:51→21:51)
[2018-12-06] MEDS: cloNIDine 0.3 MG TAB PO SCH ×3 (08:52→21:51)
[2018-12-06] MEDS: hydrALAZINE 25 MG TAB PO SCH ×3 (08:52→21:50)
[2018-12-06] MEDS: Metoprolol Tartrate 100 MG TAB PO SCH ×2 (08:53→21:50)
[2018-12-06] MEDS: Famotidine/PF 20 mg/2ml Vial SLOW IVP SCH (08:54)
[2018-12-06] MEDS: Folic Acid 1 MG TAB PO SCH (08:54)
[2018-12-06] MEDS: Famotidine 20 MG TAB PO SCH (08:54)
[2018-12-06] MEDS: Hydroxychloroquine Sulfate 200 MG TAB PO SCH (08:55)
[2018-12-06] MEDS: ALPRAZolam 1 MG TAB PO PRN (09:08)
[2018-12-06 11:25] LABS: #Eosinphils 0.1 thou/uL (0.0-0.7); #Lymphocytes 0.8 thou/uL (1.20-3.40); #Monocytes 1.4 thou/uL (0.11-0.59); #Neutrophils 8.4 thou/uL (1.40-6.50); %Basophils 0.4 % (0.0-1.0); %Eosinophils 0.8 % (0.0-10.0); %Lymphocytes 7.6 % (21.0-51.0); %Monocytes 12.7 % (0.0-10.0); %Neutrophils 78.6 % (42.0-75.0); Hemoglobin 9.1 g/dL (12.0-16.0); Mean Corpuscular HGB CONC 34.6 g/dL (32.0-36.0); Mean Corpuscular Hemoglobin 32.3 pg (27.0-31.0); Mean Corpuscular Volume 93.5 fL (78.0-98.0); Mean Platelet Volume 8.3 fL (7.4-10.4); Platelet Count 152 thou/uL (130-400); RBC Distribution Width 15.1 % (11.5-14.5); Red Blood Cell (RBC) Count 2.81 mill/uL (4.20-5.40); White Blood Cell (WBC) Count 10.6 thou/uL (4.8-10.8)
--- NOTE | 2018-12-06 12:49 | PRG ---
DATE OF SERVICE: 12/06/2018 SUBJECTIVE: Ms. Vogt is a 38-year-old woman, who has a history of SLE. The patient was admitted with abdominal pain associated with acute blood loss anemia following an abdominal paracentesis a few days ago. The patient received 2 units of fresh frozen plasma and 3 units of packed red blood cells at dialysis yesterday. Serial hemoglobin and hematocrit reveal a stable hemoglobin. This morning, the patient denies any dyspnea, syncope, or significant abdominal pain. She is passing flatus, but has not had any bowel movements. PHYSICAL EXAMINATION: VITAL SIGNS: Today include blood pressure 140/94, pulse is 100, respiratory rate is 26, temperature is 99.5 degrees Fahrenheit, and oxygen saturation is 100% on room air. ABDOMEN: Soft, moderately distended with mild tenderness to palpation. She has no rebound tenderness present. Liver and spleen nonpalpable below costal margin. She has a reducible umbilical hernia with no tenderness present. NEUROLOGIC: Reveals no focal deficits present. LABORATORY FINDINGS: Today include a CBC with 10,600 white blood cells, hemoglobin and hematocrit of 9.1 and 26.3 respectively and stable, and platelet count is 152,000. IMPRESSION: 1. Stable acute blood loss anemia. 2. Recent intraperitoneal hemorrhage with no clinical or laboratory evidence of ongoing bleeding. PLAN: Continue with clear liquid diet until adequate return of bowel function. The abdomen has no acute surgical indication for this patient at this time. RECOMMENDATIONS: I recommend the patient to avoid any paracentesis within the next 2 to 3 weeks as the intraperitoneal hematoma resolves. Above findings and plan discussed with the patient. If her clinical course deteriorates, we will give consideration to laparoscopy and peritoneal washout at that time. The patient's significant cardiac history puts her at greater risk to undergo any elective abdominal procedures under general anesthesia. Job ID: [id number]
--- NOTE | 2018-12-06 15:31 | PRG ---
DATE OF SERVICE: 12/06/2018 SUBJECTIVE: A 38-year-old female, being seen for end-stage renal disease. The patient denied any nausea, vomiting, or chest pain. OBJECTIVE: CONSTITUTIONAL: The patient is awake, alert. VITAL SIGNS: Pulse 77, breathing 16, blood pressure 124/84. GENERAL APPEARANCE AND MENTAL STATUS: Fair. HEAD/NECK: Normocephalic. Atraumatic. EYES: EOMI. No deformity. EARS: Clear. No ulcers. NOSE: Intact. No lesions. MOUTH: Clear. No discharge. THROAT: Clear. No exudate. LUNGS: Clear. No crackles. CARDIAC: S1, S2. No rub. ABDOMEN: Benign. Bowel sounds positive. GENITALIA/RECTUM: Sadler absent. BACK/EXTREMITIES: Edema 0+. NEUROLOGICAL: Alert and motor intact. SKIN: LYMPHATICS: LABORATORY DATA: Labs show hemoglobin 9.1. Potassium 4.5. ASSESSMENT: 1. Stage 6 chronic kidney disease, stable. 2. Hypertension, stable. 3. Anemia, stable. PLAN: Dialysis tomorrow. Job ID: [id number]
--- NOTE | 2018-12-06 21:54 | PDOC.PN ---
- Subjective Encounter Start Date: 12/06/18 Encounter Start Time: 15:30 Patient seen and examined for abd pain/Hyperkalemia. Abd pain improving. No new complaints. No overnight events - Objective Resuscitation Status - Order Detail: 12/05/18 08:58 Resuscitation Status Routine Resuscitation Status: FULL: Full Resuscitation MAR Reviewed: Yes Vital Signs & Weight: Vital Signs (12 hours) Temp Pulse Resp BP BP Pulse Ox 12/06/18 20:00 99.4 F 108 H 18 136/87 94 L 12/06/18 16:29 138/101 H 12/06/18 16:00 99.7 F H 103 H 16 128/85 98 12/06/18 14:58 98 138/101 H 12/06/18 10:10 98.5 F 97 16 124/84 95 Weight Admit Weight 112 lb 3.445 oz Weight 113 lb 1.554 oz Most Recent Monitor Data Heart Rate from ECG 100 NIBP 140/94 NIBP BP-Mean 109 Respiration from ECG 26 SpO2 100 I&O: 12/05/18 12/06/18 12/07/18 06:59 06:59 06:59 Intake Total 0 2140 0 Output Total 0 Balance 0 2140 0 Result Diagrams: 12/06/18 10:49 12/06/18 04:30 EKG Reviewed by me: Yes (Tele SR earlier) Phys Exam - Physical Examination Constitutional: NAD Respiratory: no wheezing, no rhonchi Cardiovascular: RRR, no rub Gastrointestinal: soft, positive bowel sounds mild gen abd tenderness, no rebound/guarding Musculoskeletal: no edema Neurological: moves all 4 limbs Dx/Plan (1) Hyperkalemia Code(s): E87.5 - HYPERKALEMIA Status: Acute Comment: with volume overload (2) Intra abdominal hemorrhage Code(s): R58 - HEMORRHAGE, NOT ELSEWHERE CLASSIFIED Status: Acute Comment: after paracentesis (3) Acute blood loss anemia Code(s): D62 - ACUTE POSTHEMORRHAGIC ANEMIA Status: Acute Comment: s/p 3 units PRBC (4) CAD (coronary artery disease) Code(s): I25.10 - ATHSCL HEART DISEASE OF [place] CORONARY ARTERY W/O ANG PCTRS Status: Chronic (5) ESRD (end stage renal disease) on dialysis Code(s): N18.6 - END STAGE RENAL DISEASE; Z99.2 - DEPENDENCE ON RENAL DIALYSIS Status: Chronic (6) Other issues per previous notes - Plan DVT proph w/SCDs * Abd pain improving * Hemoglobin stable * Cont current meds as below * AM labs * Not on antiplatelet agent due to intrabd bleeding. Review of Systems - Review of Systems Cardiovascular: negative: chest pain, palpitations, orthopnea, paroxysmal nocturnal dyspnea, edema, light headedness, other Gastrointestinal: negative: Nausea, Vomiting, Abdominal Pain, Diarrhea, Constipation, Melena, Hematochezia, Other - Medications/Allergies Allergies/Adverse Reactions: Allergies Allergy/AdvReac Type Severity Reaction Status Date / Time No Known Drug Allergies Allergy Verified 12/05/18 06:47 Medications: Current Medications Acetaminophen (Tylenol) 650 mg PO Q4H PRN PRN Reason: Headache/Fever/Mild Pain (1-3) Acetaminophen (Tylenol) [address] Q4H PRN PRN Reason: Headache/Fever/Mild Pain (1-3) Alprazolam (Xanax) 1 mg PO TID PRN PRN Reason: Anxiety Last Admin: 12/06/18 09:08 Dose: 1 mg Clonidine (Catapres) 0.3 mg PO TID [facility] Last Admin: 12/06/18 16:29 Dose: 0.3 mg Famotidine (Pepcid) 20 mg PO DAILY [facility] Last Admin: 12/06/18 08:54 Dose: 20 mg Fentanyl (Sublimaze) 25 mcg SLOW IVP Q3H PRN PRN Reason: Severe Pain (7-10) Last Admin: 12/05/18 23:41 Dose: 25 mcg Folic Acid (Folvite) 1 mg PO DAILY [facility] Last Admin: 12/06/18 08:54 Dose: 1 mg Hydralazine HCl (Apresoline) 100 mg PO TID [facility] Last Admin: 12/06/18 14:58 Dose: 100 mg Hydroxychloroquine Sulfate (Plaquenil) 200 mg PO DAILY [facility] Last Admin: 12/06/18 08:55 Dose: 200 mg Meropenem 1 gm/ Device 50 mls @ 200 mls/hr IVPB Q12HR [facility] Last Admin: 12/06/18 08:51 Dose: 50 mls Metoprolol Tartrate (Lopressor) 100 mg PO BID [facility] Last Admin: 12/06/18 08:53 Dose: 100 mg Miscellaneous Medication (Pharmacy To Dose) 1 each IVPB [facility] Ondansetron HCl (Zofran) 4 mg IVP Q6H PRN PRN Reason: Nausea/Vomiting Last Admin: 12/06/18 16:29 Dose: 4 mg Senna/Docusate Sodium (Senokot S) 2 tab PO BID PRN PRN Reason: Constipation
[2018-12-06] MEDS ORDERED: Diabetic Tussin 200 MG/10 ML UDCUP PO PRN (23:07)
[2018-12-07 07:53] LABS: #Eosinphils 0.2 thou/uL (0.0-0.7); #Lymphocytes 0.7 thou/uL (1.20-3.40); #Monocytes 0.7 thou/uL (0.11-0.59); #Neutrophils 7.1 thou/uL (1.40-6.50); %Basophils 0.1 % (0.0-1.0); %Lymphocytes 8.4 % (21.0-51.0); %Monocytes 7.7 % (0.0-10.0); %Neutrophils 81.9 % (42.0-75.0); Hemoglobin 9.6 g/dL (12.0-16.0); Mean Corpuscular Hemoglobin 31.1 pg (27.0-31.0); Mean Corpuscular Volume 94.3 fL (78.0-98.0); Platelet Count 165 thou/uL (130-400); RBC Distribution Width 15.1 % (11.5-14.5); Red Blood Cell (RBC) Count 3.07 mill/uL (4.20-5.40); White Blood Cell (WBC) Count 8.7 thou/uL (4.8-10.8)
[2018-12-07] MEDS: Famotidine 20 MG TAB PO SCH (08:05)
[2018-12-07] MEDS: Folic Acid 1 MG TAB PO SCH (08:05)
[2018-12-07] MEDS: Hydroxychloroquine Sulfate 200 MG TAB PO SCH (08:05)
[2018-12-07] MEDS: MEROPENEM 1 GM/50 ML 1 GM in Premix Bag 1 BAG IVPB SCH ×2 (08:05→18:07)
[2018-12-07 08:08] LABS: Anion Gap 21 mmol/L (10-20); BUN (Urea Nitrogen) 44 mg/dL (7.0-18.7); Calc. Creatinine Clearance 6 mL/min (70-130); Calcium 8.5 mg/dL (7.8-10.44); Carbon Dioxide 21 mmol/L (22-29); Chloride 92 mmol/L (98-107); Estimated GFR-MDRD 6; Glucose 111 mg/dL (70-105); Potassium 4.9 mmol/L (3.5-5.1); Sodium 129 mmol/L (136-145)
[2018-12-07] MEDS: Fentanyl 100 MCG/2 ML VIAL SLOW IVP PRN ×2 (09:19→14:40)
[2018-12-07] MEDS: Ondansetron PF 4 MG/2 ML Vial IVP PRN (14:40)
[2018-12-07] MEDS: Metoprolol Tartrate 100 MG TAB PO SCH ×2 (14:52→18:07)
[2018-12-07] MEDS: hydrALAZINE 25 MG TAB PO SCH ×4 (14:52→20:43)
[2018-12-07] MEDS: cloNIDine 0.3 MG TAB PO SCH ×4 (14:52→20:43)
--- NOTE | 2018-12-07 15:03 | PDOC.PN ---
- Subjective Encounter Start Date: 12/07/18 Encounter Start Time: 09:45 Patient seen and examined for Intraabd hemorrhage. Abd pain improving. No N/V. No new complaints. No overnight events - Objective Resuscitation Status - Order Detail: 12/05/18 08:58 Resuscitation Status Routine Resuscitation Status: FULL: Full Resuscitation MAR Reviewed: Yes Vital Signs & Weight: Vital Signs (12 hours) Temp Pulse Resp BP BP Pulse Ox 12/07/18 14:52 97 136/87 12/07/18 08:00 97.9 F 97 18 125/85 95 12/07/18 04:45 98.9 F 98 18 125/80 98 Weight Admit Weight 112 lb 3.445 oz Weight 110 lb Most Recent Monitor Data Heart Rate from ECG 100 NIBP 140/94 NIBP BP-Mean 109 Respiration from ECG 26 SpO2 100 I&O: 12/06/18 12/07/18 12/08/18 06:59 06:59 06:59 Intake Total 2140 0 Output Total 0 Balance 2140 0 Result Diagrams: 12/07/18 07:35 12/07/18 07:35 Phys Exam - Physical Examination Constitutional: NAD Neck: no JVD Respiratory: no wheezing, no rhonchi Cardiovascular: RRR, no rub Gastrointestinal: soft, positive bowel sounds mild gen tenderness Musculoskeletal: no edema Neurological: moves all 4 limbs Psychiatric: A&O x 3 Dx/Plan (1) Hyperkalemia Code(s): E87.5 - HYPERKALEMIA Status: Acute Comment: with volume overload (2) Intra abdominal hemorrhage Code(s): R58 - HEMORRHAGE, NOT ELSEWHERE CLASSIFIED Status: Acute Comment: after paracentesis (3) Acute blood loss anemia Code(s): D62 - ACUTE POSTHEMORRHAGIC ANEMIA Status: Acute Comment: s/p 3 units PRBC (4) CAD (coronary artery disease) Code(s): I25.10 - ATHSCL HEART DISEASE OF [place] CORONARY ARTERY W/O ANG PCTRS Status: Chronic (5) ESRD (end stage renal disease) on dialysis Code(s): N18.6 - END STAGE RENAL DISEASE; Z99.2 - DEPENDENCE ON RENAL DIALYSIS Status: Chronic (6) Other issues per previous notes - Plan DVT proph w/SCDs * Cont Meropenem * HH in AM * On Clear liqd diet per Gen surg * Cont other meds as below * Dialysis per Nephrology Review of Systems - Review of Systems Respiratory: negative: Cough, Dry, Shortness of Breath, Hemoptysis, SOB with Excertion, Pleuritic Pain, Sputum, Wheezing Cardiovascular: negative: chest pain, palpitations, orthopnea, paroxysmal nocturnal dyspnea, edema, light headedness, other - Medications/Allergies Allergies/Adverse Reactions: Allergies Allergy/AdvReac Type Severity Reaction Status Date / Time No Known Drug Allergies Allergy Verified 12/05/18 06:47 Medications: Current Medications Acetaminophen (Tylenol) 650 mg PO Q4H PRN PRN Reason: Headache/Fever/Mild Pain (1-3) Acetaminophen (Tylenol) 650 mg [place] Q4H PRN PRN Reason: Headache/Fever/Mild Pain (1-3) Alprazolam (Xanax) 1 mg PO TID PRN PRN Reason: Anxiety Last Admin: 12/06/18 09:08 Dose: 1 mg Clonidine (Catapres) 0.3 mg PO TID [facility] Last Admin: 12/07/18 14:52 Dose: Not Given Famotidine (Pepcid) 20 mg PO DAILY [facility] Last Admin: 12/07/18 08:05 Dose: 20 mg Fentanyl (Sublimaze) 25 mcg SLOW IVP Q3H PRN PRN Reason: Severe Pain (7-10) Last Admin: 12/07/18 14:40 Dose: 25 mcg Folic Acid (Folvite) 1 mg PO DAILY [facility] Last Admin: 12/07/18 08:05 Dose: 1 mg Guaifenesin (Robitussin Sf) 100 mg PO Q4H PRN PRN Reason: Cough Last Admin: 12/06/18 23:46 Dose: 100 mg Hydralazine HCl (Apresoline) 100 mg PO TID [facility] Last Admin: 12/07/18 14:52 Dose: Not Given Hydroxychloroquine Sulfate (Plaquenil) 200 mg PO DAILY [facility] Last Admin: 12/07/18 08:05 Dose: 200 mg Meropenem 1 gm/ Device 50 mls @ 200 mls/hr IVPB 1500 [facility] Metoprolol Tartrate (Lopressor) 100 mg PO BID [facility] Last Admin: 12/07/18 14:52 Dose: Not Given Miscellaneous Medication (Pharmacy To Dose) 1 each IVPB ASDIR [facility] Ondansetron HCl (Zofran) 4 mg IVP Q6H PRN PRN Reason: Nausea/Vomiting Last Admin: 12/07/18 14:40 Dose: 4 mg Senna/Docusate Sodium (Senokot S) 2 tab PO BID PRN PRN Reason: Constipation
--- NOTE | 2018-12-07 17:10 | PRG ---
DATE OF SERVICE: 12/07/2018 SUBJECTIVE: Madison Vogt is 38-year-old female, seen for Trauma Services today. She has been seen by Dr. Thompson regarding concern about dehydration and bloody peritoneal fluid. She was apparently admitted with a hemoglobin of 5.5. Transfusion of hemoglobin is maintained at 9.6 and 9.8 over the last 2 days. The patient undergoes paracentesis periodically. It is suspected that she probably had some bleeding from her paracentesis. At this point, her abdomen is soft and nontender. She has a well-functioning right upper arm basilic vein transposition fistula that I placed several years ago. At this point, she is doing well. From a surgical standpoint, the patient is stable for discharge. Trauma Services and Surgery Service will sign off and see as needed. Please call if necessary. Job ID: [id number]
[2018-12-07] MEDS: ALPRAZolam 1 MG TAB PO PRN (20:45)
--- NOTE | 2018-12-08 06:41 | PRG ---
DATE OF SERVICE: 12/07/2018 SUBJECTIVE: Patient was seen and examined at bedside and overnight events noted. Patient denies any shortness of breath or chest pain or palpitation. No history of nausea or vomiting or diarrhea or fever or chills or cramps. OBJECTIVE: GENERAL: This is a 38-year-old female, in no apparent distress. VITAL SIGNS: Temperature 97.9, pulse 97, respiratory rate 18, blood pressure 136/87. HEENT: Atraumatic, normocephalic. Oral mucosa is moist NECK: Supple. CARDIOVASCULAR: S1, S2 heard. Rate and rhythm regular. RESPIRATORY: Clear to auscultation. GASTROINTESTINAL: Abdomen is soft. MUSCULOSKELETAL: No tenderness. No edema. DERMATOLOGIC: No skin rash. NEUROLOGIC: Alert and awake and oriented X3. No focal neurologic deficits. Moving all the extremities. PSYCHIATRIC: Mood and affect normal. LABORATORY DATA: Potassium is 4.8, BUN is 44, creatinine is 9.4. ASSESSMENT AND PLAN: 1. End-stage renal disease. Continue dialysis on Friday, Friday, and Friday. 2. Hypertension. 3. Anemia. 4. Edema, controlled. 5. Hyponatremia, limit fluid intake . Job ID: [id number]
[2018-12-08 07:41] LABS: Hemoglobin 10.6 g/dL (12.0-16.0); Platelet Count 167 thou/uL (130-400)
[2018-12-08] MEDS: cloNIDine 0.3 MG TAB PO SCH ×3 (09:08→20:47)
[2018-12-08] MEDS: hydrALAZINE 25 MG TAB PO SCH ×3 (09:09→20:45)
[2018-12-08] MEDS: Hydroxychloroquine Sulfate 200 MG TAB PO SCH (09:09)
[2018-12-08] MEDS: Folic Acid 1 MG TAB PO SCH (09:10)
[2018-12-08] MEDS: Metoprolol Tartrate 100 MG TAB PO SCH ×2 (09:10→20:47)
[2018-12-08] MEDS: Famotidine 20 MG TAB PO SCH (09:10)
[2018-12-08] MEDS: Ondansetron PF 4 MG/2 ML Vial IVP PRN ×3 (09:23→20:48)
[2018-12-08] MEDS: Fentanyl 100 MCG/2 ML VIAL SLOW IVP PRN ×3 (09:26→20:54)
[2018-12-08] MEDS ORDERED: traMADol HCl 50 MG TAB PO PRN (09:28)
[2018-12-08] MEDS: MEROPENEM 1 GM/50 ML 1 GM in Premix Bag 1 BAG IVPB SCH (15:13)
--- NOTE | 2018-12-08 17:01 | PRG ---
DATE OF SERVICE: SUBJECTIVE: Patient was seen and examined at bedside and overnight events noted. Patient denies any shortness of breath or chest pain or palpitation. No history of nausea or vomiting or diarrhea or fever or chills or cramps. OBJECTIVE: GENERAL: This is a well-built female, in no apparent distress. VITAL SIGNS: Temperature 98.4. Heart rate 82. Respiratory rate 16. Blood pressure 143/89. HEENT: Atraumatic, normocephalic. Oral mucosa is moist NECK: Supple. CARDIOVASCULAR: S1, S2 heard. Rate and rhythm regular. RESPIRATORY: Clear to auscultation. GASTROINTESTINAL: Abdomen is soft. MUSCULOSKELETAL: No tenderness. No edema. DERMATOLOGIC: No skin rash. NEUROLOGIC: Alert and awake and oriented X3. No focal neurologic deficits. Moving all the extremities. PSYCHIATRIC: Mood and affect normal. LABORATORY DATA: Not done today. ASSESSMENT AND PLAN: 1. End-stage renal disease. Continue dialysis as tolerated. 2. Hypertension, stable. 3. Anemia. 4. Edema. 5. Hyponatremia, limit fluid intake. Job ID: [id number]
--- NOTE | 2018-12-08 22:23 | PDOC.PN ---
- Subjective Encounter Start Date: 12/08/18 Encounter Start Time: 10:00 Patient seen and examined for Abd pain. Unable to tolerate regular consistency. Intermittent nausea. No other complaints. No overnight events - Objective Resuscitation Status - Order Detail: 12/05/18 08:58 Resuscitation Status Routine Resuscitation Status: FULL: Full Resuscitation MAR Reviewed: Yes Vital Signs & Weight: Vital Signs (12 hours) Temp Pulse Resp BP BP Pulse Ox 12/08/18 20:47 137/85 12/08/18 20:45 90 12/08/18 20:00 98.9 F 90 20 137/85 96 12/08/18 16:05 88 143/89 H Weight Admit Weight 112 lb 3.445 oz Weight 105 lb Most Recent Monitor Data Heart Rate from ECG 100 NIBP 140/94 NIBP BP-Mean 109 Respiration from ECG 26 SpO2 100 I&O: 12/07/18 12/08/18 12/09/18 06:59 06:59 06:59 Intake Total 0 700 1300 Balance 0 700 1300 Result Diagrams: 12/08/18 07:30 12/07/18 07:35 Phys Exam - Physical Examination Constitutional: NAD Respiratory: no wheezing, no rhonchi Cardiovascular: RRR, no rub Gastrointestinal: soft, positive bowel sounds mild gen tenderness, no rebound Neurological: non-focal, moves all 4 limbs Dx/Plan (1) Hyperkalemia Code(s): E87.5 - HYPERKALEMIA Status: Acute Comment: with volume overload (2) Intra abdominal hemorrhage Code(s): R58 - HEMORRHAGE, NOT ELSEWHERE CLASSIFIED Status: Acute Comment: after paracentesis (3) Acute blood loss anemia Code(s): D62 - ACUTE POSTHEMORRHAGIC ANEMIA Status: Acute Comment: s/p 3 units PRBC (4) CAD (coronary artery disease) Code(s): I25.10 - ATHSCL HEART DISEASE OF [place] CORONARY ARTERY W/O ANG PCTRS Status: Chronic (5) ESRD (end stage renal disease) on dialysis Code(s): N18.6 - END STAGE RENAL DISEASE; Z99.2 - DEPENDENCE ON RENAL DIALYSIS Status: Chronic (6) Other issues per previous notes - Plan cont current plan of care, continue antibiotics, DVT proph w/SCDs Add Tramadol -: DC later today if pain controlled on Tramadol -: AM labs if patient stays -: Cont other meds as below Review of Systems - Review of Systems Respiratory: negative: Cough, Dry, Shortness of Breath, Hemoptysis, SOB with Excertion, Pleuritic Pain, Sputum, Wheezing Cardiovascular: negative: chest pain, palpitations, orthopnea, paroxysmal nocturnal dyspnea, edema, light headedness, other - Medications/Allergies Allergies/Adverse Reactions: Allergies Allergy/AdvReac Type Severity Reaction Status Date / Time No Known Drug Allergies Allergy Verified 12/05/18 06:47 Medications: Current Medications Acetaminophen (Tylenol) 650 mg PO Q4H PRN PRN Reason: Headache/Fever/Mild Pain (1-3) Acetaminophen (Tylenol) 650 mg MO Q4H PRN PRN Reason: Headache/Fever/Mild Pain (1-3) Alprazolam (Xanax) 1 mg PO TID PRN PRN Reason: Anxiety Last Admin: 12/07/18 20:45 Dose: 1 mg Clonidine (Catapres) 0.3 mg PO TID [facility] Last Admin: 12/08/18 20:47 Dose: 0.3 mg Famotidine (Pepcid) 20 mg PO DAILY [facility] Last Admin: 12/08/18 09:10 Dose: 20 mg Fentanyl (Sublimaze) 25 mcg SLOW IVP Q3H PRN PRN Reason: Severe Pain (7-10) Last Admin: 12/08/18 20:54 Dose: 25 mcg Folic Acid (Folvite) 1 mg PO DAILY [facility] Last Admin: 12/08/18 09:10 Dose: 1 mg Guaifenesin (Robitussin Sf) 100 mg PO Q4H PRN PRN Reason: Cough Last Admin: 12/06/18 23:46 Dose: 100 mg Hydralazine HCl (Apresoline) 100 mg PO TID [facility] Last Admin: 12/08/18 20:45 Dose: Not Given Hydroxychloroquine Sulfate (Plaquenil) 200 mg PO DAILY [facility] Last Admin: 12/08/18 09:09 Dose: 200 mg Meropenem 1 gm/ Device 50 mls @ 200 mls/hr IVPB 1500 [facility] Last Admin: 12/08/18 15:13 Dose: 50 mls Metoprolol Tartrate (Lopressor) 100 mg PO BID [facility] Last Admin: 12/08/18 20:47 Dose: 100 mg Miscellaneous Medication (Pharmacy To Dose) 1 each IVPB ASDIR MITCHELL Ondansetron HCl (Zofran) 4 mg IVP Q6H PRN PRN Reason: Nausea/Vomiting Last Admin: 12/08/18 20:48 Dose: 4 mg Senna/Docusate Sodium (Senokot S) 2 tab PO BID PRN PRN Reason: Constipation Tramadol HCl (Ultram) 50 mg PO Q6H PRN PRN Reason: Moderate Pain (4-6) Last Admin: 12/08/18 10:48 Dose: 50 mg
[2018-12-09 08:43] VITALS: TEMP 97.7
[2018-12-09] MEDS: Fentanyl 100 MCG/2 ML VIAL SLOW IVP PRN (11:41)
[2018-12-09] MEDS: Ondansetron PF 4 MG/2 ML Vial IVP PRN (11:41)
[2018-12-09 12:58] LABS: #Eosinphils 0.2 thou/uL (0.0-0.7); #Lymphocytes 0.7 thou/uL (1.20-3.40); #Monocytes 0.6 thou/uL (0.11-0.59); #Neutrophils 6.6 thou/uL (1.40-6.50); %Basophils 0.2 % (0.0-1.0); %Eosinophils 2.7 % (0.0-10.0); %Lymphocytes 8.6 % (21.0-51.0); %Monocytes 7.7 % (0.0-10.0); Hemoglobin 11.6 g/dL (12.0-16.0); Mean Corpuscular Hemoglobin 31.6 pg (27.0-31.0); Mean Corpuscular Volume 92.9 fL (78.0-98.0); Platelet Count 207 thou/uL (130-400); RBC Distribution Width 14.9 % (11.5-14.5); Red Blood Cell (RBC) Count 3.66 mill/uL (4.20-5.40); White Blood Cell (WBC) Count 8.1 thou/uL (4.8-10.8)
[2018-12-09 13:28] LABS: Anion Gap 17 mmol/L (10-20); BUN (Urea Nitrogen) 8 mg/dL (7.0-18.7); Calc. Creatinine Clearance 18 mL/min (70-130); Calcium 9.6 mg/dL (7.8-10.44); Carbon Dioxide 26 mmol/L (22-29); Chloride 95 mmol/L (98-107); Estimated GFR-MDRD 19; Glucose 82 mg/dL (70-105); Sodium 135 mmol/L (136-145)
--- NOTE | 2018-12-09 13:54 | PRG ---
DATE OF SERVICE: 12/09/2018 SUBJECTIVE: Patient was seen and examined at bedside and overnight events noted. Patient denies any shortness of breath or chest pain or palpitation. No history of nausea or vomiting or diarrhea or fever or chills or cramps. OBJECTIVE: GENERAL: This is a well-built female, in no acute distress. VITAL SIGNS: Temperature 97.7. Pulse 89. Respiratory rate 14. Blood pressure 156/91. HEENT: Atraumatic, normocephalic. Oral mucosa is moist NECK: Supple. CARDIOVASCULAR: S1, S2 heard. Rate and rhythm regular. RESPIRATORY: Clear to auscultation. GASTROINTESTINAL: Abdomen is soft. MUSCULOSKELETAL: No tenderness. No edema. DERMATOLOGIC: No skin rash. NEUROLOGIC: Alert and awake and oriented X3. No focal neurologic deficits. Moving all the extremities. PSYCHIATRIC: Mood and affect normal. LABORATORY DATA: Not done today. ASSESSMENT AND PLAN: 1. End-stage renal disease. Continue dialysis on Friday, Friday, and Friday. The patient dialysis as tolerated. 2. Hypertension, stable. 3. Edema, controlled. 4. Anemia, monitor hemoglobin. 5. fluid removal as tolerated. The patient was advised to limit fluid intake. Job ID: [id number]
[2018-12-09] MEDS: Metoprolol Tartrate 100 MG TAB PO SCH (14:12)
[2018-12-09] MEDS: Folic Acid 1 MG TAB PO SCH (14:12)
[2018-12-09] MEDS: Hydroxychloroquine Sulfate 200 MG TAB PO SCH (14:13)
[2018-12-09] MEDS: hydrALAZINE 25 MG TAB PO SCH ×2 (14:13→14:35)
[2018-12-09] MEDS: Famotidine 20 MG TAB PO SCH (14:13)
[2018-12-09] MEDS: cloNIDine 0.3 MG TAB PO SCH ×2 (14:14→14:15)
[2018-12-09 14:16] VITALS: BP 137/85
[2018-12-09] MEDS: MEROPENEM 1 GM/50 ML 1 GM in Premix Bag 1 BAG IVPB SCH (14:18)
--- NOTE | 2018-12-10 10:21 | DIS ---
DATE OF ADMISSION: 12/05/2018 DATE OF DISCHARGE: 12/09/2018 DISCHARGE DISPOSITION: Home. FOLLOWUP: 1. Follow up with project superintendent in 2 weeks. 2. Follow up with [facility] in 1 week. ALLERGIES: NO KNOWN DRUG ALLERGIES. DISCHARGE MEDICATIONS: 1. Tramadol as needed. 2. All other home medications were left unchanged including clonidine, hydralazine, Plaquenil, Lopressor, folic acid, and Xanax. The patient was seen and examined on the day of discharge. Denies any new complaints. No chest pain, shortness of breath, or palpitations. Nausea and vomiting have significantly improved. BRIEF HOSPITAL COURSE: The patient is a 38-year-old female with end-stage renal disease, on hemodialysis, and ascites, on intermittent paracentesis, presented to the hospital with generalized weakness and abdominal discomfort. Due to abdominal discomfort, she missed dialysis. Please refer to the history and physical for further details. The patient was found to have intraperitoneal hemorrhage with large amount of hemoperitoneum. She was monitored in the Intensive Care Unit. Due to hyperkalemia of potassium of 8.8, she underwent emergent hemodialysis. She also received 3 units of PRBC along with 2 units of FFP. Her hemoglobin has stabilized around 10. She was seen by multiple consultants including Nephrology, General Surgery, and Critical Care, Dr. Gibson. Per General Surgery, the patient does not require any surgical intervention. The General Surgery also recommended to avoid any paracentesis within the next 2 to 3 weeks until the intraperitoneal hematoma resolves. She appears stable for discharge and has been cleared by all the consultants. FINAL DIAGNOSES: 1. Intraabdominal hemorrhage after paracentesis. 2. Hyperkalemia with volume overload requiring emergent hemodialysis. 3. Acute blood loss anemia. 4. Coagulopathy probably secondary to end-stage renal disease. 5. Coronary artery disease. 6. End-stage renal disease, on hemodialysis. 7. Systemic lupus erythematosus. 8. History of migraines. 9. Hypokalemia. 10. Hyponatremia. 11. Elevated troponins probably secondary to demand ischemia. 12. Metabolic acidosis on admission secondary to missed hemodialysis. 13. History of chronic anemia secondary to renal insufficiency. DIAGNOSTIC TESTS: Blood cultures were negative. Peritoneal fluid cultures did not grow any organism for four days. Please note, the patient was placed on IV meropenem, which has been discontinued at discharge. Total time coordinating the discharge of this patient was 35 minutes. The patient was extensively counseled not to miss hemodialysis. Job ID: [id number]
== END 2018-12-09 15:48 | disposition home or self-care (01) | DRG 919 ==
LOC: ERS 01:17 → CCU 05:12 → T4-A 12-06 07:57
PROVIDERS: ADMIT Internal Medicine; ATTEND Internal Medicine
PROC: 30233N1 Transfusion of Nonautologous Red Blood Cells into Peripheral Vein, Percutaneous Approach (ICD-10-PCS; principal; 2018-12-05)
DX: K91.840 Postprocedural hemorrhage of a digestive system organ or structure following a digestive system procedure (principal); N18.6 End stage renal disease; I12.0 Hypertensive chronic kidney disease with stage 5 chronic kidney disease or end stage renal disease; D62 Acute posthemorrhagic anemia; E87.1 Hypo-osmolality and hyponatremia; E87.2 Acidosis; E87.5 Hyperkalemia; Z99.2 Dependence on renal dialysis; I25.10 Atherosclerotic heart disease of native coronary artery without angina pectoris; M32.9 Systemic lupus erythematosus, unspecified; I25.2 Old myocardial infarction
CPT/HCPCS: 36415; 36430; 49083; 71045; 74177; 80048; 80053; 82330; 82803; 82945; 83010; 83605; 83615; 83690; 84157; 84484; 85014; 85018; 85025; 85049; 85060; 85610; 85730; 86850; 86900; 86901; 87040; 87070; 87205; 89051; 90935; 93005; 94640; 96365; 96375; G0257; J1815; J2001; J2185; J2405; J2597; J3010; J7050; J7611; P9016; P9059; Q0162; S0028

== ENCOUNTER 2019-01-07 09:11 | Day surgery (SDC) | payer MEDICARE, MEDICAID ==
[2019-01-06 11:40] VITALS: BMI 22.6
[2019-01-07 09:27] LABS: Hemoglobin 8.1 g/dL (12.0-16.0); Mean Corpuscular HGB CONC 30.8 g/dL (32.0-36.0); Mean Corpuscular Hemoglobin 29.1 pg (27.0-31.0); Mean Corpuscular Volume 94.5 fL (78.0-98.0); Mean Platelet Volume 7.8 fL (7.4-10.4); Platelet Count 345 thou/uL (130-400); RBC Distribution Width 15.1 % (11.5-14.5); Red Blood Cell (RBC) Count 2.78 mill/uL (4.20-5.40); White Blood Cell (WBC) Count 6.9 thou/uL (4.8-10.8)
[2019-01-07 09:34] LABS: INR-International Normal Ratio 1.2; Prothrombin Time 15.3 SEC (12.0-14.7)
[2019-01-07 09:35] LABS: PTT 40.2 SEC (22.9-36.1)
--- NOTE | 2019-01-07 11:08 | ULT ---
ULTRASOUND ABDOMEN LIMITED: Date: 01/07/19 HISTORY: Ascites. COMPARISON: CT dated 12/05/18. FINDINGS/IMPRESSION: There is small volume ascites in the abdomen. Solid and cystic mass right lower quadrant of abdomen r eflects retracting hematoma. POS: [facility]
[2019-01-07 12:40] VITALS: BP 185/109; TEMP 98
== END 2019-01-07 10:00 | disposition home or self-care (01) ==
LOC: ULT 09:11
PROVIDERS: ATTEND Internal Medicine
DX: R18.8 Other ascites (principal); I13.2 Hypertensive heart and chronic kidney disease with heart failure and with stage 5 chronic kidney disease, or end stage renal disease; N18.6 End stage renal disease; I50.30 Unspecified diastolic (congestive) heart failure; I27.20 Pulmonary hypertension, unspecified; Z99.2 Dependence on renal dialysis; Z79.899 Other long term (current) drug therapy
CPT/HCPCS: 36415; 76705; 85027; 85610; 85730

== ENCOUNTER 2019-01-14 20:22 | Emergency (ER) | payer MEDICARE, MEDICAID ==
--- NOTE | 2019-01-14 20:45 | RAD ---
PORTABLE CHEST: HISTORY: Hypertension. Missed dialysis yesterday. COMPARISON: 12/05/2018 FINDINGS: Heart size is markedly enlarged. Atherosclerotic changes are seen in the aorta. A right brachioceph alic stent is noted. Surgical clips, related to dialysis, are seen within the right arm. IMPRESSION: 1. Marked cardiomegaly. 2. No acute findings or interval change since the prior examination. POS: [facility]
[2019-01-14 21:03] LABS: #Eosinphils 0.1 thou/uL (0.0-0.7); #Lymphocytes 0.7 thou/uL (1.20-3.40); #Monocytes 0.4 thou/uL (0.11-0.59); #Neutrophils 6.3 thou/uL (1.40-6.50); %Basophils 0.2 % (0.0-1.0); %Eosinophils 0.9 % (0.0-10.0); %Lymphocytes 8.9 % (21.0-51.0); Hemoglobin 7.8 g/dL (12.0-16.0); Mean Corpuscular HGB CONC 31.3 g/dL (32.0-36.0); Mean Corpuscular Hemoglobin 28.6 pg (27.0-31.0); Mean Corpuscular Volume 91.4 fL (78.0-98.0); Mean Platelet Volume 8.5 fL (7.4-10.4); Platelet Count 332 thou/uL (130-400); RBC Distribution Width 15.6 % (11.5-14.5); Red Blood Cell (RBC) Count 2.73 mill/uL (4.20-5.40); White Blood Cell (WBC) Count 7.4 thou/uL (4.8-10.8)
[2019-01-14 21:19] LABS: ALT (SGPT) Less than 7 U/L (8-55); AST (SGOT) 13 U/L (5-34); Albumin 3.2 g/dL (3.5-5.0); Alkaline Phosphatase 102 U/L (40-150); Anion Gap 21 mmol/L (10-20); BUN (Urea Nitrogen) 43 mg/dL (7.0-18.7); Bilirubin, Total 1.1 mg/dL (0.2-1.2); CK (CPK) 130 U/L (29-168); Calc. Creatinine Clearance 0 mL/min (70-130); Calcium 8.2 mg/dL (7.8-10.44); Carbon Dioxide 25 mmol/L (22-29); Chloride 88 mmol/L (98-107); Estimated GFR-MDRD 5; Globulin 6.3 g/dL (2.4-3.5); Glucose 94 mg/dL (70-105); Lipase 42 U/L (8-78); Potassium 3.9 mmol/L (3.5-5.1); Protein, Total 9.5 g/dL (6.0-8.3); Sodium 130 mmol/L (136-145)
[2019-01-14 21:39] LABS: CKMB 1.2 ng/mL (0-6.6)
== END 2019-01-14 21:45 | disposition home or self-care (01) ==
LOC: ERS 20:22
DX: R11.2 Nausea with vomiting, unspecified (principal); I12.0 Hypertensive chronic kidney disease with stage 5 chronic kidney disease or end stage renal disease; N18.6 End stage renal disease; I25.2 Old myocardial infarction; G43.909 Migraine, unspecified, not intractable, without status migrainosus; Z99.2 Dependence on renal dialysis; Z79.899 Other long term (current) drug therapy
CPT/HCPCS: 71045; 80053; 82550; 82553; 83690; 83880; 84484; 85025; 93005

== ENCOUNTER 2019-01-20 11:20 | Inpatient (IN) | payer MEDICARE, MEDICAID ==
[2019-01-20 12:06] LABS: #Eosinphils 0.1 thou/uL (0.0-0.7); #Lymphocytes 0.8 thou/uL (1.20-3.40); #Monocytes 0.5 thou/uL (0.11-0.59); #Neutrophils 6.5 thou/uL (1.40-6.50); %Basophils 0.1 % (0.0-1.0); %Eosinophils 1.6 % (0.0-10.0); %Lymphocytes 10.5 % (21.0-51.0); %Monocytes 6.4 % (0.0-10.0); %Neutrophils 81.4 % (42.0-75.0); Hemoglobin 6.9 g/dL (12.0-16.0); Mean Corpuscular HGB CONC 30.9 g/dL (32.0-36.0); Mean Corpuscular Hemoglobin 28.6 pg (27.0-31.0); Mean Corpuscular Volume 92.6 fL (78.0-98.0); Mean Platelet Volume 8.5 fL (7.4-10.4); Platelet Count 329 thou/uL (130-400); RBC Distribution Width 15.6 % (11.5-14.5); Red Blood Cell (RBC) Count 2.41 mill/uL (4.20-5.40)
[2019-01-20 12:29] LABS: ALT (SGPT) Less than 7 U/L (8-55); AST (SGOT) 12 U/L (5-34); Albumin 2.9 g/dL (3.5-5.0); Alkaline Phosphatase 96 U/L (40-150); Anion Gap 14 mmol/L (10-20); BUN (Urea Nitrogen) 28 mg/dL (7.0-18.7); Bilirubin, Total 1.4 mg/dL (0.2-1.2); Calc. Creatinine Clearance 0 mL/min (70-130); Calcium 7.7 mg/dL (7.8-10.44); Carbon Dioxide 30 mmol/L (22-29); Chloride 90 mmol/L (98-107); Estimated GFR-MDRD 6; Globulin 5.8 g/dL (2.4-3.5); Glucose 82 mg/dL (70-105); Potassium 3.4 mmol/L (3.5-5.1); Protein, Total 8.7 g/dL (6.0-8.3); Sodium 131 mmol/L (136-145)
[2019-01-20 12:42] LABS: INR-International Normal Ratio 1.4; PTT 45.2 SEC (22.9-36.1); Prothrombin Time 16.9 SEC (12.0-14.7)
--- NOTE | 2019-01-20 12:51 | RAD ---
CHEST ONE VIEW: HISTORY: Dyspnea. COMPARISON: 01/14/2019 FINDINGS: The cardiac silhouette is magnified and enlarged. The pulmonary vasculature remains engorged with wi despread mild parenchymal opacity, similar in appearance to the prior study. The mediastinum is midl ine with aortic calcification and a right brachiocephalic and subclavian stent evident. No lobar con solidation or evidence of pneumothorax. Metallic clips over the right axilla. IMPRESSION: Cardiomegaly and borderline pulmonary vascular congestion, similar in appearance to the previous exam ination. POS: [facility]
[2019-01-20 14:26] LABS: HBSAg Index 0.85 S/CO (0-0.99); Hep B Surf Ag Non-Reactive S/CO (NonReactive)
[2019-01-20] MEDS ORDERED: Acetaminophen 325 MG TAB PO PRN (16:08)
[2019-01-20] MEDS ORDERED: Epoetin (ESRD) 10,000 UNITS/ML VIAL IVP SCH (16:15)
[2019-01-20] MEDS ORDERED: traMADol HCl 50 MG TAB PO PRN (17:06)
--- NOTE | 2019-01-20 17:42 | HP ---
REASON FOR ADMISSION: Shortness of breath and abdominal distention. HISTORY OF PRESENT ILLNESS AND REVIEW OF SYSTEMS: Ms. Vogt is a very pleasant 39-year-old woman with a background history of end-stage renal disease, on dialysis and lupus, who presents with complaints of increased shortness of breath as well as abdominal distention for the last 4 to 5 days. The patient has been compliant with dialysis on Mondays, Wednesdays, and Fridays. She has required multiple apparent paracenteses in the past done every 3 weeks, however, experienced hemorrhage with the last attempt. She therefore did not undergo paracentesis for some time and presented approximately 1 week ago for re-attempt, however, was told she still had a subcutaneous hematoma, therefore it was not completed. She has continued to have increased abdominal girth with tight distention. She states it has began causing difficulty with her breathing. She has particularly had issues with orthopnea, therefore has been sleeping, sat up in a chair. Her shortness of breath seems to be associated with a cough that she has developed in the last 2 to 3 days, productive for green yellow sputum. She denies having any chest pain. Denies having any hemoptysis. Has not had any fevers or chills. She has had no changes with her p.o. intake, but does report changes with her stools. In the last couple of days, she has noted watery stools. On one occasion, had noted a very dark black loose stools and has not noted any bright red blood per rectum. She denies having any hematemesis. All other review of systems are negative. PAST MEDICAL HISTORY: 1. History of myocardial infarction with status post stent placement. 2. Systemic lupus. 3. Migraine headaches. 4. End-stage renal disease, on dialysis Friday, Friday, and Friday. 5. Hypertension. PAST SURGICAL HISTORY: 1. Kidney biopsy. 2. Multiple paracenteses. 3. History of tubal ligation. 4. Dialysis fistula in right arm. 5. Previous heart cath with stent placement. SOCIAL HISTORY: The patient denies any alcohol abuse or drug use. 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 Denies smoking. ALLERGIES: NO KNOWN DRUG ALLERGIES. CURRENT MEDICATIONS: 1. Metoprolol tartrate 50 mg p.o. twice a day. 2. Clonidine 0.3 mg p.o. 3 times a day. 3. Reglan 10 mg p.o. every 6 hours as needed. 4. Zofran ODT 4 mg p.o. every 6 hours as needed. 5. Phenergan 12.5 mg per rectum every 6 hours as needed. PHYSICAL EXAMINATION: GENERAL: The patient appears well developed and in no acute distress. She was found sat up comfortably while undergoing dialysis. Vital Signs: Temperature 98.4, heart rate 86, respirations 24, O2 sat 99% on room air, and blood pressure 171/107. HEENT: Normocephalic and atraumatic. Pupils are equal, round, and reactive to light. Sclerae are without icterus. Oropharynx is clear. NECK: Supple without lymphadenopathy. LUNGS: Clear to auscultation bilaterally without wheezes, rales, or rhonchi. CARDIAC: Regular rate and rhythm without audible murmurs, rubs, or gallops. ABDOMEN: Distended with ascites present. No guarding or rigidity. Normal bowel sounds present. No renal angle tenderness. EXTREMITIES: Without clubbing, cyanosis, or edema. NEUROLOGIC: Alert and oriented x3. SKIN: Without rash or jaundice. LABORATORY DATA: Notable for a white blood count of 8, hemoglobin of 6.9, hematocrit of 22.3, and platelet count of 329. PT 16.9, INR 1.4, and PTT 45.2. Sodium 131, potassium 3.4, chloride 98, BUN 28, creatinine 8.48, and GFR 6. Total bilirubin 1.4, AST 12, ALT less than 7, alkaline phosphatase 96. BNP 3419.6. Albumin 2.9. Hepatitis B antigen nonreactive. IMAGING DATA: Chest x-ray done on 01/20/2019, showed cardiomegaly and borderline pulmonary vascular congestion on appearance of previous exam. No lobar consolidation or evidence of pneumothorax. IMPRESSION AND PLAN: Ms. Vogt will be admitted for management of the following conditions; 1. Ascites. The patient to undergo paracentesis today or tomorrow. 2. Anemia. The patient is reporting dark stools. We will request stool guaiac. She has received 2 units of packed red blood cells while undergoing dialysis. 3. End-stage renal disease. The patient is currently completing dialysis. Dr. Ranjit alarcon. 4. Hypertension. Resume home medications and monitor blood pressure. 5. Gastrointestinal prophylaxis. 6. Venous thromboembolism prophylaxis. The patient's case was discussed with Dr. Spaulding, who agrees with plan of care as described above. Job ID: [id number]
[2019-01-20] MEDS: cloNIDine 0.3 MG TAB PO SCH (19:23)
[2019-01-20] MEDS: Metoprolol Tartrate 100 MG TAB PO SCH (19:24)
[2019-01-20] MEDS: Ondansetron ODT 4 MG TAB PO PRN (19:32)
[2019-01-20] MEDS ORDERED: Ondansetron PF 4 MG/2 ML Vial IM SCH (20:00)
--- NOTE | 2019-01-20 20:08 | CON ---
DATE OF CONSULTATION: 01/20/2019 CONSULTING PHYSICIAN: ER doctor. REASON FOR CONSULTATION: Anemia and end-stage renal disease evaluation and care. REASON FOR ADMISSION: Weakness. HISTORY OF PRESENT ILLNESS: A 39-year-old female with history of end-stage renal disease, lupus, on diuretics, who came to the hospital with above complaints and Nephrology consulted for maintenance hemodialysis. The patient gets dialysis Friday, Friday, and Friday. She was found to have hemoglobin of 6.9, with shortness of breath and weakness. PAST MEDICAL HISTORY: Positive for end-stage renal disease, on hemodialysis; lupus; coronary artery disease; migraines; hypertension; ascites. PAST SURGICAL HISTORY: renal biopsy, tubal ligation, and AV fistula placement. HOME MEDICATIONS: Reviewed. ALLERGIES: NO KNOWN DRUG ALLERGIES. SOCIAL HISTORY: No smoking, alcohol, or illicit drug abuse. FAMILY HISTORY: Possible lupus. REVIEW OF SYSTEMS: CONSTITUTIONAL: Negative for weight loss or gain, ability to conduct usual activities. SKIN: Negative for rash, itching. EYES: Negative for double vision, pain. ENT/MOUTH: Negative for nose bleeding, neck stiffness, pain, tenderness. CARDIOVASCULAR: Negative for palpitations, dyspnea on exertion, orthopnea. RESPIRATORY: Negative for shortness of breath, wheezing, cough, hemoptysis, fever or night sweats. GASTROINTESTINAL: Negative for poor appetite, abdominal pain, heartburn, nausea, vomiting, constipation, or diarrhea. GENITOURINARY: Negative for urgency, frequency, dysuria, nocturia. MUSCULOSKELETAL: Negative for pain, swelling. NEUROLOGIC/PSYCHIATRIC: Negative for anxiety, depression. ALLERGY/IMMUNOLOGIC: Negative for skin rash, bleeding tendency. PHYSICAL EXAMINATION: GENERAL: This is a well-built female, in no apparent distress. VITAL SIGNS: Temperature 98.6, pulse 70, respiratory rate 18, and blood pressure 172/112. HEENT: Atraumatic and normocephalic. Oral mucosa is moist. NECK: Supple. CVS: S1 and S2 heard. Rate and rhythm regular. RESPIRATORY: Clear. MUSCULOSKELETAL: 1+ edema. DERMATOLOGIC: No skin rash. NEUROLOGIC: Alert and awake. PSYCHIATRIC: Normal mood and affect. LABORATORY DATA: Hemoglobin 6.9. Potassium is 3.4, BUN is 28, creatinine is 6.4. ASSESSMENT AND PLAN: 1. End-stage renal disease. The patient is seen on dialysis. We will continue dialysis as tolerated. 2. Anemia. We will hemodialysis. 3. Hypokalemia. 4. Hyponatremia, limit fluid intake. 5. Hypertension. We will remove fluid dialysis. 6. History of lupus nephritis. Plan is to continue on dialysis as tolerated. The patient was seen during dialysis and tolerating well. Job ID: [id number]
[2019-01-20] MEDS: Famotidine 20 MG TAB PO SCH (20:22)
[2019-01-20] MEDS: hydrALAZINE 25 MG TAB PO SCH (20:22)
[2019-01-20] MEDS: ALPRAZolam 1 MG TAB PO PRN (20:22)
[2019-01-21 05:14] LABS: Anion Gap 19 mmol/L (10-20); BUN (Urea Nitrogen) 16 mg/dL (7.0-18.7); Calc. Creatinine Clearance 11 mL/min (70-130); Calcium 8.3 mg/dL (7.8-10.44); Carbon Dioxide 24 mmol/L (22-29); Chloride 92 mmol/L (98-107); Estimated GFR-MDRD 11; Glucose 85 mg/dL (70-105); Potassium 4.6 mmol/L (3.5-5.1); Sodium 130 mmol/L (136-145)
[2019-01-21 05:31] LABS: #Eosinphils 0.1 thou/uL (0.0-0.7); #Lymphocytes 1.1 thou/uL (1.20-3.40); #Monocytes 0.7 thou/uL (0.11-0.59); #Neutrophils 6.3 thou/uL (1.40-6.50); %Basophils 0.2 % (0.0-1.0); %Eosinophils 1.3 % (0.0-10.0); %Lymphocytes 13.2 % (21.0-51.0); %Monocytes 8.6 % (0.0-10.0); %Neutrophils 76.7 % (42.0-75.0); Hemoglobin 9.9 g/dL (12.0-16.0); Mean Corpuscular HGB CONC 31.4 g/dL (32.0-36.0); Mean Corpuscular Hemoglobin 28.8 pg (27.0-31.0); Mean Corpuscular Volume 91.7 fL (78.0-98.0); Mean Platelet Volume 9.5 fL (7.4-10.4); Platelet Count 288 thou/uL (130-400); RBC Distribution Width 16.2 % (11.5-14.5); Red Blood Cell (RBC) Count 3.43 mill/uL (4.20-5.40); White Blood Cell (WBC) Count 8.2 thou/uL (4.8-10.8)
[2019-01-21] MEDS: Famotidine 20 MG TAB PO SCH ×2 (08:46→20:35)
[2019-01-21] MEDS: cloNIDine 0.3 MG TAB PO SCH ×2 (08:46→16:34)
[2019-01-21] MEDS: Metoprolol Tartrate 100 MG TAB PO SCH ×2 (08:47→20:34)
[2019-01-21] MEDS: Hydroxychloroquine Sulfate 200 MG TAB PO SCH (08:47)
[2019-01-21] MEDS: Folic Acid 1 MG TAB PO SCH (08:47)
[2019-01-21] MEDS: hydrALAZINE 25 MG TAB PO SCH ×3 (08:47→20:34)
[2019-01-21] MEDS ORDERED: Sodium Bicarbonate 2.5 MEQ/5 ML VIAL ONE (08:59)
--- NOTE | 2019-01-21 10:51 | PRG ---
DATE OF SERVICE: 01/21/2019 SUBJECTIVE: Patient was seen and examined at bedside and overnight events noted. Patient denies any shortness of breath or chest pain or palpitation. No history of nausea or vomiting or diarrhea or fever or chills or cramps. OBJECTIVE: GENERAL: This is a well-built female, in no apparent distress. VITAL SIGNS: Temperature 97, heart rate 94, respiratory rate 18, blood pressure 163/103. HEENT: Atraumatic, normocephalic. Oral mucosa is moist NECK: Supple. CARDIOVASCULAR: S1, S2 heard. Rate and rhythm regular. RESPIRATORY: Clear to auscultation. GASTROINTESTINAL: Abdomen is soft. MUSCULOSKELETAL: No tenderness. No edema. DERMATOLOGIC: No skin rash. NEUROLOGIC: Alert and awake and oriented X3. No focal neurologic deficits. Moving all the extremities. PSYCHIATRIC: Mood and affect normal. LABORATORY DATA: Potassium 4.6, BUN is 16, and creatinine is 5.3. ASSESSMENT AND PLAN: 1. End-stage renal disease, continue dialysis. 2. Anemia. 3. Edema. 4. Hypokalemia. 5. Hypertension. 6. History of lupus nephritis. Continue on dialysis as tolerated, Friday, Friday, Friday. Job ID: [id number]
--- NOTE | 2019-01-21 11:02 | ULT ---
LIMITED ABDOMINAL ULTRASOUND: HISTORY: Evaluate for ascites. COMPARISON: Limited ultrasound from 01/07/2018. FINDINGS: The hematoma of the right abdominal wall persist. There is small volume fluid within the pelvis. IMPRESSION: Small volume fluid, not enough for paracentesis. POS: [facility]
--- NOTE | 2019-01-21 11:04 | PDOC.PN ---
- Subjective Encounter Start Date: 01/21/19 Encounter Start Time: 10:30 Subjective: Patient examined today -: Reports nausea, reports recent history of watery diarrhea and -: dark colored stools for several days. Reports feeling SOB with exertion - Objective Vital Signs & Weight: Vital Signs (12 hours) Temp Pulse Resp BP BP Pulse Ox 01/21/19 08:47 94 163/103 H 01/21/19 08:46 163/103 H 01/21/19 08:00 97.6 F 94 18 163/103 H 98 01/21/19 03:53 99.7 F H 97 20 165/105 H 97 01/21/19 00:00 99.0 F 107 H 20 154/105 H 92 L Weight Weight 47.128 kg I&O: 01/20/19 01/21/19 01/22/19 06:59 06:59 06:59 Output Total 6300 Balance -6300 Result Diagrams: 01/21/19 04:24 01/21/19 04:24 Phys Exam - Physical Examination HEENT: PERRLA, moist MMs Neck: no nodes, no JVD Respiratory: clear to auscultation bilateral Cardiovascular: RRR Gastrointestinal: soft, positive bowel sounds mild distension noted Musculoskeletal: no edema, pulses present Neurological: non-focal, normal sensation, moves all 4 limbs Lymphatic: no nodes Psychiatric: normal affect, A&O x 3 Skin: no rash, normal turgor, cap refill <2 seconds Dx/Plan (1) [place] (dyspnea on exertion) Code(s): R06.09 - OTHER FORMS OF DYSPNEA Status: Acute (2) Hyponatremia Code(s): E87.1 - HYPO-OSMOLALITY AND HYPONATREMIA Status: Acute (3) Abdominal pain Code(s): R10.9 - UNSPECIFIED ABDOMINAL PAIN Status: Acute Comment: resolved with paracentesis, Will send Ascitis fluid for culture. (4) Anemia of renal disease Code(s): D63.1 - ANEMIA IN CHRONIC KIDNEY DISEASE Status: Chronic (5) CAD (coronary artery disease) Code(s): I25.10 - ATHSCL HEART DISEASE OF [place] CORONARY ARTERY W/O ANG PCTRS Status: Chronic (6) Cardiomegaly Code(s): I51.7 - CARDIOMEGALY Status: Chronic (7) ESRD (end stage renal disease) on dialysis Code(s): N18.6 - END STAGE RENAL DISEASE; Z99.2 - DEPENDENCE ON RENAL DIALYSIS Status: Chronic (8) Lupus Code(s): M32.9 - SYSTEMIC LUPUS ERYTHEMATOSUS, UNSPECIFIED Status: Chronic Comment: Patient Follows with a rhematology outpaitent. No exacerbation noted. (9) Nausea & vomiting Code(s): R11.2 - NAUSEA WITH VOMITING, UNSPECIFIED Status: Acute (10) Diarrhea Code(s): R19.7 - DIARRHEA, UNSPECIFIED Status: Acute - Plan cont current plan of care, PT/OT, DVT proph w/SCDs Will have dialysis tomorrow, Dr. Flores is following -: Added occult and micro stool tests for dark tools with watery diarrhea -: Patient reports nausea, which is chronic -: Will repeat labs in AM, Serial H&H today, monitor VS * .
[2019-01-21] MEDS: Ondansetron PF 4 MG/2 ML Vial IVP PRN ×2 (14:03→20:27)
[2019-01-21 14:04] LABS: Hemoglobin 10.2 g/dL (12.0-16.0)
--- NOTE | 2019-01-21 15:27 | HP ---
Admitted to [facility] through [facility] through [facility]. CHIEF COMPLAINT: Shortness of breath and abdominal distention. PAST MEDICAL HISTORY: Pertinent for end-stage renal disease, systemic lupus erythematosus with nephritis leading to end-stage renal disease, hypertension, and migraine headaches. The patient was seen in the emergency room on 01/20 complaining of shortness of breath. PHYSICAL EXAMINATION: VITAL SIGNS: Her blood pressure was 171/107, pulse 86, respirations 24 with an O2 saturation of 99 on room air. LUNGS AND HEART: Her initial physical exam per Mary Quintero revealed clear chest without wheezes or rhonchi. Regular rate and rhythm. I have confirmed those on my present exam. ABDOMEN: While mildly protuberant demonstrates no shifting dullness, is in fact tympanitic. LABORATORY DATA: Her chest x-ray showed no significant pulmonary vascular congestion. Ultrasound has been done that shows no significant ascites. The patient is having hemodialysis per Dr. Flores. Her hemoglobin is adequate at 10. Her chemistries are balanced. The patient is insistent that there is no wrong with her that we know. It is my impression that she will be resistant to discharge. We will discuss further with Nitza Linares, nurse practitioner. Job ID: [id number]
[2019-01-21] MEDS ORDERED: Amlodipine 5 MG TAB PO SCH (15:30)
[2019-01-21 20:30] LABS: Hemoglobin 10.5 g/dL (12.0-16.0)
[2019-01-21] MEDS: ALPRAZolam 1 MG TAB PO PRN (20:35)
[2019-01-22] MEDS: cloNIDine 0.3 MG TAB PO SCH ×4 (00:28→21:41)
[2019-01-22 05:06] LABS: #Eosinphils 0.2 thou/uL (0.0-0.7); #Lymphocytes 0.9 thou/uL (1.20-3.40); #Monocytes 0.7 thou/uL (0.11-0.59); #Neutrophils 7.4 thou/uL (1.40-6.50); %Basophils 0.3 % (0.0-1.0); %Eosinophils 2.1 % (0.0-10.0); %Lymphocytes 9.7 % (21.0-51.0); %Monocytes 7.8 % (0.0-10.0); %Neutrophils 80.2 % (42.0-75.0); Hemoglobin 9.1 g/dL (12.0-16.0); Mean Corpuscular HGB CONC 31.1 g/dL (32.0-36.0); Mean Corpuscular Hemoglobin 28.5 pg (27.0-31.0); Mean Corpuscular Volume 91.6 fL (78.0-98.0); Mean Platelet Volume 8.6 fL (7.4-10.4); Platelet Count 301 thou/uL (130-400); RBC Distribution Width 16.2 % (11.5-14.5); Red Blood Cell (RBC) Count 3.19 mill/uL (4.20-5.40); White Blood Cell (WBC) Count 9.2 thou/uL (4.8-10.8)
[2019-01-22 05:36] LABS: ALT (SGPT) Less than 7 U/L (8-55); AST (SGOT) 8 U/L (5-34); Albumin 2.6 g/dL (3.5-5.0); Alkaline Phosphatase 81 U/L (40-150); Anion Gap 17 mmol/L (10-20); BUN (Urea Nitrogen) 25 mg/dL (7.0-18.7); Bilirubin, Total 1.4 mg/dL (0.2-1.2); Calc. Creatinine Clearance 8 mL/min (70-130); Carbon Dioxide 25 mmol/L (22-29); Chloride 90 mmol/L (98-107); Estimated GFR-MDRD 8; Globulin 5.1 g/dL (2.4-3.5); Glucose 78 mg/dL (70-105); Potassium 3.5 mmol/L (3.5-5.1); Protein, Total 7.7 g/dL (6.0-8.3); Sodium 128 mmol/L (136-145)
--- NOTE | 2019-01-22 09:02 | PRG ---
DATE OF SERVICE: 01/22/2019 SUBJECTIVE: Patient was seen and examined at bedside and overnight events noted. Patient denies any shortness of breath or chest pain or palpitation. No history of nausea or vomiting or diarrhea or fever or chills or cramps. OBJECTIVE: GENERAL: This is a well-built female in no apparent distress. VITAL SIGNS: Temperature 98. Pulse . Blood pressure 125/79. HEENT: Atraumatic, normocephalic. Oral mucosa is moist NECK: Supple. CARDIOVASCULAR: S1, S2 heard. Rate and rhythm regular. RESPIRATORY: Clear to auscultation. GASTROINTESTINAL: Abdomen is soft. MUSCULOSKELETAL: No tenderness. No edema. DERMATOLOGIC: No skin rash. NEUROLOGIC: Alert and awake and oriented X3. No focal neurologic deficits. Moving all the extremities. PSYCHIATRIC: Mood and affect normal. LABORATORY DATA: Potassium is 3.5, BUN is 25, creatinine is 6.9. Hemoglobin is 9.1. ASSESSMENT AND PLAN: 1. End-stage renal disease. Continue dialysis on Friday, Friday, and Friday. 2. Anemia, status post transfusion. 3. Hypokalemia, stable. 4. Hypertension. 5. History of lupus nephritis. Plan is to continue on dialysis as tolerated. Job ID: [id number]
[2019-01-22] MEDS ORDERED: Metoprolol Tartrate 100 MG TAB PO SCH (14:00)
[2019-01-22] MEDS ORDERED: Amlodipine 10 MG TAB PO SCH (14:00)
[2019-01-22] MEDS ORDERED: Hydroxychloroquine Sulfate 200 MG TAB PO SCH (14:00)
[2019-01-22] MEDS ORDERED: Folic Acid 1 MG TAB PO SCH (14:00)
[2019-01-22] MEDS ORDERED: cloNIDine 0.3 MG TAB PO SCH (14:00)
[2019-01-22] MEDS ORDERED: Famotidine 20 MG TAB PO SCH (14:00)
[2019-01-22] MEDS: Amlodipine 10 MG TAB PO SCH (14:18)
[2019-01-22] MEDS: Folic Acid 1 MG TAB PO SCH (14:20)
[2019-01-22] MEDS: Famotidine 20 MG TAB PO SCH ×2 (14:20→21:41)
[2019-01-22] MEDS: hydrALAZINE 25 MG TAB PO SCH ×3 (14:20→21:40)
[2019-01-22] MEDS: Hydroxychloroquine Sulfate 200 MG TAB PO SCH (14:21)
[2019-01-22] MEDS: Metoprolol Tartrate 100 MG TAB PO SCH ×2 (14:21→21:40)
[2019-01-22] MEDS: Ondansetron PF 4 MG/2 ML Vial IVP PRN ×2 (14:23→21:48)
--- NOTE | 2019-01-22 18:49 | PRG ---
DATE OF SERVICE: 01/22/2019 SUBJECTIVE: The patient is seen and examined at the bedside. She just finished her dialysis, and today, she complains about shortness of breath on exertion, abdominal discomfort, and abdominal pain. She is not able to keep much down, she gets nauseated and she vomits on and off. OBJECTIVE: VITAL SIGNS: Blood pressure is 125/77, pulse is 98, temperature is 98.3, respiratory rate is 16, O2 saturation is 98% on room air. HEENT: Head is atraumatic, normocephalic. Eyes are PERRLA. Sclerae are nonicteric. Conjunctivae, palish. Oral mucosa is moist. NECK: Supple. LUNGS: Clear. HEART: S1, S2 normal. No S3. No S4. ABDOMEN: Distended, tender to palpation in the midportion and epigastric area. No guarding. No masses. Ascites present. EXTREMITIES: No clubbing, cyanosis, or edema. NEUROLOGICAL: She is alert and oriented x4. There is no any motor or sensory deficits present. Cranial nerves are intact. LABORATORY DATA: Labs showed white count of 9.2, hemoglobin 9.1, hematocrit 29.2, platelet count 301,000. Sodium of 128, potassium 3.5, chloride 90, CO2 of 25, BUN 25, creatinine 6.9, total bilirubin 1.4, ALT less than 7, alkaline phosphatase 81, albumin 2.6, globulin 5.1, C-reactive protein 15.60. Microbiology, none. IMPRESSION: 1. Shortness of breath and abdominal distention, most likely related to some ascites based on ultrasound findings. There is not much fluid in the peritoneal cavity. Apparently, she had some paracentesis done, which showed some blood in the fluid, and some other time, she was denied to have paracentesis because of the apparent clot and the paracentesis was not done. We are going to obtain a CT of the abdomen and pelvis without contrast to obtain more information about her current abdominal status. 2. End-stage renal disease, on hemodialysis 3 times a week. 3. Systemic lupus erythematosus with nephritis leading to end-stage renal disease. 4. Hypertension. 5. Migraine headaches. PLAN: As mentioned above, we are going to continue her current lactic medications. Job ID: [id number]
--- NOTE | 2019-01-22 18:58 | CT ---
CT ABDOMEN AND PELVIS WITHOUT CONTRAST 01/22/19 HISTORY: Abdominal pain. Abdominal distention. COMPARISON: Ultrasound 01/21/19. FINDINGS: A large calcified mass along the right coronary artery appears to be partially thrombosed measuring u p to 5.7 cm in length, similar. Small pericardial effusion. Heart size is enlarged. Mild atelectasis in the lung bases. Severe vascular calcifications. IMPRESSION: Hematoma on the right hemiabdomen has become somewhat more liquified than the prior examination. The re is a small volume ascites. There is some high density material within the right pericolic gutter s uggesting some hemorrhage, possibly resolving. Extensive arterial medial sclerosis. No dilated loops of large or small bowel. Small fat containing supraumbilical hernia. Noncontrast evaluation of the spleen, pancreas and liver are all unremarkable. There is cholelithias is. Extensive third spacing fluid. IMPRESSION: 1. Small to mild volume ascites. 2. 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 3. Severe arterial medial sclerosis. 4. Liquefying hematoma along the right hemiabdomen. 5. Very small volume of high density material within the right cul-de-sac suggesting some residu al hematocrit from prior hemorrhage. POS: [facility]
[2019-01-22] MEDS: ALPRAZolam 1 MG TAB PO PRN (21:41)
[2019-01-22] MEDS: Ondansetron ODT 4 MG TAB PO PRN (21:46)
[2019-01-23 08:45] LABS: #Eosinphils 0.1 thou/uL (0.0-0.7); #Lymphocytes 0.9 thou/uL (1.20-3.40); #Monocytes 0.7 thou/uL (0.11-0.59); #Neutrophils 7.1 thou/uL (1.40-6.50); %Basophils 0.2 % (0.0-1.0); %Eosinophils 1.3 % (0.0-10.0); %Lymphocytes 10.3 % (21.0-51.0); %Monocytes 8.4 % (0.0-10.0); %Neutrophils 79.8 % (42.0-75.0); Hemoglobin 9.2 g/dL (12.0-16.0); Mean Corpuscular HGB CONC 30.8 g/dL (32.0-36.0); Mean Corpuscular Hemoglobin 28.4 pg (27.0-31.0); Mean Corpuscular Volume 92.4 fL (78.0-98.0); Mean Platelet Volume 8.1 fL (7.4-10.4); Platelet Count 301 thou/uL (130-400); RBC Distribution Width 16.1 % (11.5-14.5); Red Blood Cell (RBC) Count 3.23 mill/uL (4.20-5.40); White Blood Cell (WBC) Count 8.9 thou/uL (4.8-10.8)
[2019-01-23 09:04] LABS: ALT (SGPT) Less than 7 U/L (8-55); AST (SGOT) 8 U/L (5-34); Albumin 2.6 g/dL (3.5-5.0); Alkaline Phosphatase 86 U/L (40-150); Anion Gap 13 mmol/L (10-20); BUN (Urea Nitrogen) 17 mg/dL (7.0-18.7); Bilirubin, Total 1.3 mg/dL (0.2-1.2); Calc. Creatinine Clearance 11 mL/min (70-130); Carbon Dioxide 28 mmol/L (22-29); Chloride 92 mmol/L (98-107); Estimated GFR-MDRD 11; Globulin 5.3 g/dL (2.4-3.5); Glucose 78 mg/dL (70-105); Potassium 3.9 mmol/L (3.5-5.1); Protein, Total 7.9 g/dL (6.0-8.3); Sodium 129 mmol/L (136-145)
[2019-01-23] MEDS: Metoprolol Tartrate 100 MG TAB PO SCH ×2 (09:31→21:17)
[2019-01-23] MEDS: Famotidine 20 MG TAB PO SCH ×2 (09:31→21:16)
[2019-01-23] MEDS: hydrALAZINE 25 MG TAB PO SCH ×3 (09:32→21:16)
[2019-01-23] MEDS: Folic Acid 1 MG TAB PO SCH (09:32)
[2019-01-23] MEDS: cloNIDine 0.3 MG TAB PO SCH ×3 (09:32→21:11)
[2019-01-23] MEDS: Ondansetron PF 4 MG/2 ML Vial IVP PRN ×2 (09:33→18:48)
[2019-01-23] MEDS: Hydroxychloroquine Sulfate 200 MG TAB PO SCH (09:33)
[2019-01-23] MEDS: Amlodipine 10 MG TAB PO SCH (09:33)
--- NOTE | 2019-01-23 11:41 | PRG ---
DATE OF SERVICE: 01/23/2019 SUBJECTIVE: Patient was seen and examined at bedside and overnight events noted. Patient denies any shortness of breath or chest pain or palpitation. No history of nausea or vomiting or diarrhea or fever or chills or cramps. OBJECTIVE: GENERAL: This is a thin-built female, in no apparent distress. VITAL SIGNS: Temperature 97.8. Heart rate 83. Respiratory rate 18. Blood pressure 119/74. HEENT: Atraumatic, normocephalic. Oral mucosa is moist NECK: Supple. CARDIOVASCULAR: S1, S2 heard. Rate and rhythm regular. RESPIRATORY: Clear to auscultation. GASTROINTESTINAL: Abdomen is soft. MUSCULOSKELETAL: No tenderness. No edema. DERMATOLOGIC: No skin rash. NEUROLOGIC: Alert and awake and oriented X3. No focal neurologic deficits. Moving all the extremities. PSYCHIATRIC: Mood and affect normal. LABORATORY DATA: Potassium is 3.9, BUN is 17, creatinine is 5.2. ASSESSMENT AND PLAN: 1. End-stage renal disease. Continue on hemodialysis as tolerated. 2. Anemia. 3. Hypokalemia. 4. Hypotension. 5. Lupus nephritis. Continue dialysis on Friday, Friday, and Friday. Job ID: [id number]
--- NOTE | 2019-01-23 13:10 | PDOC.PN ---
- Subjective Encounter Start Date: 01/23/19 (f/u abdominal swelling) Encounter Start Time: 13:08 Subjective: Pt reports the pain is about the same. Denies n/v. Reports chronic -: diarrhea, however normal BM today. Denies any change with dialysis -: with abd sx. - Objective Vital Signs & Weight: Vital Signs (12 hours) Temp Pulse Resp BP Pulse Ox 01/23/19 08:48 98.0 F 83 16 127/80 93 L 01/23/19 04:00 97.8 F 83 18 119/74 98 Weight Weight 106 lb 3.2 oz I&O: 01/22/19 01/23/19 01/24/19 06:59 06:59 06:59 Intake Total 800 Balance 800 Result Diagrams: 01/23/19 08:26 01/23/19 08:26 EKG Reviewed by me: Yes (sinus 80's) Phys Exam - Physical Examination Constitutional: NAD Respiratory: no wheezing, no rales, no rhonchi Cardiovascular: RRR, no significant murmur Gastrointestinal: soft, positive bowel sounds distended with reducible umbilical hernia ttp along the right side of abdomen Musculoskeletal: no edema Neurological: non-focal Psychiatric: normal affect Dx/Plan (1) Abdominal distension Code(s): R14.0 - ABDOMINAL DISTENSION (GASEOUS) Status: Chronic (2) Cardiac mass Code(s): I51.89 - OTHER ILL-DEFINED HEART DISEASES Status: Acute (3) ESRD (end stage renal disease) Code(s): N18.6 - END STAGE RENAL DISEASE Status: Chronic (4) Anemia Code(s): D64.9 - ANEMIA, UNSPECIFIED Status: Chronic Qualifiers: Chronic kidney disease stage: on chronic dialysis (5) Lupus Code(s): M32.9 - SYSTEMIC LUPUS ERYTHEMATOSUS, UNSPECIFIED Status: Chronic Qualifiers: Systemic lupus erythematosus type: unspecified Systemic lupus erythematosus organ involvement: glomerular disease Qualified Code(s): M32.14 - Glomerular disease in systemic lupus erythematosus - Plan * Abnormal CT scan - 5.7 cm mass along the right coronary artery - echo ordered and Cardiology consult * LINA pending * Appreciate Nephro consult - on HD * * Small amount of ascites on CT scan - uncertain etiology of the distension - pt does have extensive arterial medial sclerosis, and an abdominal wall hematoma. * * hx of diarrhea - stool studies completed today are negative - culture, lactoferrin, giardia, and occult blood. If pt has loose stools again will need c diff testing as well. * * dvt prophy - scd's and ambulatory * gi prophy - not indicated * code status full * * reviewed the abnormality on CT scan with patient - that I'm uncertain of what this is or what is needed to further evaluate - the reason for Cardiology evaluation.
[2019-01-23] MEDS ORDERED: Acetaminophen 325 MG TAB PO PRN (15:58)
--- NOTE | 2019-01-23 21:03 | CON ---
DATE OF CONSULTATION: 01/23/2019 REASON FOR CONSULTATION: Cardiac mass. PRIMARY RIGGING FOREMAN: Adarsh Sandoval MD. HISTORY OF PRESENT ILLNESS: Ms. Vogt is a pleasant 39-year-old female, who comes to the hospital for abdominal pain. She was found to have blood in her abdomen. She gets through a paracentesis on a regular basis for accumulation of fluid. She was seen by Dr. Sandoval back in October of last year for an abnormal CT scan with a pericardial mass. This was thought to be either an aneurysm of the right coronary versus posterior wall ventricular aneurysm. CT Surgery was consulted. Decision was made to leave this alone as it is not bothering and she is not a good candidate for excision anyway. I am being asked to give my opinion on this mass. Looking at the CT, it is unchanged from the last one back in October as well as in December. She has a calcified rim around it. There is some contrast going into the mass suggestive that this could still be just an aneurysm of the coronary versus an aneurysm of the LV versus RV. Currently, this is not causing any symptoms. She is not a candidate for anticoagulation given her blood in her abdomen and her anemia that required blood transfusions. PAST MEDICAL HISTORY: 1. Lupus. 2. End-stage renal disease, on hemodialysis. 3. Noncompliance. 4. Peripheral vascular disease. 5. Hypertension. 6. Migraine headaches. SOCIAL HISTORY: No alcohol, tobacco, or drugs. PAST SURGICAL HISTORY: 1. Renal biopsy. 2. Bilateral tubal ligation. 3. Right fistula. OUTPATIENT MEDICATIONS: 1. Tramadol. 2. Hydralazine 100 mg t.i.d. 3. Clonidine 0.3 t.i.d. 4. Metoprolol tartrate 100 mg b.i.d. 5. Plaquenil 200 mg a day. 6. Folic acid 1 mg a day. 7. Alprazolam 1 mg t.i.d. ALLERGIES: NO KNOWN DRUG ALLERGIES. FAMILY HISTORY: Noncontributory. REVIEW OF SYSTEMS: A 12-point review of systems was done and was all negative unless stated in the history of present illness. PHYSICAL EXAMINATION: VITAL SIGNS: Temperature 98.1, pulse 86, respiratory rate 16, saturating 97% on room air, and blood pressure 102/61. GENERAL: Awake, alert, and oriented x3, in no distress. HEENT: Normocephalic and atraumatic. NECK: Supple. LUNGS: Clear. CARDIOVASCULAR: S1 and S2. No S3 or S4. No murmurs. ABDOMEN: Soft. Positive bowel sounds. Tender to palpation. No rebound or guarding. EXTREMITIES: No edema. SKIN: Warm and dry. LABORATORY DATA: Laboratory work was reviewed. Hemoglobin on admission was 6.9; after transfusion, it went up to 10.5, has been slowly trickling down and down to 9.2 now. Coags were reviewed. Chemistries were reviewed. Sodium was low. Serologies, hep B surface antigen was nonreactive. ASSESSMENT AND PLAN: 1. 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 She is not a candidate for an excision as this is really not an issue for her and she is very ill and this would be a very morbid procedure for her. I would continue to monitor with CTAs probably every 6 months to year. 2. Further recommendations per Dr. Sandoval. Job ID: [id number]
[2019-01-23] MEDS: ALPRAZolam 1 MG TAB PO PRN (21:17)
[2019-01-24 07:37] VITALS: TEMP 97.8
[2019-01-24] MEDS: Metoprolol Tartrate 100 MG TAB PO SCH (08:42)
[2019-01-24] MEDS: Amlodipine 10 MG TAB PO SCH (08:42)
[2019-01-24] MEDS: hydrALAZINE 25 MG TAB PO SCH ×2 (08:43→14:56)
[2019-01-24] MEDS: Hydroxychloroquine Sulfate 200 MG TAB PO SCH (08:43)
[2019-01-24] MEDS: Famotidine 20 MG TAB PO SCH (08:43)
[2019-01-24] MEDS: Folic Acid 1 MG TAB PO SCH (08:44)
[2019-01-24] MEDS: cloNIDine 0.3 MG TAB PO SCH ×2 (08:44→14:56)
[2019-01-24] MEDS: Ondansetron PF 4 MG/2 ML Vial IVP PRN (08:49)
--- NOTE | 2019-01-24 13:51 | PRG ---
DATE OF SERVICE: 01/24/2019 SUBJECTIVE: Patient was seen and examined at bedside and overnight events noted. Patient denies any shortness of breath or chest pain or palpitation. No history of nausea or vomiting or diarrhea or fever or chills or cramps. OBJECTIVE: GENERAL: This is a well-built female, in no apparent distress. VITAL SIGNS: Temperature 97.8. Pulse 84. Respiratory rate 18. Blood pressure 109/64. HEENT: Atraumatic, normocephalic. Oral mucosa is moist NECK: Supple. CARDIOVASCULAR: S1, S2 heard. Rate and rhythm regular. RESPIRATORY: Clear to auscultation. GASTROINTESTINAL: Abdomen is soft. MUSCULOSKELETAL: No tenderness. No edema. DERMATOLOGIC: No skin rash. NEUROLOGIC: Alert and awake and oriented X3. No focal neurologic deficits. Moving all the extremities. PSYCHIATRIC: Mood and affect normal. LABORATORY DATA: Potassium 3.9, BUN is 17, and creatinine is 5.2. ASSESSMENT AND PLAN: 1. End-stage renal disease. Continue on hemodialysis as tolerated. 2. Anemia. Monitor hemoglobin. 3. Hypokalemia. 4. Hypotension. 5. Lupus nephritis. Plan is to continue on dialysis as tolerated. Advised to limit salt and fluid intake. Job ID: [id number]
[2019-01-24 14:58] VITALS: BP 115/70
--- NOTE | 2019-01-24 15:11 | DIS ---
DATE OF ADMISSION: 01/20/2019 DATE OF DISCHARGE: 01/24/2019 ADMISSION DIAGNOSES: 1. Ascites. 2. Anemia. 3. End-stage renal disease. 4. Hypertension. FINAL DIAGNOSES: 1. Abdominal distention. 2. Cardiac mass. 3. End-stage renal disease. 4. Anemia. 5. Lupus. 6. Shortness of breath, related most likely to abdominal distention. 7. Migraine headaches. 8. Severe arterial medial sclerosis. 9. Liquefying hematoma along the right javier abdomen. CONSULTANTS: 1. Dr. Flores, Nephrology Service. 2. Dr. Ayala, Cardiology Service. HOSPITAL COURSE: The patient is a 39-year-old female with a background history of end-stage renal disease, on dialysis, and lupus, who presented with complaints of increased shortness of breath as well as abdominal distention for the last 4-5 days. Apparently, she has been compliant with dialysis on Mondays, Wednesdays, and Fridays. She had required multiple paracenteses in the past approximately every 3 weeks. However, she experienced hemorrhage with the last attempt and therefore she did not undergo paracenteses. Approximately 1 week ago, she was told that there was subcutaneous hematoma. She had continued to have increased abdominal girth with tight distention. She stated that it had began causing difficulty with her breathing, which was associated with some cough. She denied any chest pain. She denied any hemoptysis. She did not have any fever or chills. She reported some watery stools and on one occasion she noticed very dark black stool. There was no any bright red blood per rectum. She denied any hematemesis. The patient was evaluated in the emergency room. Her hemoglobin was 6.9, hematocrit was 22.3, and platelet count was 329. PT was 16.9, INR 1.4. Sodium of 131, potassium 3.4, chloride 98, BUN 28, creatinine 8.48, total bilirubin 1.4, AST 12, ALT less than 7, alkaline phosphatase 96. BNP was 3419.6. Hepatitis B antigen was nonreactive. Chest x-ray showed cardiomegaly and borderline pulmonary vascular congestion. There was no any lobar consolidation, no evidence of pneumothorax, so the working diagnosis was ascites and the plan was to do paracentesis the next day. Also, she was found to be anemic and she received 2 units of packed red blood cells while undergoing dialysis. Ultrasound was done on her abdomen and showed small volume fluid not enough for paracentesis. She has been insisting on having paracentesis, so subsequently, she had CT of the abdomen and pelvis done which showed small to mild volume ascites along with size unchanged partially thrombosed mass like pseudoaneurysm of the right coronary artery along with severe arterial medial sclerosis, liquefying hematoma along the right javier abdomen and very small volume of high-density material within the right cul-de-sac suggesting some residual hematocrit from the prior hemorrhage. Because of the above findings, the manufacturing technician was consulted and Dr. Ayala saw the patient, who felt that this was evaluated before by Dr. Sandoval on outpatient basis and this was either right coronary artery aneurysm versus posterior wall aneurysm. The patient was stable and he made decision about following up with CT angiogram every 6 months to a year and follow up with Dr. Sandoval, her primary manufacturing technician. After blood transfusion and dialysis supervised by Dr. Flores, her hemoglobin level is around 9.2. Her CT of the abdomen and pelvis showed liquefying and getting organized hematoma in the right side of the abdomen, which is most likely responsible for some distention of her abdomen, but clinically she is doing fine. She complained about some loose and watery stools, but during this hospitalization, she had just one normal bowel movement. Her labs showed negative stool culture, negative for Campylobacter antigen assay, negative for lactoferrin in the stool, negative for E. coli in the stool, negative for guaiac in the stool, and Clostridium difficile was not performed since her stool was formed. The patient is doing quite well. Her blood pressure is 109/64, temperature is 97.8, O2 saturation is 95%, and her respiratory rate is 18. During this hospitalization, she was started on amlodipine 10 mg for her blood pressure and she is discharged on a renal diet, activities as tolerated. DISCHARGE MEDICATIONS: 1. Tramadol 50 mg tablets q.6 hours p.r.n. 2. Hydralazine 100 mg three times a day. 3. Clonidine 0.3 mg three times a day. 4. Metoprolol tartrate 100 mg twice a day. 5. Plaquenil 200 mg once a day. 6. Folic acid 1 mg once a day. 7. Alprazolam 1 mg t.i.d. p.r.n. 8. As I mentioned above, amlodipine 10 mg once a day. DISCHARGE INSTRUCTIONS: She is going to follow up with her primary care physician in 1 week and she will follow up with Dr. Sandoval with every [address] angiogram for her cardiac findings. She was examined and evaluated before she is discharged and the discharge time is less than 30 minutes. Job ID: [id number]
[2019-01-26 07:47] LABS: ANA Symphony (Qualitative) POSITIVE (Negative); CENP IgG Antibody 1.1 EliAU/mL (<7 Negative); Jo-1 IgG Antibody 0.7 EliAU/mL (<7 Negative); RNP70 IgG Antibody 0.6 EliAU/mL (<7 Negative); SSA/Ro IgG Antibody Greater than 240.0 EliAU/mL (<7 Negative); SSB/La IgG Antibody 1.1 EliAU/mL (<7 Negative); Scleroderma-70 IgG Antibody 1.4 EliAU/mL (<7 Negative); Smith D IgG Antibody 2.8 EliAU/mL (<7 Negative)
== END 2019-01-24 15:14 | disposition home or self-care (01) | DRG 682 ==
LOC: ERS 11:20 → 2NO 14:50
PROVIDERS: ADMIT Internal Medicine; ATTEND Internal Medicine
PROC: 30233N1 Transfusion of Nonautologous Red Blood Cells into Peripheral Vein, Percutaneous Approach (ICD-10-PCS; principal; 2019-01-20)
PROC: 5A1D70Z Performance of Urinary Filtration, Intermittent, Less than 6 Hours Per Day (ICD-10-PCS; 2019-01-22)
DX: I12.0 Hypertensive chronic kidney disease with stage 5 chronic kidney disease or end stage renal disease (principal); N18.6 End stage renal disease; R18.8 Other ascites; E87.1 Hypo-osmolality and hyponatremia; M32.14 Glomerular disease in systemic lupus erythematosus; D63.1 Anemia in chronic kidney disease; E87.6 Hypokalemia; G43.909 Migraine, unspecified, not intractable, without status migrainosus; I25.41 Coronary artery aneurysm; M79.81 Nontraumatic hematoma of soft tissue; Z99.2 Dependence on renal dialysis; I25.2 Old myocardial infarction; Z95.5 Presence of coronary angioplasty implant and graft; Z79.899 Other long term (current) drug therapy
CPT/HCPCS: 36415; 36430; 71045; 74176; 76705; 80048; 80053; 82274; 83630; 83690; 83880; 85025; 85610; 85652; 85730; 86038; 86140; 86225; 86235; 86850; 86900; 86901; 87045; 87046; 87340; 87449; 87899; 90935; 93005; 93306; G0257; J2405; J3490; P9016; Q0162; Q4081

== ENCOUNTER 2019-02-01 17:27 | Emergency (ER) | payer MEDICARE, MEDICAID ==
[2019-02-01 17:59] LABS: #Eosinphils 0.1 thou/uL (0.0-0.7); #Lymphocytes 0.9 thou/uL (1.20-3.40); #Monocytes 0.4 thou/uL (0.11-0.59); #Neutrophils 7.2 thou/uL (1.40-6.50); %Basophils 0.1 % (0.0-1.0); %Eosinophils 1.7 % (0.0-10.0); %Neutrophils 83.2 % (42.0-75.0); Hemoglobin 8.2 g/dL (12.0-16.0); Mean Corpuscular HGB CONC 30.1 g/dL (32.0-36.0); Mean Corpuscular Hemoglobin 27.5 pg (27.0-31.0); Mean Corpuscular Volume 91.4 fL (78.0-98.0); Mean Platelet Volume 8.4 fL (7.4-10.4); Platelet Count 319 thou/uL (130-400); RBC Distribution Width 16.3 % (11.5-14.5); Red Blood Cell (RBC) Count 2.97 mill/uL (4.20-5.40); White Blood Cell (WBC) Count 8.6 thou/uL (4.8-10.8)
[2019-02-01 18:20] LABS: ALT (SGPT) Less than 7 U/L (8-55); AST (SGOT) 11 U/L (5-34); Albumin 2.9 g/dL (3.5-5.0); Alkaline Phosphatase 147 U/L (40-150); Anion Gap 18 mmol/L (10-20); BUN (Urea Nitrogen) 36 mg/dL (7.0-18.7); CK (CPK) 57 U/L (29-168); Calc. Creatinine Clearance 0 mL/min (70-130); Calcium 7.9 mg/dL (7.8-10.44); Carbon Dioxide 27 mmol/L (22-29); Chloride 92 mmol/L (98-107); Estimated GFR-MDRD 6; Globulin 5.5 g/dL (2.4-3.5); Glucose 81 mg/dL (70-105); Lipase 62 U/L (8-78); Protein, Total 8.4 g/dL (6.0-8.3); Sodium 133 mmol/L (136-145)
--- NOTE | 2019-02-01 18:36 | RAD ---
CHEST ONE VIEW: History: Dyspnea. Comparison: 01-20-19 FINDINGS: There is cardiomegaly. Pulmonary vessels are upper normal. No consolidation or masses. Lungs are hype rinflated. Minimal blunting of the left costophrenic angle. No pneumothorax. Stable stent projects ov er the right lung apex. IMPRESSION: Cardiomegaly without evidence of congestive heart failure. POS: [facility]
== END 2019-02-01 20:56 | disposition home or self-care (01) ==
LOC: ERS 17:27
DX: Z91.15 Patient's noncompliance with renal dialysis (principal); I25.2 Old myocardial infarction; G43.909 Migraine, unspecified, not intractable, without status migrainosus; I12.0 Hypertensive chronic kidney disease with stage 5 chronic kidney disease or end stage renal disease; N18.6 End stage renal disease; Z79.899 Other long term (current) drug therapy
CPT/HCPCS: 36415; 71045; 80053; 82550; 83690; 83880; 84484; 85025; 93005

== ENCOUNTER 2019-02-04 10:34 | Day surgery (SDC) | payer MEDICARE, MEDICAID ==
--- NOTE | 2019-02-04 11:34 | ULT ---
ULTRASOUND ABDOMEN LIMITED: History: Ascites. Comparison: CT 01-23-19 FINDINGS: There is a hematoma in the right lower quadrant of the abdomen. There is small volume of ascites. IMPRESSION: Very small volume ascites, not amendable to drainage. POS: [facility]
== END 2019-02-04 11:00 | disposition home or self-care (01) ==
LOC: ULT 10:34
PROVIDERS: ATTEND Internal Medicine
DX: R18.8 Other ascites (principal); I25.10 Atherosclerotic heart disease of native coronary artery without angina pectoris; I13.0 Hypertensive heart and chronic kidney disease with heart failure and stage 1 through stage 4 chronic kidney disease, or unspecified chronic kidney disease; I50.9 Heart failure, unspecified; N18.6 End stage renal disease; E78.5 Hyperlipidemia, unspecified; G43.909 Migraine, unspecified, not intractable, without status migrainosus; Z99.2 Dependence on renal dialysis; Z53.8 Procedure and treatment not carried out for other reasons; Z79.899 Other long term (current) drug therapy
CPT/HCPCS: 76705

== ENCOUNTER 2019-08-02 01:06 | Inpatient (IN) | payer MEDICARE, MEDICAID ==
[2019-08-02 01:49] LABS: #Eosinphils 0.1 thou/uL (0.0-0.7); #Lymphocytes 1.2 thou/uL (1.20-3.40); #Monocytes 0.1 thou/uL (0.11-0.59); #Neutrophils 3.6 thou/uL (1.40-6.50); %Basophils 0.4 % (0.0-1.0); %Eosinophils 1.4 % (0.0-10.0); %Lymphocytes 24.6 % (21.0-51.0); %Monocytes 2.8 % (0.0-10.0); %Neutrophils 70.8 % (42.0-75.0); Hemoglobin 9.9 g/dL (12.0-16.0); Mean Corpuscular HGB CONC 32.4 g/dL (32.0-36.0); Mean Corpuscular Hemoglobin 33.5 pg (27.0-31.0); Mean Platelet Volume 10.4 fL (7.4-10.4); Platelet Count 123 thou/uL (130-400); Red Blood Cell (RBC) Count 2.96 mill/uL (4.20-5.40)
[2019-08-02 02:19] LABS: ALT (SGPT) 8 U/L (8-55); AST (SGOT) 17 U/L (5-34); Albumin 4.2 g/dL (3.5-5.0); Alkaline Phosphatase 80 U/L (40-150); BUN (Urea Nitrogen) 48 mg/dL (7.0-18.7); Bilirubin, Total 1.8 mg/dL (0.2-1.2); CK (CPK) 170 U/L (29-168); Calc. Creatinine Clearance 0 mL/min (70-130); Calcium 9.1 mg/dL (7.8-10.44); Carbon Dioxide 23 mmol/L (22-29); Chloride 94 mmol/L (98-107); Estimated GFR-MDRD 3; Globulin 3.9 g/dL (2.4-3.5); Glucose 80 mg/dL (70-105); Lipase 49 U/L (8-78); Potassium 5.1 mmol/L (3.5-5.1); Protein, Total 8.1 g/dL (6.0-8.3); Sodium 135 mmol/L (136-145)
[2019-08-02 02:33] LABS: CKMB 3.2 ng/mL (0-6.6)
[2019-08-02 02:36] LABS: Anion Gap 23 mmol/L (10-20)
[2019-08-02] MEDS ORDERED: Nitroglycerin 0.4 MG TAB (25 Tab Bottle) PO PRN (04:32)
[2019-08-02] MEDS ORDERED: hydrALAZINE 20 MG/ML VIAL SLOW IVP PRN (04:32)
[2019-08-02] MEDS ORDERED: Ondansetron ODT 4 MG TAB PO PRN (05:00)
--- NOTE | 2019-08-02 05:08 | HP ---
PRIMARY CARE PHYSICIAN: The patient currently does not have a primary care physician. CHIEF COMPLAINT: Chest pain. HISTORY OF PRESENT ILLNESS: The history of present illness is a bit limited as the patient is bit tired and appears fatigued with giving the same story multiple times. Ms. Vogt is a 39-year-old female, who has a history of end-stage renal disease, on hemodialysis. Also has a history of systemic lupus. She was in her usual state of health until the past week, when she started having pains in her chest, which comes and goes. She says it is in the left side of her chest and moves up into her shoulder and sometimes down into her arm and back. She says that she thought it might have been gas pain. It is sharp and lasts anywhere from 5 to 10 minutes. It gets worse with exertion, but is not necessarily brought on with exertion each time. She also has some nausea and then says that she also noticed some palpitations off and on. She says when she is working around her house like sweeping or doing chores, she will also notice it. She has a history of some type of cardiac mass or aneurysm, which is being followed with serial CT scans. She also says that she had a stress test scheduled for the of this month, not for chest pain but it was for preop evaluation to have an AV fistula repair. Currently, the pain has resolved. REVIEW OF SYSTEMS: CONSTITUTIONAL: There have been no fevers or chills. No night sweats. No weight loss. HEENT: No headaches. No dizziness. No visual changes. No sore throat, rhinorrhea, or neck pain. No adenopathy. PULMONARY: No hemoptysis. No cough. No wheezing. CARDIOVASCULAR: As the history of present illness. GENITOURINARY: No urinary frequency or hematuria. No hesitancy. MUSCULOSKELETAL: No muscle pains, weakness, or joint pains. NEUROLOGIC: No focal weakness or numbness. No seizures. PSYCHIATRIC: No symptoms of anxiety or depression. SKIN AND INTEGUMENT: No skin changes. No rash. PAST MEDICAL HISTORY: Significant for end-stage renal disease, on hemodialysis; systemic lupus; hypertension; and migraine headaches. PAST SURGICAL HISTORY: She has had an AV fistula placed, bilateral tubal ligation, and kidney biopsy. ALLERGIES: NO KNOWN DRUG ALLERGIES. SOCIAL HISTORY: She has 3 children. She is single. She is a nonsmoker and nondrinker. FAMILY HISTORY: Significant for heart disease in her father and mother had lupus. CURRENT MEDICATIONS: Are taken from the ER records and include, 1. Metoprolol 50 mg twice daily. 2. Clonidine 0.3 mg three times a day. PHYSICAL EXAMINATION: GENERAL: She is alert and oriented. She appears to be in no acute distress. VITAL SIGNS: Blood pressure was 164/102, heart rate 100, respiratory rate of 20, and temperature is 98.1. HEENT: Pupils are equal, round, and reactive. Extraocular muscles are intact. Her sclerae are anicteric. Throat, there is no erythema. No exudates. NECK: No adenopathy. No bruits. LUNGS: She has some mild wheezing in the right upper lobe. No rhonchi. CARDIOVASCULAR: She has a normal S1 and S2. I did not appreciate an S3 or S4. No murmurs, clicks, or rubs. ABDOMEN: Soft. It is nontender and nondistended. Positive for bowel sounds. No rebound. No guarding. EXTREMITIES: She has trace pedal edema. No calf tenderness. NEUROLOGIC: The exam is nonfocal. LABORATORY DATA: LABORATORY RESULTS: Sodium is 135, potassium 5.1, chloride is 94, CO2 is 23, BUN of 48, creatinine 15.4, and glucose is 80. Troponin is 0.035. Her white blood cell count is 5.0, hemoglobin 9.9, hematocrit is 30.7, and platelet count is 123. EKG is reported to have no changes, I will need to try to locate the EKG. ASSESSMENT: 1. This is a 39-year-old female, who presents with chest and shoulder pain, likely musculoskeletal in origin, but given her complicated cardiac history, her history of lupus as well as hypertension, she will be ruled out and we will proceed with a stress test and also with an echo. 2. Systemic lupus. This appears to be currently quiescent. However, we can check a complement level in [facility] to see if this could possibly be related to pleurisy from lupus. 3. Hypertension. Her blood pressure appears to be a bit elevated. We will restart her home medications and add p.r.n. medication as needed. This may also need to be titrated. Job ID: [id number]
[2019-08-02] MEDS: Ondansetron PF 4 MG/2 ML Vial IVP PRN (05:53)
[2019-08-02] MEDS: Nitroglycerin 2% Ointment 1 INCH/1 GM Packet TOP SCH ×3 (06:40→20:56)
[2019-08-02] MEDS ORDERED: ADENOSINE 60 MG/20 ML VIAL ONE (07:21)
[2019-08-02 07:33] LABS: Troponin I 0.056 ng/mL (< 0.028)
[2019-08-02 07:36] LABS: Complement-C4 30.3 mg/dL (15-57)
[2019-08-02] MEDS ORDERED: Diazepam 5 MG TAB PO PRN (07:59)
[2019-08-02] MEDS: Famotidine 20 MG TAB PO SCH (09:12)
--- NOTE | 2019-08-02 09:30 | RAD ---
CHEST 1 VIEW: Date: 08/02/19 HISTORY: Chest pain, intermittent. COMPARISON: 02/01/19. FINDINGS: Persistent cardiomegaly. Bilateral vascular congestion with some increased linear and interstitial ma rkings, evidence for minimal pulmonary edema and small pleural effusions. Right-sided vascular stent. IMPRESSION: Cardiomegaly with some minimally progressive vascular congestion and possible mild early edema. Azalea nue short-term follow-up. POS: [facility]
[2019-08-02] MEDS: Heparin 5,000 UNITS/ML VIAL SC SCH ×3 (10:20→20:55)
--- NOTE | 2019-08-02 12:51 | NM ---
EXAM: Nuclear medicine cardiac SPECT with EF and wall motion: HISTORY: Chest pain Protocol: Exam was performed using Lexiscan protocol. The patient is injected with31.1 millicuries of technetium 99m sestamibi intravenously for stress im ages. The patient is injected with10.2 millicuries of technetium 99 sestamibi intravenously for resting shorty ges. Multiple SPECT images are performed in the short axis, vertical long axis, and horizontal long axis. FINDINGS: Evidence for a fixed defect in the inferior posterior wall without evidence for overt ischemia eviden ce for infarct. TID:1.08 LHR:0.44 EDV:105 mL EF:55% Wall motion:Unremarkable IMPRESSION: Evidence for infarct or scar in the inferior posterior wall. No evidence for acute ischemia.
[2019-08-02 14:56] LABS: Troponin I 0.056 ng/mL (< 0.028)
--- NOTE | 2019-08-02 16:27 | CON ---
DATE OF CONSULTATION: 08/02/2019 REASON FOR CONSULTATION: Chest pain and abnormal stress test. PRIMARY [employer]ST[employer]ER AND SERVICER: Adarsh Sandoval MD. HISTORY OF PRESENT ILLNESS: Ms. Vogt is a very pleasant 39-year-old female who comes to the hospital for chest pain. She states she has had chest pain for the last week or two. It comes and goes. Currently, she is about to get set up on dialysis and she is pain free, but she says it comes and goes. She thought it was gas, but she was admitted yesterday for this, ruled out with negative troponins, and a stress test was done earlier today that showed no reversible ischemia, but possible inferior scar, and had inferior hypokinesis with stress. Echocardiogram was done as well and at rest, her inferior wall is normal functioning. Mrs. Vogt states that she continues to have chest pains. PAST MEDICAL HISTORY: 1. Systemic lupus erythematosus. 2. End-stage renal disease, on hemodialysis for the last 7 years. 3. Noncompliance. 4. Peripheral vascular disease. 5. Hypertension. 6. Migraine headaches. 7. 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 8. History of normal heart catheterization back in 2012. SOCIAL HISTORY: No alcohol, tobacco, or drugs. PAST SURGICAL HISTORY: 1. Renal biopsy. 2. Bilateral tubal ligation. 3. Right fistula. 4. Normal heart catheterization in 2012. OUTPATIENT MEDICATIONS: Include; 1. Tramadol. 2. Hydralazine 100 mg t.i.d. 3. Clonidine 0.4 mg b.i.d. 4. Metoprolol tartrate 200 mg b.i.d. 5. Amlodipine 10 mg a day. 6. Alprazolam 1 mg p.o. t.i.d. p.r.n. anxiety. ALLERGIES: NO KNOWN DRUG ALLERGIES. FAMILY HISTORY: Noncontributory. REVIEW OF SYSTEMS: A 12-point review of systems was done and was all negative unless stated in the history of present illness.. PHYSICAL EXAMINATION: VITAL SIGNS: Temperature 97.7, pulse 102, respiratory rate 16, sat 95% on room air, blood pressure 216/119, is as low as 169/101. GENERAL: Awake, alert, oriented x3, in no distress. HEENT: Normocephalic and atraumatic. NECK: Supple. LUNGS: Clear to auscultation. CARDIOVASCULAR: S1 and S2. No S3 or S4. ABDOMEN: Soft. Positive bowel sounds. EXTREMITIES: No edema. Right upper extremity fistula. SKIN: Warm and dry. LABORATORY DATA: Laboratory work was reviewed. White count of 5, hemoglobin 9.9, hematocrit of 30, and platelet count of 123. Chemistries were reviewed with sodium of 135, potassium of 5.1, anion gap of 23, GFR of 3. Troponin was 0.03, 0.05, 0.05 with a BNP of 2822. Lipase of 49 with albumin of 3.9. Echocardiogram showed an EF of 60% to 65% with dilated right ventricle with aortic valve sclerosis. Mild to moderate TR. RVSP was estimated at 71. Small pericardial effusion. Mild AI. Moderate to severe pulmonic regurgitation. Stress test was reviewed, showed no areas of reversible ischemia with an EF of 55%. There is inferior infarct versus scar in the inferior posterior wall. ASSESSMENT: 1. Ongoing chest pain. 2. Abnormal stress test. PLAN: 1. She had a normal heart catheterization about 6 years ago. She has been on dialysis for the last 7 years. She has been having ongoing chest pain for the last 2 weeks and continues to have chest pain at this time. Given her symptoms, I would recommend proceeding with a heart catheterization just to make sure that this is not a coronary issue. The stress test shows inferior scar but no reversible ischemia, but more than likely this just shows diaphragmatic attenuation artifact given normal wall motion on the echo on the inferior wall. I think the reason for the need for heart catheterization is more of her symptoms as even though they are atypical, they are ongoing. 2. We spoke with Ms. Vogt about the risks and benefits of the heart catheterization and she agrees to proceed. Risks included, but are not limited to stroke, NC, , bleeding, need for blood transfusion, limb loss, organ loss, need for emergency bypass surgery, need for emergency aortic surgery. She understands and verbalized understanding of this and agrees to proceed. We also spoke about conscious sedation and she also agrees to proceed with this. Further recommendations per results of coronary angiogram. We will follow. Job ID: [id number] [facility]
[2019-08-02] MEDS: hydrALAZINE 25 MG TAB PO SCH ×2 (16:31→20:54)
[2019-08-02] MEDS: Acetaminophen 325 MG TAB PO PRN (17:36)
[2019-08-02] MEDS: Metoprolol Tartrate 100 MG TAB PO SCH (18:38)
[2019-08-02] MEDS ORDERED: Nitroglycerin 0.4 MG TAB (25 Tab Bottle) ONE (19:03)
[2019-08-02] MEDS ORDERED: Fentanyl 100 MCG/2 ML VIAL SLOW IVP SCH (19:15)
[2019-08-02] MEDS ORDERED: Aspirin 325 MG TAB ONE (19:18)
[2019-08-02] MEDS ORDERED: cloNIDine 0.1 MG TAB PO SCH (19:30)
[2019-08-02] MEDS ORDERED: Aspirin 325 MG TAB PO SCH (19:30)
[2019-08-02] MEDS: cloNIDine 0.2 MG TAB PO SCH (19:30)
[2019-08-02] MEDS ORDERED: hydrALAZINE 20 MG/ML VIAL SLOW IVP SCH (19:30)
[2019-08-02] MEDS ORDERED: Amlodipine 10 MG TAB PO SCH (19:30)
[2019-08-02] MEDS ORDERED: Lorazepam 2 MG/ML VIAL ONE (19:31)
[2019-08-02] MEDS ORDERED: Lorazepam 2 MG/ML VIAL SLOW IVP SCH (19:45)
[2019-08-02 19:48] LABS: Troponin I 0.093 ng/mL (< 0.028)
[2019-08-02 19:51] LABS: #Eosinphils 0.1 thou/uL (0.0-0.7); #Lymphocytes 0.9 thou/uL (1.20-3.40); #Monocytes 0.3 thou/uL (0.11-0.59); #Neutrophils 2.8 thou/uL (1.40-6.50); %Lymphocytes 22.3 % (21.0-51.0); %Monocytes 6.6 % (0.0-10.0); %Neutrophils 68.1 % (42.0-75.0); Hemoglobin 11.4 g/dL (12.0-16.0); Mean Corpuscular HGB CONC 32.7 g/dL (32.0-36.0); Mean Corpuscular Hemoglobin 32.8 pg (27.0-31.0); Platelet Count 124 thou/uL (130-400); RBC Distribution Width 19.7 % (11.5-14.5); Red Blood Cell (RBC) Count 3.47 mill/uL (4.20-5.40); White Blood Cell (WBC) Count 4.2 thou/uL (4.8-10.8)
[2019-08-02 19:52] LABS: Anion Gap 20 mmol/L (10-20); BUN (Urea Nitrogen) 18 mg/dL (7.0-18.7); Calc. Creatinine Clearance 10 mL/min (70-130); Calcium 9.7 mg/dL (7.8-10.44); Carbon Dioxide 26 mmol/L (22-29); Chloride 94 mmol/L (98-107); Estimated GFR-MDRD 8; Glucose 71 mg/dL (70-105); Potassium 3.5 mmol/L (3.5-5.1); Sodium 136 mmol/L (136-145)
--- NOTE | 2019-08-02 20:11 | RAD ---
CHEST ONE VIEW PORTABLE: History: Chest pain. Dialysis. Comparison: 08-02-19 FINDINGS: Cardiomegaly with bilateral vascular congestion. No confluent pneumonia, overt edema, or pleural effu mara. IMPRESSION: Cardiomegaly with mild vascular congestion. No new process. POS: RRE
[2019-08-02] MEDS ORDERED: Diltiazem HCl 125 MG, Admixture Fee 1 EACH in Sodium Chloride 0.9% 100 ML IVPB SCH (20:30)
--- NOTE | 2019-08-02 21:06 | CON ---
DATE OF CONSULTATION: 08/02/2019 CONSULTING PHYSICIAN: Eddie Rodriguez MD REASON FOR CONSULTATION: End-stage renal disease evaluation and care. REASON FOR ADMISSION: Chest pain. HISTORY OF PRESENT ILLNESS: A 39-year-old female with history of end-stage renal disease, hypertension, lupus, came to the hospital with chest pain. The patient gets dialysis on Friday, Friday, Friday. Nephrology was consulted for maintenance dialysis. The patient has on and off chest pain. No nausea or vomiting. No fever or chills. PAST MEDICAL HISTORY: Positive for end-stage renal disease, lupus, hypertension, migraine headaches. PAST SURGICAL HISTORY: AV fistula placement, bilateral tubal ligation, kidney biopsy. HOME MEDICATIONS: 1. Metoprolol. 2. Clonidine. List needs to be updated. FAMILY HISTORY: No history of kidney disease. SOCIAL HISTORY: No smoking, alcohol, or illicit drug abuse. ALLERGIES: NO KNOWN DRUG ALLERGIES. REVIEW OF SYSTEMS: CONSTITUTIONAL: Negative for weight loss or gain, ability to conduct usual activities. SKIN: Negative for rash, itching. EYES: Negative for double vision, pain. ENT/MOUTH: Negative for nose bleeding, neck stiffness, pain, tenderness. CARDIOVASCULAR: Negative for palpitations, dyspnea on exertion, orthopnea. RESPIRATORY: Negative for shortness of breath, wheezing, cough, hemoptysis, fever or night sweats. GASTROINTESTINAL: Negative for poor appetite, abdominal pain, heartburn, nausea, vomiting, constipation, or diarrhea. GENITOURINARY: Negative for urgency, frequency, dysuria, nocturia. MUSCULOSKELETAL: Negative for pain, swelling. NEUROLOGIC/PSYCHIATRIC: Negative for anxiety, depression. ALLERGY/IMMUNOLOGIC: Negative for skin rash, bleeding tendency. PHYSICAL EXAMINATION: GENERAL: This is a thin built female, in no apparent distress. VITAL SIGNS: Temperature 98.1, pulse 99, respiratory rate 16, blood pressure 169/101. HEENT: Head is atraumatic, normocephalic. Oral mucosa moist. NECK: Supple. CVS: S1, S2 heard. Rate and rhythm regular. RESPIRATORY: Clear. GASTROINTESTINAL: Abdomen is soft. MUSCULOSKELETAL: No tenderness. No edema. DERMATOLOGIC: No skin rash. NEUROLOGIC: Alert and awake. PSYCHIATRIC: Mood and affect normal. LABORATORY DATA: Hemoglobin is 9.9. Potassium is 5.1, BUN is 48, creatinine is 15.4. ASSESSMENT AND PLAN: 1. End-stage renal disease. Continue dialysis Friday, Friday, Friday. 2. Edema, controlled. 3. Hypertension, stable. 4. Anemia. We will monitor. Continue on dialysis as tolerated. Job ID: [id number]
[2019-08-02] MEDS: traMADol HCl 50 MG TAB PO PRN (22:10)
[2019-08-03] MEDS: Acetaminophen 325 MG TAB PO PRN ×2 (00:06→09:38)
[2019-08-03] MEDS: Nitroglycerin 2% Ointment 1 INCH/1 GM Packet TOP SCH ×3 (05:32→20:39)
[2019-08-03 06:13] LABS: #Eosinphils 0.1 thou/uL (0.0-0.7); #Lymphocytes 0.8 thou/uL (1.20-3.40); #Monocytes 0.1 thou/uL (0.11-0.59); #Neutrophils 2.4 thou/uL (1.40-6.50); %Basophils 0.6 % (0.0-1.0); %Eosinophils 2.3 % (0.0-10.0); %Lymphocytes 23.5 % (21.0-51.0); %Monocytes 1.8 % (0.0-10.0); %Neutrophils 71.8 % (42.0-75.0); Hemoglobin 9.5 g/dL (12.0-16.0); Mean Corpuscular HGB CONC 32.5 g/dL (32.0-36.0); Mean Corpuscular Hemoglobin 33.2 pg (27.0-31.0); Mean Platelet Volume 10.8 fL (7.4-10.4); Platelet Count 107 thou/uL (130-400); RBC Distribution Width 19.6 % (11.5-14.5); Red Blood Cell (RBC) Count 2.87 mill/uL (4.20-5.40); White Blood Cell (WBC) Count 3.3 thou/uL (4.8-10.8)
[2019-08-03 06:25] LABS: Anion Gap 15 mmol/L (10-20); BUN (Urea Nitrogen) 25 mg/dL (7.0-18.7); Calc. Creatinine Clearance 7 mL/min (70-130); Calcium 9.4 mg/dL (7.8-10.44); Carbon Dioxide 28 mmol/L (22-29); Cardiac Risk 2.5 (Less than 4.5); Chloride 96 mmol/L (98-107); Cholesterol 159 mg/dl (< 200 Desired); Estimated GFR-MDRD 6; Glucose 77 mg/dL (70-105); HDL Cholesterol 64 mg/dL (>60 Neg Risk); LDL Cholesterol, Calculated 83 mg/dL; Potassium 4.8 mmol/L (3.5-5.1); Sodium 134 mmol/L (136-145); Triglycerides 62 mg/dL (Less than 150)
[2019-08-03] MEDS ORDERED: Lidocaine 1% (PF) 30 ML VIAL ONE (06:43)
[2019-08-03] MEDS ORDERED: Nitroglycerin 100MG/250ML BOT 250 ML ONE (07:27)
[2019-08-03] MEDS ORDERED: hydrALAZINE 20 MG/ML VIAL ONE ×2 (07:28→07:59)
[2019-08-03] MEDS ORDERED: Acetaminophen/Codeine 30-300mg Tablet PO PRN (07:54)
[2019-08-03] MEDS ORDERED: Nitroglycerin 0.4 MG TAB (25 Tab Bottle) SL PRN (07:54)
[2019-08-03] MEDS ORDERED: Sodium Chloride 0.9% 200 ML IV PRN (07:54)
[2019-08-03] MEDS: cloNIDine 0.2 MG TAB PO SCH ×2 (09:37→20:33)
[2019-08-03] MEDS: Ondansetron PF 4 MG/2 ML Vial IVP PRN (09:37)
[2019-08-03] MEDS: Amlodipine 10 MG TAB PO SCH (09:38)
[2019-08-03] MEDS: Heparin 5,000 UNITS/ML VIAL SC SCH ×3 (09:39→20:34)
[2019-08-03] MEDS: Famotidine 20 MG TAB PO SCH (09:39)
[2019-08-03] MEDS: Metoprolol Tartrate 100 MG TAB PO SCH ×2 (09:39→20:33)
[2019-08-03] MEDS: hydrALAZINE 25 MG TAB PO SCH ×3 (09:40→20:33)
[2019-08-03] MEDS: ALPRAZolam 1 MG TAB PO PRN (09:58)
--- NOTE | 2019-08-03 10:42 | PRG ---
DATE OF SERVICE: 08/03/2019 SUBJECTIVE: Patient was seen and examined at bedside and overnight events noted. Patient denies any shortness of breath or chest pain or palpitation. No history of nausea or vomiting or diarrhea or fever or chills or cramps. OBJECTIVE: GENERAL: This is a well-built female, in no apparent distress. VITAL SIGNS: Temperature 98.1. Heart rate 89. Respiratory rate 23. Blood pressure 156/92. HEENT: Atraumatic, normocephalic. Oral mucosa is moist NECK: Supple. CARDIOVASCULAR: S1, S2 heard. Rate and rhythm regular. RESPIRATORY: Clear to auscultation. GASTROINTESTINAL: Abdomen is soft. MUSCULOSKELETAL: No tenderness. No edema. DERMATOLOGIC: No skin rash. NEUROLOGIC: Alert and awake and oriented X3. No focal neurologic deficits. Moving all the extremities. PSYCHIATRIC: Mood and affect normal. LABORATORY DATA: Potassium is 4.8, BUN , and creatinine is 9.3. ASSESSMENT AND PLAN: 1. End-stage renal disease. Continue dialysis on Friday, Friday, and Friday. 2. Fluid overload with elevated BNP and hard time removing fluid with dialysis today. 3. History of coronary artery disease. Follow with Cardiology. 4. Chronic anemia. 5. Edema, controlled. 6. History of lupus. 7. History of hypertension. 8. We will continue on dialysis as tolerated. Job ID: [id number]
--- NOTE | 2019-08-03 12:27 | PDOC.HOSPP ---
- Subjective Subjective: Seen and examined. Back from cath this AM. No significant crushing chest pain at this time though she does have some tightness still as before. Feeling very anxious and nauseas. No other acute complaints. Cath report pending. - Objective Vital Signs & Weight: Vital Signs (12 hours) Temp Pulse Resp BP BP Pulse Ox 08/03/19 11:50 97.6 F 97 20 153/100 H 94 L 08/03/19 09:40 101 H 156/92 H 08/03/19 09:38 101 H 156/92 H 08/03/19 09:37 156/92 H 08/03/19 04:00 98.1 F Weight Weight 123 lb 8 oz Most Recent Monitor Data Heart Rate from ECG 87 NIBP 153/103 NIBP BP-Mean 119 Respiration from ECG 22 SpO2 93 I&O: 08/02/19 08/03/19 08/04/19 06:59 06:59 06:59 Intake Total 600 Output Total 3200 Balance -2600 Result Diagrams: 08/03/19 05:42 08/03/19 05:42 Hospitalist ROS - Review of Systems All other systems reviewed; all pertinent +/- noted in HPI/Subj - Medication Medications: Active Medications Generic Name Dose Route Start Last Admin Trade Name Freq PRN Reason Stop Dose Admin Acetaminophen 650 mg 08/02/19 04:32 08/03/19 09:38 Tylenol PO 650 mg Q4H PRN Administration Headache/Fever/Mild Pain (1-3) Alprazolam 1 mg 08/02/19 13:09 08/03/19 09:58 Xanax PO 1 mg TID PRN Administration Anxiety Amlodipine Besylate 10 mg 08/03/19 09:00 08/03/19 09:38 Norvasc PO 10 mg DAILY [facility]LL Administration Clonidine 0.4 mg 08/02/19 21:00 08/03/19 09:37 Catapres PO 0.4 mg BID MIT[facility]LL Administration Diazepam 5 mg 08/02/19 07:59 08/02/19 09:12 Valium PO 5 mg Q24H PRN Administration Anxiety Famotidine 20 mg 08/02/19 09:00 08/03/19 09:39 Pepcid PO 20 mg DAILY [facility]LL Administration Heparin Sodium (Porcine) 5,000 units 08/02/19 09:00 08/03/19 09:39 Heparin SC Not Given TID [facility] Hydralazine HCl 100 mg 08/02/19 15:00 08/03/19 09:40 Apresoline PO Not Given TID [facility] Metoprolol Tartrate 200 mg 08/02/19 21:00 08/03/19 09:39 Lopressor PO 200 mg BID [facility]LL Administration Nitroglycerin 0.5 inch 08/02/19 06:00 08/03/19 05:32 Nitro-Bid 2% Ointment TOP 0.5 inch Q8HR [facility]LL Administration Ondansetron HCl 4 mg 08/02/19 05:00 08/03/19 00:10 Zofran Odt PO 4 mg Q6H PRN Administration Nausea/Vomiting Ondansetron HCl 4 mg 08/02/19 05:00 08/03/19 09:37 Zofran IVP 4 mg Q6H PRN Administration Nausea/Vomiting Tramadol HCl 50 mg 08/02/19 13:09 08/02/19 22:10 Ultram PO 50 mg Q6H PRN Administration Moderate Pain (4-6) - Exam General Appearance: NAD, awake alert Eye: PERRL Eye - other findings: EOMI ENT: no oropharyngeal lesions, moist mucosa Neck: supple, symmetric, no JVD Heart: RRR, no murmur, no gallops, no rubs Respiratory: CTAB, no wheezes, no rales, no ronchi, normal chest expansion Gastrointestinal: soft, non-tender, non-distended, normal bowel sounds, no guarding, no rigidity Extremities: 1+ LE edema Skin: no lesions, no rashes Neurological: CN's grossly intact, no weakness Musculoskeletal: normal strength Psychiatric: normal affect, A&O x 3 Hosp A/P (1) Chest pain Code(s): R07.9 - CHEST PAIN, UNSPECIFIED Status: Acute (2) Anxiety Code(s): F41.9 - ANXIETY DISORDER, UNSPECIFIED Status: Acute (3) [place] (dyspnea on exertion) Code(s): R06.09 - OTHER FORMS OF DYSPNEA Status: Acute (4) ESRD (end stage renal disease) Code(s): N18.6 - END STAGE RENAL DISEASE Status: Chronic (5) Hypertension Code(s): I10 - ESSENTIAL (PRIMARY) HYPERTENSION Status: Chronic (6) Lupus Code(s): M32.9 - SYSTEMIC LUPUS ERYTHEMATOSUS, UNSPECIFIED Status: Chronic Qualifiers: Systemic lupus erythematosus type: unspecified Systemic lupus erythematosus organ involvement: glomerular disease Qualified Code(s): M32.14 - Glomerular disease in systemic lupus erythematosus - Plan Plan: Med/ tele Cardiology consult, recommendations appreciated Nephrology consult, recommendations appreciated S/p cath this AM, report pending Further plan of care per cardiology HD per nephrology Was unable to tolerate HD yesterday secondary to tachycardia Caution for volume overload May need session of HD to remove contrast Continue home meds as able GI and DVT PPX
[2019-08-03] MEDS ORDERED: Iopamidol 370 76% 50 ML VIAL FS ONE (14:01)
[2019-08-03] MEDS ORDERED: Iopamidol 370 76% 100 ML VIAL ONE (14:01)
[2019-08-04] MEDS: Nitroglycerin 2% Ointment 1 INCH/1 GM Packet TOP SCH ×3 (05:37→21:05)
[2019-08-04] MEDS: traMADol HCl 50 MG TAB PO PRN (07:55)
[2019-08-04 09:55] LABS: Anion Gap 16 mmol/L (10-20); BUN (Urea Nitrogen) 20 mg/dL (7.0-18.7); Calc. Creatinine Clearance 10 mL/min (70-130); Calcium 9.1 mg/dL (7.8-10.44); Carbon Dioxide 27 mmol/L (22-29); Chloride 96 mmol/L (98-107); Estimated GFR-MDRD 9; Glucose 73 mg/dL (70-105); Potassium 3.8 mmol/L (3.5-5.1); Sodium 135 mmol/L (136-145)
[2019-08-04 10:14] LABS: #Eosinphils 0.1 thou/uL (0.0-0.7); #Lymphocytes 0.8 thou/uL (1.20-3.40); %Basophils 0.3 % (0.0-1.0); %Eosinophils 3.2 % (0.0-10.0); %Monocytes 1.1 % (0.0-10.0); %Neutrophils 76.5 % (42.0-75.0); Hemoglobin 9.4 g/dL (12.0-16.0); MDiff Complete? YES; Mean Corpuscular HGB CONC 32.6 g/dL (32.0-36.0); Mean Corpuscular Hemoglobin 33.5 pg (27.0-31.0); Ovalocytes SLIGHT = 2-5 cells (100X) (0-1/hpf); Platelet Count 84 thou/uL (130-400); Platelet Morphology Comment Appears Decreased; Polychromasia SLIGHT = 2-3 cells (100X) (0-2/hpf); RBC Distribution Width 19.4 % (11.5-14.5); Schistocytes SLIGHT = 2-5 cells (100X) (0-1/hpf)
[2019-08-04] MEDS: Heparin 5,000 UNITS/ML VIAL SC SCH ×3 (11:30→21:04)
[2019-08-04] MEDS: Amlodipine 10 MG TAB PO SCH (11:31)
[2019-08-04] MEDS: Acetaminophen/Codeine 30-300mg Tablet PO PRN (11:31)
[2019-08-04] MEDS: cloNIDine 0.2 MG TAB PO SCH ×2 (11:32→21:03)
[2019-08-04] MEDS: Metoprolol Tartrate 100 MG TAB PO SCH ×2 (11:32→21:04)
[2019-08-04] MEDS: hydrALAZINE 25 MG TAB PO SCH ×3 (11:32→21:04)
[2019-08-04] MEDS: Famotidine 20 MG TAB PO SCH (11:39)
--- NOTE | 2019-08-04 11:44 | PRG ---
DATE OF SERVICE: 08/04/2019 SUBJECTIVE: Patient was seen and examined at bedside and overnight events noted. Patient denies any shortness of breath or chest pain or palpitation. No history of nausea or vomiting or diarrhea or fever or chills or cramps. OBJECTIVE: GENERAL: This is a thin-built female, in no apparent distress. VITAL SIGNS: Temperature 98.6. Heart rate 83. Respiratory rate 20. Blood pressure 134/81. HEENT: Atraumatic, normocephalic. Oral mucosa is moist NECK: Supple. CARDIOVASCULAR: S1, S2 heard. Rate and rhythm regular. RESPIRATORY: Clear to auscultation. GASTROINTESTINAL: Abdomen is soft. MUSCULOSKELETAL: No tenderness. No edema. DERMATOLOGIC: No skin rash. NEUROLOGIC: Alert and awake and oriented X3. No focal neurologic deficits. Moving all the extremities. PSYCHIATRIC: Mood and affect normal. LABORATORY DATA: Potassium is 3.8, BUN is 78, and creatinine is 6.4. ASSESSMENT AND PLAN: 1. End-stage renal disease. Continue dialysis. 2. Edema. 3. History of lupus. 4. History of hypertension. 5. Chronic anemia. Plan to continue on dialysis as tolerated. The patient is seen during dialysis, tolerating well so far, the patient will certainly need 2-1/2 hours today. Job ID: [id number]
[2019-08-04] MEDS ORDERED: oxyCODONE/Acetaminophen 5 mg/325 mg Tablet PO PRN (12:25)
--- NOTE | 2019-08-04 12:30 | PDOC.HOSPP ---
- Subjective Subjective: Seen and examined. Went for HD today, stopped early only had 2L fluid removed. Patient states that arm pain too severe with HD to complete a full session, will add additional pain med PRN HD. Patient denies chest pain. Breathing well on room air. No new complaints. - Objective Vital Signs & Weight: Vital Signs (12 hours) Temp Pulse Resp BP BP Pulse Ox 08/04/19 11:34 97.9 F 92 18 178/107 H 100 08/04/19 11:32 83 178/106 H 08/04/19 11:31 83 08/04/19 04:23 98 F 83 16 134/81 94 L Weight Weight 122 lb 12.8 oz Most Recent Monitor Data Heart Rate from ECG 87 NIBP 153/103 NIBP BP-Mean 119 Respiration from ECG 22 SpO2 93 I&O: 08/03/19 08/04/19 08/05/19 06:59 06:59 06:59 Intake Total 600 1200 Output Total 3200 Balance -2600 1200 Result Diagrams: 08/04/19 09:28 08/04/19 09:28 Hospitalist ROS - Review of Systems All other systems reviewed; all pertinent +/- noted in HPI/Subj - Medication Medications: Active Medications Generic Name Dose Route Start Last Admin Trade Name Freq PRN Reason Stop Dose Admin Acetaminophen 650 mg 08/02/19 04:32 08/03/19 09:38 Tylenol PO 650 mg Q4H PRN Administration Headache/Fever/Mild Pain (1-3) Acetaminophen/Codeine Phosphate 2 tab 08/03/19 07:54 08/04/19 11:31 Tylenol #3 PO 2 tab Q4H PRN Administration Moderate Pain (4-6) Alprazolam 1 mg 08/02/19 13:09 08/03/19 09:58 Xanax PO 1 mg TID PRN Administration Anxiety Amlodipine Besylate 10 mg 08/03/19 09:00 08/04/19 11:31 Norvasc PO 10 mg DAILY [facility]LL Administration Clonidine 0.4 mg 08/02/19 21:00 08/04/19 11:32 Catapres PO 0.4 mg BID [facility]LL Administration Diazepam 5 mg 08/02/19 07:59 08/02/19 09:12 Valium PO 5 mg Q24H PRN Administration Anxiety Famotidine 20 mg 08/02/19 09:00 08/04/19 11:39 Pepcid PO 20 mg DAILY [facility] Administration Heparin Sodium (Porcine) 5,000 units 08/02/19 09:00 08/04/19 11:30 Heparin SC Not Given TID [facility] Hydralazine HCl 100 mg 08/02/19 15:00 08/04/19 11:32 Apresoline PO 100 mg TID [facility] Administration Metoprolol Tartrate 200 mg 08/02/19 21:00 08/04/19 11:32 Lopressor PO 200 mg BID [facility] Administration Nitroglycerin 0.5 inch 08/02/19 06:00 08/04/19 05:37 Nitro-Bid 2% Ointment TOP Not Given Q8HR [facility] Ondansetron HCl 4 mg 08/02/19 05:00 08/03/19 00:10 Zofran Odt PO 4 mg Q6H PRN Administration Nausea/Vomiting Ondansetron HCl 4 mg 08/02/19 05:00 08/03/19 09:37 Zofran IVP 4 mg Q6H PRN Administration Nausea/Vomiting Tramadol HCl 50 mg 08/02/19 13:09 08/04/19 07:55 Ultram PO 50 mg Q6H PRN Administration Moderate Pain (4-6) - Exam General Appearance: awake alert Eye: PERRL, anicteric sclera Eye - other findings: EOMI ENT: no oropharyngeal lesions, moist mucosa Neck: no JVD, no thyromegaly, no lymphadenopathy Heart: RRR, no murmur, no gallops, no rubs Respiratory: CTAB, no wheezes, no rales, no ronchi, normal chest expansion Gastrointestinal: soft, non-tender, non-distended, normal bowel sounds, no palpable masses, no guarding, no rigidity Extremities: no edema Skin: no lesions, no rashes Neurological: CN's grossly intact, no weakness, no focal deficits Musculoskeletal: normal strength Psychiatric: normal affect, A&O x 3 Hosp A/P (1) Chest pain Code(s): R07.9 - CHEST PAIN, UNSPECIFIED Status: Acute (2) Anxiety Code(s): F41.9 - ANXIETY DISORDER, UNSPECIFIED Status: Acute (3) [place] (dyspnea on exertion) Code(s): R06.09 - OTHER FORMS OF DYSPNEA Status: Acute (4) ESRD (end stage renal disease) Code(s): N18.6 - END STAGE RENAL DISEASE Status: Chronic (5) Hypertension Code(s): I10 - ESSENTIAL (PRIMARY) HYPERTENSION Status: Chronic (6) Lupus Code(s): M32.9 - SYSTEMIC LUPUS ERYTHEMATOSUS, UNSPECIFIED Status: Chronic Qualifiers: Systemic lupus erythematosus type: unspecified Systemic lupus erythematosus organ involvement: glomerular disease Qualified Code(s): M32.14 - Glomerular disease in systemic lupus erythematosus - Plan Plan: Med/ tele Cardiology consult, recommendations appreciated Nephrology consult, recommendations appreciated S/p cath 08/03/19 - may require second cath tomorrow Further plan of care per cardiology ASA when ok with cardiology Start statin, atorvastatin 40mg HD per nephrology Was unable to tolerate HD today secondary to pain in arm, will add stronger pain medication to help her complete a full session of HD Caution for volume overload Continue home meds as able GI and DVT PPX
--- NOTE | 2019-08-04 15:54 | NM ---
EXAM: Nuclear medicine cardiac thallium scan HISTORY: Chest pain with possible inferior wall ischemia versus infarction TECHNIQUE: 3.5 mCi of thallium was administered 15 minutes after stress with initial tomographic images taken. 2 4 hour delay images were also taken. COMPARISON: None FINDINGS: Tomographic images: There is a defect in the inferior wall extending to the apex on the immediate pos t stress images. At 24 hours, there is partial redistribution of the radiopharmaceutical into this defect. IMPRESSION: Partial redistribution of thallium into the immediate post exercise defect suggests some viability of the inferior wall.
[2019-08-04 18:14] LABS: ANA Symphony (Qualitative) POSITIVE (Negative); CENP IgG Antibody 0.7 EliAU/mL (<7 Negative); Jo-1 IgG Antibody 0.3 EliAU/mL (<7 Negative); RNP70 IgG Antibody 0.4 EliAU/mL (<7 Negative); SSA/Ro IgG Antibody Greater than 240.0 EliAU/mL (<7 Negative); SSB/La IgG Antibody 0.8 EliAU/mL (<7 Negative); Scleroderma-70 IgG Antibody 1.4 EliAU/mL (<7 Negative); Smith D IgG Antibody 1.5 EliAU/mL (<7 Negative)
[2019-08-04] MEDS ORDERED: Atorvastatin Calcium 40 MG TAB PO SCH (21:00)
[2019-08-05] MEDS: Acetaminophen/Codeine 30-300mg Tablet PO PRN ×2 (00:31→08:59)
[2019-08-05] MEDS: ALPRAZolam 1 MG TAB PO PRN (00:32)
[2019-08-05 05:23] LABS: Anion Gap 19 mmol/L (10-20); BUN (Urea Nitrogen) 23 mg/dL (7.0-18.7); Calc. Creatinine Clearance 7 mL/min (70-130); Carbon Dioxide 23 mmol/L (22-29); Chloride 94 mmol/L (98-107); Estimated GFR-MDRD 6; Potassium 4.6 mmol/L (3.5-5.1); Sodium 131 mmol/L (136-145)
[2019-08-05 05:24] LABS: Calcium 9.1 mg/dL (7.8-10.44); Glucose 75 mg/dL (70-105)
[2019-08-05] MEDS: Nitroglycerin 2% Ointment 1 INCH/1 GM Packet TOP SCH ×2 (05:37→15:11)
--- NOTE | 2019-08-05 06:20 | CON ---
DATE OF CONSULTATION: 08/04/2019 SUBJECTIVE: Ms. Vogt is doing well. No current complaints. OBJECTIVE: VITAL SIGNS: Blood pressure 136/79, pulse 77, and temperature 97.6. LUNGS: Clear to auscultation. HEART: Regular rate and rhythm. ABDOMEN: Soft, nontender, nondistended. EXTREMITIES: No edema. IMPRESSION: 1. Multivessel coronary artery disease. 2. Unstable angina. 3. End-stage renal disease. 4. Noncompliance. RECOMMENDATIONS: Very difficult situation with Ms. Vogt. She did have a scar on her recent stress study. She has complete occlusion of the right coronary artery with severe stenosis of the circumflex artery. The plan is to proceed with a thallium study to assess for viability to the inferior wall. We will consider bypass surgery given the distribution of the right coronary artery and circumflex artery. There is also a concern for noncompliance, which would make drug-coated stent placement difficult. She would likely need multiple stents. We would proceed with surgical opinion if the inferior wall is considered viable. If not considered viable, may consider stent placement to the circumflex artery. Further recommendations pending the above. Job ID: [id number]
[2019-08-05] MEDS: Heparin 5,000 UNITS/ML VIAL SC SCH (07:03)
--- NOTE | 2019-08-05 08:06 | PRG ---
DATE OF SERVICE: 08/05/2019 SUBJECTIVE: Ms. Vogt is doing well. No current complaints. OBJECTIVE: GENERAL: Patient is a pleasant female, who is in no acute distress. The patient appears their stated age. VITAL SIGNS: Blood pressure 136/79, pulse 77, and temperature 97.6. NEUROLOGIC: The patient is alert and oriented x3 with no focal neurologic deficits. HEENT: Sclerae without icterus. Mouth has moist mucous membranes with normal pallor. NECK: No JVD. Carotid upstroke brisk. No bruits bilaterally. LUNGS: Clear to auscultation with unlabored respirations. BACK: No scoliosis or kyphosis. CARDIAC: Regular rate and rhythm with normal S1 and S2. No S3 or S4 noted. No significant rubs, murmurs, thrills, or gallops noted throughout the precordium. PMI is not displaced. There is no parasternal heave. ABDOMEN: Soft, nontender, nondistended. No peritoneal signs present. No hepatosplenomegaly. No abnormal striae. EXTREMITIES: 2+ femoral and 2+ dorsalis pedis pulses. No cyanosis, clubbing, or edema. SKIN: No gross abnormalities. PERTINENT LABORATORY DATA: Hemoglobin 9.4. Creatinine 8.8 and sodium 131. IMPRESSION: 1. Severe multivessel disease. 2. End-stage renal disease. RECOMMENDATIONS: The patient has been seen and evaluated by CV Surgery. She did have viability present to the inferior wall. Dr. Ham did not feel the PDA could be bypassable. There was heavy calcification present in the right coronary artery and PDA. I did review the films to proceed with intervention of the circumflex artery. It appears the vessel is heavily calcified and would likely benefit from Rotablator potentially. I discussed the case with Dr. Jeremy Quintero, who has agreed to take the patient in transfer for possible Rotablator. I discussed the case with Ms. Vogt and she agrees. Transfer in progress. Job ID: [id number]
[2019-08-05] MEDS: Famotidine 20 MG TAB PO SCH (08:56)
[2019-08-05] MEDS: cloNIDine 0.2 MG TAB PO SCH (08:56)
[2019-08-05] MEDS: hydrALAZINE 25 MG TAB PO SCH (08:56)
[2019-08-05] MEDS: Metoprolol Tartrate 100 MG TAB PO SCH (08:56)
[2019-08-05] MEDS: Amlodipine 10 MG TAB PO SCH (08:56)
[2019-08-05 09:24] VITALS: TEMP 97.7
--- NOTE | 2019-08-05 11:14 | PRG ---
DATE OF SERVICE: SUBJECTIVE: Patient was seen and examined at bedside and overnight events noted. Patient denies any shortness of breath or chest pain or palpitation. No history of nausea or vomiting or diarrhea or fever or chills or cramps. OBJECTIVE: GENERAL: This is a well-built female, in no apparent distress. VITAL SIGNS: Temperature 97.7. Heart rate 80. Respiratory rate 16. Blood pressure 145/84. HEENT: Atraumatic, normocephalic. Oral mucosa is moist NECK: Supple. CARDIOVASCULAR: S1, S2 heard. Rate and rhythm regular. RESPIRATORY: Clear to auscultation. GASTROINTESTINAL: Abdomen is soft. MUSCULOSKELETAL: No tenderness. No edema. DERMATOLOGIC: No skin rash. NEUROLOGIC: Alert and awake and oriented X3. No focal neurologic deficits. Moving all the extremities. PSYCHIATRIC: Mood and affect normal. LABORATORY DATA: Potassium 4.6, BUN is 23, and creatinine is 8.8. ASSESSMENT AND PLAN: 1. End-stage renal disease. Continue dialysis as tolerated on Friday, Friday, and Friday. 2. Edema. We will remove fluid. 3. History of lupus. 4. History of hypertension. Titrate medication. 5. Anemia of chronic disease. 6. We will continue dialysis as tolerated. Job ID: [id number]
[2019-08-05 11:40] VITALS: BP 118/69
--- NOTE | 2019-08-06 05:33 | DIS ---
DATE OF ADMISSION: 08/02/2019 DATE OF DISCHARGE: 08/05/2019 REASON FOR HOSPITALIZATION: Chest pain. SIGNIFICANT FINDINGS: Patient went for cardiac catheterization, please see full report for details, the patient was found to have significant calcification of the coronary arteries and was recommended transfer to higher level of care. PROCEDURES PERFORMED/TREATMENT RENDERED: The patient was seen by Cardiology, please see full consultation and progress notes for details. The patient underwent cardiac catheterization on 08/02/2019; please see full cath report for details. The patient with severe calcification of the coronary arteries, was recommended transfer to [facility] for Rotablator therapy. Cardiology coordinating care with accepting physician. Case management consultation was requested to aid in discharge process. CONDITION ON DISCHARGE: Cardiopulmonary status is stable at this time. SPECIFIC INSTRUCTIONS FOR THE PATIENT/FAMILY: 1. Transfer immediately to [facility] for Rotablator therapy. 2. The patient to take all medications as directed, to be re-evaluated by admitting physician. 3. The patient to follow up with Cardiology at [facility]. 4. The patient to follow up with Nephrology at [facility] for continuation of hemodialysis. 5. The patient recommended to follow up with all specialists and primary care physician after discharge from [facility]. HOSPITAL COURSE: Ms. Vogt is a very pleasant 39-year-old female with past medical history of end-stage renal disease, on hemodialysis, who presents to [facility] on 08/02/2019. The patient with abnormal nuclear medicine stress test. A cardiology consultation was requested. Please see full consultation and progress notes for details. The patient underwent cardiac catheterization on 08/02/2019, please see full report for details. Due to the findings on cardiac catheterization, Cardiology recommending that the patient be transferred to higher level of care at the facility that is capable of performing Rotablator. Cardiology discussed the case with Dr. Jeremy Quintero who agrees to take care of the patient and possibly perform needed therapies. The patient recommended safe for discharge with immediate transfer to higher level of care. The patient recommended to continue hemodialysis per Nephrology recommendations. The patient recommended to take all medications , to be re-evaluated by admitting physician. Note, the patient recommended to follow up with primary care physician, Nephrology, and Cardiology after discharge from [facility] as directed. DISCHARGE MEDICATIONS: Please see full discharge medication list for details. Greater than 36 minutes spent coordinating care and discharge process. Job ID: [id number] [facility] SYSTEM[facility]unal
--- NOTE | 2019-08-07 23:28 | EKG ---
Test Reason : Blood Pressure : / mmHG Vent. Rate : 099 BPM Atrial Rate : 099 BPM P-R Int : 156 ms QRS Dur : 082 ms QT Int : 408 ms P-R-T Axes : 053 081 026 degrees QTc Int : 523 ms Normal sinus rhythm Possible Left atrial enlargement Nonspecific ST and T wave abnormality Prolonged QT Abnormal ECG Confirmed by FAYE CORREA M.D. ([id number]), design editor HCETAN GORDON ([id number] on 08/07/2019 11:27:37 PM Referred By: Confirmed By:FAYE CORREA M.D.
== END 2019-08-05 14:44 | disposition short-term general hospital (02) | DRG 286 ==
LOC: ERS 01:06 → 2SW 02:40 → CCU 19:39 → OBSVTOIN 20:07 → 2SW 08-03 07:03 → 2NO 08-04 21:27
PROVIDERS: ADMIT Internal Medicine; ATTEND Internal Medicine
PROC: 4A023N7 Measurement of Cardiac Sampling and Pressure, Left Heart, Percutaneous Approach (ICD-10-PCS; principal; 2019-08-03)
PROC: B2111ZZ Fluoroscopy of Multiple Coronary Arteries using Low Osmolar Contrast (ICD-10-PCS; 2019-08-03)
PROC: 5A1D70Z Performance of Urinary Filtration, Intermittent, Less than 6 Hours Per Day (ICD-10-PCS; 2019-08-04)
DX: I25.110 Atherosclerotic heart disease of native coronary artery with unstable angina pectoris (principal); N18.6 End stage renal disease; I13.2 Hypertensive heart and chronic kidney disease with heart failure and with stage 5 chronic kidney disease, or end stage renal disease; I50.32 Chronic diastolic (congestive) heart failure; M32.9 Systemic lupus erythematosus, unspecified; G43.909 Migraine, unspecified, not intractable, without status migrainosus; D64.9 Anemia, unspecified; I73.9 Peripheral vascular disease, unspecified; F41.9 Anxiety disorder, unspecified; Z99.2 Dependence on renal dialysis; Z98.51 Tubal ligation status
CPT/HCPCS: 36415; 71045; 76942; 78452; 78466; 80048; 80053; 80061; 82550; 82553; 83690; 83880; 84484; 85025; 86038; 86160; 86225; 86235; 90935; 93005; 93010; 93017; 93306; 93458; 94760; A9500; A9505; C1769; C1887; G0257; J0153; J0360; J1644; J2001; J2060; J2405; J3010; J3490; Q0162; Q9967

== ENCOUNTER 2019-08-10 13:45 | Emergency (ER) | payer MEDICARE, MEDICAID ==
[2019-08-10 14:30] LABS: #Eosinphils 0.1 thou/uL (0.0-0.7); #Lymphocytes 0.8 thou/uL (1.20-3.40); #Monocytes 0.4 thou/uL (0.11-0.59); #Neutrophils 3.9 thou/uL (1.40-6.50); %Basophils 0.2 % (0.0-1.0); %Eosinophils 1.7 % (0.0-10.0); %Lymphocytes 15.8 % (21.0-51.0); %Monocytes 8.3 % (0.0-10.0); Mean Corpuscular HGB CONC 31.1 g/dL (32.0-36.0); Mean Corpuscular Hemoglobin 31.7 pg (27.0-31.0); Mean Platelet Volume 11.4 fL (7.4-10.4); Platelet Count 106 thou/uL (130-400); RBC Distribution Width 19.1 % (11.5-14.5); Red Blood Cell (RBC) Count 2.83 mill/uL (4.20-5.40); White Blood Cell (WBC) Count 5.3 thou/uL (4.8-10.8)
--- NOTE | 2019-08-10 14:40 | RAD ---
FRONTAL VIEW CHEST: 08/10/19 COMPARISON: 08/02/19. INDICATION: History of recent stent placement. Persistent chest pain. FINDINGS: The cardiac silhouette is prominent. There are patchy and interstitial opacities of each lung. No obv ious effusion or discrete pneumothorax. Right sided vascular stent at the subclavian region remains. IMPRESSION: Persistent enlargement of the cardiac silhouette with findings favoring bilateral edema. POS: TPC
[2019-08-10 14:45] LABS: ALT (SGPT) 11 U/L (8-55); AST (SGOT) 22 U/L (5-34); Albumin 4.1 g/dL (3.5-5.0); Alkaline Phosphatase 123 U/L (40-150); Anion Gap 21 mmol/L (10-20); BUN (Urea Nitrogen) 34 mg/dL (7.0-18.7); Calc. Creatinine Clearance 0 mL/min (70-130); Carbon Dioxide 24 mmol/L (22-29); Chloride 94 mmol/L (98-107); Estimated GFR-MDRD 5; Globulin 4.6 g/dL (2.4-3.5); Glucose 110 mg/dL (70-105); Lipase 25 U/L (8-78); Potassium 4.5 mmol/L (3.5-5.1); Protein, Total 8.7 g/dL (6.0-8.3); Sodium 134 mmol/L (136-145)
[2019-08-10 15:36] LABS: CKMB 2.2 ng/mL (0-6.6)
[2019-08-10] MEDS ORDERED: Nitroglycerin 0.4 MG TAB 1 EACH ONE (15:47)
[2019-08-10] MEDS ORDERED: Acetaminophen 500 MG TAB ONE (16:01)
== END 2019-08-10 17:10 | disposition home or self-care (01) ==
LOC: ERS 13:45
DX: T82.847A Pain due to cardiac prosthetic devices, implants and grafts, initial encounter (principal); M79.651 Pain in right thigh; R07.9 Chest pain, unspecified; I25.2 Old myocardial infarction; Z79.899 Other long term (current) drug therapy
CPT/HCPCS: 36415; 71045; 80053; 82553; 83690; 84484; 85025; 93005; 94760

== ENCOUNTER 2019-08-14 13:59 | Inpatient (IN) | payer MEDICARE, MEDICAID ==
[2019-08-14 14:41] LABS: #Lymphocytes 0.6 thou/uL (1.20-3.40); #Monocytes 0.3 thou/uL (0.11-0.59); #Neutrophils 5.6 thou/uL (1.40-6.50); %Basophils 0.3 % (0.0-1.0); %Eosinophils 0.6 % (0.0-10.0); %Lymphocytes 9.2 % (21.0-51.0); %Monocytes 4.5 % (0.0-10.0); %Neutrophils 85.3 % (42.0-75.0); Hemoglobin 9.3 g/dL (12.0-16.0); Mean Corpuscular HGB CONC 32.8 g/dL (32.0-36.0); Mean Corpuscular Hemoglobin 33.6 pg (27.0-31.0); Mean Platelet Volume 9.8 fL (7.4-10.4); Platelet Count 192 thou/uL (130-400); RBC Distribution Width 18.6 % (11.5-14.5); Red Blood Cell (RBC) Count 2.76 mill/uL (4.20-5.40); White Blood Cell (WBC) Count 6.6 thou/uL (4.8-10.8)
[2019-08-14 15:03] LABS: ALT (SGPT) 9 U/L (8-55); AST (SGOT) 17 U/L (5-34); Albumin 4.5 g/dL (3.5-5.0); Alkaline Phosphatase 110 U/L (40-150); Anion Gap 17 mmol/L (10-20); BUN (Urea Nitrogen) 16 mg/dL (7.0-18.7); Bilirubin, Total 1.2 mg/dL (0.2-1.2); Calc. Creatinine Clearance 0 mL/min (70-130); Calcium 10.1 mg/dL (7.8-10.44); Carbon Dioxide 30 mmol/L (22-29); Chloride 94 mmol/L (98-107); Estimated GFR-MDRD 8; Globulin 4.9 g/dL (2.4-3.5); Glucose 107 mg/dL (70-105); Potassium 3.6 mmol/L (3.5-5.1); Protein, Total 9.4 g/dL (6.0-8.3); Sodium 137 mmol/L (136-145)
[2019-08-14] MEDS ORDERED: Metoprolol Tartrate 5 MG/5 ML VIAL ONE (15:27)
[2019-08-14] MEDS ORDERED: Ondansetron PF 4 MG/2 ML Vial ONE (15:27)
--- NOTE | 2019-08-14 15:33 | RAD ---
Portable chest: HISTORY: Nausea vomiting COMPARISON: 08/10/2019 FINDINGS: Hazy opacity in the right lower lung could represent new infiltrate. Recommend clinical cor relation.. Heart mildly enlarged but stable. Vascularity is normal. Visualized osseous structures unremarkable. IMPRESSION:Evidence of new hazy infiltrate in the right lower lung. Follow-up recommended.
[2019-08-14 16:10] LABS: CKMB 3.3 ng/mL (0-6.6)
[2019-08-14] MEDS ORDERED: Sodium Chloride 0.9% 100 ML ONE (16:36)
[2019-08-14] MEDS ORDERED: Acetaminophen 325 MG TAB PO PRN (17:53)
[2019-08-14] MEDS ORDERED: traMADol HCl 50 MG TAB PO PRN (17:53)
[2019-08-14] MEDS ORDERED: Bisacodyl 10 MG SUPP PR PRN (17:53)
[2019-08-14] MEDS ORDERED: Senokot S 8.6-50 MG TAB PO PRN (17:53)
[2019-08-14] MEDS ORDERED: Guaifenesin DM 100-10/5 ML UDCUP PO PRN (17:53)
[2019-08-14] MEDS ORDERED: Nitroglycerin 2% Ointment 1 INCH/1 GM Packet ONE (17:58)
[2019-08-14] MEDS ORDERED: Acetaminophen 325 MG TAB ONE (17:58)
[2019-08-14] MEDS: hydrALAZINE 25 MG TAB PO SCH (19:45)
[2019-08-14] MEDS: cloNIDine 0.2 MG TAB PO SCH (19:46)
--- NOTE | 2019-08-14 19:46 | PDOC.EVN ---
Event Note - Event Note Event Note: Patient has reconsidered her DNAR status and wishes to be full code at this time. Palliative care consult will be placed so patient can be counseled on goals of care, etc.
[2019-08-14 20:25] VITALS: BMI 22.1
[2019-08-14] MEDS: cefTRIAXone\\ROCEPHIN 1 GM in Sodium Chloride 0.9% 100 ML IVPB SCH (20:30)
[2019-08-14] MEDS: Metoprolol Tartrate 100 MG TAB PO SCH (20:30)
--- NOTE | 2019-08-14 20:47 | HP ---
REASON FOR ADMISSION: Pneumonia. HISTORY OF PRESENTING ILLNESS: The patient gives history of feeling bad since she was discharged from [facility] last . She was actually transferred from here for rotablator and staged stenting for her coronary artery disease. She states she has been feeling weak and had loss of appetite. She got discharged last Friday from [facility]. She had gone to dialysis this morning and could finish only 1.5 hours of session when she developed chills and was nauseated. She was transferred here from dialysis center. She does not make any urine. She has cough with expectoration of clear sputum. She also mentions that she could not fill her antiplatelet agents as it was costing 800 dollars a month and she has not picked it up yet. No complaints of abdominal pain, diarrhea, or chest pain at present. PAST MEDICAL AND SURGICAL HISTORY: History of end-stage renal disease, on hemodialysis on Friday, Friday, and Friday; coronary artery disease with heavy calcium deposits status post rotablator therapy with stenting done at [facility] per the patient; history of lupus; history of migraine headaches; prior renal biopsy ; tubal ligation; right upper extremity dialysis access procedures including fistula; cardiac catheterization. CURRENT MEDICATIONS: 1. The patient is unable to recall anti-platelet agent that she was placed recently and when she was discharged on Friday. She knows it costs around 800 dollars. 2. She is on clonidine high dose 0.4 mg twice daily. 3. Hydralazine 100 mg 3 times daily. 4. Lopressor high dose 200 mg twice daily. 5. Norvasc 10 mg daily. 6. Ultram p.r.n. for pain. 7. Xanax p.r.n. for anxiety. ALLERGIES: NO KNOWN DRUG ALLERGIES. PERSONAL HISTORY: No history of alcohol abuse or using drugs. FAMILY HISTORY: History of heart disease in father. Mother had history of lupus. REVIEW OF SYSTEMS: CONSTITUTIONAL: Negative for weight loss or gain, ability to conduct usual activities. SKIN: Negative for rash, itching. EYES: Negative for double vision, pain. ENT/MOUTH: Negative for nose bleeding, neck stiffness, pain, tenderness. CARDIOVASCULAR: Negative for palpitations, dyspnea on exertion, orthopnea. RESPIRATORY: Negative for shortness of breath, wheezing, cough, hemoptysis, fever or night sweats. GASTROINTESTINAL: Negative for poor appetite, abdominal pain, heartburn, nausea , vomiting, constipation, or diarrhea. GENITOURINARY: Negative for urgency, frequency, dysuria, nocturia. MUSCULOSKELETAL: Negative for pain, swelling. NEUROLOGIC/PSYCHIATRIC: Negative for anxiety, depression. ALLERGY/IMMUNOLOGIC: Negative for skin rash, bleeding tendency. PHYSICAL EXAMINATION: GENERAL: The patient is a 39-year-old female who is currently not in any acute distress. VITAL SIGNS: Blood pressure 160/100, pulse 118 per minute, respiratory rate 16 per minute, temperature 98.1 degrees Fahrenheit, saturating 97% on room air. NECK: Supple. No elevated JVD. HEENT: Eyes; extraocular muscles intact, pupils reacting to light. Oral cavity , mucous membranes are dry. No exudates or congestion. CARDIOVASCULAR SYSTEM: S1 and S2 heard. Loud S2. RESPIRATORY SYSTEM: Air entry 1+ bilateral. Scattered rhonchi, plus no rales. ABDOMEN: Soft. Bowel sounds heard. No tenderness, rigidity, or guarding. EXTREMITIES: No peripheral edema or calf tenderness. VASCULAR SYSTEM: Peripheral pulses 1+ bilateral. No ischemic ulcerations or gangrene. CENTRAL NERVOUS SYSTEM: No gross focal deficits noted. The patient is alert, awake, and oriented well. PSYCHIATRIC SYSTEM: The patient's mood is euthymic. No hallucinations or delusions. LABORATORY DATA: Chest x-ray done shows new hazy infiltrate in the right lower lung field. White count of 6, H and H of 9 and 28, platelet count 192, MCV is 102 with 85% neutrophils. Electrolytes stable. BUN 16, creatinine 7.23, serum glucose 107. BNP 3052. Albumin is 4.5. Troponin I is 0.16. EKG done shows sinus tach at 113 beats per minute, there are signs of LVH seen. CLINICAL IMPRESSION AND PLAN: The patient will be admitted to medical floor for pneumonia. Also the patient has not filled her antiplatelet agents post rotablator/stent placement at [facility] due to high cost and the patient could not afford the same. She will be placed on Zithromax and ceftriaxone for now. We will continue her clonidine, high dose; hydralazine; and Lopressor high dose as before. We will place her on aspirin and Plavix for now and obtain Cardiology consultation. I have also spoken to Dr. Church, who will be dialyzing her for 2-hour session tomorrow. DuoNeb q.6 hourly p.r.n. Currently, her hypertension is uncontrolled and it is unclear if the patient took her morning medication. She is due for her night doses. The patient initially said she did not want to be resuscitated, but later changed her mind and is wanting full resuscitation now. We will continue to closely monitor her on medical floor. Job ID: [id number] MTDD
[2019-08-14] MEDS: Azithromycin 500 MG in Sodium Chloride 0.9% 250 ML 250 ML IVPB SCH (22:04)
--- NOTE | 2019-08-15 02:15 | CON ---
DATE OF CONSULTATION: REASON FOR CONSULTATION: Stage 6 chronic kidney disease for maintenance hemodialysis. HISTORY OF PRESENTING ILLNESS: This is a very pleasant 39-year-old female who presented to the hospital after dialysis while complaining of nausea and vomiting since this morning. The patient denies headache, numbness, tingling, or weakness. Denies any nausea, vomiting, or chest pain. PAST MEDICAL HISTORY: Significant for lupus nephritis, history of end-stage kidney disease, anemia, tunneled dialysis catheter, AV fistula, history of pericardiocentesis, history of AV fistula, tubal ligation, kidney biopsy. SOCIAL HISTORY: No alcohol or drug use. FAMILY HISTORY: Negative for ESRD. ALLERGIES: REVIEWED. HOME MEDICATIONS: List reviewed. HOSPITAL MEDICATIONS: List reviewed. REVIEW OF SYSTEMS: A 15-point review of systems was performed and was negative except for positives noted above. GENERAL: HEAD: NECK: No swelling or lumps. NOSE: No epistaxis or discharge. EYES: No diplopia or pain. RESPIRATORY: CARDIOVASCULAR: GASTROINTESTINAL: /HEAD OF MUSIC: MUSCULOSKELETAL: No joint pain. NEUROPSYCHIATRIC SYSTEMS: No suicidal ideation. No ideation. SKIN: Denies any rash or ulcer. CONSTITUTIONAL: No fever or chills. OBJECTIVE: GENERAL: The patient is awake, alert. VITAL SIGNS: Pulse 75, breathing 16, blood pressure 167/94. See above. Awake, alert, in no acute distress. GENERAL APPEARANCE AND MENTAL STATUS: Fair. HEAD/NECK: Normocephalic. Atraumatic. EYES: EOMI. No deformity. EARS: Clear. No ulcers. NOSE: Intact. No lesions. MOUTH: Clear. No discharge. THROAT: Clear. No exudate. LUNGS: Clear. No crackles. CARDIAC: S1, S2. No rub. ABDOMEN: Benign. Bowel sounds positive. GENITALIA/RECTUM: Sadler absent. BACK/EXTREMITIES: Edema 0+. NEUROLOGICAL: Alert and motor intact. SKIN: LYMPHATICS: LABORATORY DATA: Reviewed. ASSESSMENT: 1. Stage 6 chronic kidney disease. Plan dialysis tomorrow. 2. Hypertension, stable. 3. Anemia, stable. Medication based on GFR appropriate. Job ID: [id number]
[2019-08-15] MEDS ORDERED: Clopidogrel Bisulfate 300 MG TAB PO SCH (06:45)
[2019-08-15 06:48] LABS: #Eosinphils 0.1 thou/uL (0.0-0.7); #Lymphocytes 0.8 thou/uL (1.20-3.40); #Monocytes 0.4 thou/uL (0.11-0.59); %Basophils 0.4 % (0.0-1.0); %Eosinophils 2.1 % (0.0-10.0); %Lymphocytes 18.7 % (21.0-51.0); %Monocytes 8.8 % (0.0-10.0); Hemoglobin 7.9 g/dL (12.0-16.0); Mean Corpuscular HGB CONC 32.7 g/dL (32.0-36.0); Mean Platelet Volume 10.1 fL (7.4-10.4); Platelet Count 172 thou/uL (130-400); RBC Distribution Width 18.8 % (11.5-14.5); Red Blood Cell (RBC) Count 2.32 mill/uL (4.20-5.40); White Blood Cell (WBC) Count 4.3 thou/uL (4.8-10.8)
[2019-08-15 07:08] LABS: Anion Gap 18 mmol/L (10-20); BUN (Urea Nitrogen) 22 mg/dL (7.0-18.7); Calc. Creatinine Clearance 7 mL/min (70-130); Calcium 9.2 mg/dL (7.8-10.44); Carbon Dioxide 27 mmol/L (22-29); Chloride 95 mmol/L (98-107); Estimated GFR-MDRD 6; Glucose 69 mg/dL (70-105); Potassium 4.8 mmol/L (3.5-5.1); Sodium 135 mmol/L (136-145)
[2019-08-15] MEDS: Amlodipine 10 MG TAB PO SCH (08:45)
[2019-08-15] MEDS: hydrALAZINE 25 MG TAB PO SCH ×3 (08:46→21:23)
[2019-08-15] MEDS: cloNIDine 0.2 MG TAB PO SCH ×2 (08:46→21:24)
[2019-08-15] MEDS: Aspirin 81 mg Enteric Coated Tablet PO SCH (08:46)
[2019-08-15] MEDS: Clopidogrel Bisulfate 75 MG TAB PO SCH (08:47)
[2019-08-15] MEDS: Enoxaparin Sodium 30 MG/0.3 ML SYRINGE SC SCH (08:48)
--- NOTE | 2019-08-15 11:45 | CON ---
DATE OF CONSULTATION: REASON FOR CONSULTATION: Stopped Plavix. HISTORY OF PRESENT ILLNESS: Ms. Vogt is a 39-year-old woman, who recently was transferred to [facility] for percutaneous intervention. She has severe stenosis present of the right coronary artery with heavy calcification. She also had severe disease of the circumflex artery. CV Surgery was consulted and was not felt to be an appropriate candidate for bypass surgery. She underwent attempted revascularization of right coronary artery. Due to heavy calcifications could not be performed. She then had intervention present to the circumflex artery with excellent result. She states she was placed on several medications, but cannot afford them. I am concerned she was placed on Brilinta, which can be expensive. Plavix, which is generic is 3 to 6 dollars per month. She has been preloaded this morning. PAST MEDICAL HISTORY: Multivessel coronary artery disease, recent unstable angina, status post stent placement, end-stage renal disease, and noncompliance. ALLERGIES: CODEINE. REVIEW OF SYSTEMS: A 10-point review of systems is reviewed as above, otherwise negative. PHYSICAL EXAMINATION: VITAL SIGNS: Blood pressure 159/79, pulse 91, and temperature afebrile. GENERAL: Patient is a pleasant female, who is in no acute distress. The patient appears their stated age. NEUROLOGIC: The patient is alert and oriented x3 with no focal neurologic deficits. HEENT: Sclerae without icterus. Mouth has moist mucous membranes with normal pallor. NECK: No JVD. Carotid upstroke brisk. No bruits bilaterally. LUNGS: Clear to auscultation with unlabored respirations. BACK: No scoliosis or kyphosis. CARDIAC: Regular rate and rhythm with normal S1 and S2. No S3 or S4 noted. No significant rubs, murmurs, thrills, or gallops noted throughout the precordium. PMI is not displaced. There is no parasternal heave. ABDOMEN: Soft, nontender, nondistended. No peritoneal signs present. No hepatosplenomegaly. No abnormal striae. EXTREMITIES: 2+ femoral and 2+ dorsalis pedis pulses. No cyanosis, clubbing, or edema. SKIN: No gross abnormalities. PERTINENT LABORATORY DATA: Hemoglobin 7.9. Creatinine 9.1. IMPRESSION: 1. Recent stent placement. 2. Recent unstable angina. 3. End-stage renal disease. 4. Anemia. RECOMMENDATIONS: At this point, recommend reloading with Plavix. Her hemoglobin is down and may need 1 unit of packed red blood cells while on dialysis. We would also recommend 81 mg of aspirin. She has no overt bleeding. She is on antibiotic therapy for pneumonia. Otherwise, I have no further recommendations. Please re-consult if needed. Job ID: [id number]
[2019-08-15] MEDS: Metoprolol Tartrate 100 MG TAB PO SCH ×2 (12:01→21:24)
--- NOTE | 2019-08-15 12:35 | PDOC.HOSPP ---
- Subjective Encounter Date: 08/15/19 Encounter Time: 12:00 Subjective: no sob or palp feels better she is trying to call [facility] to find out the name of her prescriptions - Objective Vital Signs & Weight: Vital Signs (12 hours) Temp Pulse Resp BP BP BP Pulse Ox 08/15/19 12:00 97.9 F 102 H 18 169/81 H 93 L 08/15/19 10:00 159/79 H 08/15/19 08:46 91 181/99 H 08/15/19 08:45 91 181/99 H 08/15/19 08:40 93 L 08/15/19 08:00 97.7 F 91 18 181/99 H 93 L 08/15/19 07:50 84 16 08/15/19 03:53 98.1 F 89 18 134/83 95 Weight Weight 116 lb 13.52 oz I&O: 08/14/19 08/15/19 08/16/19 06:59 06:59 06:59 Intake Total 820 Balance 820 Result Diagrams: 08/15/19 05:55 08/15/19 05:55 Hospitalist ROS - Medication Medications: Active Medications Generic Name Dose Route Start Last Admin Trade Name Freq PRN Reason Stop Dose Admin Albuterol/Ipratropium 3 ml 08/15/19 01:00 08/15/19 07:50 Duoneb NEB 3 ml [id number] MITCHELL Administration Amlodipine Besylate 10 mg 08/15/19 09:00 08/15/19 08:45 Norvasc PO 10 mg DAILY MITCHELL Administration Aspirin 81 mg 08/15/19 09:00 08/15/19 08:46 Ecotrin PO 81 mg DAILY MITCHELL Administration Clonidine 0.4 mg 08/14/19 21:00 08/15/19 08:46 Catapres PO 0.4 mg BID MICTHELL Administration Clopidogrel Bisulfate 75 mg 08/15/19 09:00 08/15/19 08:47 Plavix PO Not Given DAILY MITCHELL Enoxaparin Sodium 30 mg 08/15/19 09:00 08/15/19 08:48 Lovenox SC 30 mg 0900 MITCHELL Administration Hydralazine HCl 100 mg 08/14/19 21:00 08/15/19 08:46 Apresoline PO 100 mg TID MITCHELL Administration Azithromycin 500 mg/ Sodium 250 mls @ 250 mls/hr 08/14/19 20:00 08/14/19 22: 04 Chloride IVPB 250 mls Q24HR MITCHELL Administration Ceftriaxone Sodium 1 gm/ 100 mls @ 200 mls/hr 08/14/19 18:00 08/14/19 20:30 Sodium Chloride IVPB 100 mls Q24HR MITCHELL Administration Metoprolol Tartrate 200 mg 08/14/19 21:00 08/15/19 12:01 Lopressor PO 200 mg BID MITCHELL Administration Tramadol HCl 50 mg 08/14/19 17:53 08/14/19 22:21 Ultram PO 50 mg Q6H PRN Administration Moderate Pain (4-6) - Exam General Appearance: NAD, awake alert Eye: PERRL, anicteric sclera ENT: no oropharyngeal lesions, moist mucosa Neck: supple, no JVD Heart: RRR, no murmur Respiratory: no wheezes, no rales Gastrointestinal: soft, non-tender, non-distended, normal bowel sounds Extremities: no cyanosis, no edema Neurological: cranial nerve grossly intact, no focal deficits Psychiatric: normal affect, A&O x 3 Hosp A/P (1) PNA (pneumonia) Code(s): J18.9 - PNEUMONIA, UNSPECIFIED ORGANISM Status: Acute Qualifiers: Pneumonia type: due to unspecified organism (2) Nausea & vomiting Code(s): R11.2 - NAUSEA WITH VOMITING, UNSPECIFIED Status: Resolved (3) Dyslipidemia Code(s): E78.5 - HYPERLIPIDEMIA, UNSPECIFIED Status: Chronic (4) Anemia of renal disease Code(s): D63.1 - ANEMIA IN CHRONIC KIDNEY DISEASE Status: Chronic (5) CAD (coronary artery disease) Code(s): I25.10 - ATHSCL HEART DISEASE OF [place] CORONARY ARTERY W/O ANG PCTRS Status: Chronic Qualifiers: Coronary Disease-Associated Artery/Lesion type: [place] artery [place] vs. transplanted heart: [place] heart Associated angina: with stable angina Qualified Code(s): I25.118 - Atherosclerotic heart disease of [place] coronary artery with other forms of angina pectoris (6) ESRD (end stage renal disease) on dialysis Code(s): N18.6 - END STAGE RENAL DISEASE; Z99.2 - DEPENDENCE ON RENAL DIALYSIS Status: Chronic (7) Hypertension Code(s): I10 - ESSENTIAL (PRIMARY) HYPERTENSION Status: Chronic Qualifiers: Hypertension type: essential hypertension Qualified Code(s): I10 - Essential (primary) hypertension (8) Lupus Code(s): M32.9 - SYSTEMIC LUPUS ERYTHEMATOSUS, UNSPECIFIED Status: Chronic Qualifiers: (9) Noncompliance with medication regimen Code(s): Z91.14 - PATIENT'S OTHER NONCOMPLIANCE WITH MEDICATION REGIMEN Status : Chronic - Plan is on zithromax and ceftriaxone for pna, nebs prn is loaded up on plavix along with asp with recent intervention done at [facility] (2 stents per patient with rotablator) this am patient mentions that her prescriptions have come down to $60 after her dialysis CM spoke to B pharmacy again its unclear what these new prescriptions are? continue norvasc, clonidine, lopressor, hydralazine to amb as tolerated for 2 hr session HD today dc plan in am after her regular session HD.
--- NOTE | 2019-08-15 13:22 | PRG ---
DATE OF SERVICE: 08/15/2019 SUBJECTIVE: This is a 39-year-old female being seen for end-stage kidney disease. The patient denied nausea, vomiting, or chest pain. OBJECTIVE: CONSTITUTIONAL: On exam, the patient is awake and alert. VITAL SIGNS: Afebrile, pulse 91, breathing 16, and blood pressure 159/79. GENERAL APPEARANCE AND MENTAL STATUS: Fair. HEAD/NECK: Normocephalic. Atraumatic. EYES: EOMI. No deformity. EARS: Clear. No ulcers. NOSE: Intact. No lesions. MOUTH: Clear. No discharge. THROAT: Clear. No exudate. LUNGS: Clear. No crackles. CARDIAC: S1, S2. No rub. ABDOMEN: Benign. Bowel sounds positive. GENITALIA/RECTUM: Sadler absent. BACK/EXTREMITIES: Edema 0+. NEUROLOGICAL: Alert and motor intact. SKIN: LYMPHATICS: LABORATORY DATA: Labs show hemoglobin 7.9. Creatinine 4.8. ASSESSMENT AND PLAN: Stage 6 chronic kidney disease, plan hemodialysis today to assess lower dry weight. Anemia, stable. Medication based on GFR appropriate. Job ID: [id number]
[2019-08-15] MEDS: cefTRIAXone\\ROCEPHIN 1 GM in Sodium Chloride 0.9% 100 ML IVPB SCH (17:48)
[2019-08-15] MEDS: Azithromycin 500 MG in Sodium Chloride 0.9% 250 ML 250 ML IVPB SCH (21:19)
[2019-08-15] MEDS: ALPRAZolam 1 MG TAB PO PRN (21:31)
[2019-08-15] MEDS ORDERED: Ondansetron PF 4 MG/2 ML Vial IVP PRN (22:22)
[2019-08-16] MEDS: hydrALAZINE 25 MG TAB PO SCH ×3 (08:30→19:57)
[2019-08-16] MEDS: Enoxaparin Sodium 30 MG/0.3 ML SYRINGE SC SCH (08:30)
[2019-08-16] MEDS: Amlodipine 10 MG TAB PO SCH (08:30)
[2019-08-16] MEDS: Metoprolol Tartrate 100 MG TAB PO SCH ×2 (08:30→19:57)
[2019-08-16] MEDS: Clopidogrel Bisulfate 75 MG TAB PO SCH ×2 (08:30→12:36)
[2019-08-16] MEDS: Aspirin 81 mg Enteric Coated Tablet PO SCH ×2 (08:30→12:36)
[2019-08-16] MEDS: cloNIDine 0.2 MG TAB PO SCH ×3 (08:30→19:57)
--- NOTE | 2019-08-16 17:06 | PRG ---
DATE OF SERVICE: 08/16/2019 SUBJECTIVE: Patient was seen and examined at bedside and overnight events noted. Patient denies any shortness of breath or chest pain or palpitation. No history of nausea or vomiting or diarrhea or fever or chills or cramps. OBJECTIVE: GENERAL: This is a well-built female, in no apparent distress. VITAL SIGNS: Temperature 97.6. Heart rate 88. Respiratory rate 16. Blood pressure 113/79. HEENT: Atraumatic, normocephalic. Oral mucosa is moist. NECK: Supple. CARDIOVASCULAR: S1, S2 heard. Rate and rhythm regular. RESPIRATORY: Clear to auscultation. GASTROINTESTINAL: Abdomen is soft. MUSCULOSKELETAL: No tenderness. No edema. DERMATOLOGIC: No skin rash. NEUROLOGIC: Alert and awake and oriented x3. No focal neurologic deficits. Moving all the extremities. PSYCHIATRIC: Mood and affect normal. LABORATORY DATA: Hemoglobin is 7.9. Potassium is 4.8, BUN is 22, and creatinine is 9.1. ASSESSMENT AND PLAN: 1. End-stage renal disease. Continue dialysis as tolerated. We will continue dialysis on Friday, Friday, and Friday. 2. Edema. We will remove fluid. 3. Anemia. 4. History of hypertension. Continue on dialysis as tolerated. Job ID: [id number]
--- NOTE | 2019-08-16 17:06 | PDOC.HOSPP ---
- Subjective Encounter Date: 08/16/19 Encounter Time: 10:25 Subjective: getting HD, no chest pain or sob feels better - Objective Vital Signs & Weight: Vital Signs (12 hours) Temp Pulse Resp BP Pulse Ox 08/16/19 15:50 97.6 F 88 16 113/79 94 L 08/16/19 12:42 98.0 F 91 16 147/91 H 96 08/16/19 07:22 97.9 F 82 20 146/90 H 92 L 08/16/19 07:20 92 L Weight Weight 116 lb 13.52 oz I&O: 08/15/19 08/16/19 08/17/19 06:59 06:59 06:59 Intake Total 820 1810 Output Total 2300 Balance 820 -490 Result Diagrams: 08/15/19 05:55 08/15/19 05:55 Hospitalist ROS - Medication Medications: Active Medications Generic Name Dose Route Start Last Admin Trade Name Freq PRN Reason Stop Dose Admin Alprazolam 1 mg 08/14/19 17:53 08/15/19 21:31 Xanax PO 1 mg TIDPRN PRN Administration Anxiety Amlodipine Besylate 10 mg 08/15/19 09:00 08/16/19 08:30 Norvasc PO Not Given DAILY MITCHELL Aspirin 81 mg 08/15/19 09:00 08/16/19 12:36 Ecotrin PO 81 mg DAILY MITCHELL Administration Clonidine 0.4 mg 08/14/19 21:00 08/16/19 12:36 Catapres PO 0.4 mg BID MITCHELL Administration Clopidogrel Bisulfate 75 mg 08/15/19 09:00 08/16/19 12:36 Plavix PO 75 mg DAILY MITCHELL Administration Enoxaparin Sodium 30 mg 08/15/19 09:00 08/16/19 08:30 Lovenox SC Not Given 0900 MITCHELL Hydralazine HCl 100 mg 08/14/19 21:00 08/16/19 15:50 Apresoline PO Not Given TID MITCHELL Metoprolol Tartrate 200 mg 08/14/19 21:00 08/16/19 08:30 Lopressor PO Not Given BID MITCHELL Ondansetron HCl 4 mg 08/15/19 22:22 08/16/19 00:17 Zofran IVP 4 mg Q6H PRN Administration Nausea/Vomiting Tramadol HCl 50 mg 08/14/19 17:53 08/14/19 22:21 Ultram PO 50 mg Q6H PRN Administration Moderate Pain (4-6) - Exam General Appearance: NAD, awake alert Eye: PERRL, anicteric sclera ENT: no oropharyngeal lesions, moist mucosa Neck: supple, no JVD Heart: RRR, no murmur Respiratory: no wheezes, no rales, rhonchi Gastrointestinal: soft, non-tender, non-distended, normal bowel sounds Extremities: no cyanosis, no edema Neurological: cranial nerve grossly intact, no focal deficits Psychiatric: normal affect, A&O x 3 Hosp A/P (1) PNA (pneumonia) Code(s): J18.9 - PNEUMONIA, UNSPECIFIED ORGANISM Status: Acute Qualifiers: Pneumonia type: due to unspecified organism (2) Nausea & vomiting Code(s): R11.2 - NAUSEA WITH VOMITING, UNSPECIFIED Status: Resolved (3) Dyslipidemia Code(s): E78.5 - HYPERLIPIDEMIA, UNSPECIFIED Status: Chronic (4) Anemia of renal disease Code(s): D63.1 - ANEMIA IN CHRONIC KIDNEY DISEASE Status: Chronic (5) CAD (coronary artery disease) Code(s): I25.10 - ATHSCL HEART DISEASE OF [place] CORONARY ARTERY W/O ANG PCTRS Status: Chronic Qualifiers: Coronary Disease-Associated Artery/Lesion type: [place] artery [place] vs. transplanted heart: [place] heart Associated angina: with stable angina Qualified Code(s): I25.118 - Atherosclerotic heart disease of [place] coronary artery with other forms of angina pectoris (6) ESRD (end stage renal disease) on dialysis Code(s): N18.6 - END STAGE RENAL DISEASE; Z99.2 - DEPENDENCE ON RENAL DIALYSIS Status: Chronic (7) Hypertension Code(s): I10 - ESSENTIAL (PRIMARY) HYPERTENSION Status: Chronic Qualifiers: Hypertension type: essential hypertension Qualified Code(s): I10 - Essential (primary) hypertension (8) Lupus Code(s): M32.9 - SYSTEMIC LUPUS ERYTHEMATOSUS, UNSPECIFIED Status: Chronic Qualifiers: (9) Noncompliance with medication regimen Code(s): Z91.14 - PATIENT'S OTHER NONCOMPLIANCE WITH MEDICATION REGIMEN Status : Chronic - Plan will switch her to oral omnicef daily, nebs prn is on plavix along with asp with recent intervention done at [facility] (2 stents per patient with rotablator) continue norvasc, clonidine, lopressor, hydralazine to amb as tolerated Had HD today dc plan in am.
[2019-08-16] MEDS: ALPRAZolam 1 MG TAB PO PRN (19:57)
[2019-08-17] MEDS: Clopidogrel Bisulfate 75 MG TAB PO SCH (08:27)
[2019-08-17] MEDS: Aspirin 81 mg Enteric Coated Tablet PO SCH (08:27)
[2019-08-17] MEDS: Enoxaparin Sodium 30 MG/0.3 ML SYRINGE SC SCH (08:31)
[2019-08-17] MEDS ORDERED: Cefdinir 300 MG CAP PO SCH (09:00)
[2019-08-17] MEDS: cloNIDine 0.2 MG TAB PO SCH (10:03)
[2019-08-17] MEDS: hydrALAZINE 25 MG TAB PO SCH ×2 (10:04→15:48)
[2019-08-17] MEDS: Amlodipine 10 MG TAB PO SCH (10:04)
[2019-08-17] MEDS: Metoprolol Tartrate 100 MG TAB PO SCH (10:04)
[2019-08-17 15:48] VITALS: BP 101/67; TEMP 97.6
--- NOTE | 2019-08-17 18:53 | PRG ---
DATE OF SERVICE: 08/17/2019 SUBJECTIVE: Patient was seen and examined at bedside and overnight events noted. Patient denies any shortness of breath or chest pain or palpitation. No history of nausea or vomiting or diarrhea or fever or chills or cramps. OBJECTIVE: GENERAL: This is a thin-built female, in no apparent distress. VITAL SIGNS: Temperature 97.6. Heart rate 77. Respiratory rate 16. Blood pressure 101/67. HEENT: Atraumatic, normocephalic. Oral mucosa is moist NECK: Supple. CARDIOVASCULAR: S1, S2 heard. Rate and rhythm regular. RESPIRATORY: Clear to auscultation. GASTROINTESTINAL: Abdomen is soft. MUSCULOSKELETAL: No tenderness. No edema. DERMATOLOGIC: No skin rash. NEUROLOGIC: Alert and awake and oriented X3. No focal neurologic deficits. Moving all the extremities. PSYCHIATRIC: Mood and affect normal. LABORATORY DATA: Potassium 4.8, BUN is 72, and creatinine is 9.1. ASSESSMENT AND PLAN: 1. End-stage renal disease. Continue dialysis on Friday, Friday, and Friday. 2. Edema. We will remove fluid. 3. Anemia of chronic disease. 4. History of hypertension. Continue dialysis on Friday, Friday, and Friday. Job ID: [id number]
--- NOTE | 2019-08-18 14:01 | DIS ---
DATE OF ADMISSION: 08/14/2019 DATE OF DISCHARGE: 08/17/2019 DISCHARGE DISPOSITION: Home. PRIMARY DISCHARGE DIAGNOSES: Pneumonia, nausea, and vomiting, resolved; end- stage renal disease, on hemodialysis; recent stent placed to the coronary arteries with medication noncompliance; chronic anemia due to renal disease; dyslipidemia; hypertension; and history of lupus. PROCEDURES DONE DURING HOSPITALIZATION: Chest x-ray done showed findings suggestive of hazy infiltrate in the right lower lobe. Blood cultures x2, no growth. H and H 8 and 24, platelet count 172, white count of 4, MCV 104. BUN and creatinine are 22 and 9.1. BNP was 3052, which is chronically elevated due to end-stage renal disease. DISCHARGE MEDICATIONS: 1. Omnicef 300 mg daily for another three days. 2. Aspirin 81 mg p.o. daily. 3. Clonidine 0.4 mg twice daily. 4. Plavix 75 mg daily. 5. Ultram p.r.n. for pain. 6. Norvasc 10 mg daily. 7. Lopressor 200 mg twice daily. 8. Hydralazine 100 mg three times daily. 9. Xanax 1 mg p.o. three times daily p.r.n. for anxiety. ALLERGIES: ALLERGIC TO CODEINE. INPATIENT CONSULT: 1. Dr. Sandoval for Cardiology. 2. Dr. Church for Nephrology. DISCHARGE PLAN: The patient will follow up with Dr. Sandoval in 2 weeks and primary care physician in 1 week. BRIEF COURSE DURING HOSPITALIZATION: The patient initially came to ER with complaints of feeling bad. She was recently discharged from [facility] after having Rotablator therapy with two stents placed to coronary arteries and was discharged home. The patient could not get her Plavix or Brilinta, which is unclear, which was costing her 800 dollars a month. On initial evaluation in the ER, the patient was found to have had a right lung pneumonia. She was admitted to medical floor and was started on aspirin and loaded up on Plavix along with IV antibiotics for pneumonia. She was on Zithromax and ceftriaxone all through her stay and has been switched over to Omnicef. Prior to discharge, she is ambulating and is hemodynamically stable. She has had hemodialysis during her stay as well. She was counseled with regard to medication compliance and possible stent stenosis if she were to be noncompliant with medications. She has been cleared for discharge by Dr. Sandoval for Cardiology and Dr. Church for Nephrology. Please note, I have seen and examined the patient on the day of discharge. Job ID: [id number] MTDD
--- NOTE | 2019-08-19 09:45 | PQF ---
[employer] Vice President Crystal Reports PRIETO Alcaraz YASSINE COSTA MD [id number] [id number] CLINICAL DOCUMENTATION CLARIFICATION FORM: POST DISCHARGE Addendum to original discharge summary date: ____ Late entry note date: __ DATE: 08/19/2019 ATTN: YASSINE COSTA MD Please exercise your independent, professional judgment in responding to the clarification form. Clinical indicators are provided on the bottom of this form for your review Please check appropriate box(s) to clarify if the following diagnosis has been ruled in or ruled out: SEPSIS [ ] Ruled in diagnosis [ ] Continue to treat [ ] Resolved [ ] Ruled out diagnosis [ ] Cannot rule out diagnosis [ x ] Other diagnosis _there was no sign or symptoms of sepsis [ ] Unable to determine For continuity of documentation, please document condition throughout progress notes and discharge summary. Thank You. CLINICAL INDICATORS - SIGNS / SYMPTOMS / LABS - Sepsis -ED record, 08/17, Elo Purdy MD - Temp: 98.3, RR: 118, RR:20-ED record, 08/17, Elo Purdy MD - Tachycardia-ED record, 08/17, Elo Purdy MD - Pneumonia-H&P, 08/14, YASSINE COSTA MD - WBC: 6-H&P, 08/14, YASSINE COSTA MD RISK FACTORS - ESRD-Hospital PN, 08/15, YASSINE COSTA MD TREATMENTS - Vancomycin.IV-MAR, 07/14 (This form is maintained as a part of the permanent medical record) 2014 [employer]. All Rights Reserved Tomás Arzate [not provided] [not provided] MTDD
--- NOTE | 2019-08-21 13:35 | EKG ---
Test Reason : Blood Pressure : / mmHG Vent. Rate : 113 BPM Atrial Rate : 113 BPM P-R Int : 144 ms QRS Dur : 086 ms QT Int : 362 ms P-R-T Axes : 036 086 018 degrees QTc Int : 496 ms Sinus tachycardia Possible Left atrial enlargement Borderline ECG Confirmed by SVITLANA MC ([id number]), food editor LINDY LAND ([id number]) on 08/21/2019 1:34:52 PM Referred By: Confirmed By:SVITLANA MC
== END 2019-08-17 16:18 | disposition home or self-care (01) | DRG 193 ==
LOC: ERS 13:59 → T4-A 17:11
PROVIDERS: ADMIT Internal Medicine; ATTEND Internal Medicine
PROC: 5A1D70Z Performance of Urinary Filtration, Intermittent, Less than 6 Hours Per Day (ICD-10-PCS; principal; 2019-08-16)
DX: J18.9 Pneumonia, unspecified organism (principal); N18.6 End stage renal disease; I12.0 Hypertensive chronic kidney disease with stage 5 chronic kidney disease or end stage renal disease; I25.10 Atherosclerotic heart disease of native coronary artery without angina pectoris; D63.1 Anemia in chronic kidney disease; M32.9 Systemic lupus erythematosus, unspecified; E78.5 Hyperlipidemia, unspecified; G43.909 Migraine, unspecified, not intractable, without status migrainosus; Z98.51 Tubal ligation status; Z95.5 Presence of coronary angioplasty implant and graft; Z99.2 Dependence on renal dialysis; Z91.14 Patient's other noncompliance with medication regimen
CPT/HCPCS: 36415; 71045; 80048; 80053; 82553; 83605; 83735; 83880; 84484; 85025; 87040; 90935; 93005; 94640; 96365; 96367; 96375; G0257; J0456; J0696; J1650; J1956; J2405; J3370; J3490; J7050; J7620

== ENCOUNTER 2019-12-08 17:52 | Emergency (ER) | payer MEDICARE, MEDICAID ==
[2019-12-08] MEDS ORDERED: Ondansetron PF 4 MG/2 ML Vial ONE (18:26)
[2019-12-08 18:29] LABS: #Eosinphils 0.1 thou/uL (0.0-0.7); #Lymphocytes 1.3 thou/uL (1.20-3.40); #Monocytes 0.4 thou/uL (0.11-0.59); #Neutrophils 3.6 thou/uL (1.40-6.50); %Basophils 0.1 % (0.0-1.0); %Eosinophils 1.9 % (0.0-10.0); %Lymphocytes 24.2 % (21.0-51.0); %Monocytes 7.5 % (0.0-10.0); %Neutrophils 66.2 % (42.0-75.0); Hemoglobin 11.6 g/dL (12.0-16.0); Mean Corpuscular HGB CONC 32.1 g/dL (32.0-36.0); Mean Corpuscular Hemoglobin 31.9 pg (27.0-31.0); Mean Corpuscular Volume 99.6 fL (78.0-98.0); Platelet Count 175 thou/uL (130-400); RBC Distribution Width 17.3 % (11.5-14.5); Red Blood Cell (RBC) Count 3.64 mill/uL (4.20-5.40); White Blood Cell (WBC) Count 5.4 thou/uL (4.8-10.8)
[2019-12-08 18:53] LABS: ALT (SGPT) Less than 7 U/L (8-55); AST (SGOT) 14 U/L (5-34); Albumin 4.7 g/dL (3.5-5.0); Alkaline Phosphatase 61 U/L (40-110); Anion Gap 21 mmol/L (10-20); BUN (Urea Nitrogen) 32 mg/dL (7.0-18.7); Bilirubin, Total 1.7 mg/dL (0.2-1.2); Calc. Creatinine Clearance 0 mL/min (70-130); Carbon Dioxide 27 mmol/L (22-29); Chloride 94 mmol/L (98-107); Estimated GFR-MDRD 5; Globulin 4.4 g/dL (2.4-3.5); Glucose 94 mg/dL (70-105); Magnesium 2.2 mg/dL (1.6-2.6); Potassium 4.3 mmol/L (3.5-5.1); Protein, Total 9.1 g/dL (6.0-8.3); Sodium 138 mmol/L (136-145)
[2019-12-08 19:15] LABS: CKMB 2.3 ng/mL (0-6.6)
--- NOTE | 2019-12-08 19:35 | RAD ---
PORTABLE CHEST 12/08/19 PROVIDED CLINICAL HISTORY: Dyspnea. FINDINGS: Comparison 08/14/19. The cardiac silhouette appears prominently enlarged. Vascular stent material again overlies the right upper chest. No focal consolidation, pleural fluid or pneumothorax apparent. IMPRESSION: Cardiomegaly without evidence for an acute cardiopulmonary process. POS: MARCUS
--- NOTE | 2019-12-08 22:31 | ULT ---
RIGHT UPPER QUADRANT ULTRASOUND: 12/08/19 HISTORY: Right upper quadrant abdominal pain. COMPARISON: CT abdomen on 01/22/19. FINDINGS: The gallbladder is contracted. The gallbladder wall does appear thickened, but this may be related to the contracted state of the gallbladder. No obvious gallbladder calculus is appreciated. The common duct is normal in caliber measuring 0.3 cm. There is distention of the hepatic veins in the IVC which may be related to volume status or related to cardiac decompensation. Liver otherwise has a normal sonographic appearance and no focal hepatic l esion is identified. The right kidney is very echogenic in appearance and demonstrates renal cortical thinning and is atro phic. The right kidney measures 7.7 cm. The majority of the pancreas is obscured due to shadowing from bowel gas but where visualized demonst rates a grossly normal sonographic appearance. The visualized portion of the IVC demonstrate a normal sonographic appearance. IMPRESSION: 1. Atrophic echogenic right kidney with renal cortical thinning with echogenic foci seen likely related to multiple calcifications associated with the right kidney, some of which are probably rela lee to vascular calcifications. 2. Distention of the hepatic veins and IVC which may be related to either volume status or cardi ac decompensation. 3. Gallbladder is contracted. Gallbladder wall is thickened which may be secondary to the contra cted nature of the gallbladder. However, abnormal thickening related to cholecystitis in the correct clinical scenario versus hypoproteinemia versus other etiologies is a possibility. No definitive gall bladder calculus is seen. Follow-up evaluation of the gallbladder after appropriate fasting is recomm ended. 4. Trace amount of free fluid adjacent to the liver. POS: HSAYY
== END 2019-12-08 19:53 | disposition home or self-care (01) ==
LOC: ERS 17:52
DX: B34.9 Viral infection, unspecified (principal); I25.2 Old myocardial infarction; N19 Unspecified kidney failure; G43.909 Migraine, unspecified, not intractable, without status migrainosus; I10 Essential (primary) hypertension; M32.9 Systemic lupus erythematosus, unspecified; Z99.2 Dependence on renal dialysis; Z95.5 Presence of coronary angioplasty implant and graft; Z79.899 Other long term (current) drug therapy
CPT/HCPCS: 71045; 76705; 80053; 82553; 83735; 84484; 85025; 87804; 93005; 96374; J2405

== ENCOUNTER 2019-12-16 12:06 | Emergency (ER) | payer MEDICARE, MEDICAID ==
--- NOTE | 2019-12-16 16:00 | ULT ---
US Venous Doppler Rt Unilat HISTORY: Pain and swelling in the right upper extremity during after dialysis. COMPARISON: None. FINDINGS: There is good flow in the AV fistula in the anterior cubital fossa without thrombosis. There is good flow, compression and spectral waveforms in the right internal jugular, subclavian, axi llary, brachial, radial, ulnar veins. IMPRESSION: 1. Patent dialysis fistula in the right upper extremity 2. No evidence of DVT in the right upper extremity.
== END 2019-12-16 17:20 | disposition home or self-care (01) ==
LOC: ERS 12:06
DX: T82.590A Other mechanical complication of surgically created arteriovenous fistula, initial encounter (principal); G43.909 Migraine, unspecified, not intractable, without status migrainosus; I10 Essential (primary) hypertension; I25.2 Old myocardial infarction; Z79.899 Other long term (current) drug therapy

== ENCOUNTER 2020-02-18 13:41 | Emergency (ER) | payer MEDICARE, MEDICAID ==
[2020-02-18 14:39] LABS: #Eosinphils 0.1 thou/uL (0.0-0.7); #Lymphocytes 0.8 thou/uL (1.20-3.40); #Monocytes 0.3 thou/uL (0.11-0.59); #Neutrophils 3.2 thou/uL (1.40-6.50); %Eosinophils 1.7 % (0.0-10.0); %Lymphocytes 18.2 % (21.0-51.0); %Monocytes 7.5 % (0.0-10.0); %Neutrophils 72.6 % (42.0-75.0); Hemoglobin 8.8 g/dL (12.0-16.0); Mean Corpuscular Hemoglobin 32.2 pg (27.0-31.0); Mean Platelet Volume 10.7 fL (7.4-10.4); Platelet Count 101 thou/uL (130-400); RBC Distribution Width 17.6 % (11.5-14.5); Red Blood Cell (RBC) Count 2.72 mill/uL (4.20-5.40); White Blood Cell (WBC) Count 4.4 thou/uL (4.8-10.8)
[2020-02-18 14:56] LABS: ALT (SGPT) Less than 7 U/L (8-55); AST (SGOT) 13 U/L (5-34); Albumin 3.8 g/dL (3.5-5.0); Alkaline Phosphatase 62 U/L (40-110); Anion Gap 20 mmol/L (10-20); BUN (Urea Nitrogen) 37 mg/dL (7.0-18.7); Bilirubin, Total 0.9 mg/dL (0.2-1.2); Calc. Creatinine Clearance 0 mL/min (70-130); Calcium 8.8 mg/dL (7.8-10.44); Carbon Dioxide 28 mmol/L (22-29); Chloride 96 mmol/L (98-107); Estimated GFR-MDRD 4; Globulin 3.9 g/dL (2.4-3.5); Glucose 64 mg/dL (70-105); Potassium 4.7 mmol/L (3.5-5.1); Protein, Total 7.7 g/dL (6.0-8.3); Sodium 139 mmol/L (136-145)
[2020-02-18 15:02] LABS: Elliptocytes SLIGHT = 2-5 cells (100X) (0-1/hpf); MDiff Complete? YES; Macrocytosis SLIGHT = 6-15 cells (100X) (0-5/hpf); Ovalocytes MODERATE= 6-15 cells (100X) (0-1/hpf); Platelet Morphology Comment Appears Decreased; Polychromasia SLIGHT = 2-3 cells (100X) (0-2/hpf); Schistocytes SLIGHT = 2-5 cells (100X) (0-1/hpf); Tear Drops SLIGHT = 2-5 cells (100X) (0-1/hpf)
--- NOTE | 2020-02-18 15:36 | ULT ---
DOPPLER VENOUS ULTRASOUND OF THE RIGHT UPPER EXTREMITY: COMPARISON: Prior exam dated 12/16/2019. INDICATION: Right arm edematous changes and pain since dialysis on Friday. FINDINGS: Again seen are dilated right subclavian right axillary, right brachial veins. With continuous flow co nsistent with the patient's right arm fistula. No visualized venous thrombosis is evident. Visualiz ed aspects of the basilic and cephalic vein appear patent. Visualized aspects of the radial vein and ulnar vein appear patent. There is edematous change seen within the subcutaneous tissues of the rig ht upper extremity. There is appropriate flow within the right internal jugular vein. IMPRESSION: 1. Patent dialysis fistula in the right upper extremity. 2. No evidence of venous thrombosis within the right upper extremity. 3. Subcutaneous edema of the right upper extremity. POS: CET
== END 2020-02-18 16:57 | disposition home or self-care (01) ==
LOC: ERS 13:41
DX: M79.89 Other specified soft tissue disorders (principal); I25.2 Old myocardial infarction; G43.909 Migraine, unspecified, not intractable, without status migrainosus; I10 Essential (primary) hypertension; Z79.899 Other long term (current) drug therapy
CPT/HCPCS: 36415; 80053; 85025

== ENCOUNTER 2020-03-11 17:26 | Inpatient (IN) | payer MEDICARE, MEDICAID ==
[2020-03-11] MEDS ORDERED: Morphine 4 MG/ML VIAL ONE (17:46)
[2020-03-11] MEDS ORDERED: Ondansetron ODT 4 MG TAB ONE (17:46)
[2020-03-11 17:57] LABS: #Eosinphils 0.1 thou/uL (0.0-0.7); #Lymphocytes 0.7 thou/uL (1.20-3.40); #Monocytes 0.3 thou/uL (0.11-0.59); #Neutrophils 3.3 thou/uL (1.40-6.50); %Basophils 0.2 % (0.0-1.0); %Eosinophils 1.5 % (0.0-10.0); %Lymphocytes 16.8 % (21.0-51.0); %Monocytes 5.9 % (0.0-10.0); %Neutrophils 75.5 % (42.0-75.0); Hemoglobin 8.8 g/dL (12.0-16.0); Mean Corpuscular HGB CONC 33.4 g/dL (32.0-36.0); Mean Corpuscular Hemoglobin 33.3 pg (27.0-31.0); Mean Corpuscular Volume 99.4 fL (78.0-98.0); Mean Platelet Volume 11.5 fL (7.4-10.4); Platelet Count 144 thou/uL (130-400); RBC Distribution Width 17.4 % (11.5-14.5); Red Blood Cell (RBC) Count 2.65 mill/uL (4.20-5.40); White Blood Cell (WBC) Count 4.3 thou/uL (4.8-10.8)
[2020-03-11 18:29] LABS: ALT (SGPT) Less than 7 U/L (8-55); AST (SGOT) 24 U/L (5-34); Albumin 4.3 g/dL (3.5-5.0); Alkaline Phosphatase 59 U/L (40-110); Anion Gap 26 mmol/L (10-20); BUN (Urea Nitrogen) 66 mg/dL (7.0-18.7); Bilirubin, Total 0.9 mg/dL (0.2-1.2); Calc. Creatinine Clearance 0 mL/min (70-130); Calcium 8.9 mg/dL (7.8-10.44); Carbon Dioxide 21 mmol/L (22-29); Chloride 91 mmol/L (98-107); Estimated GFR-MDRD 3; Globulin 5.1 g/dL (2.4-3.5); Glucose 96 mg/dL (70-105); Potassium 5.9 mmol/L (3.5-5.1); Protein, Total 9.4 g/dL (6.0-8.3); Sodium 132 mmol/L (136-145)
--- NOTE | 2020-03-11 19:14 | ULT ---
VENOUS DUPLEX EXAM RIGHT UPPER EXTREMITY WITH RIGHT UPPER EXTREMITY ARTERIAL GRAFT EVALUATION: 03/11/20 INDICATIONS: Right upper extremity pain and edema. Assess patency of the fistula. FINDINGS: Evaluation of the right upper extremity venous structures performed. The right internal jugular vein is patent and compresses. The right subclavian vein shows normal flow. The right axillary vein and ba silic vein show normal flow. Cephalic vein appears to represent the primary venous outflow to the fis montse and is patent. The brachial vein in the mid humerus region is not well seen and could potentiall y be thrombosed as no definite flow is identified. This does not appear to be related to the fistula. There is a dialysis fistula below the elbow which appears to anastomose into the ulnar artery. The an astomosis is patent. The arterial flow and the venous outflow is patent. There is no evidence of fis montse thrombosis. The visualized arteries including axillary artery, brachial artery, radial artery an d ulnar arteries show normal arterial flow by Doppler. IMPRESSION: Patent dialysis fistula right upper extremity. There is subcutaneous edema noted. POS: AGW
[2020-03-11] MEDS ORDERED: hydrALAZINE 20 MG/ML VIAL ONE (19:30)
[2020-03-11] MEDS ORDERED: Promethazine HCl 25 MG/ML VIAL ONE (20:28)
[2020-03-11] MEDS ORDERED: Senokot S 8.6-50 MG TAB PO PRN (21:28)
[2020-03-11] MEDS ORDERED: Ondansetron ODT 4 MG TAB PO PRN (21:28)
[2020-03-11] MEDS ORDERED: Acetaminophen 325 MG TAB PO PRN (21:28)
[2020-03-11] MEDS ORDERED: HYDROcodone/Acetaminophen 5/325 mg Tablet PO PRN (21:32)
--- NOTE | 2020-03-11 22:28 | PDOC.HHP ---
Hospitalist HPI - History of Present Illness Pain and swelling in RUE and unable to get dialysis yesterday History of Present Illness: Ms Vogt is a very pleasant 40F with a history of ESRD on dialysis, lupus, CAD , migraine headaches. who came to the ED today because her AV fistula in her RUE was much more swollen for the past 2 days. She reports she has been having issues with swelling but this is the worst it has been and it is painful. Work- up in the ED shows a patent AV fistula but because she was unable to get her regularly scheduled dialysis, her K was 5.9. ED called Dr. Church who would like her admitted for emergent dialysis and will call the surgery team for emergent dialysis catheter tonight per SANDIE Painter in the ED. She denies injury, trauma, pain anywhere but right arm. Denies abdominal pain, n/v/d. Denies fever , has a dry chronic cough. She is being admitted for emergent dialysis. ED Course: In the ED, patient has a U/S of right arm with duplex artery u/s which demonstrated patent graph and arteries with surrounding edema. CBC in line with last visit, HGB 8.8, HCT 26.3, Plt 144, NA 132, K 5.9, CL 91, Gap 26, BUN 66, CR 17.2, BNP 3234, protein 9.4. Dr. Church asked for admission and he will call surgery to have emergent dialysis catheter placed for emergent dialysis. Hospitalist ROS - Review of Systems Constitutional: denies: fever, chills, sweats, weakness, malaise, other Eyes: denies: pain, vision change, conjunctivae inflammation, eyelid inflammation, redness, other ENT: reports: nose congestion Respiratory: reports: cough Cardiovascular: denies: chest pain, palpitations, orthopnea, paroxysmal noc. dyspnea, edema, light headedness, other Gastrointestinal: denies: nausea, vomiting, abdominal pain, diarrhea, constipation, melena, hematochezia, other Genitourinary: denies: dysuria, frequency, incontinence, hematuria, retention, other Musculoskeletal: reports: arm pain Skin: reports: other (pitting edema to RUE) - Medication Medications: metoprolol tartrate oral Sat Mar 11, 2020 TABLET : Strength - 50 mg : ORAL Patient Dose: 50 mg Oral 2 times a day. cloNIDine HCl Sat Mar 11, 2020 17:42 TABLET : Strength - 0.3 mg : ORAL Patient Dose: 0.3 mg 3 times a day. hydrALAZINE oral Sat Mar 11, 2020 17:42 TABLET : Strength - 100 mg : ORAL Patient Dose: 100 mg Oral 3 times a day. amLODIPine Sat Mar 11, 2020 17:42 tablet : Strength - 10 mg : ORAL Patient Dose: 1 mg Oral once a day. Plavix Sat Mar 11, 2020 17:43 tablet : Strength - 75 mg : ORAL Patient Dose: *.dose unknown. Hospitalist History - Past Medical History Cardiac: reports: CAD, HTN HEEL SEAT LASTER: reports: Migraine Renal/: reports: Acute renal failure Endocrine: reports: Other (lupus) - Exam Eye: PERRL ENT: normocephalic atraumatic, moist mucosa Neck: supple Heart: RRR, normal peripheral pulses Respiratory: CTAB, normal chest expansion Gastrointestinal: soft, non-tender Extremities - other findings: Edema to RUE from AV fistula in upper arm to fingers, Neurological: cranial nerve grossly intact Musculoskeletal - other findings: RUE strength and ROM limited by pain and edema Psychiatric: normal affect, A&O x 3 Hospitalist Results - Labs Result Diagrams: 03/11/20 17:50 03/11/20 17:50 Lab results: WBC 4.3 thou/uL (4.8-10.8) L 03/11/20 17:50 Hgb 8.8 g/dL (12.0-16.0) L 03/11/20 17:50 Hct 26.3 % (36.0-47.0) L 03/11/20 17:50 MCV 99.4 fL (78.0-98.0) H 03/11/20 17:50 Plt Count 144 thou/uL (130-400) 03/11/20 17:50 Neutrophils % 75.5 % (42.0-75.0) H 03/11/20 17:50 Sodium 132 mmol/L (136-145) L 03/11/20 17:50 Potassium 5.9 mmol/L (3.5-5.1) H 03/11/20 17:50 Chloride 91 mmol/L (98-107) L 03/11/20 17:50 Carbon Dioxide 21 mmol/L (22-29) L 03/11/20 17:50 BUN 66 mg/dL (7.0-18.7) H 03/11/20 17:50 Creatinine 17.20 mg/dL (0.6-1.1) H 03/11/20 17:50 Glucose 96 mg/dL (70-105) 03/11/20 17:50 Calcium 8.9 mg/dL (7.8-10.44) 03/11/20 17:50 Total Bilirubin 0.9 mg/dL (0.2-1.2) 03/11/20 17:50 AST 24 U/L (5-34) 03/11/20 17:50 ALT Less than 7 U/L (8-55) L 03/11/20 17:50 Alkaline Phosphatase 59 U/L (40-110) 03/11/20 17:50 B-Natriuretic Peptide 3234.4 pg/mL (0-100) H 03/11/20 19:15 Serum Total Protein 9.4 g/dL (6.0-8.3) H 03/11/20 17:50 Albumin 4.3 g/dL (3.5-5.0) 03/11/20 17:50 Hospitalist H&P A/P - Problem (1) Hyperkalemia Code(s): E87.5 - HYPERKALEMIA Status: Acute (2) Hyponatremia Code(s): E87.1 - HYPO-OSMOLALITY AND HYPONATREMIA Status: Acute (3) Anemia of renal disease Code(s): D63.1 - ANEMIA IN CHRONIC KIDNEY DISEASE Status: Chronic (4) CAD (coronary artery disease) Code(s): I25.10 - ATHSCL HEART DISEASE OF [place] CORONARY ARTERY W/O ANG PCTRS Status: Chronic Qualifiers: Coronary Disease-Associated Artery/Lesion type: [place] artery [place] vs. transplanted heart: [place] heart Associated angina: with stable angina Qualified Code(s): I25.118 - Atherosclerotic heart disease of [place] coronary artery with other forms of angina pectoris (5) ESRD (end stage renal disease) on dialysis Code(s): N18.6 - END STAGE RENAL DISEASE; Z99.2 - DEPENDENCE ON RENAL DIALYSIS Status: Chronic (6) Lupus Code(s): M32.9 - SYSTEMIC LUPUS ERYTHEMATOSUS, UNSPECIFIED Status: Chronic Qualifiers: - Plan Plan: Dr. Church to arrange emergent dialysis catheter placement for emergent dialysis. Will admit overnight. Order for fistulogram in the AM, if possible. U/S in the ED shows patent arteries and AV fistula. Will restart home medications once reconciled DVT and GI prevention started. Will recheck labs after dialysis. Case discussed with Dr. Perez who agrees to plan.
[2020-03-11] MEDS: HYDROcodone/Acetaminophen 5/325 mg Tablet PO PRN (22:40)
[2020-03-11] MEDS ORDERED: hydrALAZINE 20 MG/ML VIAL SLOW IVP PRN (22:46)
[2020-03-11 23:43] LABS: HBSAg Index 0.17 S/CO (0-0.99); Hep B Surf Ag Non-Reactive S/CO (NonReactive)
[2020-03-12] MEDS ORDERED: HYDROcodone/Acetaminophen 5/325 mg Tablet PO PRN (00:41)
[2020-03-12 01:52] VITALS: BMI 24.5
[2020-03-12] MEDS: Labetalol HCl 100 MG/20 ML VIAL SLOW IVP PRN ×3 (04:34→16:19)
[2020-03-12] MEDS: HYDROcodone/Acetaminophen 5/325 mg Tablet PO PRN ×2 (04:34→09:02)
[2020-03-12 05:39] LABS: #Eosinphils 0.1 thou/uL (0.0-0.7); #Lymphocytes 0.5 thou/uL (1.20-3.40); #Monocytes 0.3 thou/uL (0.11-0.59); #Neutrophils 4.9 thou/uL (1.40-6.50); %Eosinophils 0.9 % (0.0-10.0); %Lymphocytes 8.5 % (21.0-51.0); %Monocytes 5.9 % (0.0-10.0); %Neutrophils 84.7 % (42.0-75.0); Hemoglobin 8.6 g/dL (12.0-16.0); Mean Corpuscular HGB CONC 33.6 g/dL (32.0-36.0); Mean Corpuscular Volume 98.3 fL (78.0-98.0); Platelet Count 153 thou/uL (130-400); RBC Distribution Width 17.3 % (11.5-14.5); White Blood Cell (WBC) Count 5.7 thou/uL (4.8-10.8)
[2020-03-12 05:59] LABS: Anion Gap 15 mmol/L (10-20); BUN (Urea Nitrogen) 19 mg/dL (7.0-18.7); Calc. Creatinine Clearance 10 mL/min (70-130); Calcium 9.4 mg/dL (7.8-10.44); Carbon Dioxide 29 mmol/L (22-29); Chloride 97 mmol/L (98-107); Estimated GFR-MDRD 8; Glucose 109 mg/dL (70-105); Potassium 3.4 mmol/L (3.5-5.1); Sodium 138 mmol/L (136-145)
[2020-03-12] MEDS: Famotidine 20 MG TAB PO SCH (09:01)
--- NOTE | 2020-03-12 09:09 | PDOC.OP ---
Operative Note - Operative Note Operative Note: PROCEDURE: Femoral hemodialysis catheter with ultrasound guidance SURGEON: Pricilla Coello M.D. DATE:03/11/2020 PREOPERATIVE DIAGNOSIS: Renal failure POSTOPERATIVE DIAGNOSIS: Renal failure HISTORY: Patient with renal failure requiring immediate dialysis. Femoral dialysis catheter has been requested by the patients it application support analyst for this purpose. PROCEDURE: After informed consent was obtained the patient was prepped and draped in standard sterile fashion and placed in supine position. A sterile ultrasound probe was used to identify the patent right femoral vein and local anesthesia was infused the skin and subcutaneous tissues overlying this. The vein was accessed under direct ultrasound guidance and a wire threaded through the needle. The needle was removed leaving the wire in place which was confirmed by ultrasound to be within the patent compressible vein. The skin was incised and the tract was dilated. A hemodialysis catheter was placed over the wire and secured to the skin with suture. A sterile chlorhexidine dressing was placed. All ports easily aspirated dark venous nonpulsatile blood and easily flushed without resistance. There were no immediate complications. Estimated blood loss is minimal. There were no specimens. The inpatient dialysis nurse was alerted that the patient had dialysis access in place.
--- NOTE | 2020-03-12 16:01 | PRG ---
DATE OF SERVICE: 03/12/2020 SUBJECTIVE: This is a 40-year-old female who is being seen for end-stage renal disease. The patient denies any nausea, vomiting, or chest pain. OBJECTIVE: GENERAL: The patient is awake and alert. VITAL SIGNS: Afebrile, pulse 75, breathing at 16, blood pressure 173/110. HEENT: Head normocephalic and atraumatic. Eyes intact, no ulcers. Nose intact, no ulcers. Ears intact, no ulcers. NECK: Supple. No JVD. CHEST: Symmetrical and clear. CARDIOVASCULAR: Shows S1 and S2, no rub, no murmur. GASTROINTESTINAL: Abdomen is soft, bowel sounds positive. EXTREMITIES: Show no edema or ulcers. SKIN: Shows no rash or petechiae. MUSCULOSKELETAL: Shows no joint swelling or stiffness. GENITOURINARY: Shows no [place] or CVA tenderness. NEUROLOGIC: Motor intact. Cranial nerves intact. LABORATORY DATA: Reviewed. ASSESSMENT: 1. Stage 6 chronic kidney disease. The patient tolerated dialysis well. Blood pressure was low. 2. Hypertension, stable. 3. Anemia, stable. 4. Medication based on GFR appropriate. Job ID: [id number]
--- NOTE | 2020-03-12 18:33 | CON ---
DATE OF CONSULTATION: 03/11/2020 TIME: 8:00 p.m. REASON FOR CONSULTATION: Hyperkalemia. HISTORY OF PRESENT ILLNESS: This is a very pleasant 40-year-old female presented to the hospital after a failed access, unable to do dialysis and swelling of her right arm. Her potassium was 5.9, so she is being admitted. The patient has history of noncompliance and does not show up for dialysis at least once a week. PAST MEDICAL HISTORY: Significant for hypertension, anemia, end-stage kidney disease, history of lupus nephritis, history of coronary artery disease, history of cardiac catheterization, history of multiple access surgeries, history of cardiac arrest. All other past medical history reviewed. SOCIAL HISTORY: No alcohol or drug use. FAMILY HISTORY: Negative for ESRD. ALLERGIES: REVIEWED. MEDICATIONS: Home medication list reviewed. Hospital medication list reviewed REVIEW OF SYSTEMS: A 15-point review of system was performed, negative except what was noted above. HEENT: Eyes intact, no diplopia. Ears: No hearing loss or earache. Nose: No discharge or bleeding. CHEST: No cough or phlegm. ABDOMEN: No nausea or vomiting. GENITOURINARY: No hematuria. No Sadler catheter. MUSCULOSKELETAL: No low back pain. No joint swelling or pain. NEUROLOGICAL: No syncope. No seizures. SKIN: No complaints of rash or itching. PSYCHIATRIC: No depression. CONSTITUTIONAL: No weight loss or loss of appetite. PHYSICAL EXAMINATION: GENERAL: The patient is awake and alert. VITAL SIGNS: Afebrile, pulse 75, breathing at 16, blood pressure 200/100. HEENT: Head normocephalic and atraumatic. Eyes intact, no ulcers. Nose intact, no ulcers. Ears intact, no ulcers. NECK: Supple. No JVD. CHEST: Symmetrical and clear. CARDIOVASCULAR: Shows S1 and S2, no rub, no murmur. GASTROINTESTINAL: Abdomen is soft, bowel sounds positive. EXTREMITIES: Show no edema or ulcers. SKIN: Shows no rash or petechiae. MUSCULOSKELETAL: Right arm has major swelling. GENITOURINARY: Shows no Sadler or CVA tenderness. NEUROLOGIC: Motor intact. Cranial nerves intact. LABORATORY DATA: Reviewed. ASSESSMENT AND PLAN: 1. Stage 6 chronic kidney disease with hyperkalemia. Plan dialysis. 2. Hypertension, stable. 3. Anemia, stable. Failed access. We will consult surgery for temporary catheter placement and surgical revision of prior fistula and subclavian vein stenosis. Overall, prognosis is poor. Job ID: [id number]
--- NOTE | 2020-03-12 18:43 | PDOC.HOSPP ---
- Subjective Encounter Date: 03/12/20 Encounter Time: 18:20 Subjective: f/u for ESRD on HD needing urgent HD overnight due to hyperkalemia and malfunctioning RUE AV fistula. Pt had R femoral HD catheter placed and nursing states the site has been bleeding most of the day despite pressure and dressing changes. - Objective Vital Signs & Weight: Vital Signs (12 hours) Temp Pulse Resp BP BP Pulse Ox 03/12/20 16:19 106 H 174/127 H 03/12/20 16:00 98.3 F 106 H 16 174/127 H 99 03/12/20 11:40 96 16 173/110 H 97 03/12/20 09:04 108 H 181/105 H 03/12/20 08:20 98.3 F 108 H 16 187/105 H 90 L Weight Weight 130 lb 1.6 oz I&O: 03/11/20 03/12/20 03/13/20 06:59 06:59 06:59 Intake Total 240 480 Output Total 3000 1400 Balance -9960 -270 Result Diagrams: 03/12/20 05:18 03/12/20 05:18 Additional Labs: Laboratory Tests 08/02/19 08/14/19 02/18/20 01:40 14:35 14:27 Hgb 8.8 L Plt Count Sodium Potassium BUN Creatinine B-Natriuretic Peptide 2822.2 H 3052.2 H 03/11/20 03/11/20 03/11/20 17:50 17:50 19:15 Hgb 8.8 L Plt Count 144 Sodium 132 L Potassium 5.9 H BUN 66 H Creatinine 17.20 H B-Natriuretic Peptide 3234.4 H EKG Reviewed by me: Yes (Tele - SR) Hospitalist ROS - Medication Medications: Active Medications Generic Name Dose Route Start Last Admin Trade Name Freq PRN Reason Stop Dose Admin Hydrocodone Bitart/Acetaminophen 2 tab 03/11/20 21:32 03/12/20 09:02 [place] 5/325 PO 2 tab Q4H PRN Administration Severe Pain (7-10) Famotidine 20 mg 03/12/20 09:00 03/12/20 09:01 Pepcid PO 20 mg DAILY MITCHELL Administration Labetalol HCl 20 mg 03/12/20 00:43 03/12/20 16:19 Normodyne SLOW IVP 20 mg Q4H PRN Administration SBP > 180 and HR >/= 70 Ondansetron HCl 4 mg 03/11/20 21:28 03/12/20 15:56 Zofran Odt PO 4 mg Q6H PRN Administration Nausea/Vomiting - Exam General Appearance: NAD, awake alert Eye: PERRL, anicteric sclera ENT: normocephalic atraumatic, no oropharyngeal lesions Neck: supple, symmetric, no JVD, no thyromegaly, no lymphadenopathy Heart: RRR, no murmur, no gallops, no rubs, normal peripheral pulses Respiratory: CTAB, no wheezes, no rales, no ronchi, normal chest expansion Gastrointestinal: soft, non-tender, non-distended, normal bowel sounds, no palpable masses Extremities - other findings: RUE edema with AV fistula noted Skin: normal turgor Skin - other findings: R femoral HD catheter with oozing at insertion site Neurological: cranial nerve grossly intact, no new deficit Musculoskeletal: normal tone, normal strength, no muscle wasting Psychiatric: normal affect, A&O x 3 Hosp A/P (1) ESRD (end stage renal disease) on dialysis Code(s): N18.6 - END STAGE RENAL DISEASE; Z99.2 - DEPENDENCE ON RENAL DIALYSIS Status: Chronic Plan: HD per Renal service (2) Hyperkalemia Code(s): E87.5 - HYPERKALEMIA Status: Acute Plan: Improved after HD (3) Anemia of renal disease Code(s): D63.1 - ANEMIA IN CHRONIC KIDNEY DISEASE Status: Chronic Plan: Acute blood loss anemia due to R femoral HD catheter site, repacked site with Surgicell, pressure dressing, monitor closely, exacerbated by ASA/Plavix (4) Hypertension Code(s): I10 - ESSENTIAL (PRIMARY) HYPERTENSION Status: Chronic Qualifiers: Hypertension type: essential hypertension Qualified Code(s): I10 - Essential (primary) hypertension Plan: Labile, restart home BP regimen, serial monitoring - Plan DVT proph w/SCDs Stable currently HD per Renal service Monitor AV fistula for function Pressure dressing/Surgicell to R femoral HD site Resume home BP meds Hold ASA/Plavix AM lab: BMP, CBC
[2020-03-12] MEDS ORDERED: ALPRAZolam 1 MG TAB PO PRN (18:48)
[2020-03-12] MEDS: Metoprolol Tartrate 100 MG TAB PO SCH (21:02)
[2020-03-12] MEDS: cloNIDine 0.2 MG TAB PO SCH (21:02)
[2020-03-12] MEDS: hydrALAZINE 25 MG TAB PO SCH (22:25)
[2020-03-13] MEDS: HYDROcodone/Acetaminophen 5/325 mg Tablet PO PRN ×3 (01:17→20:41)
[2020-03-13 04:40] LABS: Anion Gap 16 mmol/L (10-20); BUN (Urea Nitrogen) 18 mg/dL (7.0-18.7); Calc. Creatinine Clearance 9 mL/min (70-130); Calcium 8.7 mg/dL (7.8-10.44); Carbon Dioxide 27 mmol/L (22-29); Chloride 96 mmol/L (98-107); Estimated GFR-MDRD 7; Glucose 84 mg/dL (70-105); Potassium 4.2 mmol/L (3.5-5.1); Sodium 135 mmol/L (136-145)
[2020-03-13 04:48] LABS: Band 2 % (5-11); Eosinophils 2 % (0-10); Hemoglobin 7.4 g/dL (12.0-16.0); Lymphocytes 18 % (21-51); MDiff Complete? YES; Mean Corpuscular HGB CONC 32.6 g/dL (32.0-36.0); Mean Corpuscular Hemoglobin 33.1 pg (27.0-31.0); Mean Platelet Volume 10.6 fL (7.4-10.4); Monocytes 7 % (0-10); Neutrophil 71 % (42-75); Platelet Count 150 thou/uL (130-400); RBC Distribution Width 16.8 % (11.5-14.5); Red Blood Cell (RBC) Count 2.25 mill/uL (4.20-5.40); White Blood Cell (WBC) Count 4.9 thou/uL (4.8-10.8)
[2020-03-13] MEDS: Famotidine 20 MG TAB PO SCH (09:01)
[2020-03-13] MEDS: hydrALAZINE 25 MG TAB PO SCH ×3 (09:02→20:37)
[2020-03-13] MEDS: Metoprolol Tartrate 100 MG TAB PO SCH ×2 (09:03→20:37)
[2020-03-13] MEDS: Amlodipine 10 MG TAB PO SCH (09:10)
--- NOTE | 2020-03-13 09:31 | ULT ---
LEFT UPPER EXTREMITY VEIN MAPPING: Date: 03/13/2020 HISTORY: The patient reportedly has a dialysis fistula on the right. The right arm is swollen and they are hav ing difficulty accessing. The request was for vein mapping of the left arm and evaluation of the righ t jugular vein for patency. FINDINGS: The right jugular vein is patent, showing flow. LEFT UPPER EXTREMITY BASILIC VEIN Proximal Humerus: 6.2 mm Mid Humerus: 5.0 mm Distal Humerus: 4.8 mm Elbow: 4.0 mm Proximal Forearm: 2.2 mm Mid Forearm: 1.1 mm Distal Forearm: 2.1 mm CEPHALIC VEIN Not seen. LEFT BRACHIAL ARTERY: 5.4 mm LEFT RADIAL ARTERY: 2.2 mm LEFT ULNAR ARTERY: 1.6 mm IMPRESSION: Vein mapping as above. POS: [facility]
[2020-03-13] MEDS: cloNIDine 0.2 MG TAB PO SCH ×2 (10:12→22:14)
--- NOTE | 2020-03-13 12:47 | PRG ---
DATE OF SERVICE: 03/13/2020 SUBJECTIVE: Patient was seen and examined at bedside and overnight events noted. Patient denies any shortness of breath or chest pain or palpitation. No history of nausea or vomiting or diarrhea or fever or chills or cramps. OBJECTIVE: GENERAL: This is a well-built female, in no acute distress. VITAL SIGNS: Temperature . Heart rate 90. Respiratory rate 18. Blood pressure 139/89. HEENT: Atraumatic, normocephalic. Oral mucosa is moist NECK: Supple. CARDIOVASCULAR: S1, S2 heard. Rate and rhythm regular. RESPIRATORY: Clear to auscultation. GASTROINTESTINAL: Abdomen is soft. MUSCULOSKELETAL: No tenderness. No edema. DERMATOLOGIC: No skin rash. NEUROLOGIC: Alert and awake and oriented X3. No focal neurologic deficits. Moving all the extremities. PSYCHIATRIC: Mood and affect normal. LABORATORY DATA: Potassium 4.2, BUN is 18, and creatinine 7.1. ASSESSMENT AND PLAN: 1. End-stage renal disease. Continue dialysis as tolerated. 2. Edema. 3. History of hypertension. 4. Anemia. 5. . Continue dialysis as tolerated. Job ID: [id number]
[2020-03-13] MEDS ORDERED: CEFAZOLIN 2 GM in Premix Bag 1 BAG IVPB SCH (13:30)
--- NOTE | 2020-03-13 15:10 | CON ---
DATE OF CONSULTATION: HISTORY OF PRESENT ILLNESS: Madison Vogt is a 40-year-old black female with lupus, end-stage renal disease, on maintenance dialysis. In 2011, I performed a right arm fistula and subsequent transposition basilic vein fistula. This served well although she has reported [facility], had a stent placed in the right subclavian vein and been followed by Dr. Stewart and subsequent intervention unsuccessful. She has suffered right arm edema. She has had aneurysmal dilatations consequently of the right arm basilic vein fistula. The patient has had a temporary dialysis catheter placed in her right groin. Her right arm dialysis fistula is nonfunctional. I have discussed with the patient and plan at this time is a left arm fistula. Cephalic vein ultrasound vein mapping not visualized basilic vein of left arm. It is limited 6.2, 5.0, 4.8, 4.0, 2.2 in the proximal forearm. PLAN: Plan is for placement of a hemodialysis catheter in left IJ versus a left femoral vein, placement of left arm fistula or dialysis graft. If a fistula is accomplished, she may need a transposition. We will plan a ligation of her right arm fistula and outflow. She understands the risks and benefits, consents. She understands she may need a transposition fistula in the left arm, although that is not desirable. She understands the necessity. The patient in addition underwent an arterial exam of right upper extremity, but was not that helpful as far as planning dialysis access. ALLERGIES: NONE. SOCIAL HISTORY: Tobacco, none. Alcohol, none. MEDICATIONS: 1. P.r.n. hydrocodone. 2. Xanax. 3. Labetalol p.r.n. 4. Amlodipine. 5. Tylenol. At home, she is on: 1. Plavix. 2. Aspirin. 3. Amlodipine. 4. Clonidine. 5. Hydralazine. PAST SURGICAL HISTORY: Pericardial window, right arm fistula with subsequent basilic vein transposition fistula in 2011, right subclavian vein stents, bilateral tubal ligation, lupus nephritis. PAST MEDICAL HISTORY: Lupus, hypertension, coronary artery disease, status post coronary stents, history of pericardial window. REVIEW OF SYSTEMS: Noncontributory. FAMILY HISTORY: Noncontributory. PHYSICAL EXAMINATION: VITAL SIGNS: Height 5 feet, weight 127 pounds, 24 BMI, temperature 98.3, heart rate 87, blood pressure 112/69. HEAD, EARS, EYES, NOSE, AND THROAT: Unremarkable. LUNGS: Clear to auscultation. CARDIAC: Regular rhythm without murmur or gallop. ABDOMEN: Soft, nontender. EXTREMITIES: Unremarkable. Palpable pedal pulses. Palpable left radial pulse. Right upper extremity edematous, thrill and bruit in right upper arm basilic vein fistula, edematous right arm shoulder to hand and good hand function. ASSESSMENT/PLAN: 1. Dysfunctional fistula, right arm with subclavian vein outflow and stenting. She is not a good candidate for a HeRO graft. We would recommend ligation of this fistula as it is bothersome to her, placement of a hemodialysis catheter in left internal jugular versus left femoral vein (right subclavian vein stent will prevent a right IJ catheter), left arm primary fistula which will necessitate simultaneous or perhaps future staged transposition fistula, possible left upper arm graft. Discussion with the patient regarding peritoneal dialysis reveals that this has previously been discussed. She has considered that, but she still likes going to the dialysis unit and does not want to think about doing this at home, although might consider that in the future pending future difficulty with dialysis access. 2. Lupus. 3. Hypertension. 4. Coronary artery disease, history of myocardial infarction, pericardial window, and coronary stents followed by Dr. Sandoval. Cardiac stress test on 08/03/2019; apical scar. No reversible ischemia. The patient has been followed by Dr. Sandoval that on hospital record, last saw her in August 2019. He noted at that time that she had been transferred in recent months past to [facility] for percutaneous intervention for severe stenosis, right coronary with heavy calcification, severe disease in circumflex, and CV Surgery declined she is not appropriate candidate for bypass. Revascularization of coronary artery at [facility] was unsuccessful due to heavy calcifications, but intervention of the circumflex artery was successful. She is maintained on medical therapy since that time. Echocardiogram on 08/02/2019, 60% to 65% ejection fraction, grade 1/3 diastolic dysfunction, mild valvular disease, [id number] pulmonic regurgitation, but no other significant valvular problems. White count 4, hemoglobin 7.4. Basic metabolic profile normal. The patient dialyzed yesterday Friday. She has since had cramps and she wants to avoid dialysis today. She feels like too much volume from her yesterday. Assessment and plan as outlined above. Job ID: [id number]
--- NOTE | 2020-03-13 17:31 | PDOC.HOSPP ---
- Subjective Encounter Date: 03/13/20 Encounter Time: 17:25 Subjective: f/u for ESRD with non-functioning AV fistula of RUE. Discussing new AV fistula placement. R femoral HD catheter hemostatic currently. - Objective Vital Signs & Weight: Vital Signs (12 hours) Temp Pulse Resp BP BP Pulse Ox 03/13/20 16:43 100/66 03/13/20 15:45 109/64 03/13/20 15:44 97.5 F L 76 14 100/66 92 L 03/13/20 12:00 98.3 F 87 16 112/69 96 03/13/20 10:12 148/89 H 03/13/20 09:10 90 03/13/20 09:02 90 03/13/20 07:30 98.4 F 90 18 139/89 100 Weight Weight 127 lb 3.2 oz I&O: 03/12/20 03/13/20 03/14/20 06:59 06:59 06:59 Intake Total 240 1270 240 Output Total 3000 1400 Balance -2760 -130 240 Result Diagrams: 03/13/20 04:03 03/13/20 04:03 Additional Labs: Laboratory Tests 08/02/19 08/14/19 02/18/20 01:40 14:35 14:27 Hgb 8.8 L Plt Count Sodium Potassium BUN Creatinine B-Natriuretic Peptide 2822.2 H 3052.2 H 03/11/20 03/11/20 03/11/20 17:50 17:50 19:15 Hgb 8.8 L Plt Count 144 Sodium 132 L Potassium 5.9 H BUN 66 H Creatinine 17.20 H B-Natriuretic Peptide 3234.4 H 03/12/20 05:18 Hgb 8.6 L Plt Count Sodium Potassium BUN Creatinine B-Natriuretic Peptide EKG Reviewed by me: Yes (Tele - SR ) Hospitalist ROS - Medication Medications: Active Medications Generic Name Dose Route Start Last Admin Trade Name Freq PRN Reason Stop Dose Admin Hydrocodone Bitart/Acetaminophen 1 tab 03/11/20 21:32 03/12/20 21:03 [place] 5/325 PO 1 tab Q4H PRN Administration Moderate Pain (4-6) Hydrocodone Bitart/Acetaminophen 2 tab 03/11/20 21:32 03/13/20 09:04 [place] 5/325 PO 2 tab Q4H PRN Administration Severe Pain (7-10) Amlodipine Besylate 10 mg 03/13/20 09:00 03/13/20 09:10 Norvasc PO 10 mg DAILY MITCHELL Administration Clonidine 0.4 mg 03/12/20 21:00 03/13/20 10:12 Catapres PO 0.4 mg BID MITCHELL Administration Famotidine 20 mg 03/12/20 09:00 03/13/20 09:01 Pepcid PO 20 mg DAILY MITCHELL Administration Hydralazine HCl 100 mg 03/12/20 21:00 03/13/20 16:43 Apresoline PO Not Given TID MITCHELL Labetalol HCl 20 mg 03/12/20 00:43 03/12/20 16:19 Normodyne SLOW IVP 20 mg Q4H PRN Administration SBP > 180 and HR >/= 70 Metoprolol Tartrate 200 mg 03/12/20 21:00 03/13/20 09:03 Lopressor PO 200 mg BID MITCHELL Administration Ondansetron HCl 4 mg 03/11/20 21:28 03/12/20 15:56 Zofran Odt PO 4 mg Q6H PRN Administration Nausea/Vomiting - Exam General Appearance: NAD, awake alert Eye: PERRL, anicteric sclera ENT: normocephalic atraumatic, no oropharyngeal lesions Neck: supple, symmetric, no JVD, no thyromegaly, no lymphadenopathy Heart: RRR, no murmur, no gallops, no rubs, normal peripheral pulses Heart - other findings: S1, S2 Respiratory: CTAB, no wheezes, no rales, no ronchi, normal chest expansion Gastrointestinal: soft, non-tender, non-distended, normal bowel sounds Extremities: no cyanosis, no clubbing, no edema Extremities - other findings: R femoral HD catheter in place, hemostatic Skin: normal turgor, no lesions Neurological: cranial nerve grossly intact, no new deficit Musculoskeletal: normal tone, normal strength, no muscle wasting Psychiatric: normal affect, A&O x 3 Hosp A/P (1) ESRD (end stage renal disease) on dialysis Code(s): N18.6 - END STAGE RENAL DISEASE; Z99.2 - DEPENDENCE ON RENAL DIALYSIS Status: Chronic Plan: Plan for new AV fistula placement and likely L IJ tunneled HD catheter, HD per Renal service, no volume overload currently (2) Hyperkalemia Code(s): E87.5 - HYPERKALEMIA Status: Acute Plan: Resolved with HD (3) Anemia of renal disease Code(s): D63.1 - ANEMIA IN CHRONIC KIDNEY DISEASE Status: Chronic Plan: Acute blood loss anemia, hemostasis obtained currently, no PRBC's (4) Hypertension Code(s): I10 - ESSENTIAL (PRIMARY) HYPERTENSION Status: Chronic Qualifiers: Hypertension type: essential hypertension Qualified Code(s): I10 - Essential (primary) hypertension - Plan 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
[2020-03-14 04:35] LABS: Platelet Count 158 thou/uL (130-400)
[2020-03-14 04:58] LABS: Anion Gap 19 mmol/L (10-20); BUN (Urea Nitrogen) 27 mg/dL (7.0-18.7); Calc. Creatinine Clearance 6 mL/min (70-130); Calcium 8.6 mg/dL (7.8-10.44); Carbon Dioxide 25 mmol/L (22-29); Chloride 94 mmol/L (98-107); Estimated GFR-MDRD 5; Glucose 87 mg/dL (70-105); Potassium 4.6 mmol/L (3.5-5.1); Sodium 133 mmol/L (136-145)
[2020-03-14] MEDS: Metoprolol Tartrate 100 MG TAB PO SCH (05:44)
[2020-03-14] MEDS: Amlodipine 10 MG TAB PO SCH (08:42)
[2020-03-14] MEDS: cloNIDine 0.2 MG TAB PO SCH (08:43)
[2020-03-14] MEDS: hydrALAZINE 25 MG TAB PO SCH ×2 (08:45→16:24)
[2020-03-14] MEDS: Famotidine 20 MG TAB PO SCH (08:45)
[2020-03-14] MEDS ORDERED: Lidocaine 1% w/Epinephrine 1:100K 20 ML VIAL ONE (09:47)
[2020-03-14] MEDS ORDERED: Bupivacaine PF 0.5% 30 ML VIAL ONE (09:47)
[2020-03-14] MEDS ORDERED: Heparin 0 ML ONE (09:47)
[2020-03-14] MEDS ORDERED: Heparin 5,000 UNITS/ML VIAL ONE (09:50)
[2020-03-14] MEDS ORDERED: Fentanyl 100 MCG/2 ML VIAL ONE ×2 (09:52→13:26)
[2020-03-14] MEDS ORDERED: Heparin 10,000 UNITS/1 ML VIAL ONE (10:17)
[2020-03-14] MEDS ORDERED: Sodium Chloride 0.9% 30 ML ONE (10:17)
[2020-03-14] MEDS ORDERED: Protamine Sulfate 50 MG/5 ML VIAL ONE (11:06)
[2020-03-14] MEDS ORDERED: Ondansetron PF 4 MG/2 ML Vial ONE (12:34)
[2020-03-14] MEDS ORDERED: EPHEDRINE 25 MG/5 ML SYRINGE ONE (12:34)
[2020-03-14] MEDS ORDERED: Succinylcholine Chloride 20 MG/ML 10 ml SYRINGE FS ONE (12:34)
[2020-03-14] MEDS ORDERED: PROPOFOL 200 MG/20 ML VIAL ONE (12:34)
[2020-03-14] MEDS ORDERED: Lidocaine 1% PF 5 ML VIAL ONE (12:34)
--- NOTE | 2020-03-14 13:31 | RAD ---
PORTABLE CHEST: Date: 03-14-2020 Provided Clinical History: Central line placement, renal insufficiency. FINDINGS: Comparison 12-08-2019. Cardiac silhouette remains enlarged. Vascular calcifications again seen. Vascular stent material is a gain noted overlying the right medial lung apex. Interval placement of partially visualized left IJ d ialysis catheter, the tips of which overlie the expected location of RA. No focal consolidation, pleu ral fluid, or pneumothorax apparent. Calcified mass overlying the central heart, similar to prior. IMPRESSION: Status post central line placement without evidence for complication. POS: [facility]
[2020-03-14] MEDS ORDERED: Promethazine HCl 25 MG/ML VIAL ONE (13:46)
--- NOTE | 2020-03-14 14:37 | OP ---
DATE OF PROCEDURE: 03/14/2020 PREOPERATIVE DIAGNOSES: End-stage renal disease, lupus, right subclavian vein stent with occluded venous outflow of right upper arm basilic vein transposition fistula, inadequate veins left arm. POSTOPERATIVE DIAGNOSES: End-stage renal disease, lupus, right subclavian vein stent with occluded venous outflow of right upper arm basilic vein transposition fistula, inadequate veins left arm. PROCEDURES PERFORMED: Placement of left IJ cuffed tunneled hemodialysis catheter, AngioDynamics pre-curved, ultrasound and fluoroscopy used. Exploration of left forearm finding veins rethrombosed and inadequate requiring left upper arm dialysis graft tapered PTFE brachial artery axillary vein. No axillary vein of excellent caliber with adequate room for revision in the future if necessary. Large axillary vein. Ligation of right arm fistula inflow and outflow with decompression. ANESTHESIA: General, local 0.5% Marcaine with epinephrine 30 mL mixed with 1% Xylocaine with epinephrine 20 mL total volume used. DESCRIPTION OF PROCEDURE: The patient was taken to the operating room, where under general anesthesia in the supine position, neck and chest and left upper extremity were prepared with ChloraPrep and draped in routine fashion. Left groin and thigh prepared. Local anesthetic was infiltrated in the skin and subcutaneous tissue about the operative sites. Using ultrasound guidance, the left internal jugular vein was cannulated with a trocar catheter and J-wire threaded, trocar catheter removed. Fluoroscopically, J-wire noted to be in good position into the superior vena cava. Stab incision made at the J-wire entry site and over the planned exit site of left chest. Using the tunneling device, the pre-curved AngioDynamics cuffed tunneled hemodialysis catheter tunneled between the 2 incisions, placed the fabric cuff beneath the skin exit site and catheter secured with 2 interrupted suture of 3-0 silk and sterile dressing applied. Small and medium size dilators placed with J-wire and the internal jugular vein removed. Dilator and Peel-Away sheath were placed under fluoroscopic visualization of the superior vena cava. Dilator and J-wire were removed. Catheter placed with the Peel-Away sheath. Peel-Away sheath removed. Platysma was approximated with 4-0 Monocryl, skin with subdermal 4-0 Monocryl, and [place] glue applied. Each port aspirated blood, flushed with saline solution and heparinized saline solution, 1000 units of heparin per mL indicating volume of the port. Attention was then turned to the left arm. Just below the antecubital fossa, incision was made and the basilic vein and cephalic vein were fibrosed. This wound closed by approximating subcutaneous tissues with 3-0 Monocryl, skin with subdermal 4-0 Monocryl. Incision was made on the distal upper arm just above the antecubital fossa skin and subcutaneous tissue, deep fascia, identifying a good-sized brachial artery dissected free with silastic vessel loop. Incision was made in the left axilla and axillary vein dissected free. Had a large perforating branch and axillary vein was excellent caliber, very large. It was controlled proximally and distally with Guerrero silastic loops making stab incisions proximally and distally for vascular control. A Melinda Wick tunneler 6 mm head used to create a tunnel and patient given 6000 units of heparin intravenously. A tapered PTFE graft tunneled between the 2 incisions, placed in the 4 mm end near the brachial artery. The patient given 6000 units of heparin intravenously. After adequate circulation time, the brachial artery was clamped proximally and distally longitudinal arteriotomy was made sharply and elongated with Guerrero scissors and graft tailored to length for a cobra-head anastomosis, and continuous suture of 6-0 Prolene used for the anastomosis. Vascular clamps were released. There was excellent flow in the graft. Vascular clamps placed on the graft. Dry Ray-Juanjose placed near the anastomosis and attention turned to the axilla. Axillary vein controlled proximally and distally with Guerrero vessel loops and vascular clamp placed on the large perforating branch. Longitudinal venotomy made for a 3.5 cm anastomosis, placing the stay suture of 6-0 Prolene and tailoring the 7 mm graft appropriately for cobra-head anastomosis. Continuous suture of 6-0 Prolene used for the anastomosis. Arterial inflow released. There was good distention of the vein and once it was filled with blood, the venous outflow was released, silastic loops removed. Stay sutures removed. There was good flow with good hemostasis. The patient given 50 mg of protamine by Anesthesia intravenously. Subcutaneous tissues of both wounds closed by approximating subcutaneous tissue through Monocryl skin with subdermal 4-0 Monocryl and [place] glue applied. The right arm was then prepared with ChloraPrep draped in routine fashion. The patient had a basilic vein transposition fistula. Incision was made above the antecubital fossa near the arterial inflow of the fistula and in the left axilla near the venous outflow and the large transposition fistula dissected free. 2-0 silk was used to ligate either and venotomy made to decompress the fistula. Good hemostasis noted. Subcutaneous tissue was approximated with 3-0 Monocryl, skin with subdermal 4-0 Monocryl and [place] glue applied. The patient tolerated the procedure well. Job ID: [id number]
--- NOTE | 2020-03-14 15:11 | DIS ---
DATE OF ADMISSION: 03/11/2020 DATE OF DISCHARGE: 03/14/2020 DISCHARGE DIAGNOSES: 1. End-stage renal disease with hemodialysis. 2. Nonfunctioning right upper extremity arteriovenous fistula, status post ligation. 3. Status post left upper extremity arteriovenous fistula placement. 4. Hyperkalemia, resolved. 5. Anemia and renal disease with acute blood loss component. 6. Hypertension, stable. CONSULTATIONS: 1. Dr. Coello and Dr. Aguilar with General Surgery Service. 2. Dr. Flores with Nephrology Service. PERTINENT LABORATORY AND X-RAY FINDINGS: Sodium ranged between 132 to 138, potassium ranged between 3.4 to 5.9, and creatinine ranged between 7.14 to 17.20. BNP 3234, previously noted 3052 on 08/14/2019. CBC showed a hemoglobin ranging between 7.0 to 8.8. Venous Doppler study of the right upper extremity showed patent dialysis fistula. HOSPITAL COURSE: The patient was initially admitted after presenting with edema and pain to the right upper extremity in the context of previous AV fistula placement. The patient with a malfunctioning right upper extremity AV fistula in the context of end-stage renal disease on hemodialysis. The patient underwent evaluation of the AV fistula showing patent catheter, however, malfunctioning for dialysis. The patient had associated hyperkalemia and underwent urgent hemodialysis after placement of a right hemodialysis catheter. The patient was evaluated by the General Surgery Service with recommendations to ligate the right upper extremity AV fistula and place a new AV fistula in the left upper extremity, which proceeded on 03/14/2020. The patient also underwent placement of a new tunneled left internal jugular hemodialysis catheter placement at the same time. The patient also had complications of acute blood loss due to the right femoral catheter placement, at which point, Surgicel was placed with pressure dressing. This catheter was subsequently removed after placement of the other catheters and fistulas as stated previously. The patient continued to receive hemodialysis during her hospital course without complication. Overall, the patient did remain clinically stable during the hospital course with stable vital signs at the time of discharge. I have examined the patient at the time of discharge and discussed followup instructions. The patient verbalized understanding and in agreement, and ready for discharge on 03/14/2020. DISCHARGE MEDICATIONS: 1. Alprazolam 1 mg p.o. t.i.d. p.r.n. 2. Hydralazine 100 mg p.o. t.i.d. 3. Metoprolol 200 mg p.o. b.i.d. 4. Amlodipine 10 mg p.o. daily. 5. Enteric-coated aspirin 81 mg p.o. daily, resume on 03/16/2020. 6. Plavix 75 mg p.o. daily, resume on 03/16/2020. 7. Clonidine 0.4 mg p.o. b.i.d. 8. Hydrocodone 5/325 mg one to two tablets p.o. q.6 hours p.r.n. pain, #40. FOLLOWUP: The patient to follow up with her primary care provider, Dr. Coello. The patient may follow up with Dr. Flores with Nephrology Service. The patient will follow up with Dr. Silas Aguilar in 3 weeks after discharge. CONDITION ON DISCHARGE: Stable. ACTIVITY: Ad-nely. DIET: Renal. CODE STATUS: Full. DISPOSITION: Home on 03/14/2020. TIME SPENT: Total time preparing and coordinating discharge, 35 minutes. Job ID: [id number]
--- NOTE | 2020-03-14 16:37 | PRG ---
DATE OF SERVICE: 03/14/2020 SUBJECTIVE: Patient was seen and examined at bedside and overnight events noted. Patient denies any shortness of breath or chest pain or palpitation. No history of nausea or vomiting or diarrhea or fever or chills or cramps. OBJECTIVE: General: This is well-built female, in no apparent distress. VITAL SIGNS: Temperature , heart rate 80, respiratory rate 16, and blood pressure 158/70. HEENT: Atraumatic, normocephalic. Oral mucosa is moist. NECK: Supple. CARDIOVASCULAR: S1, S2 heard. Rate and rhythm regular. RESPIRATORY: Clear to auscultation. GASTROINTESTINAL: Abdomen is soft. MUSCULOSKELETAL: No tenderness. No edema. DERMATOLOGIC: No skin rash. NEUROLOGIC: Alert and awake and oriented x3. No focal neurologic deficits. Moving all the extremities. PSYCHIATRIC: Mood and affect normal. LABORATORY DATA: Potassium 4.6, BUN is 27, and creatinine is 10.3. ASSESSMENT AND PLAN: 1. End-stage renal disease, continue dialysis as tolerated. 2. Edema. 3. Hypertension. 4. Anemia. 5. Continue dialysis as tolerated. Job ID: [id number]
[2020-03-14 16:55] VITALS: BP 174/81; TEMP 97.4
== END 2020-03-14 18:18 | disposition home or self-care (01) | DRG 252 ==
LOC: ERS 17:26 → 2NO 20:09 → OBSVTOIN 20:09
PROVIDERS: ADMIT Internal Medicine; ATTEND Internal Medicine
PROC: B5181ZA Fluoroscopy of Superior Vena Cava using Low Osmolar Contrast, Guidance (ICD-10-PCS; 2020-03-12)
PROC: B548ZZA Ultrasonography of Superior Vena Cava, Guidance (ICD-10-PCS; 2020-03-12)
PROC: 5A1D70Z Performance of Urinary Filtration, Intermittent, Less than 6 Hours Per Day (ICD-10-PCS; 2020-03-12)
PROC: 03C80ZZ Extirpation of Matter from Left Brachial Artery, Open Approach (ICD-10-PCS; principal; 2020-03-14)
PROC: 02HV33Z Insertion of Infusion Device into Superior Vena Cava, Percutaneous Approach (ICD-10-PCS; 2020-03-14)
PROC: 0JH63XZ Insertion of Tunneled Vascular Access Device into Chest Subcutaneous Tissue and Fascia, Percutaneous Approach (ICD-10-PCS; 2020-03-14)
DX: T82.510A Breakdown (mechanical) of surgically created arteriovenous fistula, initial encounter (principal); N18.6 End stage renal disease; I12.0 Hypertensive chronic kidney disease with stage 5 chronic kidney disease or end stage renal disease; D62 Acute posthemorrhagic anemia; E87.1 Hypo-osmolality and hyponatremia; I16.0 Hypertensive urgency; R04.0 Epistaxis; I25.10 Atherosclerotic heart disease of native coronary artery without angina pectoris; F41.9 Anxiety disorder, unspecified; G43.909 Migraine, unspecified, not intractable, without status migrainosus; M32.9 Systemic lupus erythematosus, unspecified; E87.5 Hyperkalemia; D63.1 Anemia in chronic kidney disease; I25.2 Old myocardial infarction; Z95.5 Presence of coronary angioplasty implant and graft; Z98.51 Tubal ligation status; Z91.15 Patient's noncompliance with renal dialysis
CPT/HCPCS: 36415; 71045; 80048; 80053; 83880; 85007; 85014; 85018; 85025; 85027; 85049; 86850; 86900; 86901; 87340; 90935; 93005; 93931; 93970; 96372; 96374; 96375; C1752; C1769; G0257; G0365; J0360; J0690; J1642; J1644; J2001; J2270; J2405; J2550; J2704; J2720; J3010; L8670; Q0162; S0020

== ENCOUNTER 2020-03-21 15:32 | Observation (INO) | payer MEDICARE, MEDICAID ==
[2020-03-21 17:52] LABS: #Basophils 0.1 thou/uL (0.0-0.2); #Eosinphils 0.1 thou/uL (0.0-0.7); #Lymphocytes 0.3 thou/uL (1.20-3.40); #Monocytes 0.8 thou/uL (0.11-0.59); #Neutrophils 6.9 thou/uL (1.40-6.50); %Basophils 1.6 % (0.0-1.0); %Eosinophils 1.4 % (0.0-10.0); %Monocytes 9.6 % (0.0-10.0); %Neutrophils 83.4 % (42.0-75.0); Hemoglobin 5.7 g/dL (12.0-16.0); Mean Corpuscular Hemoglobin 31.4 pg (27.0-31.0); Mean Corpuscular Volume 98.3 fL (78.0-98.0); Mean Platelet Volume 9.8 fL (7.4-10.4); Platelet Count 240 thou/uL (130-400); RBC Distribution Width 17.5 % (11.5-14.5); White Blood Cell (WBC) Count 8.3 thou/uL (4.8-10.8)
[2020-03-21 18:01] LABS: ALT (SGPT) Less than 7 U/L (8-55); AST (SGOT) 9 U/L (5-34); Albumin 3.1 g/dL (3.5-5.0); Alkaline Phosphatase 97 U/L (40-110); Anion Gap 26 mmol/L (10-20); BUN (Urea Nitrogen) 52 mg/dL (7.0-18.7); Bilirubin, Total 0.5 mg/dL (0.2-1.2); Calc. Creatinine Clearance 0 mL/min (70-130); Carbon Dioxide 20 mmol/L (22-29); Chloride 84 mmol/L (98-107); Estimated GFR-MDRD 3; Globulin 4.3 g/dL (2.4-3.5); Glucose 110 mg/dL (70-105); Potassium 4.7 mmol/L (3.5-5.1); Protein, Total 7.4 g/dL (6.0-8.3); Sodium 125 mmol/L (136-145)
[2020-03-21] MEDS ORDERED: Acetaminophen 325 MG TAB PO PRN (19:18)
[2020-03-21] MEDS ORDERED: Ondansetron ODT 4 MG TAB PO PRN (19:18)
--- NOTE | 2020-03-21 20:19 | HP ---
CHIEF COMPLAINT: Weakness and low hemoglobin. HISTORY OF PRESENT ILLNESS: Ms. Vgot is a 40-year-old female, with past medical history of end-stage renal disease, on hemodialysis; coronary artery disease; myocardial infarction x2, stent placement; migraines; hypertension; lupus, among others, presented to the emergency room for evaluation of weakness and low hemoglobin. Patient reported that she was dialyzed yesterday and was called today and told her hemoglobin is low and has to go to the emergency room. Patient's rolls mill operator is Dr. Church. She reports weakness and fatigue. Patient states that last week she was in the hospital and had a femoral catheter placed in the right groin, which was bleeding. Workup in the emergency room, patient was found to have a hemoglobin 5.7. Also, hyponatremic with a sodium of 125. Patient does have history of hyponatremia. Patient's rolls mill operator is being consulted. Typed and crossed and packed RBCs being ordered by ED physician. Nephrology is being consulted to arrange for hemodialysis. PAST MEDICAL HISTORY: As mentioned above in the history of present illness. PAST SURGICAL HISTORY: 1. Tubal ligation. 2. Kidney biopsy. 3. Dialysis fistula. 4. Heart cath. PAST PSYCHIATRIC HISTORY: Anxiety. SOCIAL HISTORY: Denies smoking, alcohol drinking, or drug abuse. Lives at home with family. HOME MEDICATIONS: Please see home medication reconciliation form for updated medications. ALLERGIES: NO KNOWN ALLERGIES. REVIEW OF SYSTEMS: Review of 14 systems negative, except what is mentioned in history of present illness. PHYSICAL EXAMINATION: GENERAL: Patient is awake, alert, and appears pale. VITAL SIGNS: Blood pressure is 148/63, pulse is 83, respiratory rate is 18, temperature 98.3, and oxygen saturation is 100%. HEAD AND NECK: Normocephalic and atraumatic. Neck is supple. CHEST: Fair bilateral air entry. HEART: S1, S2. Regular. ABDOMEN: Soft, nontender. Bowel sounds present. NEUROLOGIC: Awake, alert, and oriented x3. No focal deficits. PSYCH: Unable to assess. EXTREMITIES: No clubbing, no cyanosis. GENITOURINARY: No suprapubic tenderness. No flank tenderness. LABORATORY DATA: Sodium 125, BUN is 52, creatinine is 14, and glucose 110. WBC is 8.3, hemoglobin 5.7, MCV is 98, and platelets 240. ASSESSMENT AND PLAN: 1. Symptomatic anemia. 2. Generalized weakness. 3. End-stage renal disease, on hemodialysis. 4. Coronary artery disease with history of cardiac stents. 5. Hypertension. 6. Lupus. PLAN: 1. Admit. 2. Type and cross and packed RBCs ordered by ED physician. 3. [employer] consulted to arrange for hemodialysis. 4. Reconcile home medications. 5. DVT prophylaxis as appropriate. 6. Expected length of stay at least 1 midnight, if patient is stable and cleared by Nephrology. Job ID: [id number]
[2020-03-21] MEDS ORDERED: Famotidine/PF 20 mg/2ml Vial SLOW IVP SCH (21:00)
[2020-03-21 21:21] VITALS: BMI 23.1
[2020-03-22] MEDS: HYDROcodone/Acetaminophen 10/325 mg Tablet PO PRN ×3 (00:46→14:39)
[2020-03-22] MEDS ORDERED: ALPRAZolam 0.5 MG TAB PO PRN (02:40)
[2020-03-22] MEDS ORDERED: cloNIDine 0.2 MG TAB PO SCH ×3 (03:00→21:00)
[2020-03-22] MEDS ORDERED: hydrALAZINE 25 MG TAB PO SCH ×3 (03:00→15:00)
[2020-03-22] MEDS ORDERED: Metoprolol Tartrate 100 MG TAB PO SCH ×3 (03:00→21:00)
[2020-03-22 05:56] LABS: Band 2 % (5-11); Eosinophils 2 % (0-10); Hemoglobin 8.5 g/dL (12.0-16.0); Lymphocytes 7 % (21-51); MDiff Complete? YES; Mean Corpuscular HGB CONC 32.7 g/dL (32.0-36.0); Mean Corpuscular Hemoglobin 32.2 pg (27.0-31.0); Mean Corpuscular Volume 98.6 fL (78.0-98.0); Mean Platelet Volume 9.4 fL (7.4-10.4); Monocytes 16 % (0-10); Neutrophil 73 % (42-75); Platelet Count 252 thou/uL (130-400); Platelet Morphology Comment Appears Adequate; RBC Distribution Width 15.9 % (11.5-14.5); Red Blood Cell (RBC) Count 2.63 mill/uL (4.20-5.40); White Blood Cell (WBC) Count 9.7 thou/uL (4.8-10.8)
[2020-03-22 06:05] LABS: Anion Gap 25 mmol/L (10-20); BUN (Urea Nitrogen) 57 mg/dL (7.0-18.7); Calc. Creatinine Clearance 4 mL/min (70-130); Carbon Dioxide 21 mmol/L (22-29); Chloride 84 mmol/L (98-107); Estimated GFR-MDRD 3; Glucose 84 mg/dL (70-105); Potassium 5.1 mmol/L (3.5-5.1); Sodium 125 mmol/L (136-145)
[2020-03-22] MEDS ORDERED: Nitroglycerin 2% Ointment 1 INCH/1 GM Packet TOP PRN (07:41)
[2020-03-22] MEDS ORDERED: hydrALAZINE 20 MG/ML VIAL SLOW IVP PRN (07:41)
[2020-03-22 08:08] LABS: Reticulocyte Count 3.4 % (0.5-1.5)
[2020-03-22] MEDS ORDERED: Heparin 10,000 UNITS/ 10 ML VIAL ONE (08:54)
[2020-03-22] MEDS ORDERED: Aspirin 81 mg Enteric Coated Tablet PO SCH (09:00)
[2020-03-22] MEDS ORDERED: Clopidogrel Bisulfate 75 MG TAB PO SCH (09:00)
[2020-03-22] MEDS ORDERED: Amlodipine 10 MG TAB PO SCH (09:00)
--- NOTE | 2020-03-22 13:13 | PDOC.HOSPP ---
- Subjective Encounter Date: 03/22/20 Encounter Time: 08:00 Subjective: Patient seen and examined for symptomatic anemia. No CP/SOB or palpitations. RUE swelling/discomfort - worsening over the last 1-2 weeks. No hematemesis/ melena. Last BM 4 days ago - brown. No other complaints. No overnight events - Objective Vital Signs & Weight: Vital Signs (12 hours) Temp Pulse Resp BP BP Pulse Ox 03/22/20 11:00 98.8 F 82 16 140/60 95 03/22/20 08:30 16 96 03/22/20 08:17 80 139/63 03/22/20 07:58 98.4 F 80 18 139/63 98 03/22/20 07:00 98.4 F 80 18 139/63 98 03/22/20 02:53 141/74 H 03/22/20 02:52 83 Weight Admit Weight 122 lb 3.2 oz Weight 122 lb 3.2 oz I&O: 03/21/20 03/22/20 03/23/20 06:59 06:59 06:59 Intake Total 650 Balance 650 Result Diagrams: 03/22/20 05:36 03/22/20 05:36 Additional Labs: Laboratory Tests 03/21/20 03/22/20 17:00 05:36 Hgb 5.7 L* Retic Count 3.4 H Radiology Reviewed by me: Yes (CXR last week - no infiltrate) Hospitalist ROS - Review of Systems Respiratory: reports: SOB with excertion. denies: cough, dry, shortness of breath, hemoptysis, pleuritic pain, sputum, wheezing, other Cardiovascular: denies: chest pain, palpitations, orthopnea, paroxysmal noc. dyspnea, edema, light headedness, other Gastrointestinal: denies: nausea, vomiting, abdominal pain, diarrhea, constipation, melena, hematochezia, other - Medication Medications: Active Medications Generic Name Dose Route Start Last Admin Trade Name Freq PRN Reason Stop Dose Admin Hydrocodone Bitart/Acetaminophen 1 tab 03/22/20 00:28 03/22/20 08:15 [place] 10/325 PO 1 tab QID PRN Administration Moderate to Severe Pain (6-10) Alprazolam 1 mg 03/22/20 02:40 03/22/20 02:53 Xanax PO 1 mg TID PRN Administration Anxiety Amlodipine Besylate 10 mg 03/22/20 09:00 03/22/20 08:17 Norvasc PO 10 mg DAILY [facility] Administration Aspirin 81 mg 03/22/20 09:00 03/22/20 11:30 Ecotrin PO Not Given DAILY [facility] Clopidogrel Bisulfate 75 mg 03/22/20 09:00 03/22/20 11:30 Plavix PO Not Given DAILY [facility] Famotidine 20 mg 03/21/20 21:00 03/22/20 00:05 Pepcid SLOW IVP Not Given QPM [facility]LL - Exam General Appearance: NAD Neck: supple, no JVD Heart: no gallops, no rubs Respiratory: no wheezes, no rales, rhonchi Gastrointestinal: soft, non-tender, non-distended Extremities: no cyanosis, no clubbing Hosp A/P - Plan DVT proph w/SCDs Symptomatic anemia ESRD on HD RUE swelling/discomfort Hyponatremia CAD on ASA/Plavix HTN Anxiety PLAN: s/p 2 units PRBC Dialysis today - [facility] in AM Consult Dr Aguilar due to RUE swelling/pain
[2020-03-22 16:06] VITALS: BP 145/66; TEMP 98.2
--- NOTE | 2020-03-22 17:04 | DIS ---
DATE OF ADMISSION: 03/21/2020 DATE OF DISCHARGE: 03/22/2020 DISCHARGE DISPOSITION: Home. FOLLOWUP: 1. Follow up with primary care physician, Dr. Valera in 1 week. 2. Follow up with Dr. Church for hemodialysis. 3. Follow up with Dr. Silas Aguilar as scheduled. ALLERGIES: NO KNOWN DRUG ALLERGIES. DISCHARGE MEDICATIONS: Same as admission medication. The patient was seen and examined on the day of discharge. Denies any new complaints. Symptomatically feels much better after blood transfusion. BRIEF HOSPITAL COURSE: The patient is a 40-year-old female with end-stage renal disease, on hemodialysis, presented to the emergency room last night with generalized weakness. Her workup was consistent with hemoglobin of 5.7. She received 2 units of PRBC. She also underwent hemodialysis per Nephrology. Due to significant right upper extremity swelling, Dr. Aguilar recommended Nicholas wraps with heating pad. The patient has been cleared by consultants for discharge. No changes in her medications were made. FINAL DIAGNOSES: 1. Generalized weakness secondary to symptomatic anemia, status post 2 units of PRBC. 2. End-stage renal disease, on hemodialysis. 3. Right upper extremity swelling/discomfort, probably secondary to recent dialysis access. 4. Hyponatremia. 5. Coronary artery disease, on aspirin and Plavix. 6. Hypertension. 7. Systemic lupus erythematosus. 8. History of cardiac stents. 9. Anxiety. The patient understands the above plan of care. Job ID: [id number]
--- NOTE | 2020-03-22 20:27 | PRG ---
DATE OF SERVICE: 03/22/2020 SUBJECTIVE: This is a 40-year-old female, being seen for end-stage renal disease. The patient denies any nausea, vomiting, or chest pain. PHYSICAL EXAMINATION: General: The patient is awake and alert. Vital Signs: Afebrile, pulse 86, breathing at 16, blood pressure 140/60. HEENT: Head normocephalic and atraumatic. Eyes intact, no ulcers. Nose intact, no ulcers. Ears intact, no ulcers. Neck: Supple. No JVD. Chest: Symmetrical and clear. Cardiovascular: Shows S1 and S2, no rub, no murmur. Gastrointestinal: Abdomen is soft, bowel sounds positive. Extremities: Show no edema or ulcers. Skin: Shows no rash or petechiae. Musculoskeletal: Shows no joint swelling or stiffness. Genitourinary: Shows no Sadler or CVA tenderness. Neurologic: Motor intact. Cranial nerves intact. LABORATORY DATA: Reviewed. ASSESSMENT AND PLAN: 1. Stage 6 chronic kidney disease, stable. 2. Hypertension, stable. 3. Anemia, stable. 4. Right upper extremity swelling. Follow up with Surgery. Job ID: [id number]
--- NOTE | 2020-03-24 14:08 | EKG ---
Test Reason : Blood Pressure : / mmHG Vent. Rate : 082 BPM Atrial Rate : 082 BPM P-R Int : 186 ms QRS Dur : 086 ms QT Int : 436 ms P-R-T Axes : 008 087 -34 degrees QTc Int : 509 ms Normal sinus rhythm T wave abnormality, consider inferior ischemia T wave abnormality, consider anterior ischemia Prolonged QT Abnormal ECG Confirmed by JONNIE HAYDEN ([id number]), editor sound CHETAN GORDON ([id number]) on 03/24/2020 2:08:01 PM Referred By: Confirmed By:JONNIE HAYDEN
== END 2020-03-22 18:01 | disposition home or self-care (01) ==
LOC: ERS 15:32 → ONC 19:43
PROVIDERS: ADMIT Internal Medicine; ATTEND Internal Medicine
DX: I12.0 Hypertensive chronic kidney disease with stage 5 chronic kidney disease or end stage renal disease (principal); N18.6 End stage renal disease; D63.1 Anemia in chronic kidney disease; M79.89 Other specified soft tissue disorders; E87.1 Hypo-osmolality and hyponatremia; I25.10 Atherosclerotic heart disease of native coronary artery without angina pectoris; M32.9 Systemic lupus erythematosus, unspecified; F41.9 Anxiety disorder, unspecified; I25.2 Old myocardial infarction; Z79.02 Long term (current) use of antithrombotics/antiplatelets; Z79.82 Long term (current) use of aspirin; Z79.899 Other long term (current) drug therapy; Z95.5 Presence of coronary angioplasty implant and graft; Z99.2 Dependence on renal dialysis
CPT/HCPCS: 36430; 80048; 80053; 85025 ×2; 85046; 85610; 86850; 86900; 86901; 86920; 93005; 94760; 99285; G0378 ×2; P9016; 36415; 90935; G0257; J1644

== ENCOUNTER 2020-04-20 15:13 | Emergency (ER) | payer MEDICARE, MEDICAID ==
[2020-04-20 16:36] LABS: #Eosinphils 0.1 thou/uL (0.0-0.7); #Lymphocytes 0.9 thou/uL (1.20-3.40); #Monocytes 0.2 thou/uL (0.11-0.59); #Neutrophils 3.4 thou/uL (1.40-6.50); %Basophils 0.1 % (0.0-1.0); %Eosinophils 2.1 % (0.0-10.0); %Lymphocytes 20.2 % (21.0-51.0); %Monocytes 4.3 % (0.0-10.0); %Neutrophils 73.3 % (42.0-75.0); Hemoglobin 6.9 g/dL (12.0-16.0); Mean Corpuscular HGB CONC 31.4 g/dL (32.0-36.0); Mean Corpuscular Hemoglobin 31.3 pg (27.0-31.0); Mean Corpuscular Volume 99.7 fL (78.0-98.0); Platelet Count 164 thou/uL (130-400); RBC Distribution Width 15.8 % (11.5-14.5); Red Blood Cell (RBC) Count 2.21 mill/uL (4.20-5.40); White Blood Cell (WBC) Count 4.6 thou/uL (4.8-10.8)
[2020-04-20 16:38] LABS: ALT (SGPT) Less than 7 U/L (8-55); AST (SGOT) 12 U/L (5-34); Albumin 3.6 g/dL (3.5-5.0); Alkaline Phosphatase 64 U/L (40-110); Anion Gap 15 mmol/L (10-20); BUN (Urea Nitrogen) 15 mg/dL (7.0-18.7); Bilirubin, Total 1.1 mg/dL (0.2-1.2); Calc. Creatinine Clearance 0 mL/min (70-130); Calcium 8.9 mg/dL (7.8-10.44); Carbon Dioxide 32 mmol/L (22-29); Chloride 94 mmol/L (98-107); Estimated GFR-MDRD 9; Globulin 4.3 g/dL (2.4-3.5); Glucose 88 mg/dL (70-105); Phosphorus 4.2 mg/dL (2.3-4.7); Potassium 3.6 mmol/L (3.5-5.1); Protein, Total 7.9 g/dL (6.0-8.3); Sodium 137 mmol/L (136-145)
--- NOTE | 2020-04-21 02:23 | CON ---
DATE OF CONSULTATION: HISTORY OF PRESENT ILLNESS: A very pleasant 40-year-old female presented to the hospital with a hemoglobin of less than 7 and weakness. The patient denies any nausea, vomiting, or chest pain. The patient has a history of missing dialysis and missing Epogen dose and blood pressure medication. PAST MEDICAL HISTORY: Reviewed. PAST SURGICAL HISTORY: Reviewed. SOCIAL HISTORY: No alcohol or drug use. FAMILY HISTORY: Negative for ESRD. ALLERGIES: REVIEWED. HOME MEDICATIONS: Home medication list reviewed. Hospital medication list reviewed. REVIEW OF SYSTEMS: Fifteen-point review of system was performed, negative except for positives noted above. HEENT: Eyes intact, no diplopia. Ears: No hearing loss or earache. Nose: No discharge or bleeding. CHEST: No cough or phlegm. ABDOMEN: No nausea or vomiting. GENITOURINARY: No hematuria. No Sadler catheter. MUSCULOSKELETAL: No low back pain. No joint swelling or pain. NEUROLOGICAL: No syncope. No seizures. SKIN: No complaints of rash or itching. PSYCHIATRIC: No depression. CONSTITUTIONAL: No weight loss or loss of appetite. PHYSICAL EXAMINATION: GENERAL: The patient is awake and alert. VITAL SIGNS: Afebrile, pulse 75, breathing at 16, blood pressure 170/80. HEENT: Head normocephalic and atraumatic. Eyes intact, no ulcers. Nose intact, no ulcers. Ears intact, no ulcers. NECK: Supple. No JVD. CHEST: Symmetrical and clear. CARDIOVASCULAR: Shows S1 and S2, no rub, no murmur. GASTROINTESTINAL: Abdomen is soft, bowel sounds positive. EXTREMITIES: Show no edema or ulcers. SKIN: Shows no rash or petechiae. MUSCULOSKELETAL: Shows no joint swelling or stiffness. GENITOURINARY: Shows no Sadler or CVA tenderness. NEUROLOGIC: Motor intact. Cranial nerves intact. LABORATORY DATA: Hemoglobin is 6.9. ASSESSMENT AND PLAN: 1. Stage 6 chronic kidney disease. We will plan 2 units of transfusion and dialysis for altered fluid removal. 2. Anemia, stable. 3. Medication based on GFR appropriate. Compliance was discussed with the patient. Job ID: [id number]
== END 2020-04-20 23:59 ==
LOC: ERS 15:13
DX: I12.0 Hypertensive chronic kidney disease with stage 5 chronic kidney disease or end stage renal disease (principal); D63.1 Anemia in chronic kidney disease; N18.6 End stage renal disease; I25.2 Old myocardial infarction; F41.9 Anxiety disorder, unspecified
CPT/HCPCS: 36430; 80053; 83735; 84100; 85025; 86850; 86900; 86901; 86920; 99285; P9016; 90935; G0257

== ENCOUNTER 2020-08-13 17:48 | Inpatient (IN) | payer MEDICARE, MEDICAID, OTHER ==
[2020-08-13 19:12] LABS: #Eosinphils 0.2 thou/uL (0.0-0.7); #Lymphocytes 1.4 thou/uL (1.20-3.40); #Monocytes 0.5 thou/uL (0.11-0.59); #Neutrophils 4.6 thou/uL (1.40-6.50); %Basophils 0.2 % (0.0-1.0); %Eosinophils 2.5 % (0.0-10.0); %Lymphocytes 21.2 % (21.0-51.0); %Monocytes 7.7 % (0.0-10.0); %Neutrophils 68.4 % (42.0-75.0); Hemoglobin 8.2 g/dL (12.0-16.0); Mean Corpuscular HGB CONC 32.8 g/dL (32.0-36.0); Mean Corpuscular Hemoglobin 32.1 pg (27.0-31.0); Mean Platelet Volume 8.9 fL (7.4-10.4); Platelet Count 257 thou/uL (130-400); RBC Distribution Width 17.4 % (11.5-14.5); Red Blood Cell (RBC) Count 2.54 mill/uL (4.20-5.40); White Blood Cell (WBC) Count 6.7 thou/uL (4.8-10.8)
[2020-08-13] MEDS ORDERED: Morphine 4 MG/ML VIAL ONE (19:33)
[2020-08-13] MEDS ORDERED: Ondansetron PF 4 MG/2 ML Vial ONE (19:33)
[2020-08-13] MEDS ORDERED: Labetalol HCl 100 MG/20 ML VIAL ONE (19:33)
[2020-08-13 19:38] LABS: ALT (SGPT) 9 U/L (8-55); AST (SGOT) 23 U/L (5-34); Albumin 3.5 g/dL (3.5-5.0); Alkaline Phosphatase 363 U/L (40-110); Anion Gap 24 mmol/L (10-20); BUN (Urea Nitrogen) 49 mg/dL (7.0-18.7); Bilirubin, Total 1.4 mg/dL (0.2-1.2); Calc. Creatinine Clearance 0 mL/min (70-130); Calcium 9.8 mg/dL (7.8-10.44); Carbon Dioxide 24 mmol/L (22-29); Chloride 90 mmol/L (98-107); Estimated GFR-MDRD 4; Globulin 3.8 g/dL (2.4-3.5); Glucose 72 mg/dL (70-105); Lipase 32 U/L (8-78); Protein, Total 7.3 g/dL (6.0-8.3); Sodium 134 mmol/L (136-145)
--- NOTE | 2020-08-13 19:42 | RAD ---
Exam: Chest one view HISTORY:Chest pain Comparison: 07/28/2020, 12/08/2019 FINDINGS: Cardiac silhouette:Persistent marked cardiomegaly. There is a persistent peripherally calcified lesio n projecting over the cardiac silhouette. Stable stent projects over the right lung apex. Aorta: Atherosclerotic mildly elongated Pulmonary vessels: Normal Costophrenic angles: Clear LUNGS: Hyperinflation. There are reticular nodular opacities. Correlate for edema and/or infiltrate. Pneumothorax: None Osseous abnormalities: None IMPRESSION: 1. Cardiomegaly 2. Reticulonodular opacities. Correlate for edema or infiltrate. There is evidence for a congestive h eart failure.
[2020-08-13 19:55] LABS: CKMB 2.1 ng/mL (0-6.6)
[2020-08-13] MEDS ORDERED: niCARdipine 20MG In NaCl 20 MG/200 ML BAG ONE (21:51)
--- NOTE | 2020-08-13 23:59 | CT ---
Exam: Abdomen CT without contrast Pelvic CT without contrast HISTORY: Diffuse abdominal pain. Dialysis patient. COMPARISON: 01/22/2019 FINDINGS: Abdomen CT: Lung bases:Patchy groundglass opacities suggesting edema. Minimal scarring and atelectasis in the rig ht lower lobe. Heart size: Cardiomegaly. Stable hypodensity with peripheral calcification, which is presumed to be i n the left atrium. Significant coronary artery disease Aorta: Atherosclerotic. Stable atherosclerosis involving the vasculature in the abdomen and pelvis. Solid organs: Limited evaluation of the solid organs by the absence of IV contrast. Grossly no solid organ abnormality. Lymph nodes: No gastrohepatic, retrocrural or periportal lymphadenopathy Gallbladder: Cholelithiasis. No evidence of cholecystitis Mesentery: There is mild to moderate free fluid in the abdominal mesentery. Kidneys: Atrophic [place] kidneys, compatible with patient's history of end-stage renal disease. Alimentary canal: Limited evaluation by the lack of complete oral contrast opacification. Normal sylwia jazmyne decompressed small bowel loops. Normal ileocecal junction. Normal caliber appendix. Scattered fecal material in a nondistended, nondilated colon. Occasional diverticulum. No diverticulitis. Abdominal wall: Anterior abdominal hernia containing mesenteric fat. CT PELVIS: Free fluid in the pelvis. Uterus and right adnexa are unremarkable. There is a left adnexal mass whic h is predominantly cystic. There do appear to be some solid and calcified components along the periphery. This left adnexal mass measures 3.3 x 4.1 cm. There is an associated large predominantly c ystic component measuring 7.0 x 7.5 cm. Urinary bladder: Decompressed Osseous structures: Sclerosis, compatible with renal osteodystrophy. IMPRESSION: 1 Findings compatible with end-stage renal disease/renal failure. 2. 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 Pelvic MRI may be beneficial along with a [employer] consultation. 3. Mild to moderate ascites. 4. No evidence of bowel obstruction. Transcribed Date/Time: 08/14/2020 7:22 AM
[2020-08-14] MEDS ORDERED: Aspirin Chewable 81 MG TAB ONE (00:59)
[2020-08-14] MEDS ORDERED: hydrALAZINE 20 MG/ML VIAL ONE (01:00)
--- NOTE | 2020-08-14 01:36 | PDOC.FPRHP ---
- History of Present Illness Chief Complaint: Nausea/Vomiting History of Present Illness: This is a 40 y/o F with a PMHx of ESRD, Lupus, CAD, HTN who presented today was nausea and vomiting onset two days ago. She states that she has not been able to keep food or drink down for the past couple days and also is c/o of diffuse abdominal pain. She admits to radiating pain to her R shoulder, but denies pain that radiates straight through to her back. Her bouts of emesis have been clear/ yellow colored. No diarrhea or constipation. She denies family members with similar symptoms and denies eating any new foods. She also denies fever/chills. Of note, pt is on dialysis MWF and missed Friday's dialysis due to feeling unwell. ED Course: asa, hydralyzine, labetolol, cardiene, morphine, zofran - Allergies/Adverse Reactions Allergies Allergy/AdvReac Type Severity Reaction Status Date / Time No Known Drug Allergies Allergy Verified 07/28/20 12:54 - Home Medications Medication Instructions Recorded Confirmed Type hydrALAZINE HCl 100 mg PO TID 10/24/18 08/14/20 History NIFEdipine [Nifedipine ER] 120 mg PO QAM 07/28/20 08/14/20 History cloNIDine [Catapres] 0.3 mg PO TID 07/28/20 08/14/20 History Aspirin [Ecotrin Low Strength] 81 mg PO DAILY #30 tab 07/29/20 08/14/20 Rx Atorvastatin Calcium [Lipitor] 40 mg PO HS #30 tab 07/29/20 08/14/20 Rx Clopidogrel Bisulfate [Plavix] 75 mg PO DAILY #30 tab 07/29/20 08/14/20 Rx ALPRAZolam [Xanax] 1 mg PO HS 08/14/20 History HYDROcodone Bit/APAP 5/325 [[place] 1 tab PO Q4HR PRN 08/14/20 History 5/325] Metoprolol Succinate [Toprol Xl] 200 mg PO BID 08/14/20 08/14/20 History - History PMHx: [place] in 2018 s/p 1 stent-follows with [facility]-last seen >1 yr ago, ESRD, HTN, Lupus, Anemia PSHx: Tubal ligation Social: nonsmoker, no etoh, smokes MJ occasionally to help with appetite - Review of Systems General: denies: fever/chills, weight/appetite/sleep changes, night sweats Eyes: denies: vision changes ENT: reports: other (headache). denies: nasal congestion, rhinorrhea Respiratory: denies: cough, congestion, shortness of breath Cardiovascular: denies: chest pain, palpitation, edema Gastrointestinal: reports: nausea, vomiting, abdominal pain. denies: diarrhea, constipation, GI bleeding Genitourinary: denies: incontinence, dysuria, polyuria Skin: denies: rashes, lesions, jaundice Musculoskeletal: denies: pain, tenderness, stiffness Neurological: reports: seizure. denies: numbness, syncope Psychological: denies: anxiety, depression - Vital signs BP: 189/95, Pulse: 91, Resp: 20, Temp: 98.0 (Oral), Pain: 10, O2 sat: 98 on ( Room Air), - Physical Exam Constitutional: NAD, well developed, other (tired appearing) HEENT: normocephalic and atraumatic, PERRLA, grossly normal vision, grossly normal hearing Neck: supple Chest: no-tender to palpation Heart: RRR, normal S1/S2, no murmurs/rubs/gallops, pulses present Lungs: no respiratory distress, good air movement, no rales/rhonchi, no retractions Abdomen: soft, bowel sounds present, other (umbilical hernia present. epigastric tenderness. McBurney neg. Dali sign neg. No peritoneal signs.) Musculoskeletal: normal structure Neurological: no focal deficit, CN II-XII intact, normal sensation Skin: no rash/lesions -Skin: fistula present in L arm. Heme/Lymphatic: no unusual bruising or bleeding, no purpura Psychiatric: normal mood and affect, good judgment and insight, intact recent and remote memory FMR H&P: Results - Labs Result Diagrams: 08/13/20 18:57 08/13/20 18:57 Lab results: WBC 6.7 thou/uL (4.8-10.8) 08/13/20 18:57 Hgb 8.2 g/dL (12.0-16.0) L 08/13/20 18:57 Hct 24.9 % (36.0-47.0) L 08/13/20 18:57 MCV 98.0 fL (78.0-98.0) 08/13/20 18:57 Plt Count 257 thou/uL (130-400) 08/13/20 18:57 Neutrophils % 68.4 % (42.0-75.0) 08/13/20 18:57 Sodium 134 mmol/L (136-145) L 08/13/20 18:57 Potassium 4.0 mmol/L (3.5-5.1) 08/13/20 18:57 Chloride 90 mmol/L (98-107) L 08/13/20 18:57 Carbon Dioxide 24 mmol/L (22-29) 08/13/20 18:57 BUN 49 mg/dL (7.0-18.7) H 08/13/20 18:57 Creatinine 13.33 mg/dL (0.6-1.1) H 08/13/20 18:57 Glucose 72 mg/dL (70-105) 08/13/20 18:57 Calcium 9.8 mg/dL (7.8-10.44) 08/13/20 18:57 Total Bilirubin 1.4 mg/dL (0.2-1.2) H 08/13/20 18:57 AST 23 U/L (5-34) 08/13/20 18:57 ALT 9 U/L (8-55) 08/13/20 18:57 Alkaline Phosphatase 363 U/L (40-110) H 08/13/20 18:57 CK-MB (CK-2) 2.1 ng/mL (0-6.6) 08/13/20 18:57 B-Natriuretic Peptide 4646.6 pg/mL (0-100) H 08/13/20 18:57 Serum Total Protein 7.3 g/dL (6.0-8.3) 08/13/20 18:57 Albumin 3.5 g/dL (3.5-5.0) 08/13/20 18:57 Lipase 32 U/L (8-78) 08/13/20 18:57 - EKG Interpretation EKG: NSR - Radiology Interpretation Chest x-ray Status: report reviewed by me (cardiomegaly. reticulonodular opacities. correlate with edema. there is evidence for congestive heart failure.) CT scan - abdomen Status: report reviewed by me (findings comparable with ESRD. mixed solid and cystic mass likely ovarian in origin and noted in left adenexa. mild to moderate ascities. no evidence of bowel obstruction.) FMR H&P: A/P - Plan This is a 40 y/o F with a PMHx of ESRD, Lupus, CAD, HTN who presents with nausea and vomiting. ## Hypertensive Emergency Pt presented with SBP in 250s with elevated troponin and pulm edema initially requiring oxygen in ED. Given hydralyzine, labetolol and then cardiene drip in ED and was taken off due to hypotension. Resolvement of oxygen requirement and pulm edema. Currently SBP in 180s-190s. -trop 0.095, will trend. EKG neg. -hydralyzine SBP >180 -admitted to telemetry ## ESRD Pt missed dialysis on Friday. Dr. Church is her forestry technical officer. -Electrolytes wnl. Bun/Modeling Director 49/13. -will need dialysis tomorrow. ## Indeterminate troponin Initial EKG NSR. Trop initially 0.095. Pt not c/o chest pain. -trend trop ##HFpEF -BNP 4646 -echo at last admission 07/29 showed EF 60-66%, 3/3 diastolic dysfunction. -continue with home medications -CXR did not show fluid overload -strict I/O, daily weights -fluid restrict 1500ml/day ## New L Ovarian Mass Found on CT abdomen. Mixed solid and cystic mass with mild/moderate ascities. Could possibly be causing her abdominal pain and discomfort. Will control N/V with antiemetics at this time. -will need further w/u with TVUS and/or MRI. will need SENIOR INSTRUMENTATION ENGINEER f/u as well. -last pap smear 7 years ago wnl -LMP 2 days ago -last sexually active 7 years ago ## Anemia of Chronic Disease -most likely 2/2 ESRD -H/H 8.2/24.9 -continue to monitor Chronic Conditions: ##HTN: continue home meds, she is currently on five antihypertensive medications at home. ##Lupus: not on medications for this. does not see RA. will need outpatient f/u. ##CAD: hx 1 stent. continue home meds CODE: FULL DIET: Renal VTE: Heparin PCP: CC Dispo: admitted inpatient telemetry. FMR H&P: Upper Level - Plan Date/Time: 08/14/20 0135 Fox Webb PGY3, have evaluated this patient and agree with findings/plan as outlined by general internist resident. Pertinent changes/additions are listed here. 40yo F with pmh of Lupus and ESRD on HD presents for abdominal pain. She also was found to be hypertensive in emergent ranges in ED. She initially required O2 and appeared to be volume oveloaded. She was started on Labetolol, hydralazine, and then a nicardapine drip. This dropped her BPs too low and was DCd. After her BP was no longer in emergent ranges her respiratory status improved. On exam she is currently hypertensive at 189/95, cardiopulmonary exam unremarkable. GI shows diffuse mild ttp, no peritoneal signs A/P Hypertensive Emergency 2/2 non compliance to dialysis A- stable. High BPs (high as 257/120s) caused volume overload. She is s/p hydralazine and labetalol. She did not tolerate nicardapine drip 2/2 hypotension. She likely will need dialysis later today. Home meds currently incluide five antihypertensives, she is quite familiar with her medication regimen and seems to exhibit good compliance. P- admit to tele -Hydralazine prn, goal sbp 165 in first 24 hours -plan to consult nephro in AM HFpEF exacerbation 2/2 hypertensive emergency A- resolved with improvement of BP. Stable on RA. Pt has a precarious fluid balance but appears to be euvolemic or possibly slightly overloaded currently, likely had some transient pulmonary edema 2/2 HTN in ED. Her last echo July 2020 showed Grade 3/3 diastolic dysfunction (EF 60-65%). P- plan for dialysis per nephro, likely will need fluid taken off -strict I/Os, daily weights -fluid restriction diet < 1500ml indeterminate trop A- pt is asymptomatic. trop is slightly bumped (.095) from baseline (.05 most recently). We are beholden to ensure this is not 2/2 HTN Em. P- trend trops Ovarian Mass A- incidental finding, or perhaps contributing somewhat to abdominal pain. Pt is now aware of mass. LMP 9/12, Last pap 2012 (no hx of abnormal) P- Will order transvaginal ultrasound in AM and consult SENIOR INSTRUMENTATION ENGINEER Anemia A- stable. Likely 2/2 ESRD. P- monitor h/h CODE: FULL IVF: SL Diet: renal, fluid restriction 1500ml Dispo: admit to telemetry, inpatient. Expected LOS > 48 hours. Addendum - Attending - Attending Attestation Date/Time: 08/14/20 0830 I personally evaluated the patient and discussed the management with Dr. Ocampo. I agree with the History, Examination, Assessment and Plan documented above with any addition or exceptions noted below. The patient presented with nausea and vomiting and found to have hypertensive emergency. Pt had vomited up her bp pills per pt. She has also missed dialysis. Imaging reveals and ovarian mass as well. Home meds have been restarted, prn bp meds ordered. Consulting Dr. Church for dialysis. Will proceed with transvaginal ultrasound. Cardiac enzymes indeterminate likely due to htn and ckd.
[2020-08-14] MEDS ORDERED: Ondansetron ODT 4 MG TAB SL PRN (02:04)
[2020-08-14] MEDS ORDERED: HYDROcodone/Acetaminophen 5/325 mg Tablet PO PRN ×3 (02:04→22:24)
[2020-08-14] MEDS ORDERED: Acetaminophen 325 MG TAB PO PRN (02:04)
[2020-08-14] MEDS ORDERED: hydrALAZINE 20 MG/ML VIAL SLOW IVP PRN ×2 (02:05→02:31)
[2020-08-14] MEDS: Ondansetron PF 4 MG/2 ML Vial IVP PRN ×2 (02:48→07:55)
[2020-08-14 06:35] LABS: Troponin I 0.093 ng/mL (< 0.028)
[2020-08-14] MEDS: Aspirin 81 mg Enteric Coated Tablet PO SCH (07:48)
[2020-08-14] MEDS: cloNIDine 0.3 MG TAB PO SCH ×3 (07:49→21:38)
[2020-08-14] MEDS: Clopidogrel Bisulfate 75 MG TAB PO SCH (07:50)
[2020-08-14] MEDS: Heparin 5,000 UNITS/ML VIAL SC SCH ×3 (07:50→21:39)
[2020-08-14] MEDS: hydrALAZINE 25 MG TAB PO SCH ×3 (07:51→21:38)
[2020-08-14] MEDS: NIFEdipine XL 60 MG TAB PO SCH (07:53)
[2020-08-14] MEDS: hydrALAZINE 20 MG/ML VIAL SLOW IVP PRN (07:54)
--- NOTE | 2020-08-14 11:43 | ULT ---
TRANSABDOMINAL AND ENDOVAGINAL IMAGING OF THE PELVIS: HISTORY: Previous identified left adnexal mass. TECHNIQUE: Transabdominal and endovaginal imaging of the pelvis is performed. Ovaries are interrogated with barnett scale, color flow, Doppler imaging and spectral waveform analysis. FINDINGS: Uterus: Heterogeneous with areas of increased echogenicity likely representing calcifications within the uterine myometrium. Correlation made with CT performed on 08/13/2020 suggests atherosclerotic calcifications given linear appearance. Uterus measures 8.2 x 4.7 x 4.7 cm. Endometrium: Limited evaluation. 0.4 cm diameter. Right ovary is not seen. Left ovary: Solid echotexture focus may represent a component of the left ovary measuring 4.1 x 3.2 x 3.8 cm. There is a large predominantly anechoic focus in the left adnexa measuring 8.4 x 7.5 x 9.8 cm. This anechoic focus does demonstrate some septations. There is free fluid in the right adnexa. Ovarian Doppler: No significant demonstrable flow involving the left adnexal structures. IMPRESSION: Solid echotexture focus in the left adnexa which may represent the ovary. The echotexture is somewhat atypical for normal-appearing ovary. Adjacent predominantly cystic collection with septation is noted. Findings are worrisome for an ovarian neoplasm. FORESTRY PROFESSOR consultation is recommended. Transcribed Date/Time: 08/14/2020 12:18 PM
[2020-08-14 12:02] LABS: SARS-CoV-2 MS2 Positive; SARS-CoV-2 N Gene Negative; SARS-CoV-2 S Gene Negative; SARS-CoV-2 by NAA Not Detected (NotDetected); SARS-CoV-2 orf1ab Negative
--- NOTE | 2020-08-14 19:19 | CON ---
DATE OF CONSULTATION: 08/14/2020 CONSULTING PHYSICIAN: Dr. Ocampo. REASON FOR CONSULTATION: End-stage renal disease evaluation. REASON FOR ADMISSION: Nausea and vomiting. HISTORY OF PRESENT ILLNESS: A 40-year-old female with a history of end-stage renal disease, lupus, and coronary artery disease, came to the hospital with nausea and vomiting and has been evaluated and admitted. The patient gets dialyzed Friday, Friday, and Friday. Nephrology consult for followup and maintenance of dialysis. The patient is feeling slightly better. No chest pain. No fever or chills reported to me. PAST MEDICAL HISTORY: Positive for end-stage renal disease, coronary artery disease, lupus, hypertension, and anemia. PAST SURGICAL HISTORY: Tubal ligation and dialysis access placement including fistula placement. HOME MEDICATIONS: Reviewed. ALLERGIES: NO KNOWN DRUG ALLERGIES. SOCIAL HISTORY: No smoking, alcohol, or illicit drugs. FAMILY HISTORY: No history of kidney disease. REVIEW OF SYSTEMS: The following complete review of systems was negative, unless otherwise mentioned in the HPI or below: Constitutional: Weight loss or gain, ability to conduct usual activities. Skin: Rash, itching. Eyes: Double vision, pain. ENT/Mouth: Nose bleeding, neck stiffness, pain, tenderness. Cardiovascular: Palpitations, dyspnea on exertion, orthopnea. Respiratory: Shortness of breath, wheezing, cough, hemoptysis, fever or night sweats. Gastrointestinal: Poor appetite, abdominal pain, heartburn, nausea, vomiting, constipation, or diarrhea. Genitourinary: Urgency, frequency, dysuria, nocturia. Musculoskeletal: Pain, swelling. Neurologic/Psychiatric: Anxiety, depression. Allergy/Immunologic: Skin rash, bleeding tendency. PHYSICAL EXAMINATION: GENERAL: This is a well-built female, in no apparent distress. VITAL SIGNS: Temperature 97.9, pulse 83, respiratory rate 18, blood pressure 206/108. HEENT: Atraumatic and normocephalic. Oral mucosa is moist. NECK: Supple. CV: S1 and S2. Regular rate and rhythm. RESPIRATORY: Clear. GASTROINTESTINAL: Abdomen is soft. MUSCULOSKELETAL: 1+ edema. DERMATOLOGIC: No skin rash. NEUROLOGIC: Alert and awake. PSYCHIATRIC: Normal mood and affect. LABORATORY DATA: Hemoglobin 8.2. Potassium 4.0, BUN is 49, creatinine is 13.3. ASSESSMENT AND PLAN: 1. End-stage renal disease. Plan to have dialysis today. The patient has missed dialysis on Friday. We will continue dialysis today and Friday, Friday, and Friday. 2. Elevated BNP with fluid overload. We will remove fluid with dialysis. 3. Hyponatremia, most likely from fluid overload. 4. Anemia of chronic disease. 5. History of hypertension. Remove fluid with dialysis. Adjust the medications. We will continue dialysis today. Dialysis nurse notified. We will continue dialysis Friday, Friday, and Friday. Job ID: [id number]
[2020-08-14] MEDS ORDERED: Atorvastatin Calcium 40 MG TAB PO SCH (21:00)
[2020-08-15] MEDS: Ondansetron ODT 8 MG TAB SL PRN ×2 (00:10→12:00)
--- NOTE | 2020-08-15 07:03 | PDOC.FM ---
- Subjective Subjective: Pt states she is feeling better this morning. Tolerated PO intake well yesterday. Denies any complaints this morning. No events overnight. Discussed imaging findings of left adenexal mass. Recommended she set up follow up for this prior to discharge. Also needs to establish with PCP who she will likely need a referral from prior to door to door salesman visit. - Objective Vital Signs & Weight: Vital Signs (12 hours) Temp Pulse Resp BP BP BP Pulse Ox 08/15/20 04:00 98.1 F 77 16 165/79 H 100 08/15/20 00:30 98.3 F 76 18 171/79 H 95 08/14/20 21:38 84 180/77 H 08/14/20 21:36 98.7 F 84 18 180/77 H 94 L Weight Weight 49.1 kg I&O: 08/14/20 08/15/20 08/16/20 06:59 06:59 06:59 Intake Total 180 900 Balance 180 900 Result Diagrams: 08/15/20 07:19 08/15/20 07:19 Phys Exam - Physical Examination Constitutional: NAD HEENT: moist MMs, sclera anicteric Neck: full ROM Respiratory: clear to auscultation bilateral Cardiovascular: RRR Distended, diffuse tenderness, umbilical hernia, +fluid wave Musculoskeletal: pulses present Neurological: moves all 4 limbs Psychiatric: normal affect, A&O x 3 Skin: cap refill <2 seconds Dx/Plan - Plan Plan: Hypertensive Emergency 2/2 non compliance to dialysis -Tele monitoring -Resume home meds -Hydralazine prn, goal sbp 165 in first 24 hours -Nephro dialyzing MWF HFpEF exacerbation 2/2 hypertensive emergency -last echo July 2020 showed Grade 3/3 diastolic dysfunction (EF 60-65%). -continue to remove fluid with dialysis -strict I/Os, daily weights -fluid restriction diet < 1500ml Ovarian Mass -incidental finding on CT, perhaps contributing somewhat to abdominal pain. Pt is now aware of mass. LMP 08/12, Last pap 2012 (no hx of abnormal) -transvag US concerning for left adenexal neoplasm -CEA: 0.76 - negative -CA 125: 26.8 - negative Anemia -stable. Likely 2/2 ESRD. -monitor h/h CODE: FULL IVF: SL Diet: renal, fluid restriction 1500ml Dispo: admit to telemetry, inpatient. Expected LOS > 48 hours. Plan: Will discuss findings of tumor marker and transvag US with Refrigerating Engineer. Talked to Dr. Geiger with [facility] who stated that pt would be appropriate to f/u with them with possible subsequent referral to optical assistant/onc depending on workup. BP's under better control currently, non severe range. Expect this to continue to trend better as she gets more fluid off with dialysis and receives her home anti- hypertensives. Tolerating PO well. If she continues to do well through the morning Addendum - Attending - Attending Attestation Date/Time: 08/15/20 2704 I personally evaluated the patient and discussed the management with Dr. Mckeon. I agree with the History, Examination, Assessment and Plan documented above with any addition or exceptions noted below. The patient is feeling better. N/v improved. She tolerated food yesterday. BP 's are improving. She will f/u with physiatrist outpt for further workup of the ovarian mass. Patient is in agreement with this plan.
[2020-08-15 07:29] LABS: #Eosinphils 0.1 thou/uL (0.0-0.7); #Lymphocytes 0.6 thou/uL (1.20-3.40); #Monocytes 0.4 thou/uL (0.11-0.59); #Neutrophils 6.8 thou/uL (1.40-6.50); %Basophils 0.2 % (0.0-1.0); %Eosinophils 1.7 % (0.0-10.0); %Lymphocytes 7.8 % (21.0-51.0); %Monocytes 4.8 % (0.0-10.0); %Neutrophils 85.6 % (42.0-75.0); Hemoglobin 8.3 g/dL (12.0-16.0); Mean Corpuscular HGB CONC 32.6 g/dL (32.0-36.0); Mean Platelet Volume 8.6 fL (7.4-10.4); Platelet Count 214 thou/uL (130-400); RBC Distribution Width 17.4 % (11.5-14.5)
[2020-08-15 07:49] LABS: ALT (SGPT) 8 U/L (8-55); AST (SGOT) 25 U/L (5-34); Albumin 3.2 g/dL (3.5-5.0); Alkaline Phosphatase 380 U/L (40-110); Anion Gap 18 mmol/L (10-20); BUN (Urea Nitrogen) 23 mg/dL (7.0-18.7); Bilirubin, Total 1.7 mg/dL (0.2-1.2); Calc. Creatinine Clearance 7 mL/min (70-130); Calcium 9.3 mg/dL (7.8-10.44); Carbon Dioxide 25 mmol/L (22-29); Chloride 95 mmol/L (98-107); Estimated GFR-MDRD 7; Globulin 3.6 g/dL (2.4-3.5); Glucose 78 mg/dL (70-105); Potassium 3.9 mmol/L (3.5-5.1); Protein, Total 6.8 g/dL (6.0-8.3); Sodium 134 mmol/L (136-145)
[2020-08-15] MEDS: hydrALAZINE 25 MG TAB PO SCH ×2 (07:57→14:08)
[2020-08-15] MEDS: cloNIDine 0.3 MG TAB PO SCH ×2 (07:58→14:08)
[2020-08-15] MEDS: Aspirin 81 mg Enteric Coated Tablet PO SCH (07:58)
[2020-08-15] MEDS: Clopidogrel Bisulfate 75 MG TAB PO SCH (07:58)
[2020-08-15] MEDS: NIFEdipine XL 60 MG TAB PO SCH (07:58)
[2020-08-15] MEDS: Heparin 5,000 UNITS/ML VIAL SC SCH ×2 (07:59→14:08)
[2020-08-15] MEDS: hydrALAZINE 20 MG/ML VIAL SLOW IVP PRN (09:28)
--- NOTE | 2020-08-15 13:39 | PRG ---
DATE OF SERVICE: 08/15/2020 SUBJECTIVE: Patient was seen and examined at bedside and overnight events noted. Patient denies any shortness of breath or chest pain or palpitation. No history of nausea or vomiting or diarrhea or fever or chills or cramps. OBJECTIVE: General: This is a well-built female, in no apparent distress. Vital Signs: Temperature 99.2. Heart Rate 72. Respiratory rate 18. Blood pressure 184/84. HEENT: Atraumatic, normocephalic. Oral mucosa is moist. Neck: Supple. Cardiovascular: S1, S2 heard. Rate and rhythm regular. Respiratory: Clear to auscultation. Gastrointestinal: Abdomen is soft. Musculoskeletal: No tenderness. No edema. Dermatologic: No skin rash. Neurologic: Alert and awake and oriented x3. No focal neurologic deficits. Moving all the extremities. Psychiatric: Mood and affect normal. LABORATORY DATA: Potassium 3.9, BUN is , creatinine is 8.1. ASSESSMENT AND PLAN: 1. End-stage renal disease. Continue dialysis . 2. Hypertension. 3. Anemia of chronic disease. 4. Edema, controlled. Plan to continue dialysis Friday, Friday, and Friday. Job ID: [id number]
[2020-08-15 14:35] VITALS: BMI 20.4
[2020-08-15 16:39] VITALS: BP 136/66; TEMP 98.9
--- NOTE | 2020-08-16 02:23 | DIS ---
DATE OF ADMISSION: 08/14/2020 DATE OF DISCHARGE: 08/15/2020 ADMITTING ATTENDING: Vicente Sutton MD DISCHARGE ATTENDING: Dottie Yen MD RESIDENT: Tucker Mckeon DO CONSULTS: Dr. Flores, Nephrology. PROCEDURES: None. IMAGING: Chest x-ray 08/13/2020, impression; hyperinflation with reticulonodular opacities. Correlate for edema or infiltrate. Cardiomegaly. Abdomen and pelvis CT 08/13/2020, impression; findings compatible with end-stage renal disease. Mixed solid and cystic mass, likely ovarian in origin and noted in the left adnexum. Pelvic MRI can be considered. [id number] ascites. Transvaginal ultrasound 08/14/2020, impression; solid echotexture focus in the left adnexum which may represent ovary. Echotexture is somewhat atypical for normal appearing ovary. Adjacent predominantly cystic collection with septations noted. Findings worrisome for an ovarian neoplasm. PRIMARY DIAGNOSES: Adnexal mass, hypertensive emergency. SECONDARY DIAGNOSES: End-stage renal disease, heart failure with preserved ejection fraction, anemia. DISCHARGE MEDICATIONS: 1. Hydralazine 100 mg t.i.d. 2. Nifedipine 120 mg q.a.m. 3. Clonidine 0.3 mg t.i.d. 4. Aspirin 81 mg daily. 5. Atorvastatin 40 mg at bedtime. 6. Plavix 75 mg daily. 7. [place] 5/325 one tab q.4 hours p.r.n. 8. Metoprolol succinate 200 mg b.i.d. 9. Xanax 1 mg daily. HISTORY OF PRESENT ILLNESS AND HOSPITAL COURSE: A 40-year-old female with past medical history of end-stage renal disease, lupus, CAD, hypertension, presented to the emergency department with complaints of nausea and vomiting that started two days ago. The patient stated that she missed her dialysis the preceding two days due to the symptoms. Initial workup found the patient to be severely hypertensive with systolic blood pressures around 250. She was given hydralazine and labetalol before being started on a Cardene drip in the emergency department. She was quickly taken off this after developing hypotension. She was admitted to telemetry for continued monitoring. She had some indeterminate troponins that were likely related to the end-stage renal disease. Her vehicle mechanic was consulted and Dr. Flores saw the patient and dialyzed the patient the following day after admission. Initial workup in the emergency department also showed an abdominal CT significant for left adnexal mass. We ordered a transvaginal ultrasound to better characterize the mass. Findings as noted above. I discussed these findings with both Dr. Maynard and Dr. Geiger, inpatient and outpatient on-call line person. We ordered CEA and CA125 levels that were both negative. In light of these negative tumor markers, they felt that it was appropriate for the patient to [place] [facility] work up this mass as it does not appear that Gynecologic oncology is necessary at this time. I discussed these findings with the patient, as well as appropriate outpatient followup with both her new PCP, Dr. Alatorre and [facility] Patient expressed understanding. Prior to discharge, the patient was tolerating p.o. intake well. She also had normalized blood pressures of 136/66 at the time of discharge. DISCHARGE INSTRUCTIONS: Location: Home. Diet: Renal. Activity: As tolerated. Followup: Follow up with PCP, Dr. Alatorre within 7 days, [facility] 1 to 2 weeks. Job ID: [id number] MTDD
== END 2020-08-15 18:10 | disposition home or self-care (01) | DRG 304 ==
LOC: ERS 17:48 → 2NO 08-14 01:10
PROVIDERS: ADMIT Emergency Medicine; ATTEND Emergency Medicine
PROC: 5A1D70Z Performance of Urinary Filtration, Intermittent, Less than 6 Hours Per Day (ICD-10-PCS; principal; 2020-08-14)
DX: I16.1 Hypertensive emergency (principal); N18.6 End stage renal disease; I50.33 Acute on chronic diastolic (congestive) heart failure; R18.8 Other ascites; E87.1 Hypo-osmolality and hyponatremia; N83.8 Other noninflammatory disorders of ovary, fallopian tube and broad ligament; I13.2 Hypertensive heart and chronic kidney disease with heart failure and with stage 5 chronic kidney disease, or end stage renal disease; D63.1 Anemia in chronic kidney disease; F41.9 Anxiety disorder, unspecified; G43.909 Migraine, unspecified, not intractable, without status migrainosus; I25.10 Atherosclerotic heart disease of native coronary artery without angina pectoris; R79.89 Other specified abnormal findings of blood chemistry; Z20.828 Contact with and (suspected) exposure to other viral communicable diseases; M32.9 Systemic lupus erythematosus, unspecified; Z99.2 Dependence on renal dialysis; Z95.5 Presence of coronary angioplasty implant and graft; I25.2 Old myocardial infarction; Z79.899 Other long term (current) drug therapy; Z79.82 Long term (current) use of aspirin; Z79.02 Long term (current) use of antithrombotics/antiplatelets; Z98.51 Tubal ligation status; Z91.15 Patient's noncompliance with renal dialysis
CPT/HCPCS: 36415; 71045; 74176; 76856; 80053; 82378; 82553; 83690; 83880; 84484; 85025; 86304; 87635; 90935; 93005; 94760; 96365; 96366; 96375; 97139; 99292; G0257; J0360; J1644; J2270; J2405; Q0162; U0003

== ENCOUNTER 2020-09-11 05:28 | Emergency (ER) | payer MEDICARE, MEDICAID, OTHER ==
[2020-09-11 06:40] LABS: BHCG - Serum Negative (NEGATIVE); Hemoglobin 11.3 g/dL (12.0-16.0); Mean Corpuscular HGB CONC 31.3 g/dL (32.0-36.0); Mean Corpuscular Hemoglobin 31.7 pg (27.0-31.0); Mean Platelet Volume 9.8 fL (7.4-10.4); Platelet Count 191 thou/uL (130-400); Pregs Control Background? CLEAR/WHITE (CLR/WHITE); Pregs Control Bar Appear? YES (CONTROL BAR); RBC Distribution Width 16.7 % (11.5-14.5); Red Blood Cell (RBC) Count 3.56 mill/uL (4.20-5.40)
[2020-09-11 06:49] LABS: AST (SGOT) 143 U/L (5-34); Anion Gap 27 mmol/L (10-20); Bilirubin, Total 1.8 mg/dL (0.2-1.2); Calc. Creatinine Clearance 0 mL/min (70-130); Carbon Dioxide 18 mmol/L (22-29); Chloride 94 mmol/L (98-107); Estimated GFR-MDRD 4; Globulin 4.6 g/dL (2.4-3.5); Potassium 6.3 mmol/L (3.5-5.1); Protein, Total 8.6 g/dL (6.0-8.3); Sodium 133 mmol/L (136-145)
[2020-09-11 06:56] LABS: Band 6 % (5-11); Eosinophils 1 % (0-10); Lymphocytes 34 % (21-51); MDiff Complete? YES; Monocytes 11 % (0-10); Neutrophil 48 % (42-75); White Blood Cell (WBC) Count 8.8 thou/uL (4.8-10.8)
[2020-09-11] MEDS ORDERED: Sodium Bicarb 50 MEQ/50 ML Abboject 8.4% SYRINGE ONE (07:04)
[2020-09-11] MEDS ORDERED: Dextrose 50% Abboject 50 ML SYRINGE ONE (07:04)
[2020-09-11] MEDS ORDERED: Calcium Chloride 1 GM/10 ML Abboject SYRINGE ONE (07:04)
[2020-09-11] MEDS ORDERED: Insulin Regular 300 UNITS/3 ML VIAL ONE (07:04)
[2020-09-11 07:08] LABS: ALT (SGPT) 45 U/L (8-55); Alkaline Phosphatase 282 U/L (40-110); BUN (Urea Nitrogen) 51 mg/dL (7.0-18.7)
[2020-09-11 07:12] LABS: Glucose 48 mg/dL (70-105)
[2020-09-11 07:27] LABS: CKMB 2.2 ng/mL (0-6.6)
--- NOTE | 2020-09-11 07:38 | RAD ---
RADIOGRAPH CHEST 1 VIEW: DATE: 09/11/2020 TIME: 5:51 AM HISTORY: 40-year-old female with dyspnea COMPARISON: 08/13/2020 FINDINGS: Cardiomegaly. Eggshell calcification of left atrium. No pulmonary edema. Mild patchy infiltrate right inferior lower lung zone. Right subclavian and brachiocephalic vascular stents. No pneumothorax. Probable small bilateral pleural effusions. No interval change. IMPRESSION: 1) cardiomegaly 2) mild infiltrate at right medial lung base. 3) probable small bilateral pleural effusions 4.) findings are very similar to prior study last month.
[2020-09-11 10:30] LABS: HBSAg Index 0.18 S/CO (0-0.99); Hep B Surf Ag Non-Reactive S/CO (NonReactive)
--- NOTE | 2020-09-11 13:23 | CON ---
DATE OF CONSULTATION: 09/11/2020 CONSULTING PHYSICIAN: Elo Garcia MD REASON FOR CONSULTATION: End-stage renal disease evaluation and care. REASON FOR ADMISSION: Shortness of breath. HISTORY OF PRESENT ILLNESS: This is a 40-year-old female with history of end-stage renal disease, coronary artery disease, who came to the hospital with shortness of breath, was hyperkalemic and fluid overloaded. Nephrology consult from the ER for dialysis management. No fever or chills. No nausea or vomiting. PAST MEDICAL HISTORY: Positive for end-stage renal disease, coronary artery disease, lupus, hypertension, and anemia. PAST SURGICAL HISTORY: Tubal ligation, dialysis access placement. HOME MEDICATIONS: Per the list. ALLERGIES: NO KNOWN DRUG ALLERGIES. SOCIAL HISTORY: No smoking, alcohol, or illicit drug abuse. FAMILY HISTORY: No history of kidney disease. REVIEW OF SYSTEMS: CONSTITUTIONAL: Negative for weight loss or gain, ability to conduct usual activities. SKIN: Negative for rash, itching. EYES: Negative for double vision, pain. ENT/MOUTH: Negative for nose bleeding, neck stiffness, pain, tenderness. CARDIOVASCULAR: Negative for palpitations, dyspnea on exertion, orthopnea. RESPIRATORY: Negative for shortness of breath, wheezing, cough, hemoptysis, fever or night sweats. GASTROINTESTINAL: Negative for poor appetite, abdominal pain, heartburn, nausea, vomiting, constipation, or diarrhea. GENITOURINARY: Negative for urgency, frequency, dysuria, nocturia. MUSCULOSKELETAL: Negative for pain, swelling. NEUROLOGIC/PSYCHIATRIC: Negative for anxiety, depression. ALLERGY/IMMUNOLOGIC: Negative for skin rash, bleeding tendency. PHYSICAL EXAMINATION: GENERAL: This is a well-built female, in no apparent distress. VITAL SIGNS: Reviewed. HEENT: Atraumatic, normocephalic. Oral mucosa moist. NECK: Supple. CV: S1 and S2. Regular rate and rhythm. RESPIRATORY: Clear. GASTROINTESTINAL: Abdomen is soft. MUSCULOSKELETAL: 1+ edema. DERMATOLOGIC: No skin rash. NEUROLOGIC: Alert and awake. PSYCHIATRIC: Mood and affect normal. LABORATORY DATA: Hemoglobin is 11.3. Potassium 6.3, BUN is 51, and creatinine is 11.4. ASSESSMENT AND PLAN: 1. End-stage renal disease. Plan to have emergent dialysis. 2. Fluid overload with elevated BNP. 3. Hyperkalemia. 4. Acidosis. 5. Hyponatremia. 6. Hypoglycemia. 7. History of hypertension. 8. History of lupus. 9. Anemia of chronic disease. Plan to have dialysis as tolerated. Dialysis nurse notified. Thank you for the consult. Job ID: [id number]
--- NOTE | 2020-09-16 10:37 | EKG ---
Test Reason : SOB Blood Pressure : / mmHG Vent. Rate : 073 BPM Atrial Rate : 073 BPM P-R Int : 178 ms QRS Dur : 100 ms QT Int : 438 ms P-R-T Axes : 037 127 042 degrees QTc Int : 482 ms Normal sinus rhythm Right axis deviation Right ventricular hypertrophy Prolonged QT Abnormal ECG Confirmed by SVILTANA MC ([id number]), editor at large LINDY LAND ([id number]) on 09/16/2020 10:36:55 AM Referred By: Confirmed By:SVITLANA MC
== END 2020-09-11 19:00 | disposition home or self-care (01) ==
LOC: ERS 05:28
DX: E87.5 Hyperkalemia (principal); I12.0 Hypertensive chronic kidney disease with stage 5 chronic kidney disease or end stage renal disease; N18.6 End stage renal disease; R94.5 Abnormal results of liver function studies; G43.909 Migraine, unspecified, not intractable, without status migrainosus; I25.2 Old myocardial infarction; F41.9 Anxiety disorder, unspecified; Z79.899 Other long term (current) drug therapy
CPT/HCPCS: 36415; 36416; 71045; 80053; 82553; 83880; 84484; 84703; 85025; 87340; 90935; 93005; 96374; 96375; G0257; J1815

== ENCOUNTER 2020-10-06 12:36 | Emergency (ER) | payer MEDICARE, MEDICAID ==
[2020-10-06] MEDS ORDERED: Lorazepam 1 MG TAB ONE (13:05)
[2020-10-06] MEDS ORDERED: Metoprolol Tartrate 5 MG/5 ML VIAL ONE (13:23)
[2020-10-06 14:19] LABS: #Eosinphils 0.1 thou/uL (0.0-0.7); #Lymphocytes 0.9 thou/uL (1.20-3.40); #Monocytes 0.1 thou/uL (0.11-0.59); #Neutrophils 4.1 thou/uL (1.40-6.50); %Basophils 0.3 % (0.0-1.0); %Eosinophils 1.3 % (0.0-10.0); %Lymphocytes 17.9 % (21.0-51.0); %Neutrophils 78.4 % (42.0-75.0); Mean Corpuscular HGB CONC 32.4 g/dL (32.0-36.0); Mean Corpuscular Hemoglobin 32.3 pg (27.0-31.0); Mean Corpuscular Volume 99.6 fL (78.0-98.0); Mean Platelet Volume 9.2 fL (7.4-10.4); Platelet Count 168 thou/uL (130-400); RBC Distribution Width 15.8 % (11.5-14.5); Red Blood Cell (RBC) Count 2.79 mill/uL (4.20-5.40); White Blood Cell (WBC) Count 5.3 thou/uL (4.8-10.8)
--- NOTE | 2020-10-06 14:24 | RAD ---
EXAM: CHEST ONE VIEW HISTORY: Tachycardia and weakness during dialysis. COMPARISON: 09/11/2020 FINDINGS: Cardiac silhouette remains in enlarged. There are increased interstitial and patchy parenchymal densi ty seen in the perihilar regions probably at each lung base which could be related to asymmetric pulmonary edema or infectious process. Pulmonary vasculature is similar to prior exam. Peripherally c alcified masslike structure is seen at the medial left lung base. This has been present on prior CT scanning examinations prior CT scan exam of 12/05/2018 demonstrating contrast within this structure whi ch is closely adjacent coronary artery and is worrisome for coronary artery aneurysm. Breast calcific lesions are seen in thoracic aorta. A vascular stent again overlies the right upper chest wi th surgical clips right axillary region. No other interval change. IMPRESSION: 1. 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 2. Cardiomegaly. 3. Interstitial and patchy parenchymal airspace opacities at each lung base which may represent eithe r asymmetric pulmonary edema or infectious process. Follow-up to resolution is recommended.
[2020-10-06 14:40] LABS: ALT (SGPT) Less than 7 U/L (8-55); AST (SGOT) 18 U/L (5-34); Alkaline Phosphatase 97 U/L (40-110); Anion Gap 16 mmol/L (10-20); BUN (Urea Nitrogen) 15 mg/dL (7.0-18.7); Bilirubin, Total 1.4 mg/dL (0.2-1.2); Calc. Creatinine Clearance 0 mL/min (70-130); Carbon Dioxide 31 mmol/L (22-29); Chloride 94 mmol/L (98-107); Estimated GFR-MDRD 11; Globulin 4.8 g/dL (2.4-3.5); Glucose 98 mg/dL (70-105); Potassium 3.4 mmol/L (3.5-5.1); Protein, Total 8.8 g/dL (6.0-8.3); Sodium 138 mmol/L (136-145)
[2020-10-06 15:01] LABS: CKMB 1.9 ng/mL (0-6.6)
== END 2020-10-06 15:20 | disposition home or self-care (01) ==
LOC: ERS 12:36
DX: R00.0 Tachycardia, unspecified (principal); I12.9 Hypertensive chronic kidney disease with stage 1 through stage 4 chronic kidney disease, or unspecified chronic kidney disease; N18.9 Chronic kidney disease, unspecified; I25.2 Old myocardial infarction; F41.9 Anxiety disorder, unspecified; Z79.899 Other long term (current) drug therapy
CPT/HCPCS: 36415; 71045; 80053; 82553; 84443; 84484; 85025; 93005; 96374

== ENCOUNTER 2020-10-08 10:29 | Inpatient (IN) | payer MEDICARE, MEDICAID ==
[~2020-10-08 10:29] MED LIST changes: +Iopamidol-370 76% 500 ML 1 ML ONE; -Prevnar 13-Val Conj/PF 0.5 ML SYRINGE IM ONE
[2020-10-08 11:10] LABS: #Lymphocytes 1.6 thou/uL (1.20-3.40); #Monocytes 0.6 thou/uL (0.11-0.59); #Neutrophils 2.8 thou/uL (1.40-6.50); %Basophils 0.4 % (0.0-1.0); %Eosinophils 0.5 % (0.0-10.0); %Lymphocytes 31.6 % (21.0-51.0); %Monocytes 11.2 % (0.0-10.0); %Neutrophils 56.2 % (42.0-75.0); Hemoglobin 10.4 g/dL (12.0-16.0); Mean Corpuscular Hemoglobin 31.3 pg (27.0-31.0); Mean Platelet Volume 9.9 fL (7.4-10.4); Platelet Count 170 thou/uL (130-400); RBC Distribution Width 15.8 % (11.5-14.5); Red Blood Cell (RBC) Count 3.32 mill/uL (4.20-5.40); White Blood Cell (WBC) Count 4.9 thou/uL (4.8-10.8)
[2020-10-08 11:20] LABS: BHCG - Serum Negative (NEGATIVE); Pregs Control Background? CLEAR/WHITE (CLR/WHITE); Pregs Control Bar Appear? YES (CONTROL BAR)
[2020-10-08] MEDS ORDERED: Lorazepam 2 MG/ML VIAL ONE (11:32)
[2020-10-08] MEDS ORDERED: Ondansetron PF 4 MG/2 ML Vial ONE (11:32)
[2020-10-08 11:35] LABS: ALT (SGPT) 177 U/L (8-55); AST (SGOT) 535 U/L (5-34); Albumin 4.1 g/dL (3.5-5.0); Alkaline Phosphatase 160 U/L (40-110); Anion Gap 24 mmol/L (10-20); BUN (Urea Nitrogen) 24 mg/dL (7.0-18.7); Bilirubin, Total 2.4 mg/dL (0.2-1.2); Calc. Creatinine Clearance 0 mL/min (70-130); Calcium 8.4 mg/dL (7.8-10.44); Carbon Dioxide 24 mmol/L (22-29); Chloride 94 mmol/L (98-107); Estimated GFR-MDRD 10; Globulin 4.9 g/dL (2.4-3.5); Glucose 40 mg/dL (70-105); Lipase 38 U/L (8-78); Potassium 5.9 mmol/L (3.5-5.1); Sodium 136 mmol/L (136-145)
[2020-10-08] MEDS ORDERED: Dextrose 50% Abboject 50 ML SYRINGE ONE ×2 (11:35→13:42)
--- NOTE | 2020-10-08 12:23 | RAD ---
EXAM: Chest one view: HISTORY: Weakness body aches dialysis yesterday COMPARISON: 10/06/2020 FINDINGS: Stable appearing rim calcified mass overlying the inferior central heart region. Heart size: Enlarged but stable Lungs: Improving vascular congestion and increased markings bilaterally from yesterday's study. No evidence for confluent lobar pneumonia, significant pleural effusion, acute edema, or pneumothorax , or other significant acute process. IMPRESSION: Improved congestion and increased markings from prior study. No significant new process.
[2020-10-08 12:29] LABS: CKMB 2.1 ng/mL (0-6.6)
[2020-10-08 12:37] LABS: Base Excess-Venous -1.3 mmol/L (-2.0 to 3.0); Bicarbonate (HCO3v) 23.8 mmol/L (22.0-28.0); CO2 Tension (PvCO2) 40.3 mmHg (40.0-50.0); Chloride 101 mmol/L (98-107); Hemoglobin - Calc 11.6 g/dL (12.0-16.0); Sodium 133 mmol/L (138-145); vO2 Saturation-calc 97.8 % (60.0-85.0)
[2020-10-08] MEDS ORDERED: niCARdipine 20MG In NaCl 20 MG/200 ML BAG ONE (12:57)
[2020-10-08] MEDS ORDERED: Vancomycin 1 GM/200 ML BAG ONE (16:20)
[2020-10-08] MEDS ORDERED: Cefepime 2 GM VIAL ONE (16:20)
[2020-10-08] MEDS ORDERED: Aspirin Chewable 81 MG TAB ONE (16:20)
[2020-10-08] MEDS ORDERED: Octreotide Acetate 100 MCG/ML VIAL ONE (16:21)
[2020-10-08 16:22] LABS: Lactic Acid 1.8 mmol/L (0.5-2.2)
[2020-10-08] MEDS ORDERED: Acetaminophen 500 MG TAB ONE (16:46)
[2020-10-08] MEDS ORDERED: Dexamethasone 10 MG/ML VIAL ONE (16:48)
--- NOTE | 2020-10-08 17:00 | CT ---
CT PULMONARY ANGIOGRAM WITH IV CONTRAST AND 3D POST PROCESSING: History: End stage renal disease with shortness of breath, tachycardia, hypertension. Comparison: 10-24-18 FINDINGS: There is good contrast opacification of the pulmonary artery vasculature without filling defects or e mbolism. There are vascular calcification without evidence of aneurysmal dilatation of the thoracic a monica. 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 Small pericardial effusion and a tiny right pleural effusion are seen. There are patchy peripheral gr ound glass opacities and consolidative changes bilaterally. Upper abdominal images demonstrate fluid in the abdomen and atrophic kidneys. IMPRESSION: 1. No CT evidence of pulmonary embolism. 2. Findings are suspicious for pneumonia. Correlate for Covid 19. POS: OFF
[2020-10-08 17:03] LABS: SARS-CoV-2 NAA Rapid Test Not Detected (NotDetected)
--- NOTE | 2020-10-08 17:04 | RAD ---
PORTABLE CHEST ONE VIEW: Date: 10-08-2020 Time: 2:59 p.m. History: Central line placement. FINDINGS: Comparison is made with exam performed at 11:47 from the same date. There has been interval placement of a left central venous catheter with the tip in the direction of the SVC. No pneumothoraces are seen. New patchy opacities are seen in the lung crane bilaterally. POS: OFF
--- NOTE | 2020-10-08 17:42 | PDOC.HHP ---
Hospitalist HPI - History of Present Illness Generalized weakness History of Present Illness: This is a 40-year-old female patient of ESRD, SLE presented on account of weakness. Her last dialysis was a day ago. She follows with Dr. Church. She felt no improvement today after she taking blood pressure medicine sent her to come to the ED for further evaluation. At presentation systolic blood pressure was 222 with pulse 108. She was tachycardic with several episodes of fever recorded at 8 102.5 at its highest. She received Tylenol. Labs showed potassium at 5.9, anion gap 20, creatinine 5.84, transaminitis with increased AST ALT at 535 and 177 respectively. ALT is at 160. Her initial blood glucose was low at 40 for which she received dextrose. She has mild anemia of 10.4, no leukocytosis. Initial lactate was 1.8 however repeat lactate went up to 6.5. D-dimer was elevated at 10.06, troponin 0 0.138. ABG done showed CTA with no evidence of pulmonary embolism however suspicious for pneumonia. Covid test however turned out negative She was started on aspirin, vancomycin and cefepime. Also received Cardene IV for systolic blood pressures above 200,. She also received Ativan and Decadron. Hospitalist team consulted for admission. . Hospitalist ROS - Review of Systems Constitutional: reports: fever, chills, weakness Respiratory: reports: cough, dry, shortness of breath, SOB with excertion. den ies: hemoptysis Cardiovascular: denies: chest pain, palpitations, orthopnea Gastrointestinal: reports: nausea. denies: vomiting, abdominal pain, diarrhea Neurological: denies: weakness, numbness, incoordination Hospitalist History - Past Medical History Renal/: reports: Acute renal failure Endocrine: reports: Other (lupus) - Exam General Appearance: awake alert Neck: symmetric, no lymphadenopathy Heart: RRR, no murmur, no gallops, no rubs Respiratory: no wheezes, no rales, no ronchi, no tachypnea Respiratory - other findings: Bilateral coarse breath sounds Gastrointestinal - other findings: Abdomen full, nontender. No rebound tenderness or guarding. Extremities: no cyanosis, no clubbing, no edema Extremities - other findings: Graft on left arm, no signs of infection. Left IJ central Neurological: cranial nerve grossly intact, no weakness Musculoskeletal: normal tone, normal strength Psychiatric: normal affect, normal behavior, A&O x 3 Hospitalist Results - Labs Result Diagrams: 10/08/20 10:43 10/08/20 19:30 Lab results: WBC 4.9 thou/uL (4.8-10.8) 10/08/20 10:43 Hgb 10.4 g/dL (12.0-16.0) L 10/08/20 10:43 Hct 33.6 % (36.0-47.0) L 10/08/20 10:43 MCV 101.0 fL (78.0-98.0) H 10/08/20 10:43 Plt Count 170 thou/uL (130-400) 10/08/20 10:43 Neutrophils % 56.2 % (42.0-75.0) 10/08/20 10:43 VBG pCO2 40.3 mmHg (40.0-50.0) 10/08/20 12:32 VBG pO2 103.0 mmHg (35.0-45.0) H 10/08/20 12:32 Sodium 136 mmol/L (136-145) 10/08/20 10:55 Potassium 5.9 mmol/L (3.5-5.1) H 10/08/20 10:55 Chloride 94 mmol/L (98-107) L 10/08/20 10:55 Carbon Dioxide 24 mmol/L (22-29) 10/08/20 10:55 BUN 24 mg/dL (7.0-18.7) H 10/08/20 10:55 Creatinine 5.84 mg/dL (0.6-1.1) H 10/08/20 10:55 Glucose 40 mg/dL (70-105) L* 10/08/20 10:55 Lactic Acid 1.8 mmol/L (0.5-2.2) 10/08/20 15:58 Calcium 8.4 mg/dL (7.8-10.44) 10/08/20 10:55 Total Bilirubin 2.4 mg/dL (0.2-1.2) H 10/08/20 10:55 AST 535 U/L (5-34) H 10/08/20 10:55 ALT 177 U/L (8-55) H 10/08/20 10:55 Alkaline Phosphatase 160 U/L (40-110) H 10/08/20 10:55 Creatine Kinase 192 U/L (29-168) H 10/08/20 10:55 CK-MB (CK-2) 2.1 ng/mL (0-6.6) 10/08/20 10:55 Troponin I 0.138 ng/mL (< 0.028) H 10/08/20 10:55 B-Natriuretic Peptide 4662.3 pg/mL (0-100) H 10/08/20 11:30 Serum Total Protein 9.0 g/dL (6.0-8.3) H 10/08/20 10:55 Albumin 4.1 g/dL (3.5-5.0) 10/08/20 10:55 Lipase 38 U/L (8-78) 10/08/20 10:55 Hospitalist H&P A/P - Plan Plan: This is a 40-year-old female patient with a history of ESRD, diabetes mellitus and hypertension who presents with generalized weakness, severely elevated blood pressures and hypoglycemia. She also has fevers and elevated lactate. We would admit her for management for sepsis. Severe sepsis Fever with tachypnea and tachycardia elevated lactic No clear source at the moment Received Vanco and cefepimewe will continue Follow-up on blood culture Acute hypoxic respiratory failure Possibilities include bilateral pneumonia, volume overload Chest x-ray suggestive of bilateral infiltrates Covid was negative PRN Oxygen Consult nephrology Hypertensive urgency Initial blood pressure systolic above 200. Blood pressure initially controlled with nicardipine now currently off Resume home blood pressure medications Strict blood pressure monitoring ESRD Consult nephrology Hyperkalemia Potassium 5.9 We will monitor BMP for now We will give Kayexalate No insulin for now due to hypoglycemia Nephrology consult Hypoglycemia Unclear etiology Was given octreotide Monitor glucose. Diabetes mellitus Start correctional insulin Anemia Of chronic disorder We will monitor CODE STATUSfull code VTE prophylaxisSCD
[2020-10-08 17:49] LABS: Troponin I 0.172 ng/mL (< 0.028)
[2020-10-08] MEDS ORDERED: Dextrose 50% Abboject 50 ML SYRINGE SLOW IVP PRN ×2 (18:08→21:46)
[2020-10-08] MEDS ORDERED: Dextrose 5% in Water 1,000 ML IV PRN ×2 (18:08→21:46)
[2020-10-08] MEDS: Dextrose 10% in Water 1,000 ML IV SCH (19:20)
[2020-10-08 19:52] LABS: Anion Gap 20 mmol/L (10-20); BUN (Urea Nitrogen) 28 mg/dL (7.0-18.7); Calc. Creatinine Clearance 0 mL/min (70-130); Calcium 7.5 mg/dL (7.8-10.44); Carbon Dioxide 22 mmol/L (22-29); Chloride 93 mmol/L (98-107); Estimated GFR-MDRD 9; Glucose 113 mg/dL (70-105); Potassium 3.9 mmol/L (3.5-5.1); Sodium 131 mmol/L (136-145)
[2020-10-08 20:08] LABS: Troponin I 0.282 ng/mL (< 0.028)
[2020-10-08 20:35] VITALS: BMI 21.5
[2020-10-08] MEDS ORDERED: Vancomycin HCl 750 MG in Sodium Chloride 0.9% 250 ML 250 ML IVPB SCH (21:15)
[2020-10-08] MEDS ORDERED: Vancomycin HCl 250 MG in Sodium Chloride 0.9% 100 ML IVPB SCH (21:15)
[2020-10-08] MEDS ORDERED: Vancomycin HCl 500 MG in Sodium Chloride 0.9% 100 ML IVPB SCH (21:15)
[2020-10-08] MEDS ORDERED: Vancomycin 1 GM in Premix Bag 1 BAG IVPB SCH (21:15)
[2020-10-08] MEDS ORDERED: HOLD VANCOMYCIN FOR LEVEL >20 FS SCH (21:15)
[2020-10-08] MEDS ORDERED: HumaLOG 300 UNITS/3 ML VIAL SC PRN (21:46)
--- NOTE | 2020-10-09 01:15 | CON ---
DATE OF CONSULTATION: REASON FOR CONSULTATION: Hyperkalemia. HISTORY OF PRESENT ILLNESS: A 40-year-old female, presented to the hospital with weakness and volume overload. The patient's potassium was 5.9 on presentation. The patient denies headache, numbness, tingling, or weakness. PAST MEDICAL HISTORY: Significant for end-stage renal disease, lupus nephritis, history of hypertension, anemia, congestive heart failure, history of ascites, history of multiple hospitalizations, secondary hyperparathyroidism, AV fistula, and tunneled dialysis catheter. SOCIAL HISTORY: No alcohol or drug use. FAMILY HISTORY: Negative for ESRD. ALLERGIES: REVIEWED. HOME MEDICATIONS: List reviewed. HOSPITAL MEDICATIONS: List reviewed. REVIEW OF SYSTEMS: 15-point review of system was performed, negative except for positive noted above. HEENT: Eyes intact, no diplopia. Ears: No hearing loss or earache. Nose: No discharge or bleeding. Chest: No cough or phlegm. Abdomen: No nausea or vomiting. Genitourinary: No hematuria. No Sadler catheter. Musculoskeletal: No low back pain. No joint swelling or pain. Neurological: No syncope. No seizures. Skin: No complaints of rash or itching. Psychiatric: No depression. Constitutional: No weight loss or loss of appetite. PHYSICAL EXAMINATION: GENERAL: The patient is awake and alert. Vital Signs: Afebrile, pulse 75, breathing at 16, and blood pressure . HEENT: Head normocephalic and atraumatic. Eyes intact, no ulcers. Nose intact, no ulcers. Ears intact, no ulcers. Neck: Supple. No JVD. Chest: Symmetrical and clear. Cardiovascular: Shows S1 and S2, no rub, no murmur. Gastrointestinal: Abdomen is soft, bowel sounds positive. Extremities: Show no edema or ulcers. Skin: Shows no rash or petechiae. Musculoskeletal: Shows no joint swelling or stiffness. Genitourinary: Shows no Sadler or CVA tenderness. Neurologic: Motor intact. Cranial nerves intact. LABORATORY DATA: Reviewed. ASSESSMENT: Stage 3 chronic kidney disease, plan dialysis. Hypertension, stable. Anemia, stable. Medication based on GFR appropriate. Urgent dialysis will be scheduled. We will recheck potassium. Job ID: [id number]
[2020-10-09] MEDS: Dextrose 10% in Water 1,000 ML IV SCH ×2 (02:00→19:00)
[2020-10-09] MEDS ORDERED: Vancomycin 1 GM in Premix Bag 1 BAG IVPB SCH (05:00)
[2020-10-09] MEDS ORDERED: ALPRAZolam 0.25 MG TAB PO SCH (05:58)
[2020-10-09 06:16] LABS: Anion Gap 15 mmol/L (10-20); BUN (Urea Nitrogen) 21 mg/dL (7.0-18.7); Calc. Creatinine Clearance 13 mL/min (70-130); Carbon Dioxide 31 mmol/L (22-29); Chloride 93 mmol/L (98-107); Estimated GFR-MDRD 12; Glucose 102 mg/dL (70-105); Potassium 3.6 mmol/L (3.5-5.1); Sodium 135 mmol/L (136-145)
[2020-10-09 08:21] LABS: #Lymphocytes 0.6 thou/uL (1.20-3.40); #Monocytes 0.2 thou/uL (0.11-0.59); #Neutrophils 5.5 thou/uL (1.40-6.50); %Basophils 0.5 % (0.0-1.0); %Eosinophils 0.1 % (0.0-10.0); %Lymphocytes 10.2 % (21.0-51.0); %Monocytes 2.4 % (0.0-10.0); %Neutrophils 86.8 % (42.0-75.0); Elliptocytes SLIGHT = 2-5 cells (100X) (0-1/hpf); Hemoglobin 9.7 g/dL (12.0-16.0); Large Platelets SLIGHT; MDiff Complete? YES; Mean Corpuscular HGB CONC 31.5 g/dL (32.0-36.0); Mean Corpuscular Volume 98.4 fL (78.0-98.0); Mean Platelet Volume 11.1 fL (7.4-10.4); Platelet Count 97 thou/uL (130-400); Platelet Morphology Comment Appears Decreased; RBC Distribution Width 15.3 % (11.5-14.5); Red Blood Cell (RBC) Count 3.13 mill/uL (4.20-5.40); Schistocytes SLIGHT = 2-5 cells (100X) (0-1/hpf); White Blood Cell (WBC) Count 6.3 thou/uL (4.8-10.8)
[2020-10-09 08:31] LABS: Platelet Count 97 thou/uL (130-400)
[2020-10-09 08:40] LABS: Fibrinogen 274 mg/dL (253-463)
[2020-10-09 08:41] LABS: INR-International Normal Ratio 1.9; PTT 38.8 sec (22.9-36.1); Prothrombin Time 22.2 sec (12.0-14.7)
[2020-10-09 08:48] LABS: D-Dimer Test 14.14 *mcg/mL (0.27-0.43)
[2020-10-09] MEDS ORDERED: Non-Formulary Item 1 EACH (Hydralazine Hcl [Hydralazine Hcl] 100 MG Tablet) PO SCH (09:00)
[2020-10-09] MEDS ORDERED: hydrALAZINE 25 MG TAB PO SCH ×2 (09:00→09:30)
[2020-10-09] MEDS ORDERED: Non-Formulary Item 1 EACH (Metoprolol Succinate [Toprol Xl] 200 MG Tab.Er.24h) PO SCH (09:00)
[2020-10-09 09:46] LABS: FSP-Qualitative ABNORMAL (Normal); FSP-Semiquantitative >=20 & <40 mcg/mL (Less than 5)
[2020-10-09] MEDS: Heparin 5,000 UNITS/ML VIAL SC SCH ×3 (10:37→21:34)
[2020-10-09] MEDS: cloNIDine 0.2 MG TAB PO SCH ×3 (10:40→22:54)
[2020-10-09] MEDS: NIFEdipine XL 60 MG TAB PO SCH (10:40)
--- NOTE | 2020-10-09 11:14 | PRG ---
DATE OF SERVICE: 10/09/2020 SUBJECTIVE: The patient is on COVID isolation. OBJECTIVE: GENERAL: This is a well-built female, on COVID isolation. VITAL SIGNS: Temperature 97.1, pulse 87, respiratory rate 18, blood pressure 169/95. LABORATORY DATA: Potassium 3.6, BUN is 21, creatinine is 4.7. ASSESSMENT AND PLAN: 1. End-stage renal disease. Continue on hemodialysis Friday, Friday, and Friday. 2. Hypertension, stable. 3. Anemia. 4. Fluid overload. 5. Hyponatremia, better. 6. Hyperkalemia, better with dialysis. The patient had dialysis. We will plan to dialysis Friday, Friday, and Friday. We will give extra dialysis if remains fluid overloaded. Job ID: [id number]
[2020-10-09] MEDS: hydrALAZINE 25 MG TAB PO SCH ×2 (17:30→22:54)
[2020-10-09] MEDS: Cefepime 0.5 GM, Admixture Fee 1 EACH in Sodium Chloride 0.9% 100 ML IVPB SCH (18:05)
--- NOTE | 2020-10-09 19:37 | PDOC.HOSPP ---
- Subjective Encounter Date: 10/09/20 Encounter Time: 06:00 Subjective: The patient states she feels her whole body aching. She states this happens with her lupus flares. States she was not on any medication for this previously because she had no symptoms. She says her mother from lupus. She states she was diagnosed with lupus when she had eye swelling and kidney problems. She reports chronic dry cough, unchanged. She has SOB while ambulating which is new. She does not feel she has COVID She report sensation of someone laying on her chest and reports improvement in her symptoms with oxygen, although oxygen sat 98% on 2L. - Objective Vital Signs & Weight: Vital Signs (12 hours) Temp 10/09/20 19:33 97.8 F Weight Admit Weight 114 lb Weight 114 lb 3.2 oz Most Recent Monitor Data Heart Rate from ECG 81 NIBP 141/82 NIBP BP-Mean 101 Respiration from ECG 15 SpO2 97 I&O: 10/08/20 10/09/20 10/10/20 06:59 06:59 06:59 Intake Total 3780 Balance 3780 Result Diagrams: 10/09/20 07:48 10/09/20 05:35 Additional Labs: Accuchecks 10/09/20 10/09/20 10/09/20 18:02 13:53 10:56 POC Glucose 122 H 111 H 107 H 10/09/20 10/09/20 10/09/20 07:50 05:36 00:00 POC Glucose 154 H 93 119 H 10/08/20 10/08/20 10/08/20 22:11 20:42 18:19 POC Glucose 120 H 122 H 121 H 10/08/20 15:13 POC Glucose 90 Hospitalist ROS - Review of Systems Constitutional: denies: fever, chills - Medication Medications: Active Medications Generic Name Dose Route Start Last Admin Trade Name Freq PRN Reason Stop Dose Admin Clonidine 0.2 mg 10/09/20 09:00 10/09/20 17:30 Clonidine 0.2 Mg Tab PO 0.2 mg TID [facility] Administration Heparin Sodium (Porcine) 5,000 units 10/09/20 09:00 10/09/20 17:29 Heparin 5,000 Units/Ml Vial SC Not Given TID [facility] Hydralazine HCl 50 mg 10/09/20 15:00 10/09/20 17:30 Hydralazine 25 Mg Tab PO 50 mg TID [facility] Administration Dextrose/Water 1,000 mls @ 50 mls/hr 10/08/20 14:00 10/09/20 02:00 Dextrose 10% In Water IV Not Given .Q20H [facility] Cefepime HCl 0.5 gm/ 100 mls @ 200 mls/hr 10/09/20 16:00 10/09/20 18:05 Miscellaneous Medication 1 IVPB 100 mls each/ Sodium Chloride 1600 [facility] Administration Metoprolol Succinate 200 mg 10/09/20 09:00 10/09/20 06:58 Metoprolol Succinate Xl 100 Mg Tab PO 200 mg BID [facility] Administration Nifedipine 60 mg 10/09/20 09:00 10/09/20 10:40 Nifedipine Xl 60 Mg Tab PO 60 mg QAM [facility] Administration Sodium Chloride 10 ml 10/08/20 21:00 10/09/20 10:41 Flush - Normal Saline 10 Ml Syringe IVF 10 ml Q12HR [facility] Administration - Exam General Appearance: NAD, awake alert Eye: PERRL, anicteric sclera ENT: normocephalic atraumatic, no oropharyngeal lesions Neck: no JVD Heart: RRR, no murmur, no gallops, no rubs Respiratory - other findings: diminished breath sounds at the bases Gastrointestinal: soft, non-tender, non-distended, normal bowel sounds Extremities: no cyanosis, no clubbing, no edema Hosp A/P - Plan Chest X ray: new patchy infiltrates bilaterally CTA: ground glass opacities bilaterally. 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 Small pericardial effusion and tiny right pleural effusion This is a 40 year old female with a past medical history of lupus who presented with severe weakness, body aches, admitted for pneumonia Acute hypoxic respiratory failure - possibly secondary to pneumonia versus interstitial lung disease vs mild pulmonary edema - CTA showed no PE, bilateral ground glass opacities. COVID negative, will discontinue precautions - was started on vancomycin and cefepime. Will continue for now - will give one dose 40 mg IV lasix due to tiny pericardial effusion - will start dexamethasone for possible ILD . Will consider pulm consult Hypoglycemia - had blood sugar of 40 upon presentation and was placed on a D10 drip. 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 Continue furosemide 40 mg daily History of lupus - will recheck LINA panel in morning, ESR, CRP to evaluate for flare #Diastolic heart failure #Moderate MR - noted on last ECHO ESRD on dialysis - Dr. Church is following
[2020-10-09] MEDS ORDERED: Furosemide 40 MG/4 ML VIAL SLOW IVP SCH (19:45)
[2020-10-09] MEDS ORDERED: Dexamethasone 4 mg/ml Vial SLOW IVP SCH (19:45)
[2020-10-09] MEDS: ALPRAZolam 0.5 MG TAB PO SCH (21:27)
[2020-10-10] MEDS: Heparin 5,000 UNITS/ML VIAL SC SCH ×3 (07:30→20:02)
[2020-10-10] MEDS: cloNIDine 0.2 MG TAB PO SCH ×4 (07:30→21:10)
[2020-10-10] MEDS: NIFEdipine XL 60 MG TAB PO SCH (07:30)
[2020-10-10] MEDS: hydrALAZINE 25 MG TAB PO SCH ×4 (07:31→21:10)
[2020-10-10 11:28] LABS: DRVVT Confirm 43.9; DRVVT Ratio 0.9 Ratio (1.2 or Less)
[2020-10-10] MEDS: HYDROcodone/Acetaminophen 5/325 mg Tablet PO PRN ×2 (12:49→19:58)
[2020-10-10 13:20] LABS: Hemoglobin 9.1 g/dL (12.0-16.0); Mean Corpuscular HGB CONC 31.3 g/dL (32.0-36.0); Mean Corpuscular Hemoglobin 31.4 pg (27.0-31.0); Mean Platelet Volume 10.2 fL (7.4-10.4); Platelet Count 174 thou/uL (130-400); RBC Distribution Width 15.7 % (11.5-14.5); White Blood Cell (WBC) Count 11.8 thou/uL (4.8-10.8)
[2020-10-10 13:46] LABS: Anion Gap 21 mmol/L (10-20); BUN (Urea Nitrogen) 40 mg/dL (7.0-18.7); Calc. Creatinine Clearance 8 mL/min (70-130); Calcium 7.7 mg/dL (7.8-10.44); Carbon Dioxide 24 mmol/L (22-29); Chloride 91 mmol/L (98-107); Estimated GFR-MDRD 8; Glucose 182 mg/dL (70-105); Phosphorus 6.6 mg/dL (2.3-4.7); Potassium 4.5 mmol/L (3.5-5.1); Sodium 131 mmol/L (136-145)
[2020-10-10] MEDS ORDERED: diphenhydrAMINE 50 MG/ML VIAL IVP SCH (14:30)
--- NOTE | 2020-10-10 14:41 | PRG ---
DATE OF SERVICE: 10/10/2020 SUBJECTIVE: Patient was seen and examined at bedside and overnight events noted. Patient denies any shortness of breath or chest pain or palpitation. No history of nausea or vomiting or diarrhea or fever or chills or cramps. OBJECTIVE: GENERAL: This is well-built female in no apparent distress. VITAL SIGNS: Temperature 96.8. Heart Rate 75. Respiratory rate 20. Blood pressure 102/66 HEENT: Atraumatic, normocephalic. Oral mucosa is moist. NECK: Supple. CARDIOVASCULAR: S1, S2 heard. Rate and rhythm regular. RESPIRATORY: Clear to auscultation. GASTROINTESTINAL: Abdomen is soft. MUSCULOSKELETAL: No tenderness. No edema. DERMATOLOGIC: No skin rash. NEUROLOGIC: Alert and awake and oriented x3. No focal neurologic deficits. Moving all the extremities. PSYCHIATRIC: Mood and affect normal. LABORATORY DATA: Potassium 4.5, BUN is 40, creatinine is 7.18. ASSESSMENT AND PLAN: 1. End-stage renal disease. Plan on hemodialysis Friday, Friday, and Friday. 2. Hypertension, stable. 3. Hyperkalemia, better. 4. Hyponatremia. 5. Fluid overload. Remove fluid. 6. Anemia of chronic disease. Plan to have dialysis Friday, Friday, and Friday as tolerated. Job ID: [id number]
[2020-10-10] MEDS: Cefepime 0.5 GM, Admixture Fee 1 EACH in Sodium Chloride 0.9% 100 ML IVPB SCH (15:13)
[2020-10-10 16:00] LABS: Thyroid Stimulating Hormone 0.5893 uIU/mL (0.35-4.94)
[2020-10-10 16:25] LABS: Free T4 (Free Thyroxine) 1.04 ng/dL (0.70-1.48)
--- NOTE | 2020-10-10 17:50 | PDOC.HOSPP ---
- Subjective Encounter Date: 10/10/20 Encounter Time: 07:00 Subjective: The patient reports severe headache. She reports light sensitivity. No nausea or vomiting. She states it is in the frontal area, 09/09. She denies neck stiffness. She reports it started 20 minutes prior to when I saw her . She had just received norco - Objective Vital Signs & Weight: Vital Signs (12 hours) Temp Pulse Pulse Pulse BP BP BP 10/10/20 15:12 77 124/70 10/10/20 15:11 97.8 F 10/10/20 11:19 96.8 F L 10/10/20 11:05 72 73 110/68 118/77 10/10/20 08:00 10/10/20 07:31 77 10/10/20 07:30 77 120/74 10/10/20 07:28 97.6 F Pulse Ox Pulse Ox Pulse Ox 10/10/20 15:12 10/10/20 15:11 10/10/20 11:19 10/10/20 11:05 99 98 10/10/20 08:00 100 10/10/20 07:31 10/10/20 07:30 10/10/20 07:28 Weight Admit Weight 114 lb Weight 114 lb 3.2 oz Most Recent Monitor Data Heart Rate from ECG 78 NIBP 111/65 NIBP BP-Mean 80 Respiration from ECG 21 SpO2 100 I&O: 10/09/20 10/10/20 10/11/20 06:59 06:59 06:59 Intake Total 3780 400 Output Total 0 Balance 3780 400 Result Diagrams: 10/10/20 12:54 10/10/20 12:54 Additional Labs: Accuchecks 10/10/20 10/10/20 10/10/20 16:28 10:02 08:22 POC Glucose 152 H 141 H 84 10/10/20 10/10/20 10/10/20 06:06 04:15 02:10 POC Glucose 94 91 91 10/10/20 10/09/20 10/09/20 00:06 22:26 20:38 POC Glucose 98 97 121 H 10/09/20 18:02 POC Glucose 122 H Hospitalist ROS - Review of Systems Constitutional: denies: fever, chills - Medication Medications: Active Medications Generic Name Dose Route Start Last Admin Trade Name Freq PRN Reason Stop Dose Admin Hydrocodone Bitart/Acetaminophen 1 tab 10/09/20 05:58 10/10/20 12:49 Hydrocodone/Acetaminophen 5/325 Mg Tablet PO 1 tab Q4H PRN Administration pain Alprazolam 2 mg 10/09/20 21:00 10/09/20 21:27 Alprazolam 0.5 Mg Tab PO 2 mg HS MITCHELL Administration Clonidine 0.2 mg 10/09/20 09:00 10/10/20 15:12 Clonidine 0.2 Mg Tab PO 0.2 mg TID MITCHELL Administration Heparin Sodium (Porcine) 5,000 units 10/09/20 09:00 10/10/20 13:47 Heparin 5,000 Units/Ml Vial SC Not Given TID MITCHELL Hydralazine HCl 50 mg 10/09/20 15:00 10/10/20 15:12 Hydralazine 25 Mg Tab PO 50 mg TID MITCHELL Administration Cefepime HCl 0.5 gm/ 100 mls @ 200 mls/hr 10/09/20 16:00 10/10/20 15:13 Miscellaneous Medication 1 IVPB 100 mls each/ Sodium Chloride 1600 MITCHELL Administration Metoprolol Succinate 200 mg 10/09/20 09:00 10/10/20 07:30 Metoprolol Succinate Xl 100 Mg Tab PO 200 mg BID MITCHELL Administration Nifedipine 60 mg 10/09/20 09:00 10/10/20 07:30 Nifedipine Xl 60 Mg Tab PO 60 mg QAM MITCHELL Administration Sodium Chloride 10 ml 10/08/20 21:00 10/10/20 07:31 Flush - Normal Saline 10 Ml Syringe IVF 10 ml Q12HR MITCHELL Administration - Exam General Appearance: NAD, awake alert General - other findings: laying in bed, holding her head Eye: PERRL, anicteric sclera Eye - other findings: periorbital edema . Difficulty opening her eyes fully Neck: supple, symmetric, no JVD Heart: RRR, no murmur, no gallops, no rubs Respiratory: CTAB, no wheezes, no rales, no ronchi Gastrointestinal: soft, non-tender, non-distended, normal bowel sounds, no palpable masses, no hepatomegaly, no splenomegaly, no bruit Extremities: no cyanosis, no edema Skin: normal turgor, no lesions, no rashes Hosp A/P - Plan Chest X ray: new patchy infiltrates bilaterally CTA: ground glass opacities bilaterally. 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 Small pericardial effusion and tiny right pleural effusion This is a 40 year old female with a past medical history of lupus who presented with severe weakness, body aches, admitted for pneumonia Acute hypoxic respiratory failure - possibly secondary to pneumonia versus interstitial lung disease vs mild pulmonary edema - CTA showed no PE, bilateral ground glass opacities. COVID negative, will discontinue precautions - was started on vancomycin and cefepime. Will continue for now - she received dialysis 10/10 for pulmonary edema. Oxygen has been weaned down to 2L, continue to wean further Periorbital edema - TSH normal. COuld be from ESRD. Repeat lupus panel pendin g - continue steroids Headache - will order migraine cocktail of benadryl and compazine Hypoglycemia- resolved - changed fingersticks to achs 6 cm aneurysm in coronary artery - pending vascular surgery consult Hypertensive - controlled - BP was greater than 200 systolic on admission - hydralazine increased to 50 mg tid, continue nifedpine, metoprolol 200 mg po bid. History of lupus - will recheck LINA panel in morning, ESR, CRP to evaluate for flare #Diastolic heart failure #Moderate MR - noted on last ECHO ESRD on dialysis - continue dialysis M, W, F Plan: d/c when off oxygen
[2020-10-10] MEDS: ALPRAZolam 0.5 MG TAB PO SCH (19:57)
--- NOTE | 2020-10-10 20:20 | PQF ---
CLINICAL DOCUMENTATION CLARIFICATION FORM: Dear Dr. WANG WYMAN Date: 10-10-20 Please exercise your independent, professional judgment in responding to the clarification form. Clinical indicators are provided on the bottom of this form for your review. Please check appropriate box(es) to clarify if the following diagnosis has been ruled in our ruled out: SEVERE SEPSIS [ X] Ruled in diagnosis [ ] Continue to treat [ ] Resolved [ ] Ruled out diagnosis [ ] Other diagnosis [ ] Unable to determine In addition, please specify: Present on Admission (POA): [X ] Yes [ ] No [ ] Unable to determine For continuity of documentation, please document condition throughout progress notes and discharge summary. Thank You. To be completed by CDI/Coding staff for physician review: CLINICAL INDICATORS - SIGNS / SYMPTOMS / LABS / RESULTS AND LOCATION IN MR: ER DX 10-08-20: COVID PNEUMONIA WITH SEPSIS, ESRD, RECURRENT HYPOGLYCEMIA H&P 10-08-20: SEVERE SEPSIS, FEVER WITH TACHYCARDIA ELEVATED LACTIC, NO CLEAR SOURCE AT THE MOMENT, RECEIVED VANCO AND CEFEPIME- WE WILL CONTINUE, F/U ON BLOOD CULTURE, ACUTE HYPOXIC RESPIRATORY FAILURE, HTN URGENCY, ESRD, HYPERKALEMIA, HYPOGLYCEMIA, DM, ANEMIA WBC: 10-10-20: 11.8 LACTIC ACID: 10-08-20: 6.5 CRP: 10-10-20: 1.87 RISK FACTORS / RESULTS AND LOCATION IN MR: PN DR. WYMAN 10-09-20: ADMITTED FOR PNEUMONIA, HX LUPUS, ESRD TREATMENTS / RESULTS AND LOCATION IN MR: H&P 10-08-20: RECEIVED VANCO AND CEFEPIME- WE WILL CONTINUE, F/U ON BLOOD CULTURE CDS Signature: Patricia Reyes Phone #: [phone] Date: 10-10-20 This is a permanent part of the Medical Record [facility]
[2020-10-10] MEDS ORDERED: Ondansetron PF 4 MG/2 ML Vial IVP PRN (20:23)
[2020-10-11] MEDS: HYDROcodone/Acetaminophen 5/325 mg Tablet PO PRN ×3 (03:31→22:16)
[2020-10-11] MEDS: Heparin 5,000 UNITS/ML VIAL SC SCH ×4 (07:19→20:18)
[2020-10-11] MEDS: hydrALAZINE 25 MG TAB PO SCH ×3 (07:23→22:14)
[2020-10-11] MEDS: cloNIDine 0.2 MG TAB PO SCH ×3 (07:23→22:13)
[2020-10-11] MEDS: NIFEdipine XL 60 MG TAB PO SCH (07:24)
[2020-10-11 10:17] LABS: Anion Gap 24 mmol/L (10-20); BUN (Urea Nitrogen) 52 mg/dL (7.0-18.7); Calc. Creatinine Clearance 7 mL/min (70-130); Calcium 7.6 mg/dL (7.8-10.44); Carbon Dioxide 23 mmol/L (22-29); Chloride 91 mmol/L (98-107); Estimated GFR-MDRD 6; Glucose 102 mg/dL (70-105); Potassium 4.5 mmol/L (3.5-5.1); Sodium 133 mmol/L (136-145)
[2020-10-11 10:28] LABS: Hemoglobin 8.7 g/dL (12.0-16.0); Mean Corpuscular HGB CONC 31.4 g/dL (32.0-36.0); Mean Corpuscular Hemoglobin 31.7 pg (27.0-31.0); Mean Platelet Volume 10.2 fL (7.4-10.4); Platelet Count 161 thou/uL (130-400); RBC Distribution Width 15.6 % (11.5-14.5); Red Blood Cell (RBC) Count 2.74 mill/uL (4.20-5.40); White Blood Cell (WBC) Count 12.2 thou/uL (4.8-10.8)
--- NOTE | 2020-10-11 11:22 | PRG ---
DATE OF SERVICE: 10/11/2020 SUBJECTIVE: Patient was seen and examined at bedside and overnight events noted. Patient denies any shortness of breath or chest pain or palpitation. No history of nausea or vomiting or diarrhea or fever or chills or cramps. OBJECTIVE: GENERAL: This is a well-built female, in no apparent distress. VITAL SIGNS: Temperature 97.1. Heart rate 77. Respiratory rate 18. Blood pressure 119/70. HEENT: Atraumatic, normocephalic. Oral mucosa is moist NECK: Supple. CARDIOVASCULAR: S1, S2 heard. Rate and rhythm regular. RESPIRATORY: Clear to auscultation. GASTROINTESTINAL: Abdomen is soft. MUSCULOSKELETAL: No tenderness. No edema. DERMATOLOGIC: No skin rash. NEUROLOGIC: Alert and awake and oriented X3. No focal neurologic deficits. Moving all the extremities. PSYCHIATRIC: Mood and affect normal. LABORATORY DATA: Potassium 4.5, BUN is 52, and creatinine is 8.5. ASSESSMENT AND PLAN: 1. End-stage renal disease. Continue on dialysis as tolerated. 2. Hypertension. 3. Hyperkalemia. 4. Hyponatremia. 5. Fluid overload. 6. Anemia of chronic disease. Plan to have dialysis as tolerated. Job ID: [id number]
[2020-10-11 14:56] LABS: Vancomycin, Random 5.9 ug/mL (See Comment)
[2020-10-11] MEDS: Cefepime 0.5 GM, Admixture Fee 1 EACH in Sodium Chloride 0.9% 100 ML IVPB SCH (17:05)
--- NOTE | 2020-10-11 17:35 | PDOC.EVN ---
Event Note - Event Note Event Note: I was called by Ms Sin's primary team asking for some assistance to obtain an out pt follow up for an adnexal mass that was discovered at a previous admission by u/s. CA-125 was noted to be normal at that time. The patient is currently admitted for pneumonia and a Lupus flare. I provides the names of all the providers in the area and have encouraged the patient to call herself from the list to try to get an appt sooner than later. [facility] has a referral form I have filled out and will fax over to them to help facilitate this with them. No formal consult made.
--- NOTE | 2020-10-11 18:10 | PDOC.HOSPP ---
- Subjective Encounter Date: 10/11/20 Encounter Time: 17:00 Subjective: F/u : SOB The patient states she feels better> She states her oxygen saturation dropped to 70% before dialysis . SHe received dialysis. She was then taken off oxygen and her oxygen saturation was 100% There was concern for a clot noted near her central line. US ordered Patient also had concerns for an ovarian mass. She reported [facility] a referral to [facility]BGYN, but she never got a phone call. She states she has intermittent vaginal spotting of old blood. she reports left lower quadrant pain Aneurysm - patient was worried about heart aneurysm. Vascular surgery consulted and discussed that they think this is most likely a calcification Headache - patient states this has resolved - Objective Vital Signs & Weight: Vital Signs (12 hours) Temp Pulse Resp BP BP Pulse Ox 10/11/20 16:00 97.5 F L 80 16 128/71 99 10/11/20 14:19 99/64 10/11/20 11:13 97.1 F L 10/11/20 07:24 78 99/64 10/11/20 07:23 78 99/64 10/11/20 07:20 97.1 F L 10/11/20 07:09 98 Weight Admit Weight 114 lb Weight 114 lb 3.2 oz Most Recent Monitor Data Heart Rate from ECG 82 NIBP 120/73 NIBP BP-Mean 88 Respiration from ECG 16 SpO2 100 I&O: 10/10/20 10/11/20 10/12/20 06:59 06:59 06:59 Intake Total 400 Output Total 0 Balance 400 Result Diagrams: 10/11/20 09:47 10/11/20 09:47 Additional Labs: Accuchecks 10/11/20 10/11/20 10/11/20 17:08 10:54 05:35 POC Glucose 94 105 H 84 10/11/20 10/10/20 00:08 20:46 POC Glucose 97 73 Hospitalist ROS - Review of Systems Constitutional: denies: fever, chills - Medication Medications: Active Medications Generic Name Dose Route Start Last Admin Trade Name Freq PRN Reason Stop Dose Admin Hydrocodone Bitart/Acetaminophen 1 tab 10/09/20 05:58 10/11/20 07:41 Hydrocodone/Acetaminophen 5/325 Mg Tablet PO 1 tab Q4H PRN Administration pain Alprazolam 2 mg 10/09/20 21:00 10/10/20 19:57 Alprazolam 0.5 Mg Tab PO 2 mg HS MITCHELL Administration Clonidine 0.2 mg 10/09/20 09:00 10/11/20 14:19 Clonidine 0.2 Mg Tab PO Not Given TID MITCHELL Heparin Sodium (Porcine) 5,000 units 10/09/20 09:00 10/11/20 14:19 Heparin 5,000 Units/Ml Vial SC Not Given TID [facility] Hydralazine HCl 50 mg 10/09/20 15:00 10/11/20 14:19 Hydralazine 25 Mg Tab PO Not Given TID MITCHELL Cefepime HCl 0.5 gm/ 100 mls @ 200 mls/hr 10/09/20 16:00 10/11/20 17:05 Miscellaneous Medication 1 IVPB 100 mls each/ Sodium Chloride 1600 MITCHELL Administration Metoprolol Succinate 200 mg 10/09/20 09:00 10/11/20 07:24 Metoprolol Succinate Xl 100 Mg Tab PO Not Given BID MITCHELL Nifedipine 60 mg 10/09/20 09:00 10/11/20 07:24 Nifedipine Xl 60 Mg Tab PO Not Given QAM MITCHELL Sodium Chloride 10 ml 10/08/20 21:00 10/11/20 07:42 Flush - Normal Saline 10 Ml Syringe IVF 10 ml Q12HR MITCHELL Administration - Exam General Appearance: NAD, awake alert Eye: PERRL, anicteric sclera Eye - other findings: periorbital edema ENT: normocephalic atraumatic, no oropharyngeal lesions Neck: no JVD Heart: RRR, no murmur, no gallops, no rubs Respiratory: CTAB, no wheezes, no rales, no ronchi Gastrointestinal: soft, non-tender, non-distended, normal bowel sounds, no splenomegaly Extremities: no cyanosis, no clubbing, no edema Hosp A/P - Plan Chest X ray: new patchy infiltrates bilaterally CTA: ground glass opacities bilaterally. 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 Small pericardial effusion and tiny right pleural effusion This is a 40 year old female with a past medical history of lupus who presented with severe weakness, body aches, admitted for pneumonia Acute hypoxic respiratory failure - possibly secondary to pneumonia versus interstitial lung disease vs mild pulmonary edema - CTA showed no PE, bilateral ground glass opacities. COVID negative, will discontinue precautions - was started on vancomycin and cefepime. Will switch to oral cefdinir - she received dialysis 10/10 for pulmonary edema. - oxygen has been weaned to room air Clot near central line IJ - ultrasound ordered. Periorbital edema - TSH normal. COuld be from ESRD. Repeat lupus panel pending - continue steroids Headache -resolved Hypoglycemia- resolved - changed fingersticks to achs 6 cm aneurysm in coronary artery - vascular surgery thinks this is most likely calcification. No further workup needed Hypertensive - controlled - BP was greater than 200 systolic on admission - hydralazine increased to 50 mg tid, continue nifedpine, metoprolol 200 mg po bid. History of lupus - will recheck LINA panel in morning, ESR, CRP to evaluate for flare #Diastolic heart failure #Moderate MR - noted on last ECHO ESRD on dialysis - continue dialysis M, W, F Plan: d/c when off oxygen
--- NOTE | 2020-10-11 18:28 | ULT ---
Soft tissue sonogram left neck HISTORY: Swelling around Central line insertion site. FINDINGS: Left IJ catheter is visualized. No abnormal fluid collections or masses are apparent around the insertion site.
[2020-10-11] MEDS: ALPRAZolam 0.5 MG TAB PO SCH (20:18)
[2020-10-12] MEDS: HYDROcodone/Acetaminophen 5/325 mg Tablet PO PRN (03:57)
[2020-10-12] MEDS: hydrALAZINE 25 MG TAB PO SCH ×2 (08:53→15:21)
[2020-10-12] MEDS: Heparin 5,000 UNITS/ML VIAL SC SCH ×2 (08:55→15:21)
[2020-10-12] MEDS: NIFEdipine XL 60 MG TAB PO SCH (08:55)
[2020-10-12] MEDS: cloNIDine 0.2 MG TAB PO SCH ×2 (10:34→15:21)
--- NOTE | 2020-10-12 11:26 | PRG ---
DATE OF SERVICE: 10/12/2020 SUBJECTIVE: Patient was seen and examined at bedside and overnight events noted. Patient denies any shortness of breath or chest pain or palpitation. No history of nausea or vomiting or diarrhea or fever or chills or cramps. OBJECTIVE: General: This is well-built female, in no acute distress. Vital Signs: Temperature 97.6. Heart Rate 81. Respiratory rate 18. Blood pressure 162/80. HEENT: Atraumatic, normocephalic. Oral mucosa is moist. Neck: Supple. Cardiovascular: S1, S2 heard. Rate and rhythm regular. Respiratory: Clear to auscultation. Gastrointestinal: Abdomen is soft. Musculoskeletal: No tenderness. No edema. Dermatologic: No skin rash. Neurologic: Alert and awake and oriented x3. No focal neurologic deficits. Moving all the extremities. Psychiatric: Mood and affect normal. LABORATORY DATA: No labs done today. ASSESSMENT AND PLAN: 1. End-stage renal disease. Continue on dialysis as tolerated. 2. Hypertension. 3. Hyperkalemia. 4. Hyponatremia, limit fluid. 5. Fluid overload. 6. Anemia of chronic disease. Plan to continue dialysis as tolerated; Friday, Friday, and Friday. Job ID: [id number]
[2020-10-12] MEDS ORDERED: predniSONE 20 MG TAB PO SCH (13:15)
[2020-10-12 13:29] LABS: Hemoglobin 7.7 g/dL (12.0-16.0); Mean Corpuscular Hemoglobin 30.6 pg (27.0-31.0); Mean Corpuscular Volume 98.7 fL (78.0-98.0); Mean Platelet Volume 10.2 fL (7.4-10.4); Platelet Count 131 thou/uL (130-400); RBC Distribution Width 15.8 % (11.5-14.5); Red Blood Cell (RBC) Count 2.52 mill/uL (4.20-5.40)
[2020-10-12] MEDS ORDERED: Sodium Bicarbonate 2.5 MEQ/5 ML VIAL ONE (13:55)
[2020-10-12] MEDS ORDERED: Lidocaine 1% PF 5 ML VIAL ONE (13:55)
--- NOTE | 2020-10-12 15:08 | ULT ---
US Paracentesis with Imaging History: Ascites Comparison: Paracentesis 2019 Findings: Patient was brought to the ultrasound suite. All questions were answered. Informed consent obtained. Timeout performed. The patient's left lower quadrant was prepped and draped in normal sterile fashion. Displaced was accessed with a 5 [place] catheter. A 1.6 L of fluid was removed. Patient tolerated the procedure well without complication. Impression: Technically successful ultrasound guided paracentesis.
[2020-10-12] MEDS: Cefepime 0.5 GM, Admixture Fee 1 EACH in Sodium Chloride 0.9% 100 ML IVPB SCH (16:41)
--- NOTE | 2020-10-12 17:40 | PDOC.DS.DS ---
Provider - Provider Date of Admission: 10/08/20 16:41 Date of Discharge: 10/12/20 Admitting Provider: Yoni Goldstein MD Consultations: Nephrology (Dr. Flores) Primary Care Physician: Unknown Course - Hospital Course Hospital Course: Brief HPI: This is a 40 year old female with ESRD, SLE, who presented to the ER with fever, systolic blood pressure > 200, and generalized weakness. THe patient stated that all her bones were hurting and she felt she was having a lupus flare. THe patient states she hasn't seen her low heel builder recently due to the pandemic and was not on chronic medications since she was in remission. Upon presentation to the ER, her BP was 222, temp 102.5, HR 108 ,lactate was 6.5. CTA showed no PE but bilateral infiltrates. THe patient was given vancomycin and cefepime and admitted for further workup. Hospital Course: Severe sepsis and acute hypoxic respiratory failure secondary to pneumonia: the patient was treated with IV vancomycin and cefepime. SHe received cefepime for four days and cefdinir on 10/12 to complete a five day course of antibiotics. She did have a paracentesis at the time of discharge which showed no signs of SBP. COVID testing was negative. Blood cultures showed 1/2 bacillus, but repeat blood cultures were negative. WBC resolved at the time of discharge. She should get a repeat chest Xray in 6 weeks. She was requiring oxygen while in the hospital but was weaned off. Lupus: the patient has history of lupus. ESR was elevated at 30. Repeat lupus panel was pending. THe patient was discharged with prednisone 40 mg daily five days and was advised to see her low heel builder as soon as possible. ESRD: the patient was seen by nephrology and underwent her scheduled dialysis M, W, F. Hypertensive urgency: the patient originally presented with a blood pressure of 222. She received dialysis on the night of admission, and thereafter at her regular schedule. Her hydralazine was increased to 50 mg three times daily on discharge with adequate control. All other home medicines were resumed at their home doses. Ascites: the patient had mild to moderate ascites on imaging. She was scheduled for a paracentesis today as an outpatient. It was done today with 1.6L of fluid removed. Left ovarian mass: the patient expressed concern over not being called by gynecology. CA-125 during last admission was normal. OBGYN hospitalist sent a referral for her. I encouraged the patient to call other OBGYN doctors to make a sooner appointment. 6 cm aneurysm of coronary artery: This was noted on CTA chest. Vascular surgery was consulted and felt this was more calcification from a pericardial window done two years ago, and no further workup needed to be pursued Pertinent Studies: Chest X ray 10/08: new patchy infiltrates bilaterally CTA chest: ground glass opacities bilaterally. 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 Small pericardial effusion and tiny right pleural effusion Soft tissue ultrasound 10/11: no fluid collection or masses Procedures: Paracentesis with 1.6 L of fluid removed on 10/12 Resuscitation Status: 10/08/20 21:46 Resuscitation Status Routine Resuscitation Status: FULL: Full Resuscitation - Labs Lab Results: 10/12/20 13:17 10/11/20 09:47 Abnormal Lab Results - Last 48 hrs 10/11/20 09:47: Sodium 133 L, Chloride 91 L, Anion Gap 24 H, BUN 52 H, Creatinine 8.49 H, Calcium 7.6 L 10/11/20 09:47: WBC 12.2 H, RBC 2.74 L, Hgb 8.7 L, Hct 27.6 L, MCV 101.0 H, MCH 31.7 H, MCHC 31.4 L, RDW 15.6 H 10/12/20 13:17: RBC 2.52 L, Hgb 7.7 L, Hct 24.9 L, MCV 98.7 H, MCHC 31.0 L, RDW 15.8 H Microbiology - Entire Visit 10/09/20 11:37 Central Line - Left Internal Jugular Vein Blood Culture - Preliminary NO GROWTH AT 48 HOURS 10/09/20 11:41 Venous blood - Right Hand Blood Culture - Preliminary NO GROWTH AT 48 HOURS 10/08/20 13:37 Venous blood - Right Hand Blood Culture - Final Bacillus species,NOT anthracis 10/08/20 13:25 Venous blood - Left Arm Blood Culture - Preliminary NO GROWTH AT 48 HOURS 10/08/20 14:20 Nasal swab Influenza Types A,B Direct EIA - Final - Physical Exam Vitals: Vital Signs (12 hours) Temp Pulse Resp BP BP Pulse Ox 10/12/20 16:00 98.2 F 83 14 171/90 H 99 10/12/20 15:21 86 162/79 H 10/12/20 12:00 97.9 F 86 16 144/73 H 100 10/12/20 10:34 167/83 H 10/12/20 08:55 81 162/80 H 10/12/20 08:53 81 162/80 H 10/12/20 08:00 97.6 F 81 18 162/80 H 100 Weight Admit Weight 114 lb Weight 114 lb 3.2 oz Most Recent Monitor Data Heart Rate from ECG 91 NIBP 110/74 NIBP BP-Mean 86 Respiration from ECG 19 SpO2 98 Physical Exam: The patient was seen and examined on the day of discharge. General Appearance: NAD, awake alert Eye: PERRL, anicteric sclera Eye - other findings: periorbital edema ENT: normocephalic atraumatic, no oropharyngeal lesions Neck: no JVD Heart: RRR, no murmur, no gallops, no rubs Respiratory: CTAB, no wheezes, no rales, no ronchi Gastrointestinal: soft, non-tender, non-distended, normal bowel sounds, no splenomegaly Extremities: no cyanosis, no clubbing, no edema Problem - Discharge Plan Plan of Treatment: Follow up with primary care doctor in a week Get a repeat chest Xray in 6 weeks Follow up with low heel builder as soon as possible Follow up with OBGYn regarding left ovarian mass - Time spent with Patient (mins): 35 Plan - Discharge Medications Prescriptions: hydrALAZINE HCl 50 mg PO TID #45 tablet Prednisone [predniSONE 10 mg Dosepak] 40 mg PO DAILY #20 tab.ds.pk Home Medications: Medication Instructions Recorded Confirmed Type NIFEdipine [Nifedipine ER] 60 mg PO QAM 07/28/20 10/09/20 History cloNIDine [Catapres] 0.2 mg PO TID 07/28/20 10/09/20 History ALPRAZolam [Xanax] 2 mg PO HS 08/14/20 10/09/20 History HYDROcodone Bit/APAP 5/325 [[place]] 1 tab PO Q4HR PRN 08/14/20 10/09/20 History Metoprolol Succinate [Toprol Xl] 200 mg PO BID 08/14/20 10/09/20 History Megestrol Acetate 400 mg PO DAILY 10/09/20 10/09/20 History Prednisone [predniSONE 10 mg 40 mg PO DAILY #20 tab.ds.pk 10/12/20 Rx Dosepak] hydrALAZINE HCl 50 mg PO TID #45 tablet 10/12/20 Rx Allergies: No Known Drug Allergies Allergy (Verified 07/28/20 12:54) PER PT - Discharge Instructions Activity:: Activity as Tolerated Nourishment:: Other (dialysis diet ) - Follow up Plan Referrals: Unknown,Unknown [Primary Care Provider] - Disposition: HOME Quality - Care Measures CORE MEASURES:: N/A
[2020-10-12 17:57] LABS: RBC Count-Automated (BF) 836 /cu.mm; WBC/Nucleated-Auto (BF) 134 uL
[2020-10-12 18:15] LABS: BF Color Yellow; Body Fluid Source Ascites Body Fluid; Clarity Hazy (Clear); Tube # EDTA
[2020-10-12 18:17] LABS: BF Segmented Neutrophils 24 %; Cell Count Non Hematic 45 %; Lymphocytes 31 %
[2020-10-12 18:50] VITALS: BP 144/64; TEMP 98
== END 2020-10-12 18:49 | disposition home or self-care (01) | DRG 871 ==
LOC: ERS 10:29 → IMCU/EMU 16:41 → SURG A 10-11 22:57
PROVIDERS: ADMIT Student in an Organized Health Care Education/Training Program; ATTEND Student in an Organized Health Care Education/Training Program
PROC: 5A1D90Z Performance of Urinary Filtration, Continuous, Greater than 18 hours Per Day (ICD-10-PCS; principal; 2020-10-09)
PROC: 0W9G3ZZ Drainage of Peritoneal Cavity, Percutaneous Approach (ICD-10-PCS; 2020-10-12)
DX: A41.9 Sepsis, unspecified organism (principal); N18.6 End stage renal disease; J96.01 Acute respiratory failure with hypoxia; J18.9 Pneumonia, unspecified organism; R18.8 Other ascites; I13.2 Hypertensive heart and chronic kidney disease with heart failure and with stage 5 chronic kidney disease, or end stage renal disease; N25.81 Secondary hyperparathyroidism of renal origin; E87.1 Hypo-osmolality and hyponatremia; I50.32 Chronic diastolic (congestive) heart failure; I25.3 Aneurysm of heart; Z20.828 Contact with and (suspected) exposure to other viral communicable diseases; R65.20 Severe sepsis without septic shock; I25.5 Ischemic cardiomyopathy; G43.909 Migraine, unspecified, not intractable, without status migrainosus; M32.9 Systemic lupus erythematosus, unspecified; I16.0 Hypertensive urgency; I25.10 Atherosclerotic heart disease of native coronary artery without angina pectoris; E11.22 Type 2 diabetes mellitus with diabetic chronic kidney disease; E87.5 Hyperkalemia; E11.649 Type 2 diabetes mellitus with hypoglycemia without coma; N83.292 Other ovarian cyst, left side; D63.1 Anemia in chronic kidney disease; Z79.899 Other long term (current) drug therapy; Z99.2 Dependence on renal dialysis
CPT/HCPCS: 36415; 36416; 36556; 49083; 71045; 71275; 76536; 80048; 80053; 80202; 82010; 82042; 82330; 82550; 82553; 82803; 83516; 83605; 83690; 83880; 84100; 84157; 84439; 84443; 84484; 84703; 85025; 85027; 85049; 85060; 85300; 85362; 85379; 85384; 85610; 85613; 85652; 85730; 86038; 86140; 86160; 86225; 86376; 87040; 87070; 87205; 87804; 89051; 90935; 93005; 96365; 96366; 96367; 96374; 96375; 96376; 99292; G0257; J0692; J0780; J1100; J1200; J1644; J2060; J2354; J2405; J3370; J3490; J7512; Q9967; U0002

== ENCOUNTER 2020-11-16 12:02 | Day surgery (SDC) | payer MEDICARE, MEDICAID ==
[2020-11-16] MEDS ORDERED: Sodium Bicarbonate 2.5 MEQ/5 ML VIAL ONE (12:26)
[2020-11-16] MEDS ORDERED: Lidocaine 1% PF 5 ML VIAL ONE (12:26)
[2020-11-16 12:30] LABS: #Eosinphils 0.1 thou/uL (0.0-0.7); #Lymphocytes 1.2 thou/uL (1.20-3.40); #Monocytes 0.3 thou/uL (0.11-0.59); #Neutrophils 1.5 thou/uL (1.40-6.50); %Basophils 0.6 % (0.0-1.0); %Eosinophils 2.3 % (0.0-10.0); %Lymphocytes 39.4 % (21.0-51.0); %Monocytes 9.1 % (0.0-10.0); %Neutrophils 48.6 % (42.0-75.0); Hemoglobin 9.3 g/dL (12.0-16.0); Mean Corpuscular HGB CONC 31.7 g/dL (32.0-36.0); Mean Corpuscular Hemoglobin 30.7 pg (27.0-31.0); Mean Corpuscular Volume 96.8 fL (78.0-98.0); Mean Platelet Volume 9.3 fL (7.4-10.4); Platelet Count 187 thou/uL (130-400); RBC Distribution Width 16.7 % (11.5-14.5); Red Blood Cell (RBC) Count 3.04 mill/uL (4.20-5.40); White Blood Cell (WBC) Count 3.1 thou/uL (4.8-10.8)
[2020-11-16 12:52] LABS: INR-International Normal Ratio 1.1
--- NOTE | 2020-11-16 13:25 | ULT ---
Ultrasound-guided paracentesis: HISTORY: Symptomatic ascites FINDINGS: Informed consent obtained prior to the procedure. Preprocedural imaging demonstrated intrap eritoneal free fluid. An area was marked in the left lower quadrant, and then meticulously prepped and draped in normal elysia rile fashion and anesthetized with 1% buffered lidocaine. With direct sonographic guidance, a 19-gauge needle and 5 [place] Yueh catheter were advanced into the abdomen. After the return of fluid, the catheter was advanced, and the needle was removed. Approximately 1.9 L of clear brownish fluid was aspirated. The introducer sheath was removed, and hem ostasis was achieved with direct pressure. A dry sterile dressing was placed. The patient tolerated the procedure well and without immediate complication. IMPRESSION: Technically successful ultrasound-guided paracentesis.
[2020-11-16 14:12] VITALS: BP 117/48; TEMP 98.1
== END 2020-11-16 13:45 | disposition home or self-care (01) ==
LOC: ULT 12:02
PROVIDERS: ATTEND Physician Assistant Medical
PROC: 0W9G3ZZ Drainage of Peritoneal Cavity, Percutaneous Approach (ICD-10-PCS; principal; 2020-11-16)
DX: I13.2 Hypertensive heart and chronic kidney disease with heart failure and with stage 5 chronic kidney disease, or end stage renal disease (principal); E11.22 Type 2 diabetes mellitus with diabetic chronic kidney disease; N18.6 End stage renal disease; I50.30 Unspecified diastolic (congestive) heart failure; I27.20 Pulmonary hypertension, unspecified; R18.8 Other ascites; G43.909 Migraine, unspecified, not intractable, without status migrainosus; I25.10 Atherosclerotic heart disease of native coronary artery without angina pectoris; M32.9 Systemic lupus erythematosus, unspecified; Z79.899 Other long term (current) drug therapy; Z99.2 Dependence on renal dialysis
CPT/HCPCS: 49083; 85025; 85610; 85730

== ENCOUNTER → 2020-11-29 | Day surgery (SDC) | payer MEDICARE, MEDICAID ==
[2020-11-28 15:02] VITALS: BMI 22.6
[~2020-11-29] MED LIST changes: +FLU VACC QS2020-21(6MOS UP)/PF 60 MCG/0.5 ML SYRINGE IM ONE; -Iopamidol-370 76% 500 ML 1 ML ONE
--- NOTE | 2020-11-29 11:17 | ULT ---
Sonogram abdomen limited HISTORY: Ascites. FINDINGS: Exam was originally scheduled as a paracentesis. Sonographic survey showed minimal free flu id within the abdomen. Extensive bowel throughout the fluid. IMPRESSION : Very small amount of free intra-abdominal fluid, not of sufficient quantity for safe therapeutic para centesis. Paracentesis not performed.
== END ==
LOC: ULT 10:49
PROVIDERS: ATTEND Physician Assistant Medical
DX: R18.8 Other ascites (principal); I13.2 Hypertensive heart and chronic kidney disease with heart failure and with stage 5 chronic kidney disease, or end stage renal disease; E11.22 Type 2 diabetes mellitus with diabetic chronic kidney disease; N18.6 End stage renal disease; I25.10 Atherosclerotic heart disease of native coronary artery without angina pectoris; D64.9 Anemia, unspecified; M32.9 Systemic lupus erythematosus, unspecified; G43.909 Migraine, unspecified, not intractable, without status migrainosus; Z79.899 Other long term (current) drug therapy; Z99.2 Dependence on renal dialysis
CPT/HCPCS: 76705

== ENCOUNTER 2020-12-07 12:06 | Day surgery (SDC) | payer MEDICARE, MEDICAID ==
[2020-12-06 12:13] VITALS: BMI 22.6
--- NOTE | 2020-12-07 13:44 | ULT ---
Sonographic guided paracentesis HISTORY: Symptomatic ascites. FINDINGS: After explaining the procedure and answering all questions, sonographic survey showed small -to-moderate amount of free fluid throughout the abdomen. Extensive discussion with the patient was undergone, regarding risk versus benefit for paracentesis. The patient may be clear that she desired drainage. Sterile technique, buffered local anesthesia, sonographic guidance, and a left lateral approach were used to carefully advance a 19-gauge Yueh needle and catheter into the free fluid. Catheter was left to drain a total volume of 1.4 L slightly cloudy yellow liquid. Catheter was remove d with minimal fluid remaining. Patient tolerated the procedure well and was dismissed in good condition. IMPRESSION : Technically successful sonographic guided paracentesis 1.4 L.
[2020-12-07 14:02] VITALS: BP 172/57; TEMP 97.8
== END 2020-12-07 13:05 | disposition home or self-care (01) ==
LOC: ULT 12:06
PROVIDERS: ATTEND Physician Assistant Medical
PROC: 0W9G3ZZ Drainage of Peritoneal Cavity, Percutaneous Approach (ICD-10-PCS; principal; 2020-12-07)
DX: I13.2 Hypertensive heart and chronic kidney disease with heart failure and with stage 5 chronic kidney disease, or end stage renal disease (principal); E11.22 Type 2 diabetes mellitus with diabetic chronic kidney disease; N18.6 End stage renal disease; I50.9 Heart failure, unspecified; R18.8 Other ascites; D63.1 Anemia in chronic kidney disease; I25.10 Atherosclerotic heart disease of native coronary artery without angina pectoris; M32.9 Systemic lupus erythematosus, unspecified; Z79.899 Other long term (current) drug therapy; Z99.2 Dependence on renal dialysis
CPT/HCPCS: 49083

== ENCOUNTER 2020-12-21 08:07 | Day surgery (SDC) | payer MEDICARE, MEDICAID ==
[2020-12-20 10:21] VITALS: BMI 22.6
[2020-12-21 08:20] LABS: #Eosinphils 0.1 thou/uL (0.0-0.7); #Lymphocytes 1.1 thou/uL (1.20-3.40); #Monocytes 0.3 thou/uL (0.11-0.59); %Basophils 0.4 % (0.0-1.0); %Eosinophils 3.3 % (0.0-10.0); %Lymphocytes 24.5 % (21.0-51.0); %Neutrophils 65.8 % (42.0-75.0); Hemoglobin 8.9 g/dL (12.0-16.0); Mean Corpuscular HGB CONC 31.6 g/dL (32.0-36.0); Mean Corpuscular Hemoglobin 30.5 pg (27.0-31.0); Mean Corpuscular Volume 96.7 fL (78.0-98.0); Mean Platelet Volume 9.4 fL (7.4-10.4); Platelet Count 134 thou/uL (130-400); RBC Distribution Width 17.1 % (11.5-14.5); Red Blood Cell (RBC) Count 2.93 mill/uL (4.20-5.40); White Blood Cell (WBC) Count 4.6 thou/uL (4.8-10.8)
[2020-12-21 08:29] LABS: INR-International Normal Ratio 1.1; PTT 37.1 sec (22.9-36.1); Prothrombin Time 14.7 sec (12.0-14.7)
[2020-12-21] MEDS ORDERED: Sodium Bicarbonate 2.5 MEQ/5 ML VIAL ONE (08:52)
[2020-12-21] MEDS ORDERED: Lidocaine 1% PF 5 ML VIAL ONE (08:52)
[2020-12-21 09:54] VITALS: BP 212/86; TEMP 98.6
[2020-12-21] MEDS ORDERED: FLU VACC QS2020-21(6MOS UP)/PF 60 MCG/0.5 ML SYRINGE IM ONE (10:30)
[2020-12-21] MEDS ORDERED: Prevnar 13-Val Conj/PF 0.5 ML SYRINGE IM ONE (10:30)
--- NOTE | 2020-12-21 10:36 | ULT ---
Sonographic guided paracentesis HISTORY: Symptomatic ascites. FINDINGS: After explaining the procedure and answering all questions, sonographic survey showed a mod erate amount of free fluid throughout the abdomen. Sterile technique, buffered local anesthesia, sonographic guidance, and a left lateral approach were used to carefully advance a 19-gauge Yueh needle and catheter into the free fluid. Catheter was left to drain a total volume of 1.6 L slightly cloudy dark yellow liquid. Catheter was r emoved with minimal fluid remaining. Patient tolerated the procedure well and was dismissed in good condition. IMPRESSION : Technically successful sonographic guided paracentesis 1.6 L.
== END 2020-12-21 09:40 | disposition home or self-care (01) ==
LOC: ULT 08:07
PROVIDERS: ATTEND Physician Assistant Medical
PROC: 0W9G3ZZ Drainage of Peritoneal Cavity, Percutaneous Approach (ICD-10-PCS; principal; 2020-12-21)
DX: R18.8 Other ascites (principal); I13.2 Hypertensive heart and chronic kidney disease with heart failure and with stage 5 chronic kidney disease, or end stage renal disease; E11.22 Type 2 diabetes mellitus with diabetic chronic kidney disease; N18.6 End stage renal disease; I50.9 Heart failure, unspecified; D63.1 Anemia in chronic kidney disease; G43.909 Migraine, unspecified, not intractable, without status migrainosus; I25.10 Atherosclerotic heart disease of native coronary artery without angina pectoris; M32.9 Systemic lupus erythematosus, unspecified; Z79.899 Other long term (current) drug therapy; Z99.2 Dependence on renal dialysis
CPT/HCPCS: 36415; 49083; 85025; 85610; 85730; 90471; 90662; G0008